=== PATIENT | female | born 1945 | race Asian ===

== ENCOUNTER 2017-01-25 00:34 | Emergency (ER) | payer BC, OTHER ==
--- NOTE | 2017-01-25 01:43 | PDOC ---
History of Present Illness - General History Source: Patient Exam Limitations: No Limitations - History of Present Illness Initial Comments: 01/25/17 02:01 The patient is a 71 year old female with a significant past medical history of gout, NIDDM, and hypertension, who presents to the ER with left shoulder pain. Patient states she was squeezing a bitter melon and suddenly developed sharp pain up the left shoulder. Patient reports she had a left rotator cuff surgery a few years ago. She says she has been taking ibuprofen and putting lidocaine patches and icy hot ointment without relief of symptoms. Patient says she is not able to sleep secondary to the left shoulder pain. Denies fever, chills, cough Denies nausea, vomiting, diarrhea Denies chest pain, heart palpitations, shortness of breath Denies diaphoresis <Felicita Pena - Last Filed: 01/25/17 02:01> <Amira Braxton - Last Filed: 01/26/17 21:59> - General Chief Complaint: Chronic pain Stated Complaint: PAIN Time Seen by Provider: 01/25/17 00:59 Past History <Felicita Pena - Last Filed: 01/25/17 02:01> - Past Medical History Asthma: Yes (mild) Cardiac Disorders: Yes (cardiac cath 1998) Diabetes: Yes HTN: Yes Hypercholesterolemia: Yes - Surgical History Cardiac Surgery: Yes Orthopedic Surgery: (left rotator cuff sx 2009) - Immunization History Immunization Up to Date: Yes - Psycho/Social/Smoking Cessation Hx Suicidal Ideation: No Smoking History: Never smoked Have you smoked in the past 12 months: No Information on smoking cessation initiated: No Hx Alcohol Use: No Drug/Substance Use Hx: No Substance Use Type: None <Amira Braxton - Last Filed: 01/26/17 21:59> - Past Medical History Allergies/Adverse Reactions: Allergies Allergy/AdvReac Type Severity Reaction Status Date / Time No Known Allergies Allergy Verified 01/25/17 01:30 Home Medications: Ambulatory Orders Atenolol [Tenormin -] 50 mg PO BID 06/17/16 Sitagliptin Phos/Metformin HCl [Janumet 50-500 mg Tablet] 1 each PO DAILY Valsartan 160 mg PO BID 06/17/16 Atorvastatin Ca [Lipitor] 40 mg PO HS #30 tablet 10/05/16 Hydrochlorothiazide [Hctz -] 25 mg PO DAILY #30 tablet 06/19/16 Indomethacin 100 mg PO BID 01/25/17 Methocarbamol [Robaxin -] 500 mg PO BID #60 tablet 01/25/17 Oxycodone HCl/Acetaminophen [Percocet 5-325 mg Tablet] 1 tab PO Q6H #20 tablet MDD 4 01/25/17 Prednisone [Deltasone -] 20 mg PO DAILY 01/25/17 Zolpidem Tartrate [Ambien] 5 mg PO HS 01/25/17 Review of Systems - Review of Systems Comments:: 01/25/17 02:02 CONSTITUTIONAL: Absent: fever, no chills, no fatigue EYES: Absent: visual changes ENT: Absent: ear pain, no sore throat CARDIOVASCULAR: Absent: chest pain, no palpitations RESPIRATORY: Absent: cough, no SOB GI: Absent: abdominal pain, no nausea, no vomiting, no constipation, no diarrhea GENITOURINARY: Absent: dysuria, no frequency, no hematuria MUSCULOSKELETAL: Present: Left shoulder pain Absent: back pain, no arthralgia, no myalgia SKIN: Absent: rash NEURO: Absent: headache <Uts,Felicita - Last Filed: 01/25/17 02:01> *Physical Exam - Vital Signs Last Vital Signs Temp Pulse Resp BP Pulse Ox 97.5 F L 78 20 197/126 98 01/25/17 01:13 01/25/17 01:13 01/25/17 01:13 01/25/17 01:13 01/25/17 01:13 - Physical Exam Comments: 01/25/17 02:02 GENERAL: Well-appearing, well-nourished. No apparent distress. HEENT: Normocephalic, atraumatic. PERRL, EOM intact. CARDIOVASCULAR: Normal S1, S2. Regular rate and rhythm. PULMONARY: Clear to auscultation bilaterally. ABDOMEN: Soft, non-distended, non-tender. EXTREMITIES: Tenderness to palpation on the lateral shoulder and superior aspect of trapezius. Normal ROM in all four extremities. No gross deformities. SKIN: Warm, dry. No rash NEUROLOGICAL: No focal neurological deficits. <Uts,Felicita - Last Filed: 01/25/17 02:01> - Vital Signs Last Vital Signs Temp Pulse Resp BP Pulse Ox 97.5 F L 78 20 197/126 98 01/25/17 01:13 01/25/17 01:13 01/25/17 01:13 01/25/17 01:13 01/25/17 01:13 <Amira Braxton - Last Filed: 01/26/17 21:59> Medical Decision Making - Medical Decision Making 01/26/17 21:58 Pt comes with chronic left shoulder and trapezius pain. Her BP is poorly controlled. Pt was treated for BP; she vomited in the ER. XR shoulder normal. She was teated with percocet and msucle relaxants. Home with the same. Follow with PMD. <Amira Braxton - Last Filed: 01/26/17 21:59> *DC/Admit/Observation/Transfer - Attestations Scribe Attestion: 01/25/17 02:03 Documentation prepared by Felicita Pena, acting as medical laboratory technical officer for Amira Bratxon MD. <Felicita Pena - Last Filed: 01/25/17 02:01> - Discharge Dispostion Admit: No <Amira Braxton - Last Filed: 01/26/17 21:59> Diagnosis at time of Disposition: Muscle spasm - Discharge Dispostion Disposition: HOME Condition at time of disposition: Stable - Prescriptions Prescriptions: Oxycodone HCl/Acetaminophen [Percocet 5-325 mg Tablet] 1 tab PO Q6H #20 tablet MDD 4 Methocarbamol [Robaxin -] 500 mg PO BID #60 tablet - Referrals Referrals: Dion Russell MD, MD [Primary Care Provider] - - Patient Instructions Printed Discharge Instructions: DI for Back Spasm
[2017-01-25] MEDS ORDERED: METHOCARBAMOL 500 MG TABLET PO ONE (01:47)
[2017-01-25] MEDS ORDERED: OXYCODONE/APAP 5/325MG COMBO TABLET PO ONE (01:47)
[2017-01-25] MEDS ORDERED: OXYCODONE/APAP 5/325MG COMBO TABLET ONE (01:53)
[2017-01-25] MEDS ORDERED: METHOCARBAMOL 500 MG TABLET ONE (01:54)
[2017-01-25 04:08] VITALS: BMI 26.2
[2017-01-25 06:55] VITALS: BP 160/80; PULSE 67; TEMP 97.4
--- NOTE | 2017-01-27 12:49 | EKG ---
Test Reason : Blood Pressure : / mmHG Vent. Rate : 061 BPM Atrial Rate : 061 BPM P-R Int : 152 ms QRS Dur : 078 ms QT Int : 440 ms P-R-T Axes : -11 -04 076 degrees QTc Int : 442 ms NORMAL SINUS RHYTHM RSR' OR QR PATTERN IN V1 SUGGESTS RIGHT VENTRICULAR CONDUCTION DELAY WHEN COMPARED WITH ECG OF 17-JUN-2016 00:42, NO SIGNIFICANT CHANGE WAS FOUND Confirmed by NATALIYA BARRIENTOS, ABDON ([id number]) on 01/27/2017 12:49:37 PM Referred By: Confirmed By:ABDON AN MD
== END 2017-01-25 06:56 | disposition home or self-care (01) ==
LOC: JER 00:34
DX: M62.838 Other muscle spasm (principal); I25.10 Atherosclerotic heart disease of native coronary artery without angina pectoris; Z98.61 Coronary angioplasty status; I10 Essential (primary) hypertension; E11.9 Type 2 diabetes mellitus without complications; Z79.84 Long term (current) use of oral hypoglycemic drugs; M10.9 Gout, unspecified; J45.909 Unspecified asthma, uncomplicated
CPT/HCPCS: 73030-TC-LT; 93005; 93010; 99282-25

== ENCOUNTER 2017-01-26 16:50 | Inpatient (IN) | payer BC, OTHER ==
[2017-01-26] MEDS ORDERED: morphine CARPU-JECT 4 MG/1 ML DISP.SYRIN IVPUSH ONE (17:41)
[2017-01-26] MEDS ORDERED: KETOROLAC TROMETHAMINE 30 MG/1 ML VIAL IVPUSH ONE (17:41)
[2017-01-26] MEDS ORDERED: KETOROLAC TROMETHAMINE 30 MG/1 ML VIAL ONE (17:54)
[2017-01-26] MEDS ORDERED: morphine CARPU-JECT 4 MG/1 ML DISP.SYRIN ONE (17:54)
[2017-01-26 17:56] LABS: BASOPHIL 0.3 % (0-2.0); EOSINOPHIL 0.9 % (0-4.5); MCH 30.5 pg (25.7-33.7); MCHC 34.1 g/dl (32.0-36.0); MEAN CELL VOLUME 89.6 fl (80-96); MEAN PLT VOLUME 8.5 fl (7.5-11.1); NEUTROPHILS 74.5 % (42.8-82.8); PLATELET COUNT 305 K/MM3 (134-434); RDW 12.5 % (11.6-15.6); WHITE BLOOD COUNT 13.1 K/mm3 (4.0-10.0)
--- NOTE | 2017-01-26 17:56 | PDOC ---
History of Present Illness - History of Present Illness Initial Comments: 01/26/17 18:02 The patient is a 71-year-old female with a significant past medical history of hypertension, diabetes, hyperlipidemia, gout, left shoulder arthroscopy (2010), who presents to the emergency department for revisit with persistent pain to her left upper extremity for 2 weeks s/p squeezing a lemon to make a salad. The patient states she was seen in the ED twice for the same symptoms in the past 2 weeks and had 2 xrays which were negative for any acute fractures or abnormalities. The patient reports her pain is constant and radiates from the back of her neck down her left shoulder, posteriorly. She denies numbness or tingling. She denies acute injury. She denies biceps tenderness. The Patient states she was here 2 days ago and was discharged with Riboxin and Percocet which minimally alleviated her pain. She also reports taking a 10 day course of 20 mg prednisone daily for the inflammation, but reports no alleviation of her symptoms. She states that the pain has been causing her blood pressure to raise despite taking her BP medications. She denies chest pain, shortness of breath, headache and dizziness. She denies fever, chills, nausea, vomit, diarrhea and constipation. She denies dysuria, frequency, urgency and hematuria. Allergies: NKDA Past surgical history: left shoulder distal clavicle resection (2010) PCP - Dr. Russell Orthopedist - Dr. Syed <Kimberly Vega - Last Filed: 01/26/17 18:15> - General History Source: Patient, Family Exam Limitations: No Limitations <Davide Sawant - Last Filed: 01/28/17 09:11> - General Chief Complaint: Blood Pressure Problem Stated Complaint: RE-VIST/MUSCLE SPASM Time Seen by Provider: 01/26/17 17:26 Past History <Kimberly Vega - Last Filed: 01/26/17 18:15> - Past Medical History Asthma: Yes (mild) Cardiac Disorders: Yes (cardiac cath 1998) Diabetes: Yes HTN: Yes Hypercholesterolemia: Yes - Surgical History Cardiac Surgery: Yes Orthopedic Surgery: (left rotator cuff sx 2009) - Immunization History Immunization Up to Date: Yes - Psycho/Social/Smoking Cessation Hx Suicidal Ideation: No Smoking History: Never smoked Have you smoked in the past 12 months: No Hx Alcohol Use: No Drug/Substance Use Hx: No Substance Use Type: None <Davide Sawant - Last Filed: 01/28/17 09:11> - Past Medical History Allergies/Adverse Reactions: Allergies Allergy/AdvReac Type Severity Reaction Status Date / Time No Known Allergies Allergy Verified 01/26/17 17:10 Home Medications: Ambulatory Orders Atenolol [Tenormin -] 50 mg PO BID 06/17/16 Sitagliptin Phos/Metformin HCl [Janumet 50-500 mg Tablet] 1 each PO DAILY Valsartan 160 mg PO BID 06/17/16 Atorvastatin Ca [Lipitor] 40 mg PO HS #30 tablet 06/19/16 Hydrochlorothiazide [Hctz -] 25 mg PO DAILY #30 tablet 06/19/16 Methocarbamol [Robaxin -] 500 mg PO BID #60 tablet 01/25/17 Oxycodone HCl/Acetaminophen [Percocet 5-325 mg Tablet] 1 tab PO Q6H #20 tablet MDD 4 01/25/17 Aspirin [ASA -] 81 mg PO DAILY 01/26/17 Review of Systems - Review of Systems Able to Perform ROS?: Yes Comments:: 01/26/17 18:07 GENERAL/CONSTITUTIONAL: No fever or chills. No weakness. HEAD, EYES, EARS, NOSE AND THROAT: No change in vision. No ear pain or discharge. No sore throat. CARDIOVASCULAR: No chest pain or shortness of breath. RESPIRATORY: No cough, wheezing, or hemoptysis. GASTROINTESTINAL: No nausea, vomiting, diarrhea or constipation. GENITOURINARY: No dysuria, frequency, or change in urination. MUSCULOSKELETAL: (+) left shoulder pain radiating from posterior neck. No muscle swelling or pain. No back pain. SKIN: No rash NEUROLOGIC: No headache, vertigo, loss of consciousness, or change in strength/ sensation. ENDOCRINE: No increased thirst. No abnormal weight change. HEMATOLOGIC/LYMPHATIC: No anemia, easy bleeding, or history of blood clots. ALLERGIC/IMMUNOLOGIC: No hives or skin allergy. <Kimberly Vega - Last Filed: 01/26/17 18:15> *Physical Exam - Vital Signs Last Vital Signs Temp Pulse Resp BP Pulse Ox 97.9 F 63 19 183/86 95 01/26/17 17:10 01/26/17 17:10 01/26/17 17:10 01/26/17 17:10 01/26/17 17:10 - Physical Exam Comments: 01/26/17 18:08 GENERAL: Awake, alert, and fully oriented, in no acute distress HEAD: No signs of trauma EYES: PERRLA, EOMI, sclera anicteric, conjunctiva clear ENT: Auricles normal inspection, hearing grossly normal, nares patent, oropharynx clear without exudates. Moist mucosa NECK: Normal ROM, supple, no lymphadenopathy, JVD, or masses LUNGS: Breath sounds equal, clear to auscultation bilaterally. No wheezes, and no crackles HEART: Regular rate and rhythm, normal S1 and S2, no murmurs, rubs or gallops ABDOMEN: Soft, nontender, normoactive bowel sounds. No guarding, no rebound. No masses EXTREMITIES: (+) LUE - Pain with ROM of the left shoulder joint. muscle spasm appreciated to left trapezius. Full flexion/extension at left elbow. non-tender biceps. DP 2+ and symmetric. No ecchymosis or edema. Sensation intact to light touch. [Remainder of extremities have normal range of motion, no edema. MS 5/5. No clubbing or cyanosis. No cords, erythema, or tenderness] NEUROLOGICAL: Cranial nerves II-XII intact. Normal speech, normal gait. Sensation intact in upper and lower extremities. 5/5 motor strength in upper and lower extremities. No pronator drift. Finger to nose intact. Rapid alternations intact. SKIN: Warm, Dry, normal turgor, no rashes or lesions noted. <Kimberly Vega - Last Filed: 01/26/17 18:15> - Vital Signs Last Vital Signs Temp Pulse Resp BP Pulse Ox 97.9 F 63 19 183/86 95 01/26/17 17:10 01/26/17 17:10 01/26/17 17:10 01/26/17 17:10 01/26/17 17:10 <Davide Sawant - Last Filed: 01/28/17 09:11> Heart Score/ECG Review - History History: Slightly suspicious - Electrocardiogram EKG: Normal - Age Age: >/= 65 - Risk Factors Based on the list above the patient has:: >/=3 risk factors or Hx atherosclerotic disease - Troponin Troponin: </= normal limit - Score Heart Score - Total: 4 #1 ECG reviewed & interpreted by me at: 17:30 01/26/17 18:00 NSR 63, no std/sony, normal axis, normal intervals, QTC 437 msec <Davide Sawant - Last Filed: 01/28/17 09:11> ED Treatment Course - LABORATORY CBC & Chemistry Diagram: 01/26/17 17:50 01/26/17 17:50 <Kimberly Vega - Last Filed: 01/26/17 18:15> - LABORATORY CBC & Chemistry Diagram: 01/28/17 05:15 01/28/17 05:15 - RADIOLOGY Radiology Studies Ordered: Category Date Time Status UPPER EXTREMITY CT W/O CONTR [CT] Stat CT Scan 01/26/17 17:41 Ordered <Davide Sawant - Last Filed: 01/28/17 09:11> Medical Decision Making - Medical Decision Making 01/26/17 17:44 A portion of this note was documented by scribe services under my direction. I have reviewed the details of the note, within reason, and agree with the documentation with the following case summary and management plan written by me. Patient treated in the ED. Nursing notes are reviewed and incorporated into the medical decision-making. Vital signs reviewed. Peripheral IV access obtained by the nurse, laboratory studies are drawn and sent, reviewed and interpreted by myself. Vital Signs Temp Pulse Resp BP Pulse Ox 97.9 F 63 19 183/86 95 01/26/17 17:10 01/26/17 17:10 01/26/17 17:10 01/26/17 17:10 01/26/17 17:10 71-year-old female with past medical history of hypertension, diabetes, hyperlipidemia, gout, left shoulder surgery many years ago presents with left shoulder spasm. Patient reports 2 weeks ago she attempted to squeeze a lemon when she felt sudden left shoulder pain. She reports that the pain is constant worsened with movements. She was seen in the ED and has had 2 x-rays within the last 2 weeks which demonstrated no acute finding. Patient was here 2 days ago and was discharged with Riboxin and Percocet which relieved it minimally. Patient also had taken a 10 day course of 20 mg prednisone daily for the inflammation but did not help. States that the pain has been causing her blood pressure to raise despite taking the medications. States that the pain is symptoms fighter felt nauseous. But denies midsternal chest pain or shortness of breath. The patient on physical exam appears to clearly have left shoulder muscle spasm. However, given 2 negative x-rays, we'll obtain left shoulder CT. We'll give pain medications. Unlikely to be acute coronary syndrome at this time. EKG is reassuring. Patient does have a history with Dr. Syed. Will consult Dr. Syed with the results. 01/26/17 19:35 CBC, BMP 01/26/17 17:50 CMP Sodium 118 mmol/L (136-145) L* D 01/26/17 17:50 Potassium 4.4 mmol/L (3.5-5.1) 01/26/17 17:50 Chloride 78 mmol/L (98-107) L D 01/26/17 17:50 Carbon Dioxide 27 mmol/L (21-32) 01/26/17 17:50 Anion Gap 13 (8-16) 01/26/17 17:50 BUN 14 mg/dL (7-18) 01/26/17 17:50 Creatinine 0.6 mg/dL (0.55-1.02) D 01/26/17 17:50 Creat Clearance w eGFR > 60 (>60) 01/26/17 17:50 Random Glucose 145 mg/dL (74-106) H 01/26/17 17:50 Calcium 8.6 mg/dL (8.5-10.1) 01/26/17 17:50 Total Bilirubin 1.0 mg/dL (0.2-1.0) D 01/26/17 17:50 AST 27 U/L (15-37) D 01/26/17 17:50 ALT 39 U/L (12-78) D 01/26/17 17:50 Alkaline Phosphatase 84 U/L (45-117) D 01/26/17 17:50 Creatine Kinase 101 IU/L (26-192) 01/26/17 17:50 Troponin I < 0.02 ng/ml (0.00-0.05) 01/26/17 17:50 Total Protein 7.0 g/dl (6.4-8.2) 01/26/17 17:50 Albumin 4.0 g/dl (3.4-5.0) 01/26/17 17:50 Interestingly, pt's NA is 118. Could this be causing the spasm? CT shoulder pending. Case discussed with DR. Simmons. She accepts the patient to med/surg admission. Case discussed in detail with admitting physician including history, physical exam and ancillary studies. Admitting physician has assumed care for the patient, will follow all pending diagnostics and will complete the evaluation and treatment. <Davide Sawant - Last Filed: 01/28/17 09:11> *DC/Admit/Observation/Transfer - Attestations Scribe Attestion: 01/26/17 18:14 Documentation prepared by Kimberly Vega, acting as medical assistant prn for Davide Sawant MD, <Kimberly Vega - Last Filed: 01/26/17 18:15> - Discharge Dispostion Admit: Yes <Davide Sawant - Last Filed: 01/28/17 09:11> Diagnosis at time of Disposition: Muscle spasm, Hyponatremia - Referrals
[2017-01-26 18:28] LABS: CALCIUM 8.6 mg/dL (8.5-10.1); CO2 27 mmol/L (21-32); COCKROFT - GAULT 77.605; CREATININE 0.6 mg/dL (0.55-1.02); GLUCOSE,RANDOM 145 mg/dL (74-106); SGPT/ALT 39 U/L (12-78)
[2017-01-26 18:31] LABS: ALK PHOS 84 U/L (45-117); TROPONIN I < 0.02 ng/ml (0.00-0.05)
[2017-01-26 18:42] LABS: SGOT/AST 27 U/L (15-37)
[2017-01-26 18:44] LABS: ANION GAP 13 (8-16)
--- NOTE | 2017-01-26 19:31 | PN ---
<Nohemi Simmons - Last Filed: 01/26/17 19:30> Teaching Attending Note Name of Resident: Desiree Coates ATTENDING PHYSICIAN STATEMENT I saw and evaluated the patient. I reviewed the resident's note and discussed the case with the resident. I agree with the resident's findings and plan as documented. SUBJECTIVE: OBJECTIVE: ASSESSMENT AND PLAN: <eDe Lincoln - Last Filed: 01/27/17 04:10> Teaching Attending Note ATTENDING PHYSICIAN STATEMENT I saw and evaluated the patient. I reviewed the resident's note and discussed the case with the resident. I agree with the resident's findings and plan as documented. SUBJECTIVE: 71 yo F with a PMHx of HTN, HLD, DM, gout, left shoulder arthroscopy (2010) presents with LUE pain which has been persistent for 2 weeks in duration. Patient denies injury, numbness or tingling. Patient states she has been on 20 mg of Prednisone daily for the inflammation. One episode of nonbilious nonbloody vomiting x1 immediately after eating. Stated she felt a little lightheaded before vomiting. OBJECTIVE: Last Vital Signs Temp Pulse Resp BP Pulse Ox 97.1 F L 63 20 154/76 97 01/26/17 22:56 01/26/17 22:56 01/26/17 22:56 01/26/17 22:56 01/26/17 23:05 GENERAL: Awake, alert, and fully oriented, in no acute distress HEENT: Atraumatic. PERRLA, EOMI. Moist mucosa. No JVD LUNGS: No distress, speaks full sentences, clear to auscultation bilaterally HEART: Regular rate and rhythm, normal S1 and S2, no murmurs, rubs or gallops, peripheral pulses normal and equal bilaterally. ABDOMEN: Soft, nontender, normoactive bowel sounds. No guarding, no rebound. No masses EXTREMITIES: L shoulder limited ROM past 45 degrees, no edema. No clubbing or Cyanosis. NEUROLOGICAL: Cranial nerves II through XII grossly intact. Normal speech, gait not assessed, no focal sensorimotor deficits SKIN: Warm, Dry, normal turgor, no rashes or lesions noted. CBCD WBC 13.1 K/mm3 (4.0-10.0) H D 01/26/17 17:50 RBC 4.68 M/mm3 (3.60-5.2) 01/26/17 17:50 Hgb 14.3 GM/dL (10.7-15.3) 01/26/17 17:50 Hct 41.9 % (32.4-45.2) 01/26/17 17:50 MCV 89.6 fl (80-96) 01/26/17 17:50 MCHC 34.1 g/dl (32.0-36.0) 01/26/17 17:50 RDW 12.5 % (11.6-15.6) 01/26/17 17:50 Plt Count 305 K/MM3 (134-434) 01/26/17 17:50 MPV 8.5 fl (7.5-11.1) 01/26/17 17:50 CMP Sodium 118 mmol/L (136-145) L* 01/26/17 18:30 Potassium 4.6 mmol/L (3.5-5.1) 01/26/17 18:30 Chloride 78 mmol/L (98-107) L 01/26/17 18:30 Carbon Dioxide 30 mmol/L (21-32) 01/26/17 18:30 Anion Gap 10 (8-16) 01/26/17 18:30 BUN 16 mg/dL (7-18) 01/26/17 18:30 Creatinine 0.6 mg/dL (0.55-1.02) 01/26/17 18:30 Creat Clearance w eGFR > 60 (>60) 01/26/17 17:50 Calcium 8.7 mg/dL (8.5-10.1) 01/26/17 18:30 Total Bilirubin 1.0 mg/dL (0.2-1.0) D 01/26/17 17:50 AST 27 U/L (15-37) D 01/26/17 17:50 ALT 39 U/L (12-78) D 01/26/17 17:50 Alkaline Phosphatase 84 U/L (45-117) D 01/26/17 17:50 Total Protein 7.0 g/dl (6.4-8.2) 01/26/17 17:50 Albumin 4.0 g/dl (3.4-5.0) 01/26/17 17:50 ECG: NSR @63 QTC 437 ASSESSMENT AND PLAN: 71 yo F with a PMHx of HTN, HLD, DM, gout, left shoulder arthroscopy (2010) who presents with shoulder pain found to be severely hyponatremic. 1.) Hyponatremia -STAT urine osmos, urine lytes -DDX thiazide diuretic induced/hyponatremia vs SIDH. Most likely due to thiazide diuretic. -Recheck na in 4 hours -do not increase sodium more than 6 milliequivalents in 24 hours -Hold hydrochlorothiazide -Check sodium Q 4 2.) Shoulder pain -avulsed fragment of unknown age, consider ortho consult in AM -Continue percocet for pain 3.) HTN -Hold hydrochlorothiazide -Continue ARB -Continue beta lona 4.) DM -Continue home meds -Sliding scale -Diabetic diet 5.) HLD -Continue statin DVT ppx -Heparin 5000 Q 8 Documentation is prepared by Dee Lincoln acting as medical communication specialist for Nohemi Simmons D.O.
[2017-01-26] MEDS ORDERED: SODIUM CHLORIDE 0.9% 500 ML INFUS.BAG IV ONE (19:57)
[2017-01-26] MEDS ORDERED: ACETAMINOPHEN 1000 MG/100 ML VIAL (NON FORMULARY) IVPB ONE (19:59)
[2017-01-26 20:01] LABS: CALCIUM 8.7 mg/dL (8.5-10.1); COCKROFT - GAULT 77.605; CREATININE 0.6 mg/dL (0.55-1.02)
[2017-01-26] MEDS ORDERED: ACETAMINOPHEN INJECTION 100 ML IVPB ONE (20:49)
[2017-01-26] MEDS ORDERED: ACETAMINOPHEN 325 MG TABLET (FP) PO PRN (21:35)
--- NOTE | 2017-01-26 22:02 | HP ---
CHIEF COMPLAINT: "my shoulder hurts" PCP: Dr Russell Ortho: Dr Syed HISTORY OF PRESENT ILLNESS: This is a 71 yo F with PMH of NIDDM, HTN, HLD, gout affecting L 1st toe, and L shoulder arthroscopy in 2010, who returns to ED after her prior visit 2 days ago due to persistent L shoulder pain. She has been in 2 Ed's over the past 2 weeks and had 2 normal x rays. Her shoulder pain started 2 w ago after cooking and mildly exerting her arms. It is constant and aggravated by any shoulder movement but alleviated by sling. She reports limited ROM in L shoulder. She recently completed a 10 d course of prednisone 20 which did not alleviate her pain. She was previously in mortrin, which provided little relief and caused epigastric pain that started 1 w ago and is alleviated by eating. In this ED 2 d ago she was prescribed Riboxin and Percocet, which provides mild relief of pain. She vomited once this morning NBNB, food contents after a dizzy spell caused by standing up quickly. She denies history of low Na and has been on HCTZ 25 d for the past 6 mo, normal Na recorded 12/07/16. She denies drinking excessive water, headaches, tremors, lethargy, myalgia, oliguria or polyuria, anxiety, weight change, hot/cold flashes. Her last a1c was 8. She denies sob, caught, chest pain, f/c, dysuria, diarrhea, constipation. ER course was notable for: (1)labs (2)ekg, L shoulder ct (3)morphine, NS IVF, Recent Travel: denies PAST MEDICAL HISTORY: as above PAST SURGICAL HISTORY: c section x 3, L shoulder arthroscopy in 2010, r eye surgery Social History: lives with Smoking: denies Alcohol:denies Drugs: denies Family History: Dm, HTN, no other endocrine disease, kidney disease, brain tumors. Allergies No Known Allergies Allergy (Verified 01/26/17 17:10) HOME MEDICATIONS: Home Medications Medication Instructions Recorded Atenolol [Tenormin -] 50 mg PO BID 06/17/16 Sitagliptin Phos/Metformin HCl 1 each PO DAILY 06/17/16 [Janumet 50-500 mg Tablet] Valsartan 160 mg PO BID 06/17/16 Atorvastatin Ca [Lipitor] 40 mg PO HS #30 tablet 06/19/16 Hydrochlorothiazide [Hctz -] 25 mg PO DAILY #30 tablet 06/19/16 Indomethacin 100 mg PO BID 01/25/17 Methocarbamol [Robaxin -] 500 mg PO BID #60 tablet 01/25/17 Oxycodone HCl/Acetaminophen 1 tab PO Q6H #20 tablet MDD 4 01/25/17 [Percocet 5-325 mg Tablet] Prednisone [Deltasone -] 20 mg PO DAILY 01/25/17 Zolpidem Tartrate [Ambien] 5 mg PO HS 01/25/17 REVIEW OF SYSTEMS CONSTITUTIONAL: Absent: fever, chills, generalized weakness, malaise, loss of appetite, weight change HEENT: Absent: rhinorrhea, nasal congestion, throat pain, visual changes CARDIOVASCULAR: Absent: chest pain, syncope, palpitations, irregular heart rate, peripheral edema RESPIRATORY: Absent: cough, shortness of breath GASTROINTESTINAL: Absent: abdominal pain, abdominal distension, diarrhea, constipation, melena, hematochezia GENITOURINARY: Absent: dysuria, hematuria, flank pain MUSCULOSKELETAL: Absent: myalgia SKIN: Absent: rash, itching, pallor HEMATOLOGIC/IMMUNOLOGIC: Absent: frequent infections ENDOCRINE: Absent: unexplained weight gain, unexplained weight loss, heat intolerance, cold intolerance NEUROLOGIC: Absent: headache, focal weakness or paresthesias, dizziness, unsteady gait, seizure, mental status changes PSYCHIATRIC: Absent: anxiety Laboratory Tests 01/26/17 01/26/17 17:50 17:50 WBC 13.1 H D Hgb 14.3 Hct 41.9 Plt Count 305 Sodium 118 L* D Potassium 4.4 Chloride 78 L D Carbon Dioxide 27 Anion Gap 13 BUN 14 Creatinine 0.6 D Creat Clearance w eGFR > 60 Random Glucose 145 H Calcium 8.6 Total Bilirubin 1.0 D AST 27 D ALT 39 D Alkaline Phosphatase 84 D Creatine Kinase 101 Troponin I < 0.02 Total Protein 7.0 Albumin 4.0 PHYSICAL EXAMINATION GENERAL: Awake, alert, and fully oriented, in no acute distress. HEAD: Normal with no signs of trauma. EYES: Pupils equal, round and reactive to light, extraocular movements intact, sclera anicteric, conjunctiva clear. No lid lag. EARS, NOSE, THROAT: oropharynx clear without exudates. Moist mucous membranes. NECK: supple without lymphadenopathy, JVD, or masses. LUNGS: mild bibasilar crackles HEART: Regular rate and rhythm, normal S1 and S2 without murmur ABDOMEN: Soft, mildly tender epigastric region, not distended, normoactive bowel sounds, no guarding, no rebound, no masses. No hepatomegaly or splenomegaly. MUSCULOSKELETAL: R shoulder full ROM, L shoulder moderately restricter passive and active ROM in all directins, No CVA tenderness. UPPER EXTREMITIES: 2+ pulses, warm, well-perfused. LOWER EXTREMITIES: 2+ pulses, warm, well-perfused. No calf tenderness. No peripheral edema. NEUROLOGICAL: Cranial nerves II-XII grossly intact. Normal speech. PSYCHIATRIC: Cooperative. Good eye contact. Appropriate mood and affect. SKIN: Warm, dry ASSESSMENT/PLAN: This is a 71 yo F with PMH of NIDDM, HTN, HLD, gout affecting L 1st toe, and L shoulder arthroscopy in 2010, who returns to ED after her prior visit 2 days ago due to persistent L shoulder pain. Asymptomatic hyponatremia -Na 118, recorded wnl in november -unidentified cause -Na deficit 640 meq, will tread with fluid restriction x 24 hr first -calculate urine osmolality; -f/u urine lytes, creat, Na, glucose, urea, protein -adh level, TSH, Ft4 -UA -renal consult -potential causes include (low ADH):HCTZ, nephrotic syndrome, primary polydypsia; (high ADH): SIADH, incresed cortisol due to pain, adrenal insufficiency (Increse in [facility]) L shoulder pain -diffusely limited ROM in setting of previous surgery 2010 -suspect calcific tendonitis -f/u CT -PT -f/u with Dr Syed outpatient, will need PT Epigastric pain -likely gastritis associated with NSAIDS and prednisone -avoid inciting mets -PPI 40 d NIDDM -hold janumet -BGM TIDAC -Novolog sliding scale HTN -continue home atenolol 50 bid, valsartan 160 bid -hold HCTZ 25 HLD -lipitor 40 HS FEN fluid restrict monitor NA, CL Diabetic diet TEDS, PPI Dispo: med ariel Problem List - Problem (1) Hyponatremia Code(s): E87.1 - HYPO-OSMOLALITY AND HYPONATREMIA (2) Muscle spasm Code(s): M62.838 - OTHER MUSCLE SPASM (3) Diabetes Code(s): E11.9 - TYPE 2 DIABETES MELLITUS WITHOUT COMPLICATIONS Qualifiers: Diabetes mellitus type: type 2 Diabetes mellitus complication status: without complication 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: without care home use Qualified Code(s): E11.9 - Type 2 diabetes mellitus without complications (4) HTN (hypertension) Code(s): I10 - ESSENTIAL (PRIMARY) HYPERTENSION Qualifiers: Hypertension type: essential hypertension Qualified Code(s): I10 - Essential (primary) hypertension (5) Hyperlipidemia Code(s): E78.5 - HYPERLIPIDEMIA, UNSPECIFIED Qualifiers: Hyperlipidemia type: pure hypercholesterolemia Visit type - Emergency Visit Emergency Visit: Yes ED Registration Date: 01/26/17 Care time: The patient presented to the Emergency Department on the above date and was hospitalized for further evaluation of their emergent condition. - New Patient This patient is new to me today: Yes Date on this admission: 01/26/17 - Critical Care Critical Care patient: No
[2017-01-26] MEDS ORDERED: OXYCODONE/APAP 5/325MG COMBO TABLET PO SCH (22:45)
[2017-01-26 23:01] VITALS: BMI 26.9
[2017-01-26 23:35] LABS: URINE APPEARANCE CLEAR; URINE BILIRUBIN NEGATIVE (NEGATIVE); URINE BLOOD NEGATIVE (NEGATIVE); URINE COLOR STRAW; URINE GLUCOSE (UA) 1+ (NEGATIVE); URINE KETONE TRACE (NEGATIVE); URINE LEUK ESTERASE 1+ (NEGATIVE); URINE NITRITE NEGATIVE (NEGATIVE); URINE PROTEIN 2+ (NEGATIVE); URINE UROBILINOGEN NEGATIVE E.U./dl (0.2-1.0)
[2017-01-26 23:40] LABS: URINE BACTERIA RARE /hpf (NONE SEEN); URINE RBC 4 /hpf (0-3); URINE WBC 6 /hpf (3-5)
[2017-01-26] MEDS ORDERED: ATORVASTATIN CA 40 MG TABLET (FP) PO SCH (23:45)
[2017-01-26] MEDS: ATENOLOL 50 MG TABLET (FP) PO SCH (23:46)
[2017-01-26] MEDS: VALSARTAN 160 MG TABLET (UD) PO SCH (23:46)
[2017-01-27] MEDS: METHOCARBAMOL 500 MG TABLET PO SCH ×3 (00:17→22:02)
[2017-01-27 02:53] LABS: OSMOLALITY,SERUM 256 mosm/kg (278-305)
[2017-01-27 04:02] LABS: COCKROFT - GAULT 80.8605; CREATININE 0.6 mg/dL (0.55-1.02)
[2017-01-27 04:30] LABS: FREE T4 1.45 ng/dl (0.76-1.46); THYROID STIMULATING HORMONE 0.79 uIU/ml (0.358-3.74)
[2017-01-27] MEDS: INSULIN SLIDING SCALE (NOVOLOG) 1 VIAL SQ SCH ×3 (06:32→16:37)
[2017-01-27] MEDS: ACETAMINOPHEN 325 MG TABLET (FP) PO PRN ×2 (08:36→15:41)
[2017-01-27] MEDS: oxyCODONE HCL 5 MG TABLET PO PRN ×2 (08:37→15:40)
[2017-01-27 08:48] LABS: CALCIUM 8.5 mg/dL (8.5-10.1); COCKROFT - GAULT 68.1955; CREATININE 0.7 mg/dL (0.55-1.02); MAGNESIUM 1.9 mg/dL (1.8-2.4); PHOSPHOROUS 2.9 mg/dL (2.5-4.9)
[2017-01-27] MEDS ORDERED: INSULIN (NOVOLOG) ASPART 100 UNITS/ML 10ML VIAL ONE (09:59)
[2017-01-27] MEDS ORDERED: PT OWN MED DRAWER 7, Y5N ONE (09:59)
[2017-01-27] MEDS ORDERED: ATENOLOL 50 MG TABLET (FP) PO SCH (10:00)
[2017-01-27] MEDS ORDERED: VALSARTAN 160 MG TABLET (UD) PO SCH (10:00)
[2017-01-27] MEDS ORDERED: VALSARTAN 160 MG PO SCH (10:00)
[2017-01-27] MEDS ORDERED: METHOCARBAMOL 500 MG TABLET PO SCH (10:00)
[2017-01-27] MEDS ORDERED: PANTOPRAZOLE 40 MG TABLET (FP) PO SCH (10:00)
[2017-01-27] MEDS: ATENOLOL 50 MG TABLET (FP) PO SCH ×2 (10:01→22:02)
[2017-01-27] MEDS: VALSARTAN 160 MG TABLET (UD) PO SCH ×2 (10:01→22:03)
--- NOTE | 2017-01-27 10:15 | PN ---
Physical Exam: SUBJECTIVE: Patient seen and examined at bed side this morning. No complaints. Denies chest pain, sob, cough, palpitation, abdominal pain, nausea or vomiting. Patient mentioned that she vomited yesterday, almost 1/2 a bucket, 1 episode, containing food particles. Since then she has a feeling something sticking in her throat. Patient reports she was unaware that she had hyponatremia when her blood was checked as outpatient. Infact, she was always told her sodium remains in the higher side and was on salt restricted diet. OBJECTIVE: Vital Signs Period Temp Pulse Resp BP Sys/Duvall Pulse Ox Last 24 Hr 97.1 F-98.0 F 60-64 16-20 142-166/71-77 97-100 GENERAL: Moderately built female, patient is awake, alert, and fully oriented, in no acute distress. HEAD: Normal with no signs of trauma. EYES: EOM intact, no pallor or icterus. ENT: Ears normal, moist mucous membranes. NECK: Trachea midline, full range of motion, supple. LUNGS: Breath sounds equal, clear to auscultation bilaterally, no wheezes, no crackles, no accessory muscle use. HEART: Regular rate and rhythm, S1, S2 without murmur. ABDOMEN: Soft, nontender, nondistended, normoactive bowel sounds, no guarding, no rebound, no hepatosplenomegaly, no masses. EXTREMITIES: 2+ pulses, warm, well-perfused, no edema. NEUROLOGICAL: Cranial nerves II through XII grossly intact. Normal speech, Normal gait. PSYCH: Normal mood, normal affect. SKIN: Warm, dry, normal turgor, no rashes or lesions noted Laboratory Results - last 24 hr 01/26/17 01/26/17 01/26/17 23:02 23:02 23:02 Sodium Potassium Chloride Carbon Dioxide Anion Gap BUN Creatinine POC Glucometer Random Glucose Serum Osmolality Calcium Phosphorus Magnesium TSH Free T4 Urine Color Urine Appearance Urine pH Ur Specific Eclectic Urine Protein Urine Glucose (UA) Urine Ketones Urine Blood Urine Nitrite Urine Bilirubin Urine Urobilinogen Ur Leukocyte Esterase Urine RBC Urine WBC Ur Epithelial Cells Urine Bacteria Urine Osmolality Ur Random Sodium 119 Ur Random Potassium 20.1 Ur Random Chloride 116 Ur Random Urea Nitrogn 373 Urine Creatinine 22.5 01/26/17 01/27/17 01/27/17 23:20 00:15 00:15 Sodium Potassium Chloride Carbon Dioxide Anion Gap BUN Creatinine POC Glucometer Random Glucose Serum Osmolality 256 L Calcium Phosphorus Magnesium TSH 0.79 D Free T4 1.45 Urine Color Straw Urine Appearance Clear Urine pH 7.0 D Ur Specific Eclectic 1.015 Urine Protein 2+ H Urine Glucose (UA) 1+ H Urine Ketones Trace H Urine Blood Negative Urine Nitrite Negative Urine Bilirubin Negative Urine Urobilinogen Negative Ur Leukocyte Esterase 1+ H Urine RBC 4 Urine WBC 6 Ur Epithelial Cells Few Urine Bacteria Rare Urine Osmolality 454 Ur Random Sodium Ur Random Potassium Ur Random Chloride Ur Random Urea Nitrogn Urine Creatinine 01/27/17 01/27/17 01/27/17 01:55 05:40 07:10 Sodium 120 L* 118 L* Potassium 4.1 4.1 Chloride 78 L 79 L Carbon Dioxide 28 30 Anion Gap 14 9 BUN 13 13 Creatinine 0.6 0.7 POC Glucometer 131 Random Glucose 176 H 134 H D Serum Osmolality Calcium 8.0 L 8.5 Phosphorus 2.9 D Magnesium 1.9 TSH Free T4 Urine Color Urine Appearance Urine pH Ur Specific Eclectic Urine Protein Urine Glucose (UA) Urine Ketones Urine Blood Urine Nitrite Urine Bilirubin Urine Urobilinogen Ur Leukocyte Esterase Urine RBC Urine WBC Ur Epithelial Cells Urine Bacteria Urine Osmolality Ur Random Sodium Ur Random Potassium Ur Random Chloride Ur Random Urea Nitrogn Urine Creatinine Active Medications Generic Name Dose Route Start Last Admin Trade Name Freq PRN Reason Stop Dose Admin Acetaminophen 325 mg 01/26/17 22:42 01/27/17 08:36 Tylenol - PO 325 mg Q6H PRN Administration PAIN Atenolol 50 mg 01/26/17 23:45 01/27/17 10:01 Tenormin - PO 50 mg BID TITI Administration Atorvastatin Calcium 40 mg 01/26/17 23:45 01/26/17 23:46 Lipitor - PO 40 mg HS TITI Administration Insulin Aspart 1 vial 01/27/17 07:00 01/27/17 10:13 Novolog Vial Sliding Scale - SQ 2 unit TIDAC TITI Administration Protocol Methocarbamol 500 mg 01/26/17 23:45 01/27/17 10:01 Robaxin - PO 500 mg BID TITI Administration Oxycodone HCl 5 mg 01/26/17 22:42 01/27/17 08:37 Roxicodone - PO 5 mg Q6H PRN Administration PAIN Pantoprazole Sodium 40 mg 01/27/17 10:00 01/27/17 10:01 Protonix - PO 40 mg DAILY TITI Administration Valsartan 160 mg 01/26/17 23:45 01/27/17 10:01 Diovan - PO 160 mg BID TITI Administration ASSESSMENT/PLAN: Patient is a 71 year of female with significant past medical history of NIDDM, HTN, HLD, gout affecting L 1st toe, and L shoulder arthroscopy in 2010, who returned to ED after her prior visit 2 days ago due to persistent L shoulder pain. # Asymptomatic likely due to hypoosmolar hyponatremia Incidental finding on admission: Na 118 which was normal in 12/07/2016 In the ED, 1L of IV fluid was given but the sodium level decreased hence was treated overnight with fluid restriction This morning, repeat Na was 118 meq/L Renal consult appreciated Most likely patient's hyponatremia is due to home medication (on diuretics). However, needs further evaluation. Patient did have one episode of vomiting yesterday but unsure if hyponatremia caused the vomiting or if vomiting caused hyponatremia. Urine electrolytes: Ur.Sodium:119; Potassium 20.1; random chloride 116; urea nitrogen 373, creatinine 22.5 Urine osmolality 454 ADH pending TSH: Normal. Now transferred to the ICU With low sodium, has possibility of seizures hence fall precautions IV NS @ 125mls/hr Sodium chloride tablets 1 tab TID CMP @ 16:00: Sodium 118, unchanged. Next BMP @ 10pm, if sodium level improves continue with IV fluids or else plan is to start with 3% hypertonic saline. Stop Indomethacin # Left shoulder pain likely musculoskeletal pain Had left shoulder surgery 7 years ago (By Dr. Syed's group. But recently pain started 2 w ago after cooking and mildly exerting her arms. Physical therapy requested Tylenol prn # Diabetes Mellitus HbA1c ordered for am Hold Janumet, continue Insulin sliding scale Finger stick glucose monitoring Watch for hypoglycemic symptoms. # Epigastric pain-resolving most likely due to gastritis associated with NSAIDS and prednisone PPI 40 daily Zofran PRN # Hypertension: unstable continue home atenolol 50 bid, valsartan 160 bid HCTZ 25mg on hold since it might be one of the causes of hyponatremia Sodium restricted diet # Hyperlipidemia Continue lipitor 40 HS # FEN IV NS @ 125 mls/hr Pending Eleectrolytes @ 16:00 and to repeat it tomorrow. Diabetic and sodium controlled diet # Prophylaxis For DVT: SCD's For GI: On Pantoprazole # Dispo: Was admitted in med surg but now transferred to the ICU. Duration of stay unknown. Illness, Investigation and Plan of care explained to the patient. She verbalized understanding. Case discussed with Dr. Narvaez and Dr. Richter. Visit type - Emergency Visit Emergency Visit: Yes ED Registration Date: 01/26/17 Care time: The patient presented to the Emergency Department on the above date and was hospitalized for further evaluation of their emergent condition. - New Patient This patient is new to me today: Yes Date on this admission: 01/27/17 - Critical Care Critical Care patient: No - Discharge Referral Referred to [facility] Med P.C.: No
--- NOTE | 2017-01-27 10:26 | PN ---
Teaching Attending Note Name of Resident: Genet Dwyer ATTENDING PHYSICIAN STATEMENT I saw and evaluated the patient. I reviewed the resident's note and discussed the case with the resident. I agree with the resident's findings and plan as documented. SUBJECTIVE: AAOx3 walking around without any difficulty OBJECTIVE: Vital Signs Temperature 97.6 F 01/27/17 06:00 Pulse Rate 64 01/27/17 06:00 Respiratory Rate 16 01/27/17 06:00 Blood Pressure 142/71 01/27/17 06:00 O2 Sat by Pulse Oximetry (%) 97 01/26/17 23:05 CBCD WBC 13.1 K/mm3 (4.0-10.0) H D 01/26/17 17:50 RBC 4.68 M/mm3 (3.60-5.2) 01/26/17 17:50 Hgb 14.3 GM/dL (10.7-15.3) 01/26/17 17:50 Hct 41.9 % (32.4-45.2) 01/26/17 17:50 MCV 89.6 fl (80-96) 01/26/17 17:50 MCHC 34.1 g/dl (32.0-36.0) 01/26/17 17:50 RDW 12.5 % (11.6-15.6) 01/26/17 17:50 Plt Count 305 K/MM3 (134-434) 01/26/17 17:50 MPV 8.5 fl (7.5-11.1) 01/26/17 17:50 CMP Sodium 118 mmol/L (136-145) L* 01/27/17 07:10 Potassium 4.1 mmol/L (3.5-5.1) 01/27/17 07:10 Chloride 79 mmol/L (98-107) L 01/27/17 07:10 Carbon Dioxide 30 mmol/L (21-32) 01/27/17 07:10 Anion Gap 9 (8-16) 01/27/17 07:10 BUN 13 mg/dL (7-18) 01/27/17 07:10 Creatinine 0.7 mg/dL (0.55-1.02) 01/27/17 07:10 Creat Clearance w eGFR > 60 (>60) 01/26/17 17:50 Random Glucose 134 mg/dL (74-106) H D 01/27/17 07:10 Calcium 8.5 mg/dL (8.5-10.1) 01/27/17 07:10 Total Bilirubin 1.0 mg/dL (0.2-1.0) D 01/26/17 17:50 AST 27 U/L (15-37) D 01/26/17 17:50 ALT 39 U/L (12-78) D 01/26/17 17:50 Alkaline Phosphatase 84 U/L (45-117) D 01/26/17 17:50 Total Protein 7.0 g/dl (6.4-8.2) 01/26/17 17:50 Albumin 4.0 g/dl (3.4-5.0) 01/26/17 17:50 CARDIAC ENZYMES Creatine Kinase 101 IU/L (26-192) 01/26/17 17:50 Troponin I < 0.02 ng/ml (0.00-0.05) 01/26/17 17:50 Current Medications Generic Name Dose Route Start Last Admin Trade Name Freq PRN Reason Stop Dose Admin Acetaminophen 325 mg 01/26/17 22:42 01/27/17 08:36 Tylenol - PO 325 mg Q6H PRN Administration PAIN Atenolol 50 mg 01/26/17 23:45 01/27/17 10:01 Tenormin - PO 50 mg BID TITI Administration Atorvastatin Calcium 40 mg 01/26/17 23:45 01/26/17 23:46 Lipitor - PO 40 mg HS TITI Administration Insulin Aspart 1 vial 01/27/17 07:00 01/27/17 10:13 Novolog Vial Sliding Scale - SQ 2 unit TIDAC TITI Administration Protocol Methocarbamol 500 mg 01/26/17 23:45 01/27/17 10:01 Robaxin - PO 500 mg BID TITI Administration Oxycodone HCl 5 mg 01/26/17 22:42 01/27/17 08:37 Roxicodone - PO 5 mg Q6H PRN Administration PAIN Pantoprazole Sodium 40 mg 01/27/17 10:00 01/27/17 10:01 Protonix - PO 40 mg DAILY TITI Administration Valsartan 160 mg 01/26/17 23:45 01/27/17 10:01 Diovan - PO 160 mg BID TITI Administration Home Medications Medication Instructions Recorded Atenolol [Tenormin -] 50 mg PO BID 06/17/16 Sitagliptin Phos/Metformin HCl 1 each PO DAILY 06/17/16 [Janumet 50-500 mg Tablet] Valsartan 160 mg PO BID 06/17/16 Atorvastatin Ca [Lipitor] 40 mg PO HS #30 tablet 06/19/16 Hydrochlorothiazide [Hctz -] 25 mg PO DAILY #30 tablet 06/19/16 Methocarbamol [Robaxin -] 500 mg PO BID #60 tablet 01/25/17 Oxycodone HCl/Acetaminophen 1 tab PO Q6H #20 tablet MDD 4 01/25/17 [Percocet 5-325 mg Tablet] Aspirin [ASA -] 81 mg PO DAILY 01/26/17 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 # Severe acute hyponatremia 118 , monitor for any seizure activity, Hypertonic soln 3% as per Nephro. repeat sodium level every hour, hold Hctz Discussed with Dr. Jovel accepting the patient. Discussed with will see the patient. DVT Px; SCD
--- NOTE | 2017-01-27 10:33 | EKG ---
Test Reason : Blood Pressure : / mmHG Vent. Rate : 063 BPM Atrial Rate : 063 BPM P-R Int : 156 ms QRS Dur : 072 ms QT Int : 428 ms P-R-T Axes : 000 -07 065 degrees QTc Int : 437 ms NORMAL SINUS RHYTHM NORMAL ECG WHEN COMPARED WITH ECG OF 25-JAN-2017 03:17, NO SIGNIFICANT CHANGE WAS FOUND Confirmed by ABDON AN MD ([id number]) on 01/27/2017 10:33:31 AM Referred By: Confirmed By:ABDON AN MD
[2017-01-27] MEDS ORDERED: SODIUM CHLORIDE 1,000 ML IV SCH (12:00)
--- NOTE | 2017-01-27 13:11 | CONSULT ---
Consultation: REQUESTING PROVIDER: Brice CONSULT REQUEST: We have been asked to medically evaluate this patient for hyponatremia. HISTORY OF PRESENT ILLNESS: Patient is a 71 year old female with significant PMH of HTN, HLD, DM, Gout, chronic left shoulder pain who presented to ED with left shoulder pain. She had visited our ED 2 days prior with same complaint & was sent home after normal imaging on Percocet & Robaxin. She also recently completed a 10 day course of prednisone and has also been taking NSAIDS to manage her pain. 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 She has also been nauseous last 2 days with repeated episodes of vomiting. Found to be hyponatremic on routine labs. Patient was sent to ICU for close monitoring of sodium level and neurological function. REVIEW OF SYSTEMS: CONSTITUTIONAL: Absent: fever, chills, diaphoresis, generalized weakness, malaise, loss of appetite, weight change HEENT: Absent: rhinorrhea, nasal congestion, throat pain, throat swelling, difficulty swallowing, mouth swelling, ear pain, eye pain, visual changes CARDIOVASCULAR: Absent: chest pain, syncope, palpitations, irregular heart rate, lightheadedness , peripheral edema RESPIRATORY: Absent: cough, shortness of breath, dyspnea with exertion, orthopnea, wheezing, stridor, hemoptysis GASTROINTESTINAL: (+)nausea, vomiting, Absent: abdominal pain, abdominal distension, diarrhea, constipation, melena, hematochezia GENITOURINARY: Absent: dysuria, frequency, urgency, hesitancy, hematuria, flank pain, genital pain MUSCULOSKELETAL: (+)neck pain Absent: myalgia, arthralgia, joint swelling, back pain SKIN: Absent: rash, itching, pallor HEMATOLOGIC/IMMUNOLOGIC: Absent: easy bleeding, easy bruising, lymphadenopathy, frequent infections ENDOCRINE: Absent: unexplained weight gain, unexplained weight loss, heat intolerance, cold intolerance NEUROLOGIC: Absent: headache, focal weakness or paresthesias, dizziness, unsteady gait, seizure, mental status changes, bladder or bowel incontinence PSYCHIATRIC: Absent: anxiety, depression, suicidal or homicidal ideation, hallucinations. PHYSICAL EXAMINATION Vital Signs - 24 hr 01/26/17 01/26/17 01/26/17 22:21 22:56 23:05 Temperature 98.0 F 97.1 F L Pulse Rate 63 Pulse Rate [ 60 Left Radial] Respiratory 18 20 Rate Blood Pressure 154/76 Blood Pressure 166/77 [Right Arm] O2 Sat by Pulse 100 97 Oximetry (%) 01/27/17 01/27/17 01/27/17 06:00 08:00 12:10 Temperature 97.6 F 98.0 F Pulse Rate 64 68 64 Pulse Rate [ Left Radial] Respiratory 16 20 18 Rate Blood Pressure 142/71 152/76 179/77 Blood Pressure [Right Arm] O2 Sat by Pulse 97 Oximetry (%) GENERAL: Awake, alert, and fully oriented, in no acute distress. HEENT; Atraumatic, EOMI, PERRLA, No lymphadenopathy noted, moist membranes LUNGS: Breath sounds equal, clear to auscultation bilaterally. No wheezes, and no crackles. No accessory muscle use. HEART: Regular rate and rhythm, normal S1 and S2 without murmur, rub or gallop. ABDOMEN: Soft, nontender, not distended, normoactive bowel sounds MUSCULOSKELETAL: Limited active & passive ROM in left shoulder in all directions due to pain. No joint pains elsewhere. UPPER EXTREMITIES: 2+ pulses, warm, well-perfused. No cyanosis. No clubbing. Cap refill <2 seconds. No peripheral edema. LOWER EXTREMITIES: 2+ pulses, warm, well-perfused. No calf tenderness. No peripheral edema. NEUROLOGICAL: Cranial nerves II-XII intact. Normal speech. Normal gait. PSYCHIATRIC: Cooperative. Good eye contact. Appropriate mood and affect. SKIN: Warm, dry, normal turgor, no rashes or lesions noted. Laboratory Results - last 24 hr 01/26/17 01/26/17 01/26/17 23:02 23:02 23:02 Sodium Potassium Chloride Carbon Dioxide Anion Gap BUN Creatinine POC Glucometer Random Glucose Serum Osmolality Calcium Phosphorus Magnesium TSH Free T4 Urine Color Urine Appearance Urine pH Ur Specific [place] Urine Protein Urine Glucose (UA) Urine Ketones Urine Blood Urine Nitrite Urine Bilirubin Urine Urobilinogen Ur Leukocyte Esterase Urine RBC Urine WBC Ur Epithelial Cells Urine Bacteria Urine Osmolality Ur Random Sodium 119 Ur Random Potassium 20.1 Ur Random Chloride 116 Ur Random Urea Nitrogn 373 Urine Creatinine 22.5 01/26/17 01/27/17 01/27/17 23:20 00:15 00:15 Sodium Potassium Chloride Carbon Dioxide Anion Gap BUN Creatinine POC Glucometer Random Glucose Serum Osmolality 256 L Calcium Phosphorus Magnesium TSH 0.79 D Free T4 1.45 Urine Color Straw Urine Appearance Clear Urine pH 7.0 D Ur Specific [place] 1.015 Urine Protein 2+ H Urine Glucose (UA) 1+ H Urine Ketones Trace H Urine Blood Negative Urine Nitrite Negative Urine Bilirubin Negative Urine Urobilinogen Negative Ur Leukocyte Esterase 1+ H Urine RBC 4 Urine WBC 6 Ur Epithelial Cells Few Urine Bacteria Rare Urine Osmolality 454 Ur Random Sodium Ur Random Potassium Ur Random Chloride Ur Random Urea Nitrogn Urine Creatinine 01/27/17 01/27/17 01/27/17 01:55 05:40 07:10 Sodium 120 L* 118 L* Potassium 4.1 4.1 Chloride 78 L 79 L Carbon Dioxide 28 30 Anion Gap 14 9 BUN 13 13 Creatinine 0.6 0.7 POC Glucometer 131 Random Glucose 176 H 134 H D Serum Osmolality Calcium 8.0 L 8.5 Phosphorus 2.9 D Magnesium 1.9 TSH Free T4 Urine Color Urine Appearance Urine pH Ur Specific [place] Urine Protein Urine Glucose (UA) Urine Ketones Urine Blood Urine Nitrite Urine Bilirubin Urine Urobilinogen Ur Leukocyte Esterase Urine RBC Urine WBC Ur Epithelial Cells Urine Bacteria Urine Osmolality Ur Random Sodium Ur Random Potassium Ur Random Chloride Ur Random Urea Nitrogn Urine Creatinine 01/27/17 10:09 Sodium Potassium Chloride Carbon Dioxide Anion Gap BUN Creatinine POC Glucometer 152 Random Glucose Serum Osmolality Calcium Phosphorus Magnesium TSH Free T4 Urine Color Urine Appearance Urine pH Ur Specific [place] Urine Protein Urine Glucose (UA) Urine Ketones Urine Blood Urine Nitrite Urine Bilirubin Urine Urobilinogen Ur Leukocyte Esterase Urine RBC Urine WBC Ur Epithelial Cells Urine Bacteria Urine Osmolality Ur Random Sodium Ur Random Potassium Ur Random Chloride Ur Random Urea Nitrogn Urine Creatinine Active Medications Generic Name Dose Route Start Last Admin Trade Name Stacy PRN Reason Stop Dose Admin Acetaminophen 325 mg 01/26/17 22:42 01/27/17 08:36 Tylenol - PO 325 mg Q6H PRN Administration PAIN Atenolol 50 mg 01/26/17 23:45 01/27/17 10:01 Tenormin - PO 50 mg BID TITI Administration Atorvastatin Calcium 40 mg 01/26/17 23:45 01/26/17 23:46 Lipitor - PO 40 mg HS TITI Administration Sodium Chloride 1,000 mls @ 125 mls/hr 01/27/17 12:00 01/27/17 12:38 Normal Saline - IV 125 mls/hr ASDIR TITI Administration Insulin Aspart 1 vial 01/27/17 07:00 01/27/17 10:13 Novolog Vial Sliding Scale - SQ 2 unit TIDAC TITI Administration Protocol Methocarbamol 500 mg 01/26/17 23:45 01/27/17 10:01 Robaxin - PO 500 mg BID TITI Administration Oxycodone HCl 5 mg 01/26/17 22:42 01/27/17 08:37 Roxicodone - PO 5 mg Q6H PRN Administration PAIN Pantoprazole Sodium 40 mg 01/27/17 10:00 01/27/17 10:01 Protonix - PO 40 mg DAILY TITI Administration Sodium Chloride 1 gm 01/27/17 14:00 Sodium Chloride Tablet - PO TID TITI Valsartan 160 mg 01/26/17 23:45 01/27/17 10:01 Diovan - PO 160 mg BID TITI Administration ASSESSMENT/PLAN: 71 year old female with significant PMH of HTN, HLD, DM, Gout, chronic left shoulder pain who presented to ED with left shoulder pain. Found to be hyponatremic on routine labs. #Hypo-osmolar Hyponatremia, asymptomatic -on IVF NS@125cc/hr -Started Sodium Chloride tablets TID -will recheck later this afternoon to assess trend -will start Hypertonic solution 3% later if no increase in Sodium level -nephrology consult appreciated -neuro checks -fall risk precautions #DM -Holding oral hypoglycemics: Janumet -on Insulin sliding scale -BGM #Chronic left shoulder pain -on Percocet & Robaxin with good control of pain thus far -needs further imaging, as outpatient -Ortho consult, as outpatient -physical therapy eval requested #Epigastric pain & Vomiting -liekly induced by excessive NSAID use over last 2 weeks -no signs of active bleeding, H/H stable -PPI started -Zofran PRN #HTN/HLD -continue home meds: Atenolol 50mg BID, Valsartan 160mg BID, Lipitor 40mg HS Prophylaxis -SCD's, fall precautions -PPI -IVF, as above -monitor electrolytes -diabetic diet with sodium use encouraged Dispo: We will continue to follow the patient. Thank you for this consultative opportunity. Visit type - Emergency Visit Emergency Visit: Yes ED Registration Date: 01/26/17 Care time: The patient presented to the Emergency Department on the above date and was hospitalized for further evaluation of their emergent condition. - New Patient This patient is new to me today: Yes Date on this admission: 01/27/17 - Critical Care Critical Care patient: Yes Total Critical Care Time (in minutes): 50 Critical Care Statement: The care of this patient involved high complexity decision making to prevent further life threatening deterioration of the patient 's condition and/or to evalute & treat vital organ system(s) failure or risk of failure.
--- NOTE | 2017-01-27 13:16 | CONSULT ---
Consult Consult Specialty:: Nephrology Reason for Consultation:: Hyponatremia - History of Present Illness Chief Complaint: left shoulder pain History of Present Illness: Pt is a 71 year old female who presents to the ER complaining of left shoulder pain. She has history of HTN, DM, gout, and hyperlipidemia. She was found to be hyponatremic on bloodwork yesterday. I was called today to evaluate her. Her serum sodium has been about 120. She denies history of hyponatremia. She denies dizziness or loss of balance. She did have an episode of vomiting yesterday. She is n 25 mg of HCTZ that she has been taking daily. She was also taking indomethacine. She take steroids as well. She is awake and alert. She says she feels well aside from the shoulder pain. She says she has not been eating much. 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 DANCER: Yes: Migraine Cardio/Vascular: Yes: HTN, Hyperlipdemia Rheumatology: Yes: Gout Endocrine: Yes: Diabetes Mellitus - Alcohol/Substance Use Hx Alcohol Use: No - Smoking History Smoking history: Never smoked Have you smoked in the past 12 months: No Home Medications - Allergies Allergies/Adverse Reactions: Allergies Allergy/AdvReac Type Severity Reaction Status Date / Time No Known Allergies Allergy Verified 01/26/17 17:10 - Home Medications Home Medications: Ambulatory Orders Atenolol [Tenormin -] 50 mg PO BID 06/17/16 Sitagliptin Phos/Metformin HCl [Janumet 50-500 mg Tablet] 1 each PO DAILY Valsartan 160 mg PO BID 06/17/16 Atorvastatin Ca [Lipitor] 40 mg PO HS #30 tablet 06/19/16 Hydrochlorothiazide [Hctz -] 25 mg PO DAILY #30 tablet 06/19/16 Methocarbamol [Robaxin -] 500 mg PO BID #60 tablet 01/25/17 Oxycodone HCl/Acetaminophen [Percocet 5-325 mg Tablet] 1 tab PO Q6H #20 tablet MDD 4 01/25/17 Aspirin [ASA -] 81 mg PO DAILY 01/26/17 Family Disease History - Family Disease History Family History: Denies Review of Systems - Review of Systems Constitutional: reports: Loss of Appetite Eyes: reports: No Symptoms HENT: reports: No Symptoms Neck: reports: No Symptoms Cardiovascular: reports: No Symptoms Respiratory: reports: No Symptoms Gastrointestinal: reports: Vomiting Genitourinary: reports: No Symptoms Musculoskeletal: reports: Joint Pain Integumentary: reports: No Symptoms Neurological: reports: No Symptoms Endocrine: reports: No Symptoms Hematology/Lymphatic: reports: No Symptoms Psychiatric: reports: No Symptoms Physical Exam Vital Signs: Vital Signs Temperature 98.0 F 01/27/17 08:00 Pulse Rate 64 01/27/17 12:10 Respiratory Rate 18 01/27/17 12:10 Blood Pressure 179/77 01/27/17 12:10 O2 Sat by Pulse Oximetry (%) 97 01/27/17 08:00 Constitutional: Yes: Calm Eyes: Yes: Conjunctiva Clear HENT: Yes: Atraumatic Neck: Yes: Supple Cardiovascular: Yes: S1, S2 Respiratory: Yes: CTA Bilaterally Gastrointestinal: Yes: Soft Renal/: Yes: WNL Musculoskeletal: Yes: WNL Edema: No Integumentary: Yes: Other (decerased skin turger) Neurological: Yes: Oriented Psychiatric: Yes: Oriented Labs: CBC, BMP 01/27/17 07:10 Laboratory Tests 06/17/15 04/20/16 06/17/16 08:23 09:05 00:15 WBC Hgb Plt Count Sodium 138 141 140 Potassium Chloride Carbon Dioxide Anion Gap BUN Creatinine POC Glucometer Random Glucose Serum Osmolality TSH Urine Osmolality Ur Random Sodium 06/17/16 06/18/16 06/29/16 07:10 05:35 08:30 WBC Hgb Plt Count Sodium 145 142 134 L Potassium Chloride Carbon Dioxide Anion Gap BUN Creatinine POC Glucometer Random Glucose Serum Osmolality TSH Urine Osmolality Ur Random Sodium 12/07/16 01/26/17 01/26/17 08:15 17:50 17:50 WBC 13.1 H D Hgb 14.3 Plt Count 305 Sodium 137 118 L* D Potassium Chloride Carbon Dioxide Anion Gap BUN Creatinine POC Glucometer Random Glucose Serum Osmolality TSH Urine Osmolality Ur Random Sodium 01/26/17 01/26/17 01/27/17 18:30 23:02 00:15 WBC Hgb Plt Count Sodium 118 L* Potassium Chloride Carbon Dioxide Anion Gap BUN Creatinine POC Glucometer Random Glucose Serum Osmolality 256 L TSH Urine Osmolality 454 Ur Random Sodium 119 01/27/17 01/27/17 01/27/17 00:15 01:55 07:10 WBC Hgb Plt Count Sodium 120 L* 118 L* Potassium 4.1 Chloride 79 L Carbon Dioxide 30 Anion Gap 9 BUN 13 Creatinine 0.7 POC Glucometer Random Glucose 134 H D Serum Osmolality TSH 0.79 D Urine Osmolality Ur Random Sodium 01/27/17 10:09 WBC Hgb Plt Count Sodium Potassium Chloride Carbon Dioxide Anion Gap BUN Creatinine POC Glucometer 152 Random Glucose Serum Osmolality TSH Urine Osmolality Ur Random Sodium Imaging - Results Cat Scan: Report Reviewed Problem List - Problems (1) Hyponatremia Code(s): E87.1 - HYPO-OSMOLALITY AND HYPONATREMIA (2) Diabetes Code(s): E11.9 - TYPE 2 DIABETES MELLITUS WITHOUT COMPLICATIONS Qualifiers: Diabetes mellitus type: type 2 Diabetes mellitus complication status: without complication Diabetes mellitus long term care administrator insulin use: without snf use Qualified Code(s): E11.9 - Type 2 diabetes mellitus without complications (3) HTN (hypertension) Code(s): I10 - ESSENTIAL (PRIMARY) HYPERTENSION Qualifiers: Hypertension type: essential hypertension Qualified Code(s): I10 - Essential (primary) hypertension (4) Hyperlipidemia Code(s): E78.5 - HYPERLIPIDEMIA, UNSPECIFIED Qualifiers: Hyperlipidemia type: pure hypercholesterolemia Assessment/Plan Current Medications Generic Name Dose Route Start Last Admin Trade Name Freq PRN Reason Stop Dose Admin Acetaminophen 325 mg 01/26/17 22:42 01/27/17 08:36 Tylenol - PO 325 mg Q6H PRN Administration PAIN Atenolol 50 mg 01/26/17 23:45 01/27/17 10:01 Tenormin - PO 50 mg BID TITI Administration Atorvastatin Calcium 40 mg 01/26/17 23:45 01/26/17 23:46 Lipitor - PO 40 mg HS TITI Administration Sodium Chloride 1,000 mls @ 125 mls/hr 01/27/17 12:00 01/27/17 12:38 Normal Saline - IV 125 mls/hr ASDIR TITI Administration Insulin Aspart 1 vial 01/27/17 07:00 01/27/17 10:13 Novolog Vial Sliding Scale - SQ 2 unit TIDAC TITI Administration Protocol Methocarbamol 500 mg 01/26/17 23:45 01/27/17 10:01 Robaxin - PO 500 mg BID TITI Administration Oxycodone HCl 5 mg 01/26/17 22:42 01/27/17 08:37 Roxicodone - PO 5 mg Q6H PRN Administration PAIN Pantoprazole Sodium 40 mg 01/27/17 10:00 01/27/17 10:01 Protonix - PO 40 mg DAILY TITI Administration Sodium Chloride 1 gm 01/27/17 14:00 Sodium Chloride Tablet - PO TID TITI Valsartan 160 mg 01/26/17 23:45 01/27/17 10:01 Diovan - PO 160 mg BID TITI Administration Impression 1. hyponatremia 2. HTN 3. DM 4. hyperlipidemia 5. shoulder pain 6. gout Plan - pt with hypo-osmolar hyponatremia. Her urine osm is greater than her plasma osm. - transfer pt to ICU for closer observation - will start saline and salt tabs, will need repeat sodium - restrict free water intake - stop HCTZ - avoid nsaids, stop indomethacin - will monitor her response to fluids, will give hyertonic if she does not respond - case discussed with medical team and rounds made at bedside with pt - pt is at risk to fall - will follow Dr Richter
[2017-01-27] MEDS: SODIUM CHLORIDE 1 GM TABLET PO SCH ×2 (13:42→22:02)
[2017-01-27] MEDS ORDERED: ONDANSETRON 4 MG/2 ML VIAL IVPUSH PRN (14:43)
[2017-01-27] MEDS ORDERED: oxyCODONE HCL 5 MG TABLET PO PRN (16:19)
[2017-01-27] MEDS ORDERED: ACETAMINOPHEN 325 MG TABLET (FP) PO PRN (16:19)
--- NOTE | 2017-01-27 16:21 | PN ---
Teaching Attending Note Name of Resident: Sergio Oh ATTENDING PHYSICIAN STATEMENT I saw and evaluated the patient. I reviewed the resident's note and discussed the case with the resident. I agree with the resident's findings and plan as documented. ASSESSMENT AND PLAN: Severe Hyponatremia HTN DM Hyperlipidemia - likely multifactorial due to thiazide/NSAID use, GI losses, increased water intake - IVF, salt tabs - monitor BMP closely - if no improvement, will consider hypertonic saline - renal input appreciated - antiemetics - DVT prophylaxis - continue ICU monitoring for now Thank you for this consult Edwin Jovel MD
[2017-01-27 16:52] LABS: COCKROFT - GAULT 79.56; CREATININE 0.6 mg/dL (0.55-1.02)
[2017-01-27] MEDS ORDERED: SODIUM CHLORIDE 3% 500 ML IV ONE ×2 (17:22→17:30)
--- NOTE | 2017-01-27 17:25 | PN ---
Progress Note (short form) - Note Progress Note: Laboratory Tests 01/27/17 15:40 Sodium 118 L* Potassium 4.2 Chloride 81 L Carbon Dioxide 27 Anion Gap 10 BUN 12 Creatinine 0.6 - Sodium remains low - Will start 3 percent saline at 20 cc per hour - check sodium every 2 hours - called and discussed with house staff - will follow Dr Richtre Problem List - Problems (1) Hyponatremia Code(s): E87.1 - HYPO-OSMOLALITY AND HYPONATREMIA (2) Diabetes Code(s): E11.9 - TYPE 2 DIABETES MELLITUS WITHOUT COMPLICATIONS Qualifiers: Diabetes mellitus type: type 2 Diabetes mellitus complication status: without complication Diabetes mellitus longterm insulin use: without local intermodal truck driver use Qualified Code(s): E11.9 - Type 2 diabetes mellitus without complications (3) HTN (hypertension) Code(s): I10 - ESSENTIAL (PRIMARY) HYPERTENSION Qualifiers: Hypertension type: essential hypertension Qualified Code(s): I10 - Essential (primary) hypertension (4) Hyperlipidemia Code(s): E78.5 - HYPERLIPIDEMIA, UNSPECIFIED Qualifiers: Hyperlipidemia type: pure hypercholesterolemia
[2017-01-27 21:19] LABS: CALCIUM 7.6 mg/dL (8.5-10.1); COCKROFT - GAULT 79.56; CREATININE 0.6 mg/dL (0.55-1.02)
[2017-01-27] MEDS ORDERED: ATORVASTATIN CA 40 MG TABLET (FP) PO SCH (22:00)
[2017-01-27] MEDS: ATORVASTATIN CA 40 MG TABLET (FP) PO SCH (22:01)
[2017-01-27] MEDS ORDERED: LIDOCAINE HCL/PF 2% SDV 5ML VIAL ONE (22:23)
[2017-01-27] MEDS ORDERED: CALCIUM CARBONATE 650 MG TABLET PO STA (23:30)
[2017-01-27 23:36] LABS: CALCIUM 7.7 mg/dL (8.5-10.1); COCKROFT - GAULT 79.56; CREATININE 0.6 mg/dL (0.55-1.02)
[2017-01-28 05:40] LABS: BASOPHIL 0.3 % (0-2.0); EOSINOPHIL 1.6 % (0-4.5); MCH 30.8 pg (25.7-33.7); MCHC 34.3 g/dl (32.0-36.0); MEAN CELL VOLUME 89.9 fl (80-96); MEAN PLT VOLUME 8.4 fl (7.5-11.1); NEUTROPHILS 66.6 % (42.8-82.8); PLATELET COUNT 262 K/MM3 (134-434); RDW 12.5 % (11.6-15.6); WHITE BLOOD COUNT 9.9 K/mm3 (4.0-10.0)
[2017-01-28] MEDS: INSULIN SLIDING SCALE (NOVOLOG) 1 VIAL SQ SCH ×3 (06:05→17:59)
[2017-01-28 06:06] LABS: ALK PHOS 70 U/L (45-117); ANION GAP 12 (8-16); BILIRUBIN,TOTAL 0.8 mg/dL (0.2-1.0); CALCIUM 7.8 mg/dL (8.5-10.1); CO2 26 mmol/L (21-32); COCKROFT - GAULT 68.1955; CREATININE 0.7 mg/dL (0.55-1.02); GLUCOSE,RANDOM 108 mg/dL (74-106); SGOT/AST 13 U/L (15-37); SGPT/ALT 26 U/L (12-78); TOT PROT 5.5 g/dl (6.4-8.2)
[2017-01-28] MEDS ORDERED: SODIUM CHLORIDE 1,000 ML IV SCH (06:15)
[2017-01-28] MEDS ORDERED: DEXTROSE 5%-WATER - 1,000 ML IV SCH (06:30)
--- NOTE | 2017-01-28 08:04 | PN ---
Physical Exam: SUBJECTIVE: Patient seen and examined at bedside this AM. AAO and in a pleasant mood. No issues overnight during hypertonic 3% solution administration. Still reports mdoerate left shoulder pain but is neurologically at baseline. Afebrile overnight without acute events. OBJECTIVE: Vital Signs Period Temp Pulse Resp BP Sys/Duvall Pulse Ox Last 24 Hr 97.6 F-97.8 F 58-72 18-18 118-179/48-104 98 GENERAL: Awake, alert, and fully oriented, in no acute distress. HEENT; Atraumatic, EOMI, PERRLA, No lymphadenopathy noted, moist membranes LUNGS: Breath sounds equal, clear to auscultation bilaterally. No wheezes, and no crackles. No accessory muscle use. HEART: Regular rate and rhythm, normal S1 and S2 without murmur, rub or gallop. ABDOMEN: Soft, nontender, not distended, normoactive bowel sounds MUSCULOSKELETAL: Limited active & passive ROM in left shoulder in all directions due to pain. No joint pains elsewhere. UPPER EXTREMITIES: 2+ pulses, warm, well-perfused. No cyanosis. No clubbing. Cap refill <2 seconds. No peripheral edema. LOWER EXTREMITIES: 2+ pulses, warm, well-perfused. No calf tenderness. No peripheral edema. NEUROLOGICAL: Cranial nerves II-XII intact. Normal speech. Normal gait. PSYCHIATRIC: Cooperative. Good eye contact. Appropriate mood and affect. SKIN: Warm, dry, normal turgor, no rashes or lesions noted. Laboratory Results - last 24 hr 01/26/17 01/27/17 01/27/17 23:20 07:10 10:09 WBC RBC Hgb Hct MCV MCHC RDW Plt Count MPV Neutrophils % Lymphocytes % Monocytes % Eosinophils % Basophils % Sodium 118 L* Potassium 4.1 Chloride 79 L Carbon Dioxide 30 Anion Gap 9 BUN 13 Creatinine 0.7 Creat Clearance w eGFR POC Glucometer 152 Random Glucose 134 H D Calcium 8.5 Phosphorus 2.9 D Magnesium 1.9 Total Bilirubin AST ALT Alkaline Phosphatase Total Protein Albumin Ur Specific [place] 1.015 01/27/17 01/27/17 01/27/17 15:40 16:34 18:50 WBC RBC Hgb Hct MCV MCHC RDW Plt Count MPV Neutrophils % Lymphocytes % Monocytes % Eosinophils % Basophils % Sodium 118 L* 120 L* Potassium 4.2 Chloride 81 L Carbon Dioxide 27 Anion Gap 10 BUN 12 Creatinine 0.6 Creat Clearance w eGFR POC Glucometer 139.84760 Random Glucose 135 H Calcium 8.0 L Phosphorus Magnesium Total Bilirubin AST ALT Alkaline Phosphatase Total Protein Albumin Ur Specific [place] 01/27/17 01/27/17 01/27/17 20:35 22:14 23:05 WBC RBC Hgb Hct MCV MCHC RDW Plt Count MPV Neutrophils % Lymphocytes % Monocytes % Eosinophils % Basophils % Sodium 119 L* 121 L* Potassium 3.7 3.6 Chloride 83 L 86 L Carbon Dioxide 26 26 Anion Gap 10 9 BUN 12 11 Creatinine 0.6 0.6 Creat Clearance w eGFR POC Glucometer [phone] Random Glucose 185 H D 175 H Calcium 7.6 L 7.7 L Phosphorus Magnesium Total Bilirubin AST ALT Alkaline Phosphatase Total Protein Albumin Ur Specific [place] 01/28/17 01/28/17 01/28/17 02:00 02:00 05:15 WBC 9.9 RBC 4.19 Hgb 12.9 Hct 37.6 MCV 89.9 MCHC 34.3 RDW 12.5 Plt Count 262 MPV 8.4 Neutrophils % 66.6 Lymphocytes % 25.1 D Monocytes % 6.4 Eosinophils % 1.6 Basophils % 0.3 Sodium 126 L Potassium Chloride Carbon Dioxide Anion Gap BUN Creatinine Creat Clearance w eGFR POC Glucometer Random Glucose 118 H D Calcium Phosphorus Magnesium Total Bilirubin AST ALT Alkaline Phosphatase Total Protein Albumin Ur Specific [place] 01/28/17 01/28/17 01/28/17 05:15 05:15 05:53 WBC RBC Hgb Hct MCV MCHC RDW Plt Count MPV Neutrophils % Lymphocytes % Monocytes % Eosinophils % Basophils % Sodium 129 L 129 L Potassium 4.0 Chloride 91 L Carbon Dioxide 26 Anion Gap 12 BUN 12 Creatinine 0.7 Creat Clearance w eGFR > 60 POC Glucometer 142.15154 Random Glucose 108 H Calcium 7.8 L Phosphorus Magnesium Total Bilirubin 0.8 AST 13 L D ALT 26 D Alkaline Phosphatase 70 Total Protein 5.5 L D Albumin 3.0 L D Ur Specific [place] Active Medications Generic Name Dose Route Start Last Admin Trade Name Freq PRN Reason Stop Dose Admin Acetaminophen 325 mg 01/27/17 16:19 01/28/17 00:26 Tylenol - PO 325 mg Q6H PRN Administration PAIN Atenolol 50 mg 01/27/17 22:00 01/27/17 22:02 Tenormin - PO 50 mg BID TITI Administration Atorvastatin Calcium 40 mg 01/27/17 22:00 01/27/17 22:01 Lipitor - PO 40 mg HS TITI Administration Dextrose 1,000 mls @ 100 mls/hr 01/28/17 06:30 01/28/17 06:42 D5w - IV 100 mls/hr ASDIR TITI Administration Insulin Aspart 1 vial 01/27/17 16:30 01/28/17 06:05 Novolog Vial Sliding Scale - SQ Not Given TIDAC [facility] Protocol Methocarbamol 500 mg 01/27/17 22:00 01/27/17 22:02 Robaxin - PO 500 mg BID [facility] Administration Ondansetron HCl 4 mg 01/27/17 14:43 Zofran Injection IVPUSH Q6H PRN NAUSEA AND/OR VOMITING Oxycodone HCl 5 mg 01/27/17 16:19 01/28/17 00:27 Roxicodone - PO 5 mg Q6H PRN Administration PAIN Pantoprazole Sodium 40 mg 01/28/17 10:00 Protonix - PO DAILY TITI Valsartan 160 mg 01/27/17 22:00 01/27/17 22:03 Diovan - PO 160 mg BID TITI Administration ASSESSMENT/PLAN: 71 year old female with significant PMH of HTN, HLD, DM, Gout, chronic left shoulder pain who presented to ED with left shoulder pain. Found to be hyponatremic on routine labs. #Hypo-osmolar Hyponatremia, asymptomatic -Sodium increased from 118 to 128 yesterday without issue -stopped 3% Hypertonic solution at 6am today -Sodium Chloride tablets TID -nephrology consult appreciated -neuro checks -fall risk precautions #DM -Holding oral hypoglycemics: Janumet -on Insulin sliding scale -BGM #Chronic left shoulder pain -on Percocet & Robaxin with good control of pain thus far -Ortho consult, as outpatient -physical therapy eval requested #Epigastric pain & Vomiting -likely induced by excessive NSAID use over last 2 weeks -no signs of active bleeding, H/H stable -PPI ongoing -Zofran PRN #HTN/HLD -continue home meds: Atenolol 50mg BID, Valsartan 160mg BID, Lipitor 40mg HS -holding HCTZ Prophylaxis -SCD's, fall precautions -PPI -IVF, as above -monitor electrolytes -diabetic diet with sodium use encouraged Visit type - Emergency Visit Emergency Visit: Yes ED Registration Date: 01/26/17 Care time: The patient presented to the Emergency Department on the above date and was hospitalized for further evaluation of their emergent condition. - New Patient This patient is new to me today: No - Critical Care Critical Care patient: Yes Total Critical Care Time (in minutes): 45 Critical Care Statement: The care of this patient involved high complexity decision making to prevent further life threatening deterioration of the patient 's condition and/or to evalute & treat vital organ system(s) failure or risk of failure.
[2017-01-28] MEDS: VALSARTAN 160 MG TABLET (UD) PO SCH ×2 (09:05→21:37)
[2017-01-28] MEDS: ATENOLOL 50 MG TABLET (FP) PO SCH ×2 (09:06→21:37)
[2017-01-28] MEDS ORDERED: PT OWN MED DRAWER 7, Y5N ONE ×2 (09:09→17:49)
[2017-01-28] MEDS: PANTOPRAZOLE 40 MG TABLET (FP) PO SCH (09:10)
[2017-01-28] MEDS: METHOCARBAMOL 500 MG TABLET PO SCH ×2 (09:59→21:37)
[2017-01-28] MEDS: ACETAMINOPHEN 325 MG TABLET (FP) PO PRN ×3 (11:57→21:39)
[2017-01-28] MEDS: oxyCODONE HCL 5 MG TABLET PO PRN ×3 (11:58→21:40)
--- NOTE | 2017-01-28 12:17 | PN ---
Teaching Attending Note Name of Resident: Genet Dwyer ATTENDING PHYSICIAN STATEMENT I saw and evaluated the patient. I reviewed the resident's note and discussed the case with the resident. I agree with the resident's findings and plan as documented. Patient is in ICU. SUBJECTIVE: Patient is feeling and doing better, with no acute distress. OBJECTIVE: Vital Signs Temperature 97.6 F 01/28/17 06:00 Pulse Rate 66 01/28/17 08:00 Respiratory Rate 14 01/28/17 10:41 Blood Pressure 160/83 01/28/17 10:41 O2 Sat by Pulse Oximetry (%) 98 01/28/17 09:00 CBCD WBC 9.9 K/mm3 (4.0-10.0) 01/28/17 05:15 RBC 4.19 M/mm3 (3.60-5.2) 01/28/17 05:15 Hgb 12.9 GM/dL (10.7-15.3) 01/28/17 05:15 Hct 37.6 % (32.4-45.2) 01/28/17 05:15 MCV 89.9 fl (80-96) 01/28/17 05:15 MCHC 34.3 g/dl (32.0-36.0) 01/28/17 05:15 RDW 12.5 % (11.6-15.6) 01/28/17 05:15 Plt Count 262 K/MM3 (134-434) 01/28/17 05:15 MPV 8.4 fl (7.5-11.1) 01/28/17 05:15 CMP Sodium 128 mmol/L (136-145) L 01/28/17 08:25 Potassium 4.0 mmol/L (3.5-5.1) 01/28/17 05:15 Chloride 91 mmol/L (98-107) L 01/28/17 05:15 Carbon Dioxide 26 mmol/L (21-32) 01/28/17 05:15 Anion Gap 12 (8-16) 01/28/17 05:15 BUN 12 mg/dL (7-18) 01/28/17 05:15 Creatinine 0.7 mg/dL (0.55-1.02) 01/28/17 05:15 Creat Clearance w eGFR > 60 (>60) 05/16/17 05:15 Random Glucose 108 mg/dL (74-106) H 01/28/17 05:15 Calcium 7.8 mg/dL (8.5-10.1) L 01/28/17 05:15 Total Bilirubin 0.8 mg/dL (0.2-1.0) 01/28/17 05:15 AST 13 U/L (15-37) L D 01/28/17 05:15 ALT 26 U/L (12-78) D 01/28/17 05:15 Alkaline Phosphatase 70 U/L (45-117) 01/28/17 05:15 Total Protein 5.5 g/dl (6.4-8.2) L D 01/28/17 05:15 Albumin 3.0 g/dl (3.4-5.0) L D 01/28/17 05:15 CARDIAC ENZYMES Creatine Kinase 101 IU/L (26-192) 01/26/17 17:50 Troponin I < 0.02 ng/ml (0.00-0.05) 01/26/17 17:50 Current Medications Generic Name Dose Route Start Last Admin Trade Name Freq PRN Reason Stop Dose Admin Acetaminophen 325 mg 01/28/17 11:17 01/28/17 11:57 Tylenol - PO 325 mg Q4H PRN Administration PAIN Atenolol 50 mg 01/27/17 22:00 01/28/17 09:06 Tenormin - PO 50 mg BID TITI Administration Atorvastatin Calcium 40 mg 01/27/17 22:00 01/27/17 22:01 Lipitor - PO 40 mg HS TITI Administration Insulin Aspart 1 vial 01/27/17 16:30 01/28/17 12:02 Novolog Vial Sliding Scale - SQ 2 units TIDAC [facility] Administration Protocol Methocarbamol 500 mg 01/27/17 22:00 01/28/17 09:59 Robaxin - PO 500 mg BID [facility] Administration Ondansetron HCl 4 mg 01/27/17 14:43 Zofran Injection IVPUSH Q6H PRN NAUSEA AND/OR VOMITING Oxycodone HCl 5 mg 01/28/17 11:17 01/28/17 11:58 Roxicodone - PO 5 mg Q4H PRN Administration PAIN Pantoprazole Sodium 40 mg 01/28/17 10:00 01/28/17 09:10 Protonix - PO 40 mg DAILY [facility]ITI Administration Valsartan 160 mg 01/27/17 22:00 01/28/17 09:05 Diovan - PO 160 mg BID TITI Administration Home Medications Medication Instructions Recorded Atenolol [Tenormin -] 50 mg PO BID 06/17/16 Sitagliptin Phos/Metformin HCl 1 each PO DAILY 06/17/16 [Janumet 50-500 mg Tablet] Valsartan 160 mg PO BID 06/17/16 Atorvastatin Ca [Lipitor] 40 mg PO HS #30 tablet 06/19/16 Hydrochlorothiazide [Hctz -] 25 mg PO DAILY #30 tablet 06/19/16 Methocarbamol [Robaxin -] 500 mg PO BID #60 tablet 01/25/17 Oxycodone HCl/Acetaminophen 1 tab PO Q6H #20 tablet MDD 4 01/25/17 [Percocet 5-325 mg Tablet] Aspirin [ASA -] 81 mg PO DAILY 01/26/17 PE: per resident's note CT scan: shows an avulsion fracture of the glenoid ASSESSMENT AND PLAN: Patient is a 71 year of female with significant past medical history of NIDDM, HTN, HLD, gout affecting L 1st toe, and L shoulder arthroscopy in 2010, who returned to ED after her prior visit 2 days ago due to persistent L shoulder pain. # s/p Severe acute hyponatremia 118-->128 improved post 3% Hypertonic solution which stopped at 6am today;as per nephro.continue to hold Hctz. no overnight events noted . S/p isotonic solution without any improvement of Sodium level as a result patient received 3% solution as per nephro. and was transferred to ICU for close monitoring since sodium level was below 120 ; acute complications of Sodium below 120 seizure , fall, brain swelling, coma and . #DM on Insulin sliding scale ; continue to Hold oral hypoglycemics: Janumet; BGM continue #Acute left shoulder pain due to Left glenoid fracture ortho on the case appreciated ; on Oxycodone and Robaxin for pain -physical therapy eval requested; ROM exercises. Further recommendations as per ortho. #HTN/HLD continue home meds: Atenolol 50mg BID, Valsartan 160mg BID, Lipitor 40mg HS ; continue to hold HCTZ Prophylaxis: SCD's, fall precautions GI Px: PPI
--- NOTE | 2017-01-28 12:34 | PN ---
Teaching Attending Note Name of Resident: Sergio Oh ATTENDING PHYSICIAN STATEMENT I saw and evaluated the patient. I reviewed the resident's note and discussed the case with the resident. I agree with the resident's findings and plan as documented. SUBJECTIVE: Pt seen and examined in the ICU. Received hypertonic saline overnight with improvement in sodium levels. c/o left shoulder pain. Nausea has resolved. OBJECTIVE: Last Vital Signs Temp Pulse Resp BP Pulse Ox 97.6 F 66 14 160/83 98 01/28/17 06:00 01/28/17 08:00 01/28/17 10:41 01/28/17 10:41 01/28/17 09:00 Intake & Output 01/25/17 01/26/17 01/27/17 01/28/17 23:59 23:59 23:59 23:59 Intake Total 820 620 Output Total 2150 500 Balance -1330 120 Weight 133 lb 4 oz 131 lb 1.6 oz 134 lb 14.766 oz Gen: NAD in chair Heart: RRR Lung: decreased breath sounds at the bases Abd: soft, nontender Ext: no edema CBC, BMP 01/28/17 05:15 01/28/17 08:25 Active Medications Acetaminophen (Tylenol -) 325 mg PO Q4H PRN PRN Reason: PAIN Last Admin: 01/28/17 11:57 Dose: 325 mg Atenolol (Tenormin -) 50 mg PO BID [facility] Last Admin: 01/28/17 09:06 Dose: 50 mg Atorvastatin Calcium (Lipitor -) 40 mg PO HS [facility] Last Admin: 01/27/17 22:01 Dose: 40 mg Insulin Aspart (Novolog Vial Sliding Scale -) 1 vial SQ TIDAC [facility] PRN Reason: Protocol Last Admin: 01/28/17 12:02 Dose: 2 units Methocarbamol (Robaxin -) 500 mg PO BID [facility] Last Admin: 01/28/17 09:59 Dose: 500 mg Ondansetron HCl (Zofran Injection) 4 mg IVPUSH Q6H PRN PRN Reason: NAUSEA AND/OR VOMITING Oxycodone HCl (Roxicodone -) 5 mg PO Q4H PRN PRN Reason: PAIN Last Admin: 01/28/17 11:58 Dose: 5 mg Pantoprazole Sodium (Protonix -) 40 mg PO DAILY [facility] Last Admin: 01/28/17 09:10 Dose: 40 mg Valsartan (Diovan -) 160 mg PO BID [facility] Last Admin: 01/28/17 09:05 Dose: 160 mg ASSESSMENT AND PLAN: Severe Hyponatremia improving HTN DM Hyperlipidemia - monitor BMP - renal f/u - pain control - antiemetics as needed - DVT prophylaxis - can monitor on floor
--- NOTE | 2017-01-28 12:41 | MSN ---
Progress Note (SOAP) - Subjective Chief Complaint: Left shoulder pain History of Present Illness: Fidelia is a 71 y/o f with PMHx of HTN, DM, HLD who is admitted for asymptomatic hyponatremia. Pt was sitting upright in bed, alert and oriented. Pt has no complaints other than her persistant L shoulder pain. Oxycodone and Robaxin provide moderate relief. Last bowel movement was two days ago. Pt denies n/v/cerda/f/c/abd pain/weakness/hematuria/dysuria. - Current Medications Current Medications: Active Medications Acetaminophen (Tylenol -) 325 mg PO Q4H PRN PRN Reason: PAIN Last Admin: 01/28/17 11:57 Dose: 325 mg Atenolol (Tenormin -) 50 mg PO BID [facility] Last Admin: 01/28/17 09:06 Dose: 50 mg Atorvastatin Calcium (Lipitor -) 40 mg PO HS [facility] Last Admin: 01/27/17 22:01 Dose: 40 mg Insulin Aspart (Novolog Vial Sliding Scale -) 1 vial SQ TIDAC [facility] PRN Reason: Protocol Last Admin: 01/28/17 12:02 Dose: 2 units Methocarbamol (Robaxin -) 500 mg PO BID [facility] Last Admin: 01/28/17 09:59 Dose: 500 mg Ondansetron HCl (Zofran Injection) 4 mg IVPUSH Q6H PRN PRN Reason: NAUSEA AND/OR VOMITING Oxycodone HCl (Roxicodone -) 5 mg PO Q4H PRN PRN Reason: PAIN Last Admin: 01/28/17 11:58 Dose: 5 mg Pantoprazole Sodium (Protonix -) 40 mg PO DAILY [facility] Last Admin: 01/28/17 09:10 Dose: 40 mg Valsartan (Diovan -) 160 mg PO BID [facility] Last Admin: 01/28/17 09:05 Dose: 160 mg - Objective Vital Signs: Vital Signs Temperature 97.6 F 01/28/17 06:00 Pulse Rate 66 01/28/17 08:00 Respiratory Rate 14 01/28/17 10:41 Blood Pressure 160/83 01/28/17 10:41 O2 Sat by Pulse Oximetry (%) 98 01/28/17 09:00 Constitutional: Yes: No Distress, Calm Eyes: Yes: Conjunctiva Clear, EOM Intact HENT: Yes: Atraumatic, Normocephalic Neck: Yes: Supple, Trachea Midline Cardiovascular: Yes: Regular Rate and Rhythm Respiratory: Yes: CTA Bilaterally Gastrointestinal: Yes: Normal Bowel Sounds, Soft. No: Tenderness Musculoskeletal: Yes: Muscle Pain (Tenderness of left shoulder complex), Other ( Limited ROM of Left shoulder) Peripheral Pulses WNL: Yes Peripheral Pulses: Left Radial: 2+, Right Radial: 2+, Left Doralis Pedis: 2+, Right Dorsalis Pedis: 2+ Edema: No Neurological: Yes: Alert, Oriented, Cran Nerves II-XII Intact. No: Confusion, Facial Droop Labs Lab Results: CBCD WBC 9.9 K/mm3 (4.0-10.0) 01/28/17 05:15 RBC 4.19 M/mm3 (3.60-5.2) 01/28/17 05:15 Hgb 12.9 GM/dL (10.7-15.3) 01/28/17 05:15 Hct 37.6 % (32.4-45.2) 01/28/17 05:15 MCV 89.9 fl (80-96) 01/28/17 05:15 MCHC 34.3 g/dl (32.0-36.0) 01/28/17 05:15 RDW 12.5 % (11.6-15.6) 01/28/17 05:15 Plt Count 262 K/MM3 (134-434) 01/28/17 05:15 MPV 8.4 fl (7.5-11.1) 01/28/17 05:15 CMP Sodium 128 mmol/L (136-145) L 01/28/17 08:25 Potassium 4.0 mmol/L (3.5-5.1) 01/28/17 05:15 Chloride 91 mmol/L (98-107) L 01/28/17 05:15 Carbon Dioxide 26 mmol/L (21-32) 01/28/17 05:15 Anion Gap 12 (8-16) 01/28/17 05:15 BUN 12 mg/dL (7-18) 01/28/17 05:15 Creatinine 0.7 mg/dL (0.55-1.02) 01/28/17 05:15 Creat Clearance w eGFR > 60 (>60) 01/28/17 05:15 Calcium 7.8 mg/dL (8.5-10.1) L 01/28/17 05:15 Total Bilirubin 0.8 mg/dL (0.2-1.0) 01/28/17 05:15 AST 13 U/L (15-37) L D 01/28/17 05:15 ALT 26 U/L (12-78) D 01/28/17 05:15 Alkaline Phosphatase 70 U/L (45-117) 01/28/17 05:15 Total Protein 5.5 g/dl (6.4-8.2) L D 01/28/17 05:15 Albumin 3.0 g/dl (3.4-5.0) L D 01/28/17 05:15 Assessment/Plan Fidelia is a 71 year old female with PMHx of HTN, HLD, DM, and left shoulder arthroscopy (2010)who presented to ED with left shoulder pain and subsequently admitted for hyponatremia found on labs. 1. Asymptomatic Hyposmolar Hyponatremia; improving pt transferred out of ICU -Sodium 129 (118) -3% Hypertonic Saline at 20cc/hr discontinued at 6am (11 hour run time); D5W stopped -neuro checks -fall risk precautions -Nephrology consult appreciated -Repeat BMP 2. Chronic left shoulder pain; no improvement -CT: avulsion fragment noted in the posterior superior aspect of the left glenoid -Oxycodone & Robaxin providing moderate relief; add ice pack prn -physical therapy eval: Pt full weight bearing, did not tolerate sling for left shoulder due to pressure and pain on neck. Recommended outpt PT -Dr. Syed consulted 4. Nausea and Vomiting; epigastric pain-- improving, no complaints of n/v -likely NSAID induced (indomethacin) -Zofran PRN -Continue Pantoprazole 3. DM -Janumet held -Novolog SSI -DM diet 4. HTN -Atenolol 50mg BID -Valsartan 160mg BID -HCTZ held 5. HLD -Lipitor 40mg qHS 6. DVT Prophylaxis -SCD's -fall precautions
--- NOTE | 2017-01-28 14:09 | PN ---
Progress Note, Physician History of Present Illness: Pt seen and examined at bedside. She is awake and alert. She says she feels well. She denies headache or change in vision. - Current Medication List Current Medications: Active Medications Acetaminophen (Tylenol -) 325 mg PO Q4H PRN PRN Reason: PAIN Last Admin: 01/28/17 11:57 Dose: 325 mg Atenolol (Tenormin -) 50 mg PO BID [facility] Last Admin: 01/28/17 09:06 Dose: 50 mg Atorvastatin Calcium (Lipitor -) 40 mg PO HS [facility] Last Admin: 01/27/17 22:01 Dose: 40 mg Insulin Aspart (Novolog Vial Sliding Scale -) 1 vial SQ TIDAC [facility] PRN Reason: Protocol Last Admin: 01/28/17 12:02 Dose: 2 units Methocarbamol (Robaxin -) 500 mg PO BID [facility] Last Admin: 01/28/17 09:59 Dose: 500 mg Ondansetron HCl (Zofran Injection) 4 mg IVPUSH Q6H PRN PRN Reason: NAUSEA AND/OR VOMITING Oxycodone HCl (Roxicodone -) 5 mg PO Q4H PRN PRN Reason: PAIN Last Admin: 01/28/17 11:58 Dose: 5 mg Pantoprazole Sodium (Protonix -) 40 mg PO DAILY [facility] Last Admin: 01/28/17 09:10 Dose: 40 mg Valsartan (Diovan -) 160 mg PO BID [facility] Last Admin: 01/28/17 09:05 Dose: 160 mg - Objective Vital Signs: Vital Signs Temperature 97.6 F 01/28/17 06:00 Pulse Rate 64 01/28/17 12:00 Respiratory Rate 15 01/28/17 12:00 Blood Pressure 154/71 01/28/17 12:00 O2 Sat by Pulse Oximetry (%) 98 01/28/17 09:00 Constitutional: Yes: Calm Eyes: Yes: Conjunctiva Clear HENT: Yes: Atraumatic Neck: Yes: Supple Cardiovascular: Yes: S1, S2 Respiratory: Yes: CTA Bilaterally Gastrointestinal: Yes: Soft Genitourinary: Yes: WNL Musculoskeletal: Yes: Other (shoulder pain) Edema: No Neurological: Yes: Oriented Psychiatric: Yes: Oriented Labs: CBC, BMP 01/28/17 05:15 01/28/17 08:25 Problem List - Problems (1) Hyponatremia Code(s): E87.1 - HYPO-OSMOLALITY AND HYPONATREMIA (2) Diabetes Code(s): E11.9 - TYPE 2 DIABETES MELLITUS WITHOUT COMPLICATIONS Qualifiers: Diabetes mellitus type: type 2 Diabetes mellitus complication status: without complication Diabetes mellitus intermediate teacher insulin use: without intermediate teacher use Qualified Code(s): E11.9 - Type 2 diabetes mellitus without complications (3) HTN (hypertension) Code(s): I10 - ESSENTIAL (PRIMARY) HYPERTENSION Qualifiers: Hypertension type: essential hypertension Qualified Code(s): I10 - Essential (primary) hypertension (4) Hyperlipidemia Code(s): E78.5 - HYPERLIPIDEMIA, UNSPECIFIED Qualifiers: Hyperlipidemia type: pure hypercholesterolemia Assessment/Plan Current Medications Generic Name Dose Route Start Last Admin Trade Name Freq PRN Reason Stop Dose Admin Acetaminophen 325 mg 01/28/17 11:17 01/28/17 11:57 Tylenol - PO 325 mg Q4H PRN Administration PAIN Atenolol 50 mg 01/27/17 22:00 01/28/17 09:06 Tenormin - PO 50 mg BID [facility] Administration Atorvastatin Calcium 40 mg 01/27/17 22:00 01/27/17 22:01 Lipitor - PO 40 mg HS [facility] Administration Insulin Aspart 1 vial 01/27/17 16:30 01/28/17 12:02 Novolog Vial Sliding Scale - SQ 2 units TIDAC [facility] Administration Protocol Methocarbamol 500 mg 01/27/17 22:00 01/28/17 09:59 Robaxin - PO 500 mg BID [facility] Administration Ondansetron HCl 4 mg 01/27/17 14:43 Zofran Injection IVPUSH Q6H PRN NAUSEA AND/OR VOMITING Oxycodone HCl 5 mg 01/28/17 11:17 01/28/17 11:58 Roxicodone - PO 5 mg Q4H PRN Administration PAIN Pantoprazole Sodium 40 mg 01/28/17 10:00 01/28/17 09:10 Protonix - PO 40 mg DAILY [facility] Administration Valsartan 160 mg 01/27/17 22:00 01/28/17 09:05 Diovan - PO 160 mg BID [facility] Administration Impression 1. hyponatremia 2. HTN 3. DM 4. hyperlipidemia 5. shoulder pain 6. gout Plan - sodium is stabilizing - pt now off of 3 percent saline - repeat bmp stat - restrict free water intake - stop HCTZ - avoid nsaids, stop indomethacin - pt is at risk to fall - will follow Dr Richter
[2017-01-28 16:53] LABS: CALCIUM 8.3 mg/dL (8.5-10.1); COCKROFT - GAULT 69.7; CREATININE 0.7 mg/dL (0.55-1.02)
--- NOTE | 2017-01-28 17:14 | PN ---
Progress Note (short form) - Note Progress Note: Pt is a 71 year old Female 6 years s/p left shoulder RTC repair surgery. She denies any recent trauma. C/o severe pain left shoulder x a few weeks. PE Good ROM LUE NVI Decent strength, limited bc of pain. No signs of acute trauma CT scan Shows an avulsion fracture of the glenoid Imp Left glenoid fracture Rec Does not need surgery ROM exercises. Activities as tolerated f/u as an out pt
[2017-01-28] MEDS: SODIUM CHLORIDE 1 GM TABLET PO SCH ×2 (17:55→22:00)
--- NOTE | 2017-01-28 18:31 | PN ---
Physical Exam: SUBJECTIVE: Patient seen and examined at bed side this morning. No complaints. Denies chest pain, sob, cough, palpitation, abdominal pain, nausea or vomiting. Has increased in appetite. Feels good. No acute overnight events. OBJECTIVE: Vital Signs Period Temp Pulse Resp BP Sys/Duvall Pulse Ox Last 24 Hr 97.2 F-97.8 F 58-70 14-21 118-172/48-104 98-98 GENERAL: Moderately built female, patient is sitting comfortably in a chair, awake, alert, and fully oriented, in no acute distress. HEAD: Normal with no signs of trauma. EYES: EOM intact, no pallor or icterus. ENT: Ears normal, moist mucous membranes. NECK: Trachea midline, full range of motion, supple. LUNGS: Breath sounds equal, clear to auscultation bilaterally, no wheezes, no crackles, no accessory muscle use. HEART: Regular rate and rhythm, S1, S2 without murmur. ABDOMEN: Soft, nontender, nondistended, normoactive bowel sounds, no guarding, no rebound, no hepatosplenomegaly, no masses. EXTREMITIES: 2+ pulses, warm, well-perfused, no edema. NEUROLOGICAL: Cranial nerves II through XII grossly intact. Normal speech, Normal gait. PSYCH: Normal mood, normal affect. SKIN: Warm, dry, normal turgor, no rashes or lesions noted Laboratory Results - last 24 hr 01/27/17 01/27/17 01/27/17 18:50 20:35 22:14 WBC RBC Hgb Hct MCV MCHC RDW Plt Count MPV Neutrophils % Lymphocytes % Monocytes % Eosinophils % Basophils % Sodium 120 L* 119 L* Potassium 3.7 Chloride 83 L Carbon Dioxide 26 Anion Gap 10 BUN 12 Creatinine 0.6 Creat Clearance w eGFR POC Glucometer 164.67331 Random Glucose 185 H D Hemoglobin A1c % Calcium 7.6 L Total Bilirubin AST ALT Alkaline Phosphatase Total Protein Albumin 01/27/17 01/28/17 01/28/17 23:05 02:00 02:00 WBC RBC Hgb Hct MCV MCHC RDW Plt Count MPV Neutrophils % Lymphocytes % Monocytes % Eosinophils % Basophils % Sodium 121 L* 126 L Potassium 3.6 Chloride 86 L Carbon Dioxide 26 Anion Gap 9 BUN 11 Creatinine 0.6 Creat Clearance w eGFR POC Glucometer Random Glucose 175 H 118 H D Hemoglobin A1c % Calcium 7.7 L Total Bilirubin AST ALT Alkaline Phosphatase Total Protein Albumin 01/28/17 01/28/17 01/28/17 05:15 05:15 05:15 WBC 9.9 RBC 4.19 Hgb 12.9 Hct 37.6 MCV 89.9 MCHC 34.3 RDW 12.5 Plt Count 262 MPV 8.4 Neutrophils % 66.6 Lymphocytes % 25.1 D Monocytes % 6.4 Eosinophils % 1.6 Basophils % 0.3 Sodium 129 L Potassium 4.0 Chloride 91 L Carbon Dioxide 26 Anion Gap 12 BUN 12 Creatinine 0.7 Creat Clearance w eGFR > 60 POC Glucometer Random Glucose 108 H Hemoglobin A1c % 6.8 H D Calcium 7.8 L Total Bilirubin 0.8 AST 13 L D ALT 26 D Alkaline Phosphatase 70 Total Protein 5.5 L D Albumin 3.0 L D 01/28/17 01/28/17 01/28/17 05:15 05:53 08:25 WBC RBC Hgb Hct MCV MCHC RDW Plt Count MPV Neutrophils % Lymphocytes % Monocytes % Eosinophils % Basophils % Sodium 129 L 128 L Potassium Chloride Carbon Dioxide Anion Gap BUN Creatinine Creat Clearance w eGFR POC Glucometer 142.50893 Random Glucose Hemoglobin A1c % Calcium Total Bilirubin AST ALT Alkaline Phosphatase Total Protein Albumin 01/28/17 01/28/17 01/28/17 12:01 15:15 17:44 WBC RBC Hgb Hct MCV MCHC RDW Plt Count MPV Neutrophils % Lymphocytes % Monocytes % Eosinophils % Basophils % Sodium 128 L Potassium 4.3 Chloride 91 L Carbon Dioxide 25 Anion Gap 12 BUN 15 D Creatinine 0.7 Creat Clearance w eGFR POC Glucometer 195.07583 165.09701 Random Glucose 164 H D Hemoglobin A1c % Calcium 8.3 L Total Bilirubin AST ALT Alkaline Phosphatase Total Protein Albumin Active Medications Generic Name Dose Route Start Last Admin Trade Name Freq PRN Reason Stop Dose Admin Acetaminophen 325 mg 01/28/17 11:17 01/28/17 17:09 Tylenol - PO 325 mg Q4H PRN Administration PAIN Atenolol 50 mg 01/27/17 22:00 01/28/17 09:06 Tenormin - PO 50 mg BID TITI Administration Atorvastatin Calcium 40 mg 01/27/17 22:00 01/27/17 22:01 Lipitor - PO 40 mg HS TITI Administration Insulin Aspart 1 vial 01/27/17 16:30 01/28/17 17:59 Novolog Vial Sliding Scale - SQ 2 units TIDAC TITI Administration Protocol Methocarbamol 500 mg 01/27/17 22:00 01/28/17 09:59 Robaxin - PO 500 mg BID TITI Administration Ondansetron HCl 4 mg 01/27/17 14:43 Zofran Injection IVPUSH Q6H PRN NAUSEA AND/OR VOMITING Oxycodone HCl 5 mg 01/28/17 11:17 01/28/17 17:09 Roxicodone - PO 5 mg Q4H PRN Administration PAIN Pantoprazole Sodium 40 mg 01/28/17 10:00 01/28/17 09:10 Protonix - PO 40 mg DAILY TITI Administration Sodium Chloride 1 gm 01/28/17 17:30 01/28/17 17:55 Sodium Chloride Tablet - PO 1 gm BID TITI Administration Valsartan 160 mg 01/27/17 22:00 01/28/17 09:05 Diovan - PO 160 mg BID TITI Administration ASSESSMENT/PLAN: ASSESSMENT/PLAN: Patient is a 71 year of female with significant past medical history of NIDDM, HTN, HLD, gout affecting L 1st toe, and L shoulder arthroscopy in 2010, who returned to ED after her prior visit 2 days ago due to persistent L shoulder pain. # Asymptomatic likely due to hypoosmolar hyponatremia Incidental finding on admission: Na 118 which was normal in 12/07/2016 Since patient's repeat Na was 118 on 01/27/17, she was transferred to the ICU for precautions. Initially patient was treated with IV NS and salt tablets 1gm TID. 01/27/2017:Yesterday, after receiving 2gm of salt tablets and IV NS, repeat Na was still 118. so, 3 % hypertonic solution was started @ 20cc/hr, sodium was checked every hour and the sodium corrected to 129mEq/L, hence it was stopped and D5W was started and salt tablets 1 gm BID to be continued. Renal consult appreciated Most likely patient's hyponatremia is due to home medication (on diuretics). However, needs further evaluation. Patient did have one episode of vomiting the day of admission but unsure if hyponatremia caused the vomiting or if vomiting caused hyponatremia. Urine electrolytes: Ur.Sodium:119; Potassium 20.1; random chloride 116; urea nitrogen 373, creatinine 22.5; Urine osmolality 454 ADH pending; TSH: Normal. Now transferred to [facility] Fall precautions. Stop Indomethacin # Left shoulder pain due to Left glenoid fracture Had left shoulder surgery 7 years ago (By Dr. Syed's group). But recently pain started 2 w ago after cooking and mildly exerting her arms. Didn't see any physician. Doesn't need surgical intervention at this time as per Dr. Chinchilla. Physical therapy on board ROM exercise Tylenol prn Appreciate orthopedics consult. F/up as outpatient. # Diabetes Mellitus HbA1c 6.8 01/28/2017 Hold Janumet, continue Insulin sliding scale Finger stick glucose monitoring Watch for hypoglycemic symptoms. # Epigastric pain-resolving most likely due to gastritis associated with NSAIDS and prednisone PPI 40 daily Zofran PRN # Hypertension: unstable continue home atenolol 50 bid, valsartan 160 bid HCTZ 25mg on hold since it might be one of the causes of hyponatremia Sodium restricted diet # Hyperlipidemia Continue lipitor 40 HS # FEN IV fluids stopped, encourage PO. Electrolytes to be repeated tomorrow. Diabetic and sodium controlled diet # Prophylaxis For DVT: SCD's For GI: On Pantoprazole # Dispo: Was admitted in the ICU for 24 hours and now transferred to [facility]. Duration of stay unknown. Illness, Investigation and Plan of care explained to the patient. She verbalized understanding. Case discussed with Dr. Narvaez and Dr. Richter. Visit type - Emergency Visit Emergency Visit: Yes ED Registration Date: 01/26/17 Care time: The patient presented to the Emergency Department on the above date and was hospitalized for further evaluation of their emergent condition. - New Patient This patient is new to me today: No - Critical Care Critical Care patient: No
[2017-01-28] MEDS: ATORVASTATIN CA 40 MG TABLET (FP) PO SCH (21:37)
[2017-01-29] MEDS: ACETAMINOPHEN 325 MG TABLET (FP) PO PRN ×3 (01:02→17:49)
[2017-01-29] MEDS: oxyCODONE HCL 5 MG TABLET PO PRN ×3 (01:03→17:49)
[2017-01-29 06:21] LABS: MCH 30.5 pg (25.7-33.7); MCHC 33.3 g/dl (32.0-36.0); MEAN CELL VOLUME 91.7 fl (80-96); PLATELET COUNT 280 K/MM3 (134-434); RDW 12.7 % (11.6-15.6); WHITE BLOOD COUNT 11.4 K/mm3 (4.0-10.0)
[2017-01-29] MEDS: INSULIN SLIDING SCALE (NOVOLOG) 1 VIAL SQ SCH ×3 (06:47→17:50)
[2017-01-29 06:51] LABS: CALCIUM 7.6 mg/dL (8.5-10.1); COCKROFT - GAULT 81.6; CREATININE 0.6 mg/dL (0.55-1.02)
--- NOTE | 2017-01-29 08:24 | PN ---
Addendum entered and electronically signed by Sergio Oh RES 01/29/17 14:09: BRE Duplex US shows: Deep venous thromboses involving the entire right brachial vein. Complex collection/hematoma in the upper/medial right arm measuring 7.3 x 2.2 cm Vascular surgery [place] consulted. Will not start anticoagulation yet given hematoma. Original Note: Physical Exam: SUBJECTIVE: Patient seen and examined at bedside in ICU this AM. AAO and in a pleasant mood. States her left shoudler still hurts her, unchanged from baseline pain levels last 2 weeks. Also reports swelling & tenderness on right medial bicep since last night s/p midline catheter removal. US showed likely underlying hematoma, duplex US ordered to r/o DVT. OBJECTIVE: Vital Signs Period Temp Pulse Resp BP Sys/Duvall Pulse Ox Last 24 Hr 97.2 F-97.8 F 58-70 14-21 117-171/56-100 98-100 GENERAL: Awake, alert, and fully oriented, in no acute distress. HEENT; Atraumatic, EOMI, PERRLA, No lymphadenopathy noted, moist membranes LUNGS: Breath sounds equal, clear to auscultation bilaterally. No wheezes, and no crackles. No accessory muscle use. HEART: Regular rate and rhythm, normal S1 and S2 without murmur, rub or gallop. ABDOMEN: Soft, nontender, not distended, normoactive bowel sounds MUSCULOSKELETAL: Limited active & passive ROM in left shoulder in all directions due to pain. No joint pains elsewhere. UPPER EXTREMITIES: 2+ pulses, warm, well-perfused. No cyanosis. No clubbing. Cap refill <2 seconds. Swelling & tenderness noted on medial right bicep without erythema or induration. Improved pain & amount of swelling compared to last night. LOWER EXTREMITIES: 2+ pulses, warm, well-perfused. No calf tenderness. No peripheral edema. NEUROLOGICAL: Cranial nerves II-XII intact. Normal speech. Normal gait. PSYCHIATRIC: Cooperative. Good eye contact. Appropriate mood and affect. SKIN: Warm, dry, normal turgor, no rashes or lesions noted. Laboratory Results - last 24 hr 01/28/17 01/28/17 01/28/17 05:15 08:25 12:01 WBC RBC Hgb Hct MCV MCHC RDW Plt Count MPV Sodium 128 L Potassium Chloride Carbon Dioxide Anion Gap BUN Creatinine POC Glucometer [phone] Random Glucose Hemoglobin A1c % 6.8 H D Calcium 01/28/17 01/28/17 01/29/17 15:15 17:44 05:15 WBC RBC Hgb Hct MCV MCHC RDW Plt Count MPV Sodium 128 L 132 L Potassium 4.3 4.2 Chloride 91 L 96 L Carbon Dioxide 25 24 Anion Gap 12 12 BUN 15 D 15 Creatinine 0.7 0.6 POC Glucometer [phone] Random Glucose 164 H D 123 H D Hemoglobin A1c % Calcium 8.3 L 7.6 L 01/29/17 01/29/17 05:15 06:45 WBC 11.4 H RBC 3.51 L Hgb 10.7 D Hct 32.2 L MCV 91.7 MCHC 33.3 RDW 12.7 Plt Count 280 MPV 9.0 Sodium Potassium Chloride Carbon Dioxide Anion Gap BUN Creatinine POC Glucometer [phone] Random Glucose Hemoglobin A1c % Calcium Active Medications Generic Name Dose Route Start Last Admin Trade Name Freq PRN Reason Stop Dose Admin Acetaminophen 325 mg 01/28/17 11:17 01/29/17 01:02 Tylenol - PO 325 mg Q4H PRN Administration PAIN Atenolol 50 mg 01/27/17 22:00 01/28/17 21:37 Tenormin - PO 50 mg BID TITI Administration Atorvastatin Calcium 40 mg 01/27/17 22:00 01/28/17 21:37 Lipitor - PO 40 mg HS TITI Administration Insulin Aspart 1 vial 01/27/17 16:30 01/29/17 06:47 Novolog Vial Sliding Scale - SQ Not Given TIDAC [facility] Protocol Methocarbamol 500 mg 01/27/17 22:00 01/28/17 21:37 Robaxin - PO 500 mg BID TITI Administration Ondansetron HCl 4 mg 01/27/17 14:43 Zofran Injection IVPUSH Q6H PRN NAUSEA AND/OR VOMITING Oxycodone HCl 5 mg 01/28/17 11:17 01/29/17 01:03 Roxicodone - PO 5 mg Q4H PRN Administration PAIN Pantoprazole Sodium 40 mg 01/28/17 10:00 01/28/17 09:10 Protonix - PO 40 mg DAILY TITI Administration Sodium Chloride 1 gm 01/28/17 17:30 01/28/17 22:00 Sodium Chloride Tablet - PO 1 gm BID TITI Administration Valsartan 160 mg 01/27/17 22:00 01/28/17 21:37 Diovan - PO 160 mg BID TITI Administration ASSESSMENT/PLAN: 71 year old female with significant PMH of HTN, HLD, DM, Gout, chronic left shoulder pain who presented to ED with left shoulder pain. Found to be hyponatremic on routine labs. #Hypo-osmolar Hyponatremia, asymptomatic -Sodium currently 132 (improved from 118 on Friday) -Sodium Chloride tablets TID -nephrology consult appreciated -neuro checks -fall risk precautions #Right shoulder Hematoma -RUE US: 8.7 x 3.5 cm large, complex mass most likely representing a hematoma -ordered Duplex US to r/o DVT -decreased in size overnight, will continue to monitor for now #DM -Holding oral hypoglycemics: Janumet -on Insulin sliding scale -BGM #Chronic left shoulder pain -on Percocet & Robaxin with good control of pain thus far -Ortho consulted, will follow up as outpatient (does not need surgery) -physical therapy #Epigastric pain & Vomiting -likely induced by excessive NSAID use over last 2 weeks -no signs of active bleeding, H/H stable -PPI daily, Zofran PRN #HTN/HLD -continue home meds: Atenolol 50mg BID, Valsartan 160mg BID, Lipitor 40mg HS -holding HCTZ Prophylaxis -SCD's, fall precautions -PPI -no IVF needed -monitor electrolytes -diabetic diet Visit type - Emergency Visit Emergency Visit: Yes ED Registration Date: 01/26/17 Care time: The patient presented to the Emergency Department on the above date and was hospitalized for further evaluation of their emergent condition. - New Patient This patient is new to me today: No - Critical Care Critical Care patient: Yes Total Critical Care Time (in minutes): 38 Critical Care Statement: The care of this patient involved high complexity decision making to prevent further life threatening deterioration of the patient 's condition and/or to evalute & treat vital organ system(s) failure or risk of failure.
[2017-01-29] MEDS ORDERED: PT OWN MED DRAWER 7, Y5N ONE ×2 (09:00→22:07)
[2017-01-29] MEDS: ATENOLOL 50 MG TABLET (FP) PO SCH ×2 (09:03→22:42)
[2017-01-29] MEDS: VALSARTAN 160 MG TABLET (UD) PO SCH ×2 (09:03→22:42)
[2017-01-29] MEDS: PANTOPRAZOLE 40 MG TABLET (FP) PO SCH (09:03)
--- NOTE | 2017-01-29 11:46 | PN ---
Progress Note, Physician History of Present Illness: Pt seen and examined at bedside. She is awake and alert. She denies shortness of breath. She denies headache or loss of balance. - Current Medication List Current Medications: Active Medications Acetaminophen (Tylenol -) 325 mg PO Q4H PRN PRN Reason: PAIN Last Admin: 01/29/17 09:02 Dose: 325 mg Atenolol (Tenormin -) 50 mg PO BID [facility] Last Admin: 01/29/17 09:03 Dose: 50 mg Atorvastatin Calcium (Lipitor -) 40 mg PO HS [facility] Last Admin: 01/28/17 21:37 Dose: 40 mg Insulin Aspart (Novolog Vial Sliding Scale -) 1 vial SQ TIDAC [facility] PRN Reason: Protocol Last Admin: 01/29/17 06:47 Dose: Not Given Methocarbamol (Robaxin -) 500 mg PO BID [facility] Last Admin: 01/28/17 21:37 Dose: 500 mg Ondansetron HCl (Zofran Injection) 4 mg IVPUSH Q6H PRN PRN Reason: NAUSEA AND/OR VOMITING Oxycodone HCl (Roxicodone -) 5 mg PO Q4H PRN PRN Reason: PAIN Last Admin: 01/29/17 09:04 Dose: 5 mg Pantoprazole Sodium (Protonix -) 40 mg PO DAILY [facility] Last Admin: 01/29/17 09:03 Dose: 40 mg Sodium Chloride (Sodium Chloride Tablet -) 1 gm PO BID [facility] Last Admin: 01/28/17 22:00 Dose: 1 gm Valsartan (Diovan -) 160 mg PO BID [facility] Last Admin: 01/29/17 09:03 Dose: 160 mg - Objective Vital Signs: Vital Signs Temperature 97.5 F L 01/29/17 10:00 Pulse Rate 62 01/29/17 10:00 Respiratory Rate 18 01/29/17 10:00 Blood Pressure 145/54 01/29/17 10:00 O2 Sat by Pulse Oximetry (%) 99 01/29/17 07:53 Constitutional: Yes: Calm Eyes: Yes: Conjunctiva Clear HENT: Yes: Atraumatic Neck: Yes: Supple Cardiovascular: Yes: S1, S2 Respiratory: Yes: CTA Bilaterally Gastrointestinal: Yes: Soft Genitourinary: Yes: WNL Musculoskeletal: Yes: Other (shoulder pain) Edema: No Neurological: Yes: Oriented Psychiatric: Yes: Oriented Labs: CBC, BMP 01/29/17 05:15 01/29/17 05:15 Problem List - Problems (1) Hyponatremia Code(s): E87.1 - HYPO-OSMOLALITY AND HYPONATREMIA (2) Diabetes Code(s): E11.9 - TYPE 2 DIABETES MELLITUS WITHOUT COMPLICATIONS Qualifiers: Diabetes mellitus type: type 2 Diabetes mellitus complication status: without complication Diabetes mellitus detention insulin use: without detention use Qualified Code(s): E11.9 - Type 2 diabetes mellitus without complications (3) HTN (hypertension) Code(s): I10 - ESSENTIAL (PRIMARY) HYPERTENSION Qualifiers: Hypertension type: essential hypertension Qualified Code(s): I10 - Essential (primary) hypertension (4) Hyperlipidemia Code(s): E78.5 - HYPERLIPIDEMIA, UNSPECIFIED Qualifiers: Hyperlipidemia type: pure hypercholesterolemia Assessment/Plan Current Medications Generic Name Dose Route Start Last Admin Trade Name Freq PRN Reason Stop Dose Admin Acetaminophen 325 mg 01/28/17 11:17 01/29/17 09:02 Tylenol - PO 325 mg Q4H PRN Administration PAIN Atenolol 50 mg 01/27/17 22:00 01/29/17 09:03 Tenormin - PO 50 mg BID TITI Administration Atorvastatin Calcium 40 mg 01/27/17 22:00 01/28/17 21:37 Lipitor - PO 40 mg HS TITI Administration Insulin Aspart 1 vial 01/27/17 16:30 01/29/17 06:47 Novolog Vial Sliding Scale - SQ Not Given TIDAC TITI Protocol Methocarbamol 500 mg 01/27/17 22:00 01/28/17 21:37 Robaxin - PO 500 mg BID TITI Administration Ondansetron HCl 4 mg 01/27/17 14:43 Zofran Injection IVPUSH Q6H PRN NAUSEA AND/OR VOMITING Oxycodone HCl 5 mg 01/28/17 11:17 01/29/17 09:04 Roxicodone - PO 5 mg Q4H PRN Administration PAIN Pantoprazole Sodium 40 mg 01/28/17 10:00 01/29/17 09:03 Protonix - PO 40 mg DAILY TITI Administration Sodium Chloride 1 gm 01/28/17 17:30 01/28/17 22:00 Sodium Chloride Tablet - PO 1 gm BID TITI Administration Valsartan 160 mg 01/27/17 22:00 05/17/17 09:03 Diovan - PO 160 mg BID TITI Administration Impression 1. hyponatremia 2. HTN 3. DM 4. hyperlipidemia 5. shoulder pain 6. gout Plan - sodium is improving - would not restart thiazide - cont with fluid restriction and salt tabs - pt says she tries not to eat salt at all - avoid nsaids for pain - restrict free water intake - will follow Dr Richter
[2017-01-29] MEDS: SODIUM CHLORIDE 1 GM TABLET PO SCH ×2 (12:30→23:28)
[2017-01-29] MEDS: METHOCARBAMOL 500 MG TABLET PO SCH ×2 (12:30→23:29)
--- NOTE | 2017-01-29 12:31 | PN ---
Progress Note (short form) - Note Progress Note: Ortho Pt seen and examined dec pain, incr rom nvi a/p ROM exercises Nothing further to do will follow d/w Dr. Chinchilla
--- NOTE | 2017-01-29 12:50 | PN ---
Teaching Attending Note Name of Resident: Sergio Oh ATTENDING PHYSICIAN STATEMENT I saw and evaluated the patient. I reviewed the resident's note and discussed the case with the resident. I agree with the resident's findings and plan as documented. SUBJECTIVE: Pt seen and examined in the ICU. Events overnight noted, pt with RUE hematoma. No nausea. OBJECTIVE: Last Vital Signs Temp Pulse Resp BP Pulse Ox 97.5 F L 62 18 98/58 99 01/29/17 10:00 01/29/17 12:00 01/29/17 12:00 01/29/17 12:00 01/29/17 07:53 Intake & Output 01/26/17 01/27/17 01/28/17 01/29/17 23:59 23:59 23:59 23:59 Intake Total 820 2570 Output Total 2150 900 400 Balance -1330 1670 -400 Weight 133 lb 4 oz 131 lb 1.6 oz 134 lb 14.766 oz 135 lb 5.821 oz Gen: NAD at rest Heart: RRR Lung: decreased breath sounds at the bases Abd: soft, nontender Ext: RUE edema CBC, BMP 01/29/17 05:15 01/29/17 05:15 Active Medications Acetaminophen (Tylenol -) 325 mg PO Q4H PRN PRN Reason: PAIN Last Admin: 01/29/17 09:02 Dose: 325 mg Atenolol (Tenormin -) 50 mg PO BID [facility] Last Admin: 01/29/17 09:03 Dose: 50 mg Atorvastatin Calcium (Lipitor -) 40 mg PO HS [facility] Last Admin: 01/28/17 21:37 Dose: 40 mg Insulin Aspart (Novolog Vial Sliding Scale -) 1 vial SQ TIDAC [facility] PRN Reason: Protocol Last Admin: 01/29/17 06:47 Dose: Not Given Methocarbamol (Robaxin -) 500 mg PO BID [facility] Last Admin: 01/28/17 21:37 Dose: 500 mg Ondansetron HCl (Zofran Injection) 4 mg IVPUSH Q6H PRN PRN Reason: NAUSEA AND/OR VOMITING Oxycodone HCl (Roxicodone -) 5 mg PO Q4H PRN PRN Reason: PAIN Last Admin: 01/29/17 09:04 Dose: 5 mg Pantoprazole Sodium (Protonix -) 40 mg PO DAILY [facility] Last Admin: 01/29/17 09:03 Dose: 40 mg Sodium Chloride (Sodium Chloride Tablet -) 1 gm PO BID [facility] Last Admin: 01/28/17 22:00 Dose: 1 gm Valsartan (Diovan -) 160 mg PO BID [facility] Last Admin: 01/29/17 09:03 Dose: 160 mg ASSESSMENT AND PLAN: Hyponatremia improving HTN DM Hyperlipidemia - monitor BMP - salt tabs per renal - pain control - antiemetics as needed - DVT prophylaxis - can monitor on floor
--- NOTE | 2017-01-29 14:39 | PN ---
Physical Exam: SUBJECTIVE: Patient seen and examined at bed side this morning. She was crying of pain over the right upper extremity. Line was removed from the right upper arm yesterday. Denies chest pain, sob, cough, palpitation, abdominal pain, nausea or vomiting. OBJECTIVE: Vital Signs Period Temp Pulse Resp BP Sys/Duvall Pulse Ox Last 24 Hr 97.2 F-97.8 F 58-69 18-21 98-171/54-100 99-100 GENERAL: Moderately built female, patient is sitting comfortably in a chair, awake, alert, and fully oriented, in no acute distress. HEAD: Normal with no signs of trauma. EYES: EOM intact, no pallor or icterus. ENT: Ears normal, moist mucous membranes. NECK: Trachea midline, full range of motion, supple. LUNGS: Breath sounds equal, clear to auscultation bilaterally, no wheezes, no crackles, no accessory muscle use. HEART: Regular rate and rhythm, S1, S2 without murmur. ABDOMEN: Soft, nontender, nondistended, normoactive bowel sounds, no guarding, no rebound, no hepatosplenomegaly, no masses. LOWER EXTREMITIES: 2+ pulses, warm, well-perfused, no edema. RIGHT UPPER EXTREMITY: Swollen than the left; tenderness on palpation from the elbow up, bruise measuring 3 x 3.5 cm in the right medial aspect of the arm, ROM limited. LEFT UPPER EXTREMITY: No erythema or tenderness, ROM limited. NEUROLOGICAL: Cranial nerves II through XII grossly intact. Normal speech, Normal gait. PSYCH: Normal mood, normal affect. SKIN: Warm, dry, normal turgor, no rashes or lesions noted Laboratory Results - last 24 hr 01/28/17 01/28/17 01/28/17 12:01 15:15 17:44 WBC RBC Hgb Hct MCV MCHC RDW Plt Count MPV Sodium 128 L Potassium 4.3 Chloride 91 L Carbon Dioxide 25 Anion Gap 12 BUN 15 D Creatinine 0.7 POC Glucometer 195.77459 165.05878 Random Glucose 164 H D Calcium 8.3 L 01/29/17 01/29/17 01/29/17 05:15 05:15 06:45 WBC 11.4 H RBC 3.51 L Hgb 10.7 D Hct 32.2 L MCV 91.7 MCHC 33.3 RDW 12.7 Plt Count 280 MPV 9.0 Sodium 132 L Potassium 4.2 Chloride 96 L Carbon Dioxide 24 Anion Gap 12 BUN 15 Creatinine 0.6 POC Glucometer 122.51364 Random Glucose 123 H D Calcium 7.6 L 01/29/17 11:35 WBC RBC Hgb Hct MCV MCHC RDW Plt Count MPV Sodium Potassium Chloride Carbon Dioxide Anion Gap BUN Creatinine POC Glucometer 241.09072 Random Glucose Calcium Active Medications Generic Name Dose Route Start Last Admin Trade Name Freq PRN Reason Stop Dose Admin Acetaminophen 325 mg 01/28/17 11:17 01/29/17 09:02 Tylenol - PO 325 mg Q4H PRN Administration PAIN Atenolol 50 mg 01/27/17 22:00 01/29/17 09:03 Tenormin - PO 50 mg BID TITI Administration Atorvastatin Calcium 40 mg 01/27/17 22:00 01/28/17 21:37 Lipitor - PO 40 mg HS TITI Administration Insulin Aspart 1 vial 01/27/17 16:30 01/29/17 12:15 Novolog Vial Sliding Scale - SQ 4 units TIDAC TITI Administration Protocol Methocarbamol 500 mg 01/27/17 22:00 01/29/17 12:30 Robaxin - PO 500 mg BID TITI Administration Ondansetron HCl 4 mg 01/27/17 14:43 Zofran Injection IVPUSH Q6H PRN NAUSEA AND/OR VOMITING Oxycodone HCl 5 mg 01/28/17 11:17 01/29/17 09:04 Roxicodone - PO 5 mg Q4H PRN Administration PAIN Pantoprazole Sodium 40 mg 01/28/17 10:00 01/29/17 09:03 Protonix - PO 40 mg DAILY TITI Administration Sodium Chloride 1 gm 01/28/17 17:30 01/29/17 12:30 Sodium Chloride Tablet - PO 1 gm BID TITI Administration Valsartan 160 mg 01/27/17 22:00 01/29/17 09:03 Diovan - PO 160 mg BID TITI Administration 01/29/17: Duplex of right upper arm. Schultz scale, pulse Doppler and color Doppler images of the right upper extremity venous system including the internal jugular and subclavian vein were obtained. The right internal jugular, subclavian vein and axillary vein demonstrates normal phasic waveform, adequate compressibility and adequate response to augmentation. There is thrombosis of the right brachial vein. Normal flow in the right radial and ulnar vein. There is also normal flow in the cephalic and basilic vein. There is a hypoechoic complex oval-shaped masslike density in the upper/medial arm measuring 7.3 x 2.2 cm that may represent a hematoma/complex collection. ASSESSMENT/PLAN: Patient is a 71 year of female with significant past medical history of NIDDM, HTN, HLD, gout affecting L 1st toe, and L shoulder arthroscopy in 2010, who returned to ED after her prior visit 2 days ago due to persistent L shoulder pain. # Right brachial vein DVT Line was removed out yesterday 01/28/17, since then she was complaining of pain. Then developed erythema, tenderness and swelling on the right upper ext. USG showed subacute hematoma 8.[address] Ellsworth was consulted, as per his suggestion, warm compression and DVT prophylaxis x 6 months Will start ppx from tomorrow after repeat CBC # Anemia: could be due to hematoma Hb dropped from 14.3 ---->10.7 in 2 days, unlikely due to dilutional. Hence prophylaxis on hold until tomorrow. # Asymptomatic likely due to hypoosmolar hyponatremia- Resolved. Na today is 129. Renal consult appreciated Most likely patient had hyponatremia due to home medication (on diuretics). However, needs further evaluation. Patient did have one episode of vomiting the day of admission but unsure if hyponatremia caused the vomiting or if vomiting caused hyponatremia. Urine electrolytes: Ur.Sodium:119; Potassium 20.1; random chloride 116; urea nitrogen 373, creatinine 22.5; Urine osmolality 454 ADH pending; TSH: Normal. Now transferred to Med-surg Fall precautions. Stop Indomethacin # Left shoulder pain due to Left glenoid fracture Had left shoulder surgery 7 years ago (By Dr. Syed's group). But recently pain started 2 w ago after cooking and mildly exerting her arms. Didn't see any physician. Doesn't need surgical intervention at this time as per Dr. Chinchilla. Physical therapy on board ROM exercise Tylenol prn Appreciate orthopedics consult. F/up as outpatient. # Diabetes Mellitus HbA1c 6.8 01/28/2017 Hold Janumet, continue Insulin sliding scale Finger stick glucose monitoring Watch for hypoglycemic symptoms. # Epigastric pain-resolving most likely due to gastritis associated with NSAIDS and prednisone PPI 40 daily Zofran PRN # Hypertension: unstable continue home atenolol 50 bid, valsartan 160 bid HCTZ 25mg on hold since it might be one of the causes of hyponatremia Sodium restricted diet # Hyperlipidemia Continue lipitor 40 HS # FEN IV fluids stopped, encourage PO. Electrolytes to be repeated tomorrow. Diabetic and sodium controlled diet # Prophylaxis For DVT: SCD's For GI: On Pantoprazole # Dispo: Transferred to Med-Surg from ICU today. Duration of stay unknown. Illness, Investigation and Plan of care explained to the patient. She verbalized understanding. Case discussed with Dr. Devi. Visit type - Emergency Visit Emergency Visit: Yes ED Registration Date: 01/26/17 Care time: The patient presented to the Emergency Department on the above date and was hospitalized for further evaluation of their emergent condition. - New Patient This patient is new to me today: No - Critical Care Critical Care patient: No - Discharge Referral Referred to [facility] Med P.C.: No
--- NOTE | 2017-01-29 14:45 | MSN ---
Progress Note (SOAP) - Subjective Chief Complaint: L shoulder pain History of Present Illness: Ascencion is a 71 y/o female w/ PMHx of DM, HTN, HLD, and rotator cuff repair (2010) who presented to the ED for left shoulder pain and subsequently admitted for severe asymptomatic hyponatremia. Pt reports of new onset of right arm pain in the proximal medial aspect of humerus. Pain occurred overnight after her RUE venous catheter was removed. Pain meds provide adequate control of persistent L shoulder pain. Denies f/c/abd pain/hematuria/hematochezia/cerda/lightheadedness. - Current Medications Current Medications: Active Medications Acetaminophen (Tylenol -) 325 mg PO Q4H PRN PRN Reason: PAIN Last Admin: 01/29/17 09:02 Dose: 325 mg Atenolol (Tenormin -) 50 mg PO BID [facility] Last Admin: 01/29/17 09:03 Dose: 50 mg Atorvastatin Calcium (Lipitor -) 40 mg PO HS [facility] Last Admin: 01/28/17 21:37 Dose: 40 mg Insulin Aspart (Novolog Vial Sliding Scale -) 1 vial SQ TIDAC [facility] PRN Reason: Protocol Last Admin: 01/29/17 12:15 Dose: 4 units Methocarbamol (Robaxin -) 500 mg PO BID [facility] Last Admin: 01/29/17 12:30 Dose: 500 mg Ondansetron HCl (Zofran Injection) 4 mg IVPUSH Q6H PRN PRN Reason: NAUSEA AND/OR VOMITING Oxycodone HCl (Roxicodone -) 5 mg PO Q4H PRN PRN Reason: PAIN Last Admin: 01/29/17 09:04 Dose: 5 mg Pantoprazole Sodium (Protonix -) 40 mg PO DAILY [facility] Last Admin: 01/29/17 09:03 Dose: 40 mg Sodium Chloride (Sodium Chloride Tablet -) 1 gm PO BID [facility] Last Admin: 01/29/17 12:30 Dose: 1 gm Valsartan (Diovan -) 160 mg PO BID [facility] Last Admin: 01/29/17 09:03 Dose: 160 mg - Objective Vital Signs: Vital Signs Temperature 97.5 F L 01/29/17 10:00 Pulse Rate 62 01/29/17 12:00 Respiratory Rate 18 01/29/17 12:00 Blood Pressure 98/58 01/29/17 12:00 O2 Sat by Pulse Oximetry (%) 99 01/29/17 07:53 Constitutional: Yes: No Distress, Anxious Eyes: Yes: Conjunctiva Clear, EOM Intact HENT: Yes: Atraumatic, Normocephalic Neck: Yes: Supple, Trachea Midline Cardiovascular: Yes: Regular Rate and Rhythm. No: Murmur Respiratory: Yes: Regular, CTA Bilaterally. No: Accessory Muscle Use Gastrointestinal: Yes: Normal Bowel Sounds, Soft. No: Tenderness, Rebound Extremities: Yes: Other (RUE: Ecchymosis near the proximal medial aspect of humerus, significantly more swollen than Left LUE: tenderness to palpation over shoulder complex) Peripheral Pulses WNL: Yes Peripheral Pulses: Left Radial: 2+, Right Radial: 2+, Left Doralis Pedis: 2+, Right Dorsalis Pedis: 2+ Edema: No Neurological: Yes: Alert, Oriented ...Motor Strength: Yes: LUE (Limited ROM 2/2 pain; 5/5 credit or loans officer strength), RUE ( Limited ROM 2/2 pain; 5/5 credit or loans officer strength) Labs Lab Results: CBC,CMP WBC 11.4 K/mm3 (4.0-10.0) H 01/29/17 05:15 RBC 3.51 M/mm3 (3.60-5.2) L 01/29/17 05:15 Hgb 10.7 GM/dL (10.7-15.3) D 01/29/17 05:15 Hct 32.2 % (32.4-45.2) L 01/29/17 05:15 MCV 91.7 fl (80-96) 01/29/17 05:15 MCHC 33.3 g/dl (32.0-36.0) 01/29/17 05:15 RDW 12.7 % (11.6-15.6) 01/29/17 05:15 Plt Count 280 K/MM3 (134-434) 01/29/17 05:15 MPV 9.0 fl (7.5-11.1) 01/29/17 05:15 Neutrophils % 66.6 % (42.8-82.8) 01/28/17 05:15 Lymphocytes % 25.1 % (8-40) D 01/28/17 05:15 Monocytes % 6.4 % (3.8-10.2) 01/28/17 05:15 Eosinophils % 1.6 % (0-4.5) 01/28/17 05:15 Basophils % 0.3 % (0-2.0) 01/28/17 05:15 Sodium 132 mmol/L (136-145) L 01/29/17 05:15 Potassium 4.2 mmol/L (3.5-5.1) 01/29/17 05:15 Chloride 96 mmol/L (98-107) L 01/29/17 05:15 Carbon Dioxide 24 mmol/L (21-32) 01/29/17 05:15 Anion Gap 12 (8-16) 01/29/17 05:15 BUN 15 mg/dL (7-18) 01/29/17 05:15 Creatinine 0.6 mg/dL (0.55-1.02) 01/29/17 05:15 Creat Clearance w eGFR > 60 (>60) 01/28/17 05:15 POC Glucometer [phone] UNITS (()) 01/29/17 11:35 Random Glucose 123 mg/dL (74-106) H D 01/29/17 05:15 Hemoglobin A1c % 6.8 % (4.8-6.0) H D 01/28/17 05:15 Serum Osmolality 256 mosm/kg (278-305) L 01/27/17 00:15 Calcium 7.6 mg/dL (8.5-10.1) L 01/29/17 05:15 Phosphorus 2.9 mg/dL (2.5-4.9) D 01/27/17 07:10 Magnesium 1.9 mg/dL (1.8-2.4) 01/27/17 07:10 Total Bilirubin 0.8 mg/dL (0.2-1.0) 01/28/17 05:15 AST 13 U/L (15-37) L D 01/28/17 05:15 ALT 26 U/L (12-78) D 01/28/17 05:15 Alkaline Phosphatase 70 U/L (45-117) 01/28/17 05:15 Creatine Kinase 101 IU/L (26-192) 01/26/17 17:50 Troponin I < 0.02 ng/ml (0.00-0.05) 01/26/17 17:50 Total Protein 5.5 g/dl (6.4-8.2) L D 01/28/17 05:15 Albumin 3.0 g/dl (3.4-5.0) L D 01/28/17 05:15 TSH 0.79 uIU/ml (0.358-3.74) D 01/27/17 00:15 Free T4 1.45 ng/dl (0.76-1.46) 01/27/17 00:15 Imaging - Results Ultrasound: Report Reviewed (RUE Ultrasound: 8.5 x 3.7 subcutaneous hematoma RUE ) Assessment/Plan Fidelia is a 71 year old female with PMHx of HTN, HLD, DM, and left shoulder arthroscopy (2010)who presented to ED with left shoulder pain and subsequently admitted for hyponatremia found on labs. 1. Asymptomatic Hypotonic Hyponatremia; improving, pt can be transferred to floor -Sodium 132 (129) -3% Hypertonic Saline at 20cc/hr discontinued; D5W stopped -Continue free fluid restriction and sodium tablets 1g BID -Nephrology consult appreciated -Repeat BMP 2. Right arm hematoma & Right brachial vein DVT; likely 2/2 peripheral CVAC, sensation/motor/pulses intact in RUE -Duplex: DVT involving the entire right brachial vein -RUE US: 8.7 x 3.5 hematoma -Anticoagulation held due to hematoma and acute drop in H/H -Vascular surgery, Dr. Ellsworth consulted 3. Acute decline in Hb; likely 2/2 hematoma, pt asymptomatic -Hb 10.7 (12.9) -FOBT to r/o GI involvement -trend H/H -repeat CBC this afternoon 4. Chronic left shoulder pain; no improvement -CT: avulsion fragment noted in the posterior superior aspect of the left glenoid -Oxycodone & Robaxin providing moderate relief; ice pack prn -Dr. Chinchilla: Pt does not need surgery, follow up as outpt. Encouraged ROM exercises as tolerated 5. Nausea and Vomiting; epigastric pain-- improving -likely NSAID induced (indomethacin) -Zofran PRN -Continue Pantoprazole 6. DM, well controlled -HbA1C 6.8% -Janumet held -Novolog SSI -DM diet 7. HTN -Atenolol 50mg BID -Valsartan 160mg BID -HCTZ held 8. HLD -Lipitor 40mg qHS 9. DVT Prophylaxis -SCD's -fall precautions
[2017-01-29 15:21] LABS: MCH 30.9 pg (25.7-33.7); MCHC 33.5 g/dl (32.0-36.0); MEAN CELL VOLUME 92.2 fl (80-96); MEAN PLT VOLUME 8.7 fl (7.5-11.1); PLATELET COUNT 250 K/MM3 (134-434); RDW 12.7 % (11.6-15.6); WHITE BLOOD COUNT 11.5 K/mm3 (4.0-10.0)
--- NOTE | 2017-01-29 15:47 | PN ---
Teaching Attending Note Name of Resident: Genet Dwyer ATTENDING PHYSICIAN STATEMENT I saw and evaluated the patient. I reviewed the resident's note and discussed the case with the resident. I agree with the resident's findings and plan as documented. SUBJECTIVE: crying because now she has problems with both arms. has pain . has no SOB or CP . has constipation OBJECTIVE: mild distress , crying MMM, no facial droop. Lungs : decreased breath sounds at bases otherwise clear. Ext : no edema on LE . R upper arm with small bruise,medially with erythema and edema . LUE , with a sling . RP 2+ b/l . nl sensation in hands adn nl range of motion of fingers Abd : soft, NT, ND , NL BS ASSESSMENT AND PLAN: 71 y/o lady with h/o HTN, NIDDM , HL, and L shoulder arthroplasty 2010, who presented with L shoulder pain, and was found to have an avulsion Fx and hyponatremia . hospital course was complicated with RUE hematoma and DVT 1- L shoulder avulsion Fx: stable - cont sling - appreciate Ortho help 2- R upper arm hematoma , and evidence of DVT in brachial vein . - will hold off anticoagulation given the hematoma and the drop in Hb . - will consult Dr. Parmar for opinion . - UE DVT is associated with risk for DVt ( much less than LE DVT). 3- Hyponatremia: likely hypotonic , hypovolemic hyponatreamia in the setting of HCTZ use , and vomiting . in addition decreased salt intake at home responded to hypertinic saline and salt tablets - cont po salt - cont fluid restriction - looks euvolemic now 4-Acute drop in Hb, 14--->10. likely due to RUE hematoma , component of dilution as well 5- HTN: cont diovan 6- DM : Ssi , hold orals Tx out of ICU. SCDs for now
--- NOTE | 2017-01-29 16:25 | CONSULT ---
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 HANDLER: Yes: Migraine Cardio/Vascular: Yes: HTN, Hyperlipdemia Rheumatology: Yes: Gout Endocrine: Yes: Diabetes Mellitus - Alcohol/Substance Use Hx Alcohol Use: No - Smoking History Smoking history: Never smoked Have you smoked in the past 12 months: No Home Medications - Allergies Allergies/Adverse Reactions: Allergies Allergy/AdvReac Type Severity Reaction Status Date / Time No Known Allergies Allergy Verified 01/26/17 17:10 - Home Medications Home Medications: Ambulatory Orders Atenolol [Tenormin -] 50 mg PO BID 06/17/16 Sitagliptin Phos/Metformin HCl [Janumet 50-500 mg Tablet] 1 each PO DAILY Valsartan 160 mg PO BID 06/17/16 Atorvastatin Ca [Lipitor] 40 mg PO HS #30 tablet 06/19/16 Hydrochlorothiazide [Hctz -] 25 mg PO DAILY #30 tablet 06/19/16 Methocarbamol [Robaxin -] 500 mg PO BID #60 tablet 01/25/17 Oxycodone HCl/Acetaminophen [Percocet 5-325 mg Tablet] 1 tab PO Q6H #20 tablet MDD 4 01/25/17 Aspirin [ASA -] 81 mg PO DAILY 01/26/17 Physical Exam Vital Signs: Vital Signs Temperature 98.3 F 01/29/17 10:00 Pulse Rate 62 01/29/17 12:00 Respiratory Rate 18 01/29/17 12:00 Blood Pressure 98/58 01/29/17 12:00 O2 Sat by Pulse Oximetry (%) 99 01/29/17 07:53 Labs: CBC, BMP 01/29/17 14:00 01/29/17 05:15 Assessment/Plan Vascular Surgery 71 y/o lady with h/o HTN, NIDDM , HL, and L shoulder arthroplasty 2010, who presented with L shoulder pain, and was found to have an avulsion Fx and hyponatremia . hospital course was complicated with RUE hematoma and DVT PE Head - NC/AT Lung - CTA Heart - RRR abd - soft,nt,nd Ext - Right upper ext swelling, some tenderness. A/P RUE DVT with hematoma Midline cath removed yesterday. Could have been in brachial vein causing a iotrogenic DVT. Once cath was removed, pt probably developed hematoma. Would anticoagulate for 6 months once H/H stable. Warm compresses to hematoma. Bro Ellsworth DO
[2017-01-29] MEDS: ATORVASTATIN CA 40 MG TABLET (FP) PO SCH (22:41)
[2017-01-30] MEDS: oxyCODONE HCL 5 MG TABLET PO PRN ×2 (02:15→21:24)
[2017-01-30] MEDS: ACETAMINOPHEN 325 MG TABLET (FP) PO PRN ×2 (02:16→21:25)
[2017-01-30] MEDS: INSULIN SLIDING SCALE (NOVOLOG) 1 VIAL SQ SCH ×3 (06:23→16:30)
[2017-01-30 08:03] LABS: ALBUMIN 3.1 g/dl (3.4-5.0); ANION GAP 7 (8-16); CALCIUM 8.2 mg/dL (8.5-10.1); CO2 28 mmol/L (21-32); GLUCOSE,RANDOM 164 mg/dL (74-106)
[2017-01-30 08:08] LABS: ALK PHOS 74 U/L (45-117); BILIRUBIN,TOTAL 0.5 mg/dL (0.2-1.0); COCKROFT - GAULT 68.3485; CREATININE 0.7 mg/dL (0.55-1.02); SGOT/AST 19 U/L (15-37); SGPT/ALT 30 U/L (12-78); TOT PROT 5.6 g/dl (6.4-8.2)
--- NOTE | 2017-01-30 08:38 | PN ---
Physical Exam: SUBJECTIVE: Patient seen and examined OBJECTIVE: Vital Signs Period Temp Pulse Resp BP Sys/Duvall Pulse Ox Last 24 Hr 97.8 F-98.5 F 60-75 15-20 95-147/50-73 99 GENERAL: The patient is awake, alert, and fully oriented, in no acute distress. HEAD: Normal with no signs of trauma. EYES: PERRL, extraocular movements intact, sclera anicteric, conjunctiva clear. No ptosis. ENT: Ears normal, nares patent, oropharynx clear without exudates, moist mucous membranes. NECK: Trachea midline, full range of motion, supple. LUNGS: Breath sounds equal, clear to auscultation bilaterally, no wheezes, no crackles, no accessory muscle use. HEART: Regular rate and rhythm, S1, S2 without murmur, rub or gallop. ABDOMEN: Soft, nontender, nondistended, normoactive bowel sounds, no guarding, no rebound, no hepatosplenomegaly, no masses. EXTREMITIES: 2+ pulses, warm, well-perfused, no edema. NEUROLOGICAL: Cranial nerves II through XII grossly intact. Normal speech, gait not observed. PSYCH: Normal mood, normal affect. SKIN: Warm, dry, normal turgor, no rashes or lesions noted Laboratory Results - last 24 hr 01/29/17 01/29/17 01/29/17 11:35 14:00 17:41 WBC 11.5 H RBC 3.65 Hgb 11.3 Hct 33.7 MCV 92.2 MCHC 33.5 RDW 12.7 Plt Count 250 MPV 8.7 Sodium Potassium Chloride Carbon Dioxide Anion Gap BUN Creatinine Creat Clearance w eGFR POC Glucometer 241.98277 132 Random Glucose Calcium Total Bilirubin AST ALT Alkaline Phosphatase Total Protein Albumin 01/30/17 01/30/17 06:00 06:23 WBC RBC Hgb Hct MCV MCHC RDW Plt Count MPV Sodium 134 L Potassium 4.1 Chloride 99 Carbon Dioxide 28 Anion Gap 7 L BUN 14 Creatinine 0.7 Creat Clearance w eGFR > 60 POC Glucometer 144 Random Glucose 164 H D Calcium 8.2 L Total Bilirubin 0.5 D AST 19 D ALT 30 Alkaline Phosphatase 74 Total Protein 5.6 L Albumin 3.1 L Active Medications Generic Name Dose Route Start Last Admin Trade Name Freq PRN Reason Stop Dose Admin Acetaminophen 325 mg 01/28/17 11:17 01/30/17 02:16 Tylenol - PO 325 mg Q4H PRN Administration PAIN Atenolol 50 mg 01/27/17 22:00 01/29/17 22:42 Tenormin - PO 50 mg BID TITI Administration Atorvastatin Calcium 40 mg 01/27/17 22:00 01/29/17 22:41 Lipitor - PO 40 mg HS TITI Administration Insulin Aspart 1 vial 01/27/17 16:30 01/30/17 06:23 Novolog Vial Sliding Scale - SQ Not Given TIDAC [facility] Protocol Methocarbamol 500 mg 01/27/17 22:00 01/29/17 23:29 Robaxin - PO 500 mg BID TITI Administration Ondansetron HCl 4 mg 01/27/17 14:43 Zofran Injection IVPUSH Q6H PRN NAUSEA AND/OR VOMITING Oxycodone HCl 5 mg 01/28/17 11:17 01/30/17 02:15 Roxicodone - PO 5 mg Q4H PRN Administration PAIN Pantoprazole Sodium 40 mg 01/28/17 10:00 01/29/17 09:03 Protonix - PO 40 mg DAILY TITI Administration Sodium Chloride 1 gm 01/28/17 17:30 01/29/17 23:28 Sodium Chloride Tablet - PO 1 gm BID TITI Administration Valsartan 160 mg 01/27/17 22:00 01/29/17 22:42 Diovan - PO 160 mg BID TITI Administration ASSESSMENT/PLAN:
--- NOTE | 2017-01-30 10:27 | PN ---
Progress Note (short form) - Note Progress Note: Pt with B/L shoulder pain, nor R as much as L. Both are mod, not severe. ROM of both shoulders are good below 90 degrees, beyond that is possible in all planes but painful. Imp Left shoulder bursitis and glenoid fracture. Right shoulder bursitis. Rec Will treat as an out pt. F/U as an out pt 1 week after DC from hospital
[2017-01-30] MEDS: SODIUM CHLORIDE 1 GM TABLET PO SCH (11:00)
[2017-01-30] MEDS: VALSARTAN 160 MG TABLET (UD) PO SCH ×2 (11:00→21:22)
[2017-01-30] MEDS: METHOCARBAMOL 500 MG TABLET PO SCH ×2 (11:00→21:26)
[2017-01-30] MEDS: PANTOPRAZOLE 40 MG TABLET (FP) PO SCH (11:00)
[2017-01-30] MEDS: ATENOLOL 50 MG TABLET (FP) PO SCH ×2 (11:00→21:26)
[2017-01-30 11:37] LABS: MCHC 33.4 g/dl (32.0-36.0); MEAN CELL VOLUME 92.9 fl (80-96); MEAN PLT VOLUME 8.7 fl (7.5-11.1); PLATELET COUNT 239 K/MM3 (134-434); WHITE BLOOD COUNT 9.6 K/mm3 (4.0-10.0)
--- NOTE | 2017-01-30 13:11 | MSN ---
Progress Note (SOAP) - Subjective Chief Complaint: L shoulder pain History of Present Illness: Ascencion is a 71 y/o f with PMHx of HTN, HLD, DM, L RTC repair 2010 who is admitted for severe hyponatremia and L glenoid avulsion fracture. Patient's hospital stay was complicated by R brachial vein DVT and hematoma 2/2 peripheral CVAC. Pt was walking to her bed from the bathroom this morning. Pain in both arms still present today, no change in intensity. She felt a brief episode of lightheadedness this morning while brushing her teeth, but is asymptomatic now. Still no bowel movement since admission. Denies f/c/abd pain/ hematuria/hematochezia/n/v. - Current Medications Current Medications: Active Medications Acetaminophen (Tylenol -) 325 mg PO Q4H PRN PRN Reason: PAIN Last Admin: 01/30/17 02:16 Dose: 325 mg Apixaban (Eliquis -) 10 mg PO BID [facility] Stop: 02/06/17 11:59 Atenolol (Tenormin -) 50 mg PO BID [facility] Last Admin: 01/30/17 11:00 Dose: 50 mg Atorvastatin Calcium (Lipitor -) 40 mg PO HS [facility] Last Admin: 01/29/17 22:41 Dose: 40 mg Docusate Sodium (Colace -) 100 mg PO DAILY [facility] Insulin Aspart (Novolog Vial Sliding Scale -) 1 vial SQ TIDAC [facility] PRN Reason: Protocol Last Admin: 01/30/17 11:34 Dose: 2 units Methocarbamol (Robaxin -) 500 mg PO BID [facility] Last Admin: 01/30/17 11:00 Dose: 500 mg Ondansetron HCl (Zofran Injection) 4 mg IVPUSH Q6H PRN PRN Reason: NAUSEA AND/OR VOMITING Oxycodone HCl (Roxicodone -) 5 mg PO Q4H PRN PRN Reason: PAIN Last Admin: 01/30/17 02:15 Dose: 5 mg Pantoprazole Sodium (Protonix -) 40 mg PO DAILY [facility] Last Admin: 01/30/17 11:00 Dose: 40 mg Polyethylene Glycol (Miralax (For Daily Use) -) 17 gm PO DAILY [facility] Senna (Senna -) 2 tab PO HS [facility] Sodium Chloride (Sodium Chloride Tablet -) 1 gm PO BID [facility] Last Admin: 01/30/17 11:00 Dose: 1 gm Valsartan (Diovan -) 160 mg PO BID [facility] Last Admin: 01/30/17 11:00 Dose: 160 mg - Objective Vital Signs: Vital Signs Temperature 98.2 F 01/30/17 09:00 Pulse Rate 66 01/30/17 09:00 Respiratory Rate 18 01/30/17 09:00 Blood Pressure 143/91 01/30/17 09:00 O2 Sat by Pulse Oximetry (%) 99 01/29/17 18:00 Constitutional: Yes: No Distress, Calm Eyes: Yes: EOM Intact HENT: Yes: Atraumatic, Normocephalic Neck: Yes: Supple, Trachea Midline Cardiovascular: Yes: Regular Rate and Rhythm. No: Murmur Respiratory: Yes: Regular, CTA Bilaterally. No: Tachypnea Gastrointestinal: Yes: Normal Bowel Sounds, Soft. No: Tenderness, Rebound Musculoskeletal: Yes: Other (Ecchymosis around the right medial humerus. Hematoma present) Peripheral Pulses WNL: Yes Peripheral Pulses: Left Radial: 2+, Right Radial: 2+, Left Doralis Pedis: 2+, Right Dorsalis Pedis: 2+ ...Motor Strength: Yes: LUE (5/5 strenght in geomagnetician/elbow flexion & extension), RUE (5/5 strength in geomagnetician/elbow flexion and extension) Labs Lab Results: CBC,CMP WBC 9.6 K/mm3 (4.0-10.0) 01/30/17 06:00 RBC 3.36 M/mm3 (3.60-5.2) L 01/30/17 06:00 Hgb 10.4 GM/dL (10.7-15.3) L 01/30/17 06:00 Hct 31.2 % (32.4-45.2) L 01/30/17 06:00 MCV 92.9 fl (80-96) 01/30/17 06:00 MCHC 33.4 g/dl (32.0-36.0) 01/30/17 06:00 RDW 13.0 % (11.6-15.6) 01/30/17 06:00 Plt Count 239 K/MM3 (134-434) 01/30/17 06:00 MPV 8.7 fl (7.5-11.1) 01/30/17 06:00 Neutrophils % 66.6 % (42.8-82.8) 01/28/17 05:15 Lymphocytes % 25.1 % (8-40) D 01/28/17 05:15 Monocytes % 6.4 % (3.8-10.2) 01/28/17 05:15 Eosinophils % 1.6 % (0-4.5) 01/28/17 05:15 Basophils % 0.3 % (0-2.0) 01/28/17 05:15 Sodium 134 mmol/L (136-145) L 01/30/17 06:00 Potassium 4.1 mmol/L (3.5-5.1) 01/30/17 06:00 Chloride 99 mmol/L (98-107) 01/30/17 06:00 Carbon Dioxide 28 mmol/L (21-32) 01/30/17 06:00 Anion Gap 7 (8-16) L 01/30/17 06:00 BUN 14 mg/dL (7-18) 01/30/17 06:00 Creatinine 0.7 mg/dL (0.55-1.02) 01/30/17 06:00 Creat Clearance w eGFR > 60 (>60) 01/30/17 06:00 POC Glucometer 153 UNITS (()) 01/30/17 11:33 Random Glucose 164 mg/dL (74-106) H D 01/30/17 06:00 Hemoglobin A1c % 6.8 % (4.8-6.0) H D 01/28/17 05:15 Serum Osmolality 256 mosm/kg (278-305) L 01/27/17 00:15 Calcium 8.2 mg/dL (8.5-10.1) L 01/30/17 06:00 Phosphorus 2.9 mg/dL (2.5-4.9) D 01/27/17 07:10 Magnesium 1.9 mg/dL (1.8-2.4) 01/27/17 07:10 Total Bilirubin 0.5 mg/dL (0.2-1.0) D 01/30/17 06:00 AST 19 U/L (15-37) D 01/30/17 06:00 ALT 30 U/L (12-78) 01/30/17 06:00 Alkaline Phosphatase 74 U/L (45-117) 01/30/17 06:00 Creatine Kinase 101 IU/L (26-192) 01/26/17 17:50 Troponin I < 0.02 ng/ml (0.00-0.05) 01/26/17 17:50 Total Protein 5.6 g/dl (6.4-8.2) L 01/30/17 06:00 Albumin 3.1 g/dl (3.4-5.0) L 01/30/17 06:00 TSH 0.79 uIU/ml (0.358-3.74) D 01/27/17 00:15 Free T4 1.45 ng/dl (0.76-1.46) 01/27/17 00:15 Assessment/Plan Fidelia is a 71 year old female with PMHx of HTN, HLD, DM, and left shoulder arthroscopy (2010)who presented to ED with left shoulder pain and subsequently admitted for hyponatremia found on labs. Hospital stay is complicated by right brachial vein DVT and hematoma 2/2 peripheral CVAC. 1. Asymptomatic Hypotonic Hyponatremia; improving, likely multifactorial in etiology (emesis, HCTZ, NSAIDs) -Sodium 134 (132) -Continue free fluid restriction -Consider discontinuing sodium tablets 1g BID -Nephrology consult appreciated -Repeat BMP -PT to evaluate and assess if pt can be safely discharged home or needs short term rehab 2. Right arm hematoma & Right brachial vein DVT; stable, sensation/motor/pulses intact in RUE -Dr. Ellsworth: DVT/hematoma 2/2 peripheral CVAC, start anticoagulation -warm compresses -Start Eliquis 10mg BID -Monitor pt overnight, if Hb remains stable and hematoma does not increase in size pt can be discharged home tmrw. 3. Acute decline in Hb; improving, likely 2/2 hematoma, pt asymptomatic -Hb 10.4 (11.3) -trend H/H -repeat CBC tmrw am 4. Chronic left shoulder pain; no improvement -CT: avulsion fragment noted in the posterior superior aspect of the left glenoid -Oxycodone & Robaxin providing moderate relief; ice pack prn -Dr. Chinchilla: Pt does not need surgery, follow up as outpt. Encouraged ROM exercises as tolerated 5. Constipation; no bowel movement past 4 days, likely 2/2 pain meds and dec po intake -Senna, miralax, colace 6. DM, well controlled -HbA1C 6.8% -Janumet held -Novolog SSI -DM diet 7. HTN -Atenolol 50mg BID -Valsartan 160mg BID -HCTZ discontinued 8. HLD -Lipitor 40mg qHS 9. DVT Prophylaxis -SCD's -fall precautions
[2017-01-30] MEDS: DOCUSATE SODIUM 100 MG CAPSULE (FP) PO SCH (13:20)
[2017-01-30] MEDS: POLYETHYLENE GLYCOL 3350 119 GM BTL PO SCH (13:20)
--- NOTE | 2017-01-30 13:22 | PN ---
Physical Exam: SUBJECTIVE: Patient seen and examined at bed side this morning. Still complaining of pain on both the upper limbs. She reported it is difficult to move her upper extremities due to pain. Patient mentions pain is relieved with meds. Hasn't moved bowel since few days. Denies chest pain, sob, cough, palpitation, abdominal pain, nausea or vomiting. Bladder habit normal. OBJECTIVE: Vital Signs Period Temp Pulse Resp BP Sys/Duvall Pulse Ox Last 24 Hr 97.8 F-98.5 F 60-75 15-20 95-147/50-91 99 GENERAL: Moderately built female, patient is lying comfortably in bed, awake, alert, and fully oriented, in no acute distress. HEAD: Normal with no signs of trauma. EYES: EOM intact, no pallor or icterus. ENT: Ears normal, moist mucous membranes. NECK: Trachea midline, full range of motion, supple. LUNGS: Breath sounds equal, clear to auscultation bilaterally, no wheezes, no crackles, no accessory muscle use. HEART: Regular rate and rhythm, S1, S2 without murmur. ABDOMEN: Soft, nontender, nondistended, normoactive bowel sounds, no guarding, no rebound, no hepatosplenomegaly, no masses. LOWER EXTREMITIES: 2+ pulses, warm, well-perfused, no edema. RIGHT UPPER EXTREMITY: Swollen than the left; tenderness on palpation from the elbow up, irregular ecchymosis measuring in the right medial aspect of the arm , ROM limited. LEFT UPPER EXTREMITY: No erythema or tenderness, ROM limited. NEUROLOGICAL: Cranial nerves II through XII grossly intact. Normal speech, Normal gait. PSYCH: Normal mood, normal affect. SKIN: Warm, dry, normal turgor, no rashes or lesions noted Laboratory Results - last 24 hr 01/29/17 01/29/17 01/30/17 14:00 17:41 06:00 WBC 11.5 H RBC 3.65 Hgb 11.3 Hct 33.7 MCV 92.2 MCHC 33.5 RDW 12.7 Plt Count 250 MPV 8.7 Sodium 134 L Potassium 4.1 Chloride 99 Carbon Dioxide 28 Anion Gap 7 L BUN 14 Creatinine 0.7 Creat Clearance w eGFR > 60 POC Glucometer 132 Random Glucose 164 H D Calcium 8.2 L Total Bilirubin 0.5 D AST 19 D ALT 30 Alkaline Phosphatase 74 Total Protein 5.6 L Albumin 3.1 L 01/30/17 01/30/17 01/30/17 06:00 06:23 11:33 WBC 9.6 RBC 3.36 L Hgb 10.4 L Hct 31.2 L MCV 92.9 MCHC 33.4 RDW 13.0 Plt Count 239 MPV 8.7 Sodium Potassium Chloride Carbon Dioxide Anion Gap BUN Creatinine Creat Clearance w eGFR POC Glucometer 144 153 Random Glucose Calcium Total Bilirubin AST ALT Alkaline Phosphatase Total Protein Albumin Active Medications Generic Name Dose Route Start Last Admin Trade Name Freq PRN Reason Stop Dose Admin Acetaminophen 325 mg 01/28/17 11:17 01/30/17 02:16 Tylenol - PO 325 mg Q4H PRN Administration PAIN Apixaban 10 mg 01/30/17 12:00 Eliquis - PO 02/06/17 11:59 BID TITI Atenolol 50 mg 01/27/17 22:00 01/30/17 11:00 Tenormin - PO 50 mg BID [facility] Administration Atorvastatin Calcium 40 mg 01/27/17 22:00 01/29/17 22:41 Lipitor - PO 40 mg HS [facility] Administration Docusate Sodium 100 mg 01/30/17 12:15 01/30/17 13:20 Colace - PO 100 mg DAILY [facility] Administration Insulin Aspart 1 vial 01/27/17 16:30 01/30/17 11:34 Novolog Vial Sliding Scale - SQ 2 units TIDAC [facility] Administration Protocol Methocarbamol 500 mg 01/27/17 22:00 01/30/17 11:00 Robaxin - PO 500 mg BID [facility] Administration Ondansetron HCl 4 mg 01/27/17 14:43 Zofran Injection IVPUSH Q6H PRN NAUSEA AND/OR VOMITING Oxycodone HCl 5 mg 01/28/17 11:17 01/30/17 02:15 Roxicodone - PO 5 mg Q4H PRN Administration PAIN Pantoprazole Sodium 40 mg 01/28/17 10:00 01/30/17 11:00 Protonix - PO 40 mg DAILY [facility] Administration Polyethylene Glycol 17 gm 01/30/17 12:15 01/30/17 13:20 Miralax (For Daily Use) - PO 17 gm DAILY [facility] Administration Senna 2 tab 01/30/17 22:00 Senna - PO HS [facility] Sodium Chloride 1 gm 01/28/17 17:30 01/30/17 11:00 Sodium Chloride Tablet - PO 1 gm BID [facility] Administration Valsartan 160 mg 01/27/17 22:00 01/30/17 11:00 Diovan - PO 160 mg BID [facility] Administration 01/29/17: Duplex of right upper arm. Schultz scale, pulse Doppler and color Doppler images of the right upper extremity venous system including the internal jugular and subclavian vein were obtained. The right internal jugular, subclavian vein and axillary vein demonstrates normal phasic waveform, adequate compressibility and adequate response to augmentation. There is thrombosis of the right brachial vein. Normal flow in the right radial and ulnar vein. There is also normal flow in the cephalic and basilic vein. There is a hypoechoic complex oval-shaped masslike density in the upper/medial arm measuring 7.3 x 2.2 cm that may represent a hematoma/complex collection. ASSESSMENT/PLAN: Patient is a 71 year of female with significant past medical history of NIDDM, HTN, HLD, gout affecting L 1st toe, and L shoulder arthroscopy in 2010, who returned to ED after her prior visit 2 days ago due to persistent L shoulder pain. # Right brachial vein DVT with a hematoma on the right upper arm. Line was removed out on 01/28/17, since then she was complaining of pain. Then developed erythema, tenderness and swelling on the right upper ext. USG showed subacute hematoma 8.7 x 3.5 cm. Duplex of the right upper arm showed Thromobosis of the right brachial vein Dr. Ellsworth was consulted, as per his suggestion, warm compression and DVT prophylaxis x 6 months Started on Elliquis 10mg BID x 7days (Day 1) then 5mg BID. Patient has been explained about the risks including spontaneous bleed and the benefits of anticoagulation. She verbalized understanding. Physical therapy request # Anemia: could be due to hematoma Hb dropped from 14.3 ---->10.7 in 2 days, unlikely due to dilutional. Repeat Hb has been stable, hence started on anticoagulation today. # Asymptomatic likely due to hypoosmolar hyponatremia- Resolved. Na today is 134. Still on Salt tablets, will consult with Dr. Richter if we can stop salt tablets Renal consult appreciated Most likely patient had hyponatremia due to home medication (on diuretics). However, needs further evaluation. Patient did have one episode of vomiting the day of admission but unsure if hyponatremia caused the vomiting or if vomiting caused hyponatremia. Urine electrolytes: Ur.Sodium:119; Potassium 20.1; random chloride 116; urea nitrogen 373, creatinine 22.5; Urine osmolality 454 ADH pending; TSH: Normal. Now transferred to Med-surg Fall precautions. Stop Indomethacin # Left shoulder pain due to Left glenoid fracture Had left shoulder surgery 7 years ago (By Dr. Syed's group). But recently pain started 2 w ago after cooking and mildly exerting her arms. Didn't see any physician. Doesn't need surgical intervention at this time as per Dr. Chinchilla. Physical therapy on board ROM exercise Tylenol prn Appreciate orthopedics consult. F/up as outpatient. # Diabetes Mellitus HbA1c 6.8 01/28/2017 Hold Janumet, continue Insulin sliding scale Finger stick glucose monitoring Watch for hypoglycemic symptoms. # Epigastric pain-resolving most likely due to gastritis associated with NSAIDS and prednisone PPI 40 daily Zofran PRN # Hypertension: unstable continue home atenolol 50 bid, valsartan 160 bid HCTZ 25mg on hold since it might be one of the causes of hyponatremia Sodium restricted diet # Hyperlipidemia Continue lipitor 40 HS # FEN IV fluids stopped, encourage PO. Electrolytes to be repeated tomorrow. Diabetic and sodium controlled diet # Prophylaxis For DVT: SCD's For GI: On Pantoprazole # Dispo: Admitted in Med-Surg. Possible discharge tomorrow. Spoke with the social media senior associate about placing her on short term rehabilitation as patient needs assistance to do her daily activities. Illness, Investigation and Plan of care explained to the patient. She verbalized understanding. Case discussed with Dr. Devi. Visit type - Emergency Visit Emergency Visit: Yes ED Registration Date: 01/26/17 Care time: The patient presented to the Emergency Department on the above date and was hospitalized for further evaluation of their emergent condition. - New Patient This patient is new to me today: No - Critical Care Critical Care patient: No - Discharge Referral Referred to [facility] Med P.C.: No
[2017-01-30] MEDS: APIXABAN 5 MG TABLET PO SCH ×2 (13:26→21:19)
--- NOTE | 2017-01-30 16:02 | PN ---
Teaching Attending Note Name of Resident: Genet Dwyer ATTENDING PHYSICIAN STATEMENT I saw and evaluated the patient. I reviewed the resident's note and discussed the case with the resident. I agree with the resident's findings and plan as documented. SUBJECTIVE: pain in L shoulder and R upper arm is better OBJECTIVE: NAD MMM, no facial droop. Lungs : CTAB Ext : no edema on LE . R upper arm with bruising extending to upper forearm, imporved edema and erythema . RP 2+ b/l . nl sensation in hands and nl range of motion of fingers ASSESSMENT AND PLAN: 71 y/o lady with h/o HTN, NIDDM , HL, and L shoulder arthroplasty 2010, who presented with L shoulder pain, and was found to have an avulsion Fx and hyponatremia . hospital course was complicated with RUE hematoma and DVT 1- L glenoid avulsion Fx: stable - cont sling - appreciate Ortho help 2- R upper arm hematoma , and evidence of DVT in brachial vein . - Hb is stable , bruising extended with gravity. - start eliquis 10 mg BID x 7 days then 5 bID . pharmacy called, eliquis is covered by her insurance 3- Hyponatremia: likely hypotonic , hypovolemic hyponatreamia in the setting of HCTZ use , and vomiting . euvolemic now - will d/w renal holding salt tablets - cont fluid restriction 4-Acute drop in Hb, likely due to RUE hematoma , component of dilution as well stable 5- HTN: cont diovan 6- DM : Ssi , hold orals dispo : monitor on blood thinners over night, if no further drop in hB or change in PE , will dc tomorrow . ? rehab. will d/w CM.
--- NOTE | 2017-01-30 17:33 | PN ---
Progress Note, Physician History of Present Illness: Pt seen and examined at bedside. She is awake and alert. She is now in the medical hooper. - Current Medication List Current Medications: Active Medications Acetaminophen (Tylenol -) 325 mg PO Q4H PRN PRN Reason: PAIN Last Admin: 01/30/17 02:16 Dose: 325 mg Apixaban (Eliquis -) 10 mg PO BID [facility] Stop: 02/06/17 11:59 Last Admin: 01/30/17 13:26 Dose: 10 mg Atenolol (Tenormin -) 50 mg PO BID [facility] Last Admin: 01/30/17 11:00 Dose: 50 mg Atorvastatin Calcium (Lipitor -) 40 mg PO HS [facility] Last Admin: 01/29/17 22:41 Dose: 40 mg Docusate Sodium (Colace -) 100 mg PO DAILY [facility] Last Admin: 01/30/17 13:20 Dose: 100 mg Insulin Aspart (Novolog Vial Sliding Scale -) 1 vial SQ TIDAC [facility] PRN Reason: Protocol Last Admin: 01/30/17 16:30 Dose: Not Given Methocarbamol (Robaxin -) 500 mg PO BID [facility] Last Admin: 01/30/17 11:00 Dose: 500 mg Ondansetron HCl (Zofran Injection) 4 mg IVPUSH Q6H PRN PRN Reason: NAUSEA AND/OR VOMITING Oxycodone HCl (Roxicodone -) 5 mg PO Q4H PRN PRN Reason: PAIN Last Admin: 01/30/17 02:15 Dose: 5 mg Pantoprazole Sodium (Protonix -) 40 mg PO DAILY [facility] Last Admin: 01/30/17 11:00 Dose: 40 mg Polyethylene Glycol (Miralax (For Daily Use) -) 17 gm PO DAILY [facility] Last Admin: 01/30/17 13:20 Dose: 17 gm Senna (Senna -) 2 tab PO [facility] Sodium Chloride (Sodium Chloride Tablet -) 1 gm PO BID [facility] Last Admin: 01/30/17 11:00 Dose: 1 gm Valsartan (Diovan -) 160 mg PO BID [facility] Last Admin: 01/30/17 11:00 Dose: 160 mg - Objective Vital Signs: Vital Signs Temperature 97.7 F 01/30/17 14:38 Pulse Rate 68 01/30/17 14:38 Respiratory Rate 18 01/30/17 14:38 Blood Pressure 137/49 01/30/17 14:38 O2 Sat by Pulse Oximetry (%) 99 01/29/17 18:00 Constitutional: Yes: Calm Eyes: Yes: Conjunctiva Clear HENT: Yes: Atraumatic Neck: Yes: Supple Cardiovascular: Yes: S1, S2 Respiratory: Yes: CTA Bilaterally Gastrointestinal: Yes: Soft Genitourinary: Yes: WNL Musculoskeletal: Yes: Other (shoulder pain) Edema: No Neurological: Yes: Oriented Psychiatric: Yes: Oriented Labs: CBC, BMP 01/30/17 06:00 01/30/17 06:00 Problem List - Problems (1) Hyponatremia Code(s): E87.1 - HYPO-OSMOLALITY AND HYPONATREMIA (2) Diabetes Code(s): E11.9 - TYPE 2 DIABETES MELLITUS WITHOUT COMPLICATIONS Qualifiers: Diabetes mellitus type: type 2 Diabetes mellitus complication status: without complication Diabetes mellitus ferry terminal supervisor insulin use: without ferry terminal supervisor use Qualified Code(s): E11.9 - Type 2 diabetes mellitus without complications (3) HTN (hypertension) Code(s): I10 - ESSENTIAL (PRIMARY) HYPERTENSION Qualifiers: Hypertension type: essential hypertension Qualified Code(s): I10 - Essential (primary) hypertension (4) Hyperlipidemia Code(s): E78.5 - HYPERLIPIDEMIA, UNSPECIFIED Qualifiers: Hyperlipidemia type: pure hypercholesterolemia Assessment/Plan Current Medications Generic Name Dose Route Start Last Admin Trade Name Freq PRN Reason Stop Dose Admin Acetaminophen 325 mg 01/28/17 11:17 01/30/17 02:16 Tylenol - PO 325 mg Q4H PRN Administration PAIN Apixaban 10 mg 01/30/17 12:00 01/30/17 13:26 Eliquis - PO 02/06/17 11:59 10 mg BID TITI Administration Atenolol 50 mg 01/27/17 22:00 01/30/17 11:00 Tenormin - PO 50 mg BID [facility] Administration Atorvastatin Calcium 40 mg 01/27/17 22:00 01/29/17 22:41 Lipitor - PO 40 mg HS [facility]I Administration Docusate Sodium 100 mg 01/30/17 12:15 01/30/17 13:20 Colace - PO 100 mg DAILY [facility] Administration Insulin Aspart 1 vial 01/27/17 16:30 01/30/17 16:30 Novolog Vial Sliding Scale - SQ Not Given TIDAC [facility] Protocol Methocarbamol 500 mg 01/27/17 22:00 01/30/17 11:00 Robaxin - PO 500 mg BID [facility] Administration Ondansetron HCl 4 mg 01/27/17 14:43 Zofran Injection IVPUSH Q6H PRN NAUSEA AND/OR VOMITING Oxycodone HCl 5 mg 01/28/17 11:17 01/30/17 02:15 Roxicodone - PO 5 mg Q4H PRN Administration PAIN Pantoprazole Sodium 40 mg 01/28/17 10:00 01/30/17 11:00 Protonix - PO 40 mg DAILY [facility] Administration Polyethylene Glycol 17 gm 01/30/17 12:15 01/30/17 13:20 Miralax (For Daily Use) - PO 17 gm DAILY [facility] Administration Senna 2 tab 01/30/17 22:00 Senna - PO HS [facility] Sodium Chloride 1 gm 01/28/17 17:30 01/30/17 11:00 Sodium Chloride Tablet - PO 1 gm BID [facility] Administration Valsartan 160 mg 01/27/17 22:00 01/30/17 11:00 Diovan - PO 160 mg BID TITI Administration Impression 1. hyponatremia 2. HTN 3. DM 4. hyperlipidemia 5. shoulder pain 6. gout Plan - sodium is stable - pt is not adhering to free water restriction - restrict to one liter for now - will decrease dose of sodium chloride to 1 tab per day - repeat labs in am - if pt has persistent hyponatremia despite stopping the thiazide then she will need further workup and testing - avoid nsaids for pain - will follow Dr Richter
[2017-01-30] MEDS ORDERED: PT OWN MED DRAWER 7, Y5N ONE (21:11)
[2017-01-30] MEDS: ATORVASTATIN CA 40 MG TABLET (FP) PO SCH (21:23)
[2017-01-30] MEDS: SENNOSIDES 8.6MG TABLET (FP) PO SCH (21:24)
[2017-01-31] MEDS: INSULIN SLIDING SCALE (NOVOLOG) 1 VIAL SQ SCH ×3 (06:08→17:56)
[2017-01-31 07:42] LABS: MCH 31.5 pg (25.7-33.7); MEAN CELL VOLUME 92.7 fl (80-96); MEAN PLT VOLUME 8.5 fl (7.5-11.1); PLATELET COUNT 243 K/MM3 (134-434); WHITE BLOOD COUNT 7.6 K/mm3 (4.0-10.0)
[2017-01-31 08:22] LABS: ALBUMIN 3.1 g/dl (3.4-5.0); ALK PHOS 85 U/L (45-117); ANION GAP 5 (8-16); BILIRUBIN,TOTAL 0.6 mg/dL (0.2-1.0); CALCIUM 8.5 mg/dL (8.5-10.1); CO2 31 mmol/L (21-32); CREATININE 0.7 mg/dL (0.55-1.02); GLUCOSE,RANDOM 135 mg/dL (74-106); SGOT/AST 19 U/L (15-37); SGPT/ALT 31 U/L (12-78); TOT PROT 5.6 g/dl (6.4-8.2)
[2017-01-31] MEDS: SODIUM CHLORIDE 1 GM TABLET PO SCH (09:59)
[2017-01-31] MEDS ORDERED: SODIUM CHLORIDE 1 GM TABLET PO SCH (10:00)
[2017-01-31] MEDS ORDERED: PT OWN MED DRAWER 7, Y5N ONE (10:22)
[2017-01-31] MEDS: VALSARTAN 160 MG TABLET (UD) PO SCH ×2 (10:25→22:22)
[2017-01-31] MEDS: PANTOPRAZOLE 40 MG TABLET (FP) PO SCH (10:25)
[2017-01-31] MEDS: ATENOLOL 50 MG TABLET (FP) PO SCH ×2 (10:25→22:22)
[2017-01-31] MEDS: METHOCARBAMOL 500 MG TABLET PO SCH ×2 (10:26→22:22)
[2017-01-31] MEDS: APIXABAN 5 MG TABLET PO SCH ×2 (10:26→22:24)
[2017-01-31] MEDS: POLYETHYLENE GLYCOL 3350 119 GM BTL PO SCH (10:34)
[2017-01-31] MEDS: DOCUSATE SODIUM 100 MG CAPSULE (FP) PO SCH (10:34)
--- NOTE | 2017-01-31 13:58 | PN ---
Progress Note, Physician History of Present Illness: Pt seen and examined at bedside. She is awake and alert. She denies headache. She complains of shoulder pain. - Current Medication List Current Medications: Active Medications Acetaminophen (Tylenol -) 325 mg PO Q4H PRN PRN Reason: PAIN Last Admin: 01/30/17 21:25 Dose: 325 mg Apixaban (Eliquis -) 10 mg PO BID [facility] Stop: 02/06/17 11:59 Last Admin: 01/31/17 10:26 Dose: 10 mg Atenolol (Tenormin -) 50 mg PO BID [facility] Last Admin: 01/31/17 10:25 Dose: 50 mg Atorvastatin Calcium (Lipitor -) 40 mg PO HS [facility] Last Admin: 01/30/17 21:23 Dose: 40 mg Docusate Sodium (Colace -) 100 mg PO DAILY [facility] Last Admin: 01/31/17 10:34 Dose: Not Given Insulin Aspart (Novolog Vial Sliding Scale -) 1 vial SQ TIDAC [facility] PRN Reason: Protocol Last Admin: 01/31/17 13:00 Dose: 2 units Methocarbamol (Robaxin -) 500 mg PO BID [facility] Last Admin: 01/31/17 10:26 Dose: 500 mg Ondansetron HCl (Zofran Injection) 4 mg IVPUSH Q6H PRN PRN Reason: NAUSEA AND/OR VOMITING Oxycodone HCl (Roxicodone -) 5 mg PO Q4H PRN PRN Reason: PAIN Last Admin: 01/30/17 21:24 Dose: 5 mg Pantoprazole Sodium (Protonix -) 40 mg PO DAILY [facility] Last Admin: 01/31/17 10:25 Dose: 40 mg Polyethylene Glycol (Miralax (For Daily Use) -) 17 gm PO DAILY [facility] Last Admin: 01/31/17 10:34 Dose: Not Given Senna (Senna -) 2 tab PO HS [facility] Last Admin: 01/30/17 21:24 Dose: 2 tab Valsartan (Diovan -) 160 mg PO BID [facility] Last Admin: 01/31/17 10:25 Dose: 160 mg - Objective Vital Signs: Vital Signs Temperature 97.8 F 01/31/17 10:00 Pulse Rate 68 01/31/17 10:00 Respiratory Rate 20 01/31/17 10:00 Blood Pressure 126/62 01/31/17 10:00 O2 Sat by Pulse Oximetry (%) 99 01/31/17 09:00 Constitutional: Yes: Calm Eyes: Yes: Conjunctiva Clear HENT: Yes: Atraumatic Neck: Yes: Supple Cardiovascular: Yes: S1, S2 Respiratory: Yes: CTA Bilaterally Gastrointestinal: Yes: Soft Genitourinary: Yes: WNL Musculoskeletal: Yes: Other (shoulder pain) Edema: No Neurological: Yes: Oriented Psychiatric: Yes: Oriented Labs: CBC, BMP 01/31/17 06:20 01/31/17 06:20 Problem List - Problems (1) Hyponatremia Code(s): E87.1 - HYPO-OSMOLALITY AND HYPONATREMIA (2) Diabetes Code(s): E11.9 - TYPE 2 DIABETES MELLITUS WITHOUT COMPLICATIONS Qualifiers: Diabetes mellitus type: type 2 Diabetes mellitus complication status: without complication 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 Qualified Code(s): E11.9 - Type 2 diabetes mellitus without complications (3) HTN (hypertension) Code(s): I10 - ESSENTIAL (PRIMARY) HYPERTENSION Qualifiers: Hypertension type: essential hypertension Qualified Code(s): I10 - Essential (primary) hypertension (4) Hyperlipidemia Code(s): E78.5 - HYPERLIPIDEMIA, UNSPECIFIED Qualifiers: Hyperlipidemia type: pure hypercholesterolemia Assessment/Plan Current Medications Generic Name Dose Route Start Last Admin Trade Name Freq PRN Reason Stop Dose Admin Acetaminophen 325 mg 01/28/17 11:17 01/30/17 21:25 Tylenol - PO 325 mg Q4H PRN Administration PAIN Apixaban 10 mg 01/30/17 12:00 01/31/17 10:26 Eliquis - PO 02/06/17 11:59 10 mg BID [facility] Administration Atenolol 50 mg 01/27/17 22:00 01/31/17 10:25 Tenormin - PO 50 mg BID [facility] Administration Atorvastatin Calcium 40 mg 01/27/17 22:00 01/30/17 21:23 Lipitor - PO 40 mg HS [facility] Administration Docusate Sodium 100 mg 01/30/17 12:15 01/31/17 10:34 Colace - PO Not Given DAILY [facility] Insulin Aspart 1 vial 01/27/17 16:30 01/31/17 13:00 Novolog Vial Sliding Scale - SQ 2 units TIDAC [facility] Administration Protocol Methocarbamol 500 mg 01/27/17 22:00 01/31/17 10:26 Robaxin - PO 500 mg BID [facility] Administration Ondansetron HCl 4 mg 01/27/17 14:43 Zofran Injection IVPUSH Q6H PRN NAUSEA AND/OR VOMITING Oxycodone HCl 5 mg 01/28/17 11:17 01/30/17 21:24 Roxicodone - PO 5 mg Q4H PRN Administration PAIN Pantoprazole Sodium 40 mg 01/28/17 10:00 01/31/17 10:25 Protonix - PO 40 mg DAILY [facility] Administration Polyethylene Glycol 17 gm 01/30/17 12:15 01/31/17 10:34 Miralax (For Daily Use) - PO Not Given DAILY [facility] Senna 2 tab 01/30/17 22:00 01/30/17 21:24 Senna - PO 2 tab HS [facility] Administration Valsartan 160 mg 01/27/17 22:00 01/31/17 10:25 Diovan - PO 160 mg BID [facility] Administration Impression 1. hyponatremia 2. HTN 3. DM 4. hyperlipidemia 5. shoulder pain 6. gout Plan - sodium has normalized - monitor sodium off of salt tabs and with free water restriction - will follow PRN - can see in office - would not restart thiazide at this point - avoid nsaids for pain Dr Richter
[2017-01-31 14:17] LABS: ANTIDIURETIC HORMONE 23.5 pg/mL (0.0-4.7)
[2017-01-31] MEDS: oxyCODONE HCL 5 MG TABLET PO PRN (15:05)
[2017-01-31] MEDS: ACETAMINOPHEN 325 MG TABLET (FP) PO PRN (15:07)
--- NOTE | 2017-01-31 16:15 | PN ---
Physical Exam: SUBJECTIVE: Patient seen and examined at bed side this morning. Still complaining of bilateral upper extremity pain but has improved than yesterday Right > Left. Had two bowel movements today. No blood in stool. Denies chest pain, sob, cough, palpitation, abdominal pain, nausea or vomiting, hematuria, bleeding from any sites. Bladder habit normal. Patient's is at bed side. He is very concerned about the development of DVT in the right upper extremity. Head of patient's relation will be talking to them in this matter. OBJECTIVE: Vital Signs Period Temp Pulse Resp BP Sys/Duvall Pulse Ox Last 24 Hr 97.4 F-98.3 F 61-70 18-20 126-151/59-66 99-99 GENERAL: Moderately built female, patient is lying comfortably in bed, awake, alert, and fully oriented, in no acute distress. HEAD: Normal with no signs of trauma. EYES: EOM intact, no pallor or icterus. ENT: Ears normal, moist mucous membranes. NECK: Trachea midline, full range of motion, supple. LUNGS: Breath sounds equal, clear to auscultation bilaterally, no wheezes, no crackles, no accessory muscle use. HEART: Regular rate and rhythm, S1, S2 without murmur. ABDOMEN: Soft, nontender, nondistended, normoactive bowel sounds, no guarding, no rebound, no hepatosplenomegaly, no masses. LOWER EXTREMITIES: 2+ pulses, warm, well-perfused, no edema. RIGHT UPPER EXTREMITY: Swollen than the left; tenderness on palpation from the elbow up, irregular ecchymosis in the right medial aspect of the arm which has extended towards the wrist and upper axilla (more than yesterday), ROM limited but better than yesterday. LEFT UPPER EXTREMITY: No erythema or tenderness, ROM limited. NEUROLOGICAL: Cranial nerves II through XII grossly intact. Normal speech, Normal gait. PSYCH: Normal mood, normal affect. SKIN: Warm, dry, normal turgor, no rashes or lesions noted Laboratory Results - last 24 hr 01/27/17 01/30/17 01/31/17 00:15 16:29 06:06 WBC RBC Hgb Hct MCV MCHC RDW Plt Count MPV Sodium Potassium Chloride Carbon Dioxide Anion Gap BUN Creatinine Creat Clearance w eGFR POC Glucometer 108 123 Random Glucose Calcium Total Bilirubin AST ALT Alkaline Phosphatase Total Protein Albumin Anti-Diuretic Hormone 23.5 H Stool Occult Blood 01/31/17 01/31/17 01/31/17 06:20 06:20 08:30 WBC 7.6 RBC 3.28 L Hgb 10.3 L Hct 30.4 L MCV 92.7 MCHC 34.0 RDW 13.0 Plt Count 243 MPV 8.5 Sodium 137 Potassium 4.8 Chloride 101 Carbon Dioxide 31 Anion Gap 5 L BUN 11 D Creatinine 0.7 Creat Clearance w eGFR > 60 POC Glucometer Random Glucose 135 H Calcium 8.5 Total Bilirubin 0.6 AST 19 ALT 31 Alkaline Phosphatase 85 Total Protein 5.6 L Albumin 3.1 L Anti-Diuretic Hormone Stool Occult Blood Positive 01/31/17 12:06 WBC RBC Hgb Hct MCV MCHC RDW Plt Count MPV Sodium Potassium Chloride Carbon Dioxide Anion Gap BUN Creatinine Creat Clearance w eGFR POC Glucometer 151 Random Glucose Calcium Total Bilirubin AST ALT Alkaline Phosphatase Total Protein Albumin Anti-Diuretic Hormone Stool Occult Blood Active Medications Generic Name Dose Route Start Last Admin Trade Name Freq PRN Reason Stop Dose Admin Acetaminophen 325 mg 01/28/17 11:17 01/31/17 15:07 Tylenol - PO 325 mg Q4H PRN Administration PAIN Apixaban 10 mg 01/30/17 12:00 01/31/17 10:26 Eliquis - PO 02/06/17 11:59 10 mg BID [facility] Administration Atenolol 50 mg 01/27/17 22:00 01/31/17 10:25 Tenormin - PO 50 mg BID [facility] Administration Atorvastatin Calcium 40 mg 01/27/17 22:00 01/30/17 21:23 Lipitor - PO 40 mg HS [facility] Administration Docusate Sodium 100 mg 01/30/17 12:15 01/31/17 10:34 Colace - PO Not Given DAILY [facility] Insulin Aspart 1 vial 01/27/17 16:30 01/31/17 13:00 Novolog Vial Sliding Scale - SQ 2 units TIDAC [facility] Administration Protocol Methocarbamol 500 mg 01/27/17 22:00 01/31/17 10:26 Robaxin - PO 500 mg BID [facility] Administration Ondansetron HCl 4 mg 01/27/17 14:43 Zofran Injection IVPUSH Q6H PRN NAUSEA AND/OR VOMITING Oxycodone HCl 5 mg 01/28/17 11:17 01/31/17 15:05 Roxicodone - PO 5 mg Q4H PRN Administration PAIN Pantoprazole Sodium 40 mg 01/28/17 10:00 01/31/17 10:25 Protonix - PO 40 mg DAILY [facility] Administration Polyethylene Glycol 17 gm 01/30/17 12:15 01/31/17 10:34 Miralax (For Daily Use) - PO Not Given DAILY [facility] Senna 2 tab 01/30/17 22:00 01/30/17 21:24 Senna - PO 2 tab HS [facility] Administration Valsartan 160 mg 01/27/17 22:00 01/31/17 10:25 Diovan - PO 160 mg BID [facility] Administration 01/29/17: Duplex of right upper arm. Schultz scale, pulse Doppler and color Doppler images of the right upper extremity venous system including the internal jugular and subclavian vein were obtained. The right internal jugular, subclavian vein and axillary vein demonstrates normal phasic waveform, adequate compressibility and adequate response to augmentation. There is thrombosis of the right brachial vein. Normal flow in the right radial and ulnar vein. There is also normal flow in the cephalic and basilic vein. There is a hypoechoic complex oval-shaped masslike density in the upper/medial arm measuring 7.3 x 2.2 cm that may represent a hematoma/complex collection. ASSESSMENT/PLAN: Patient is a 71 year of female with significant past medical history of NIDDM, HTN, HLD, gout affecting L 1st toe, and L shoulder arthroscopy in 2010, who returned to ED after her prior visit 2 days ago due to persistent L shoulder pain. # Right brachial vein DVT with a hematoma on the right upper arm " Day 2 on elliquis". Mid line catheter was removed out on 01/28/17, since then she was complaining of pain. Then developed erythema, tenderness and swelling on the right upper ext. Symptomatically she has been improving and ROM still limited but improved. USG showed subacute hematoma 8.7 x 3.5 cm. Duplex of the right upper arm showed Thromobosis of the right brachial vein Dr. Ellsworth was consulted, as per his suggestion, warm compression and DVT prophylaxis x 6 months Started on Elliquis 10mg BID x 7days (Day 2) then 5mg BID for three months. Patient has been explained about the risks including spontaneous bleed and the benefits of anticoagulation. She verbalized understanding. Physical therapy request # Anemia: could be due to hematoma Hb dropped from 14.3 ---->10.7 in 2 days, unlikely due to dilutional. Now, the H/H is stable as compared to yesterday. Repeat Hb has been stable, hence started on anticoagulation today. # Asymptomatic likely due to hypoosmolar hyponatremia- Resolved. Na today is 137. Salt tablets stopped today. Renal consult appreciated Most likely patient had hyponatremia due to home medication (on diuretics). Urine electrolytes: Ur.Sodium:119; Potassium 20.1; random chloride 116; urea nitrogen 373, creatinine 22.5; Urine osmolality 454 TSH: Normal. Admitted in the ICU for 48 hours and Now transferred to Med-surg Fall precautions. Stop Indomethacin and discontinue HCTZ upon discharge from home medication list. # Left shoulder pain due to Left glenoid fracture Pain still persists and ROM is limited. Had left shoulder surgery 7 years ago (By Dr. Syed's group). But recently pain started 2 w ago after cooking and mildly exerting her arms. Didn't see any physician. Doesn't need surgical intervention at this time as per Dr. Chinchilla. Physical therapy on board ROM exercise Tylenol prn Appreciate orthopedics consult. F/up as outpatient. # Diabetes Mellitus HbA1c 6.8 01/28/2017 Hold Janumet, continue Insulin sliding scale Finger stick glucose monitoring Watch for hypoglycemic symptoms. # Epigastric pain-resolving most likely due to gastritis associated with NSAIDS and prednisone PPI 40 daily Zofran PRN # Hypertension: unstable continue home atenolol 50 bid, valsartan 160 bid HCTZ 25mg to be stopped upon discharge as it might be the cause of hyponatremia. Sodium restricted diet # Hyperlipidemia Continue lipitor 40 HS # FEN IV fluids stopped, encourage PO. Electrolytes to be repeated tomorrow. Diabetic and sodium controlled diet # Prophylaxis For DVT: SCD's For GI: On Pantoprazole # Dispo: Admitted in Med-Surg. Possible discharge tomorrow. 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 Illness, Investigation and Plan of care explained to the patient. She verbalized understanding. Case seen and discussed with Dr. Devi. Visit type - Emergency Visit Emergency Visit: Yes ED Registration Date: 01/26/17 Care time: The patient presented to the Emergency Department on the above date and was hospitalized for further evaluation of their emergent condition. - New Patient This patient is new to me today: No - Critical Care Critical Care patient: No - Discharge Referral Referred to [facility] No
--- NOTE | 2017-01-31 19:09 | PN ---
Teaching Attending Note Name of Resident: Genet Dwyer ATTENDING PHYSICIAN STATEMENT I saw and evaluated the patient. I reviewed the resident's note and discussed the case with the resident. I agree with the resident's findings and plan as documented. SUBJECTIVE: no fever or chills . feels better OBJECTIVE: NAD MMM, no facial droop. Lungs : CTAB Ext : no edema on LE . R upper arm with bruising extending to upper forearm, improved edema and erythema . RP 2+ b/l . nl sensation in hands and nl range of motion of fingers ASSESSMENT AND PLAN: 71 y/o lady with h/o HTN, NIDDM , HL, and L shoulder arthroplasty 2010, who presented with L shoulder pain, and was found to have an avulsion Fx and hyponatremia . hospital course was complicated with RUE hematoma and DVT 1- L glenoid avulsion Fx: stable - cont sling - appreciate Ortho help 2- R upper arm hematoma , and evidence of DVT in brachial vein . - Hb is stable - start eliquis 10 mg BID x 7 days ( day 2 now ) then 5 bID 3- Hyponatremia: likely hypotonic , hypovolemic hyponatreamia in the setting of HCTZ use , and vomiting . euvolemic now - stop salt tablets - cont fluid restriction 4-Acute drop in Hb, likely due to RUE hematoma , component of dilution as well stable 5- HTN: cont diovan 6- DM : Ssi , hold orals dispo : pending rehab bed for a safe dc
[2017-01-31] MEDS: SENNOSIDES 8.6MG TABLET (FP) PO SCH ×2 (22:22→22:32)
[2017-01-31] MEDS: ATORVASTATIN CA 40 MG TABLET (FP) PO SCH (22:22)
[2017-02-01] MEDS: oxyCODONE HCL 5 MG TABLET PO PRN ×3 (02:05→22:03)
[2017-02-01] MEDS: ACETAMINOPHEN 325 MG TABLET (FP) PO PRN ×3 (02:07→22:04)
[2017-02-01] MEDS: INSULIN SLIDING SCALE (NOVOLOG) 1 VIAL SQ SCH ×3 (05:59→17:50)
[2017-02-01 07:46] LABS: MCH 31.9 pg (25.7-33.7); MCHC 34.3 g/dl (32.0-36.0); MEAN CELL VOLUME 92.8 fl (80-96); MEAN PLT VOLUME 8.4 fl (7.5-11.1); PLATELET COUNT 278 K/MM3 (134-434); RDW 13.1 % (11.6-15.6); WHITE BLOOD COUNT 7.9 K/mm3 (4.0-10.0)
[2017-02-01 07:58] LABS: ALBUMIN 3.3 g/dl (3.4-5.0); ANION GAP 8 (8-16); CALCIUM 8.3 mg/dL (8.5-10.1); CO2 32 mmol/L (21-32); CREATININE 0.8 mg/dL (0.55-1.02); GLUCOSE,RANDOM 131 mg/dL (74-106); SGOT/AST 21 U/L (15-37); SGPT/ALT 34 U/L (12-78)
[2017-02-01 08:00] LABS: ALK PHOS 97 U/L (45-117); BILIRUBIN,TOTAL 0.8 mg/dL (0.2-1.0)
[2017-02-01] MEDS: DOCUSATE SODIUM 100 MG CAPSULE (FP) PO SCH (08:59)
[2017-02-01] MEDS: VALSARTAN 160 MG TABLET (UD) PO SCH ×2 (08:59→22:03)
[2017-02-01] MEDS: PANTOPRAZOLE 40 MG TABLET (FP) PO SCH (08:59)
[2017-02-01] MEDS: ATENOLOL 50 MG TABLET (FP) PO SCH ×2 (09:00→22:03)
[2017-02-01] MEDS: APIXABAN 5 MG TABLET PO SCH ×3 (09:02→22:01)
[2017-02-01] MEDS: POLYETHYLENE GLYCOL 3350 119 GM BTL PO SCH (09:02)
[2017-02-01] MEDS: METHOCARBAMOL 500 MG TABLET PO SCH ×2 (09:08→22:03)
--- NOTE | 2017-02-01 10:19 | PN ---
Teaching Attending Note Name of Resident: Genet Dwyer ATTENDING PHYSICIAN STATEMENT I saw and evaluated the patient. I reviewed the resident's note and discussed the case with the resident. I agree with the resident's findings and plan as documented. SUBJECTIVE: no fever or chills, has pain in L shoulder. and heaviness i n R upper arm. OBJECTIVE: NAD MMM, no facial droop. Lungs : CTAB Ext : no edema on LE . R upper arm with bruising extending to lower forearm, improved edema and erythema . RP 2+ b/l . nl sensation in hands and nl range of motion of fingers . no edema or erythema over L shoulder ASSESSMENT AND PLAN: 71 y/o lady with h/o HTN, NIDDM , HL, and L shoulder arthroplasty 2010, who presented with L shoulder pain, and was found to have an avulsion Fx and hyponatremia . hospital course was complicated with RUE hematoma and DVT 1- L glenoid avulsion Fx: stable - pt is not wearing sling as it hurts her neck - f/u with ortho as outpt 2- R upper arm hematoma , and evidence of DVT in brachial vein . - Hb is stable - eliquis 10 mg BID x 7 days ( day 3 now ) then 5 BID 3- Hyponatremia: hypotonic , hypovolemic hyponatreamia in the setting of HCTZ use , and vomiting . euvolemic now - NA improved off salt tablets - cont fluid restriction 4-Acute drop in Hb, likely due to RUE hematoma , component of dilution as well Hb is stable despite positive OB in stool. - continue anticoagulation - GI , since she will be on eliquis now - cont protonix. 5- HTN: cont diovan 6- DM : SSI , hold orals dispo : pending rehab bed for a safe dc
[2017-02-01] MEDS ORDERED: INSULIN (NOVOLOG) ASPART 100 UNITS/ML 10ML VIAL ONE (11:03)
[2017-02-01] MEDS ORDERED: HYDROCORTISONE 0.5% TOPICAL CREAM 30 GM TUBE TP PRN (11:12)
--- NOTE | 2017-02-01 11:13 | PN ---
Physical Exam: SUBJECTIVE: Patient seen and examined at bed side. Complaints of pain over the left shoulder more than the right. Woke up with mild headache this morning. Had 2 bowel movements yesterday, none until now. Denies dizziness, loc, headache, fever, chills, rigors, sweating, palpitation. Patient mentioned she noticed a rash on the back of the left side of the neck, itching since last night and would like to get a cream. OBJECTIVE: Vital Signs Period Temp Pulse Resp BP Sys/Duvall Pulse Ox Last 24 Hr 96.6 F-98.7 F 65-75 16-16 137-185/59-89 99 GENERAL: Moderately built female, patient is lying comfortably in bed, awake, alert, and fully oriented, in no acute distress. HEAD: Normal with no signs of trauma. EYES: EOM intact, no pallor or icterus. ENT: Ears normal, moist mucous membranes. NECK: Trachea midline, full range of motion, supple. LUNGS: Breath sounds equal, clear to auscultation bilaterally, no wheezes, no crackles, no accessory muscle use. HEART: Regular rate and rhythm, S1, S2 without murmur. ABDOMEN: Soft, nontender, nondistended, normoactive bowel sounds, no guarding, no rebound, no hepatosplenomegaly, no masses. LOWER EXTREMITIES: 2+ pulses, warm, well-perfused, no edema. RIGHT UPPER EXTREMITY: Swollen than the left; tenderness on palpation from the elbow up, irregular ecchymosis in the right medial aspect of the arm which has extended towards the wrist and upper axilla (more than yesterday), ROM limited but better than yesterday. LEFT UPPER EXTREMITY: No erythema or tenderness, ROM limited. NEUROLOGICAL: Cranial nerves II through XII grossly intact. Normal speech, Normal gait. PSYCH: Normal mood, normal affect. SKIN: Warm, dry, normal turgor, small area of erythema on the back of the left side of the neck. Laboratory Results - last 24 hr 01/27/17 01/31/17 01/31/17 00:15 12:06 17:14 WBC RBC Hgb Hct MCV MCHC RDW Plt Count MPV Sodium Potassium Chloride Carbon Dioxide Anion Gap BUN Creatinine Creat Clearance w eGFR POC Glucometer 151 118 Random Glucose Calcium Total Bilirubin AST ALT Alkaline Phosphatase Total Protein Albumin Anti-Diuretic Hormone 23.5 H 02/01/17 02/01/17 02/01/17 05:58 06:00 06:00 WBC 7.9 RBC 3.36 L Hgb 10.7 Hct 31.2 L MCV 92.8 MCHC 34.3 RDW 13.1 Plt Count 278 MPV 8.4 Sodium 138 Potassium 4.6 Chloride 98 Carbon Dioxide 32 Anion Gap 8 BUN 13 Creatinine 0.8 Creat Clearance w eGFR > 60 POC Glucometer 147 Random Glucose 131 H Calcium 8.3 L Total Bilirubin 0.8 D AST 21 ALT 34 Alkaline Phosphatase 97 Total Protein 6.0 L Albumin 3.3 L Anti-Diuretic Hormone Active Medications Generic Name Dose Route Start Last Admin Trade Name Freq PRN Reason Stop Dose Admin Acetaminophen 325 mg 01/28/17 11:17 02/01/17 08:58 Tylenol - PO 325 mg Q4H PRN Administration PAIN Apixaban 10 mg 01/30/17 12:00 02/01/17 09:02 Eliquis - PO 02/06/17 11:59 10 mg BID TITI Administration Atenolol 50 mg 01/27/17 22:00 02/01/17 09:00 Tenormin - PO 50 mg BID TITI Administration Atorvastatin Calcium 40 mg 01/27/17 22:00 01/31/17 22:22 Lipitor - PO 40 mg HS TITI Administration Docusate Sodium 100 mg 01/30/17 12:15 02/01/17 08:59 Colace - PO 100 mg DAILY TITI Administration Hydrocortisone 1 applic 02/01/17 11:12 Hytone 0.5% Cream - TP DAILY PRN WOUND CARE Insulin Aspart 1 vial 01/27/17 16:30 02/01/17 05:59 Novolog Vial Sliding Scale - SQ Not Given TIDAC [facility] Protocol Methocarbamol 500 mg 01/27/17 22:00 02/01/17 09:08 Robaxin - PO 500 mg BID TITI Administration Ondansetron HCl 4 mg 01/27/17 14:43 Zofran Injection IVPUSH Q6H PRN NAUSEA AND/OR VOMITING Oxycodone HCl 5 mg 01/28/17 11:17 02/01/17 08:59 Roxicodone - PO 5 mg Q4H PRN Administration PAIN Pantoprazole Sodium 40 mg 01/28/17 10:00 05/20/17 08:59 Protonix - PO 40 mg DAILY TITI Administration Polyethylene Glycol 17 gm 01/30/17 12:15 02/01/17 09:02 Miralax (For Daily Use) - PO 17 gm DAILY TITI Administration Senna 2 tab 01/30/17 22:00 01/31/17 22:32 Senna - PO Not Given HS TITI Valsartan 160 mg 01/27/17 22:00 02/01/17 08:59 Diovan - PO 160 mg BID TITI Administration 01/29/17: Duplex of right upper arm. Schultz scale, pulse Doppler and color Doppler images of the right upper extremity venous system including the internal jugular and subclavian vein were obtained. The right internal jugular, subclavian vein and axillary vein demonstrates normal phasic waveform, adequate compressibility and adequate response to augmentation. There is thrombosis of the right brachial vein. Normal flow in the right radial and ulnar vein. There is also normal flow in the cephalic and basilic vein. There is a hypoechoic complex oval-shaped masslike density in the upper/medial arm measuring 7.3 x 2.2 cm that may represent a hematoma/complex collection. USG showed subacute hematoma 8.7 x 3.5 cm. ASSESSMENT/PLAN: Patient is a 71 year of female with significant past medical history of NIDDM, HTN, HLD, gout affecting L 1st toe, and L shoulder arthroscopy in 2010, who returned to ED after her prior visit 2 days ago due to persistent L shoulder pain. # Right brachial vein DVT with a hematoma on the right upper arm " Day 3 on elliquis". Duplex of the right upper arm showed Thromobosis of the right brachial vein Dr. Ellsworth was consulted, as per his suggestion, warm compression and DVT prophylaxis x 6 months Started on Elliquis 10mg BID x 7days (Day 3) then 5mg BID for three months. Patient has been explained about the risks including spontaneous bleed and the benefits of anticoagulation. She verbalized understanding. Physical therapy request # Stool occult blood positive. Most likely hemorrhoidal bleed Patient refused to a per rectal examination. She mentioned that last colonoscopy was three years ago and was found to have internal hemorrhoids and polyps in the colon. Sees Dr. Anthony (GI as outpatient) who recommended to perform routine colonoscopy every five years. Will resume Elliquis and watch for any massive bleeds. # Anemia: could be due to hematoma Hb dropped from 14.3 ---->10.7 in 2 days, unlikely due to dilutional. Now, the H/H is stable as compared to yesterday. Repeat Hb has been stable, hence started on anticoagulation. Stool occult positive but H/H stable hence continue Elliquis. # Asymptomatic likely due to hypoosmolar hyponatremia- Resolved. Na today is 138. Salt tablets stopped yesterday. Renal consult appreciated Most likely patient had hyponatremia due to home medication (on HCTZ). Urine electrolytes: Ur.Sodium:119; Potassium 20.1; random chloride 116; urea nitrogen 373, creatinine 22.5; Urine osmolality 454 TSH: Normal. Admitted in the ICU for 48 hours and Now transferred to Med-surg Fall precautions. Stop Indomethacin and discontinue HCTZ upon discharge from home medication list. # Left shoulder pain due to Left glenoid fracture Pain still persists and ROM is limited. Had left shoulder surgery 7 years ago (By Dr. Syed's group). But recently pain started 2 w ago after cooking and mildly exerting her arms. Didn't see any physician. Doesn't need surgical intervention at this time as per Dr. Chinchilla. Physical therapy on board ROM exercise Tylenol prn Appreciate orthopedics consult. F/up as outpatient. # Diabetes Mellitus HbA1c 6.8 01/28/2017 Hold Janrenet, continue Insulin sliding scale Finger stick glucose monitoring Watch for hypoglycemic symptoms. # Epigastric pain-resolved most likely due to gastritis associated with NSAIDS and prednisone PPI 40 daily Zofran PRN # Hypertension: unstable continue home atenolol 50 bid, valsartan 160 bid HCTZ 25mg to be stopped upon discharge as it might be the cause of hyponatremia. Sodium restricted diet Monitor BP # Hyperlipidemia Continue lipitor 40 HS # Eczema (Back of the neck) Hydrocortisone cream to be applied. # FEN IV fluids stopped, encourage PO. Electrolytes to be repeated tomorrow. Diabetic and sodium controlled diet # Prophylaxis For DVT: SCD's For GI: On Pantoprazole # Dispo: Admitted in Med-Surg. Spoke with the perinatal social worker about placing her on short term rehabilitation as patient needs assistance to do her daily activities. If the insurance gets accepted can be discharged. Illness, Investigation and Plan of care explained to the patient and her . They verbalized understanding. Case seen and discussed with Dr. Devi. Visit type - Emergency Visit Emergency Visit: Yes ED Registration Date: 01/26/17 Care time: The patient presented to the Emergency Department on the above date and was hospitalized for further evaluation of their emergent condition. - New Patient This patient is new to me today: No - Critical Care Critical Care patient: No
--- NOTE | 2017-02-01 16:58 | PN ---
Progress Note, Physician History of Present Illness: Pt seen and examined at bedside. She complains of shoulder pain. - Current Medication List Current Medications: Active Medications Acetaminophen (Tylenol -) 325 mg PO Q4H PRN PRN Reason: PAIN Last Admin: 02/01/17 08:58 Dose: 325 mg Apixaban (Eliquis -) 10 mg PO BID [facility] Stop: 02/06/17 11:59 Last Admin: 02/01/17 11:00 Dose: 10 mg Atenolol (Tenormin -) 50 mg PO BID [facility] Last Admin: 02/01/17 09:00 Dose: 50 mg Atorvastatin Calcium (Lipitor -) 40 mg PO HS [facility] Last Admin: 01/31/17 22:22 Dose: 40 mg Docusate Sodium (Colace -) 100 mg PO DAILY [facility] Last Admin: 02/01/17 08:59 Dose: 100 mg Hydrocortisone (Hytone 0.5% Cream -) 1 applic TP DAILY PRN PRN Reason: WOUND CARE Insulin Aspart (Novolog Vial Sliding Scale -) 1 vial SQ TIDAC [facility] PRN Reason: Protocol Last Admin: 02/01/17 11:56 Dose: Not Given Methocarbamol (Robaxin -) 500 mg PO BID [facility] Last Admin: 02/01/17 09:08 Dose: 500 mg Ondansetron HCl (Zofran Injection) 4 mg IVPUSH Q6H PRN PRN Reason: NAUSEA AND/OR VOMITING Pantoprazole Sodium (Protonix -) 40 mg PO DAILY [facility] Last Admin: 02/01/17 08:59 Dose: 40 mg Polyethylene Glycol (Miralax (For Daily Use) -) 17 gm PO DAILY [facility] Last Admin: 02/01/17 09:02 Dose: 17 gm Senna (Senna -) 2 tab PO [facility] Last Admin: 01/31/17 22:32 Dose: Not Given Valsartan (Diovan -) 160 mg PO BID [facility] Last Admin: 02/01/17 08:59 Dose: 160 mg - Objective Vital Signs: Vital Signs Temperature 98 F 02/01/17 13:42 Pulse Rate 64 02/01/17 13:42 Respiratory Rate 20 02/01/17 13:42 Blood Pressure 179/73 02/01/17 13:42 O2 Sat by Pulse Oximetry (%) 97 02/01/17 09:00 Constitutional: Yes: Calm Eyes: Yes: Conjunctiva Clear HENT: Yes: Atraumatic Cardiovascular: Yes: S1, S2 Genitourinary: Yes: WNL Extremities: Yes: Other (right arm heamtoma) Neurological: Yes: Oriented Psychiatric: Yes: Oriented Labs: CBC, BMP 02/01/17 06:00 02/01/17 06:00 Problem List - Problems (1) Hyponatremia Code(s): E87.1 - HYPO-OSMOLALITY AND HYPONATREMIA (2) Diabetes Code(s): E11.9 - TYPE 2 DIABETES MELLITUS WITHOUT COMPLICATIONS Qualifiers: Diabetes mellitus type: type 2 Diabetes mellitus complication status: without complication Diabetes mellitus craft artist insulin use: without craft artist use Qualified Code(s): E11.9 - Type 2 diabetes mellitus without complications (3) HTN (hypertension) Code(s): I10 - ESSENTIAL (PRIMARY) HYPERTENSION Qualifiers: Hypertension type: essential hypertension Qualified Code(s): I10 - Essential (primary) hypertension (4) Hyperlipidemia Code(s): E78.5 - HYPERLIPIDEMIA, UNSPECIFIED Qualifiers: Hyperlipidemia type: pure hypercholesterolemia Assessment/Plan Current Medications Generic Name Dose Route Start Last Admin Trade Name Freq PRN Reason Stop Dose Admin Acetaminophen 325 mg 01/28/17 11:17 02/01/17 08:58 Tylenol - PO 325 mg Q4H PRN Administration PAIN Apixaban 10 mg 01/30/17 12:00 02/01/17 11:00 Eliquis - PO 02/06/17 11:59 10 mg BID TITI Administration Atenolol 50 mg 01/27/17 22:00 02/01/17 09:00 Tenormin - PO 50 mg BID TITI Administration Atorvastatin Calcium 40 mg 01/27/17 22:00 01/31/17 22:22 Lipitor - PO 40 mg HS TITI Administration Docusate Sodium 100 mg 01/30/17 12:15 02/01/17 08:59 Colace - PO 100 mg DAILY TITI Administration Hydrocortisone 1 applic 02/01/17 11:12 Hytone 0.5% Cream - TP DAILY PRN WOUND CARE Insulin Aspart 1 vial 01/27/17 16:30 02/01/17 11:56 Novolog Vial Sliding Scale - SQ Not Given TIDAC [facility] Protocol Methocarbamol 500 mg 01/27/17 22:00 02/01/17 09:08 Robaxin - PO 500 mg BID TITI Administration Ondansetron HCl 4 mg 01/27/17 14:43 Zofran Injection IVPUSH Q6H PRN NAUSEA AND/OR VOMITING Pantoprazole Sodium 40 mg 01/28/17 10:00 02/01/17 08:59 Protonix - PO 40 mg DAILY TITI Administration Polyethylene Glycol 17 gm 01/30/17 12:15 02/01/17 09:02 Miralax (For Daily Use) - PO 17 gm DAILY TITI Administration Senna 2 tab 01/30/17 22:00 01/31/17 22:32 Senna - PO Not Given HS TITI Valsartan 160 mg 01/27/17 22:00 02/01/17 08:59 Diovan - PO 160 mg BID TITI Administration Impression 1. hyponatremia 2. HTN 3. DM 4. hyperlipidemia 5. shoulder pain 6. gout 7. DVT Plan - sodium stable off of salt tabs - avoid thiazides - sodium has normalized - will follow PRN - avoid nsaids for pain Dr Richter
[2017-02-01] MEDS: ATORVASTATIN CA 40 MG TABLET (FP) PO SCH (22:03)
[2017-02-01] MEDS: SENNOSIDES 8.6MG TABLET (FP) PO SCH (22:04)
[2017-02-02] MEDS: INSULIN SLIDING SCALE (NOVOLOG) 1 VIAL SQ SCH ×3 (06:10→17:32)
[2017-02-02 08:02] LABS: MCH 32.4 pg (25.7-33.7); MCHC 34.5 g/dl (32.0-36.0); MEAN CELL VOLUME 93.8 fl (80-96); PLATELET COUNT 299 K/MM3 (134-434); RDW 13.5 % (11.6-15.6)
[2017-02-02] MEDS: DOCUSATE SODIUM 100 MG CAPSULE (FP) PO SCH (09:07)
[2017-02-02] MEDS: ATENOLOL 50 MG TABLET (FP) PO SCH ×2 (09:07→22:56)
[2017-02-02] MEDS: VALSARTAN 160 MG TABLET (UD) PO SCH ×2 (09:07→22:57)
[2017-02-02] MEDS: PANTOPRAZOLE 40 MG TABLET (FP) PO SCH (09:08)
[2017-02-02] MEDS: METHOCARBAMOL 500 MG TABLET PO SCH ×2 (09:17→22:56)
[2017-02-02] MEDS: APIXABAN 5 MG TABLET PO SCH (09:17)
[2017-02-02] MEDS: POLYETHYLENE GLYCOL 3350 119 GM BTL PO SCH (09:17)
--- NOTE | 2017-02-02 13:20 | PN ---
Progress Note (short form) - Note Progress Note: Subjective: no fever or chills, has more pain in RUE today. cont to have pain in L shoulder Objective: Vital Signs: Last Vital Signs Temp Pulse Resp BP Pulse Ox 98.1 F 61 18 181/62 97 02/02/17 06:00 02/02/17 06:00 02/02/17 06:00 02/02/17 06:00 02/01/17 21:00 Laboratory Results - last 24 hr 02/01/17 02/01/17 02/02/17 11:54 17:21 06:00 WBC 9.0 RBC 3.57 L Hgb 11.6 Hct 33.5 MCV 93.8 MCHC 34.5 RDW 13.5 Plt Count 299 MPV 8.0 Sodium POC Glucometer 133 117 02/02/17 02/02/17 02/02/17 06:00 06:05 11:55 WBC RBC Hgb Hct MCV MCHC RDW Plt Count MPV Sodium 137 POC Glucometer 123 143 Physical Exam: NAD MMM, no facial droop. Lungs : CTAB Ext : no edema on LE . R upper arm with bruising extending to lower forearm, slightly worsened edema. RP 2+ b/l . nl sensation in hands and nl range of motion of fingers. no edema or erythema over L shoulder ASSESSMENT AND PLAN: 71 y/o lady with h/o HTN, NIDDM , HL, and L shoulder arthroplasty 2010, who presented with L shoulder pain, and was found to have an avulsion Fx and hyponatremia . hospital course was complicated with RUE hematoma and DVT 1- L glenoid avulsion Fx: stable - f/u with ortho as outpt 2- R upper arm hematoma, and of DVT in brachial vein . - Hb is stable - eliquis 10 mg BID x 7 days ( day 4 now ) then 5 BID - will check US of LUE , due to worsening pain and edema today 3- Hyponatremia: hypotonic , hypovolemic hyponatreamia in the setting of HCTZ use , and vomiting . euvolemic now - NA stable - cont fluid restriction 4-Positive OB in stool. Pt declined rectal exam yesterday. stated she had hemorrhoids . GI follow up . Hb is stable 5- HTN: cont diovan 6- DM : SSI , hold orals dispo : pending rehab bed for a safe dc Visit type - Emergency Visit Emergency Visit: Yes ED Registration Date: 01/26/17 Care time: The patient presented to the Emergency Department on the above date and was hospitalized for further evaluation of their emergent condition. - New Patient This patient is new to me today: No - Critical Care Critical Care patient: No
[2017-02-02] MEDS: oxyCODONE HCL 5 MG TABLET PO PRN (14:30)
[2017-02-02] MEDS ORDERED: morphine CARPU-JECT 2 MG/1 ML DISP.SYRIN IVPUSH ONE (15:37)
--- NOTE | 2017-02-02 16:05 | HOSP ---
Subjective - Review of Symptoms Events since last encounter: called by Radiologist, Dr. Garcia. the US shows , worsening in hematoma , and extension of the clot to subcalvian and axillary veins. Saw the patient again , has increased pain in RUE, has numbness in R hand,. on exam : pt in mild distress. R upper arm with increased edema and circumference compared to the exam earlier today. RP 2+ b/l. pt can move her fingers on R side , . has decreased sensation to light touch on hand. - concern for compartment syndrome with increased size of hematoma , and numbness of hand. - will stop AC - called Dr. Ellsworth, who suggested ortho consult to evaluate for compartment syndrome and decompress if needed - Spoke to Dr. Syed , declined and referred to vascular. - I will call general surgery. - stat CBC . Physical Examination Vital Signs: Vital Signs Temperature 97.9 F 02/02/17 13:39 Pulse Rate 70 02/02/17 13:39 Respiratory Rate 20 02/02/17 13:39 Blood Pressure 146/66 02/02/17 13:39 O2 Sat by Pulse Oximetry (%) 97 02/01/17 21:00 Labs: CBC, BMP 02/02/17 06:00 02/02/17 06:00
[2017-02-02 16:43] LABS: MCH 30.9 pg (25.7-33.7); MCHC 33.2 g/dl (32.0-36.0); MEAN CELL VOLUME 92.9 fl (80-96); MEAN PLT VOLUME 8.1 fl (7.5-11.1); PLATELET COUNT 333 K/MM3 (134-434); WHITE BLOOD COUNT 11.3 K/mm3 (4.0-10.0)
[2017-02-02] MEDS ORDERED: HYDROmorphone HCL CARPU-JECT 1 MG/1 ML DISP.SYRIN IVPB ONE (16:58)
[2017-02-02] MEDS ORDERED: HYDROmorphone HCL CARPU-JECT 1 MG/1 ML DISP.SYRIN ONE (17:07)
--- NOTE | 2017-02-02 18:21 | PN ---
Progress Note (short form) - Note Progress Note: Vascular Surgery Pt seen and examined. S/P medline cath, then DVT. Pt developed hematoma in upper arm as well. Now new ultrasound shows subclavian dvt. PE Right arm Palpable radial pulse. forearm is soft. Upper arm hematoma. Motor is intact. Sensory is intact. Right upper ext DVT 1. For svc filter in am. 2. HOld ac 3. Warm compresses to right arm 4x a hour. Spoke to family at bedside. This will take a month to resolve. Will order PT for pt Bro Ellsworth DO
[2017-02-02] MEDS ORDERED: HYDROmorphone HCL CARPU-JECT 2 MG/1 ML DISP.SYRIN IVPUSH PRN (18:28)
[2017-02-02 19:48] LABS: MCH 30.7 pg (25.7-33.7); MCHC 33.2 g/dl (32.0-36.0); MEAN CELL VOLUME 92.7 fl (80-96); MEAN PLT VOLUME 8.2 fl (7.5-11.1); PLATELET COUNT 323 K/MM3 (134-434); WHITE BLOOD COUNT 16.6 K/mm3 (4.0-10.0)
[2017-02-02] MEDS: HYDROmorphone HCL CARPU-JECT 2 MG/1 ML DISP.SYRIN IVPB PRN (19:57)
[2017-02-02] MEDS ORDERED: PT OWN MED DRAWER 7, Y5N ONE (21:09)
[2017-02-02] MEDS: SENNOSIDES 8.6MG TABLET (FP) PO SCH (22:56)
[2017-02-02] MEDS: ATORVASTATIN CA 40 MG TABLET (FP) PO SCH (22:57)
[2017-02-03] MEDS: HYDROmorphone HCL CARPU-JECT 2 MG/1 ML DISP.SYRIN IVPB PRN ×2 (01:01→07:48)
[2017-02-03] MEDS: INSULIN SLIDING SCALE (NOVOLOG) 1 VIAL SQ SCH ×3 (06:37→18:11)
--- NOTE | 2017-02-03 07:48 | PN ---
Teaching Attending Note Name of Resident: Genet Dwyer ATTENDING PHYSICIAN STATEMENT I saw and evaluated the patient. I reviewed the resident's note and discussed the case with the resident. I agree with the resident's findings and plan as documented. SUBJECTIVE: no fever or chills, has pain in RUE , but she could sleep. pain was controlled with dialuaudid . still able to move her fingers OBJECTIVE: NAD MMM, no facial droop. Lungs : limited exam due to limited mobility , but L lung is clear , unable to ascultate the R lung Ext : no edema on LE . R upper arm with bruising and echymosis extending to lower forearm, circumference of the upper arm is slightly more today, but upper arm and fore arm are still soft . RP 2+ on both sides, . decreased sensatio to light touch on R upper arm, R forearm and hand compared to L side. . bruising extends to R axilla . no edema over Lower extremities. Abd : soft, NT, ND , NL BS ASSESSMENT AND PLAN: 71 y/o lady with h/o HTN, NIDDM , HL, and L shoulder arthroplasty 2010, who presented with L shoulder pain, and was found to have an avulsion Fx and hyponatremia . hospital course was complicated with RUE hematoma and DVT 1- RUE brachial vein DVT with extension proximally to axillary and subclavian veins, along with worsening hematoma of the R upper arm. still has 2+ radial pulse. decreased sensation is suspected to be due to compression of axillary nerve by hematoma. per vascular, compartment sx is unlikely . - AC was stopped. - monitor H&H now , and in afternoon . labs pending - for SVC filter this am , as we can no longer anticoagulate. - monitor neuro vascular exam of arm . - per vascular , no need for thrombectomy 2- L glenoid Fx . conservative mgt 3- Hyponatremia : due to HCTZ, resolved . reepat labs pending 4- POsitive OB in stool, likely due to hemorrhoids. refused rectal exam previously. f/u with GI as out pt 5- HTN: cont diovan 6- DM : SSI , hold orals dispo : HLOC Incentive spirometer
[2017-02-03 08:11] LABS: MCH 31.5 pg (25.7-33.7); MCHC 33.6 g/dl (32.0-36.0); MEAN CELL VOLUME 93.7 fl (80-96); MEAN PLT VOLUME 8.3 fl (7.5-11.1); PLATELET COUNT 299 K/MM3 (134-434); WHITE BLOOD COUNT 14.3 K/mm3 (4.0-10.0)
[2017-02-03] MEDS: ATENOLOL 50 MG TABLET (FP) PO SCH ×2 (10:25→21:09)
[2017-02-03] MEDS: VALSARTAN 160 MG TABLET (UD) PO SCH ×2 (10:26→21:07)
[2017-02-03] MEDS ORDERED: PROPOFOL 20 ML ONE ×2 (10:35)
[2017-02-03] MEDS ORDERED: MIDAZOLAM HCL 2 MG/2 ML SINGLE DOSE VIAL ONE (10:35)
[2017-02-03] MEDS ORDERED: HEPARIN NA (PORCINE) 5,000 UNITS/ML 1ML VIAL ONE (10:41)
[2017-02-03] MEDS: PANTOPRAZOLE 40 MG TABLET (FP) PO SCH (11:42)
[2017-02-03] MEDS: POLYETHYLENE GLYCOL 3350 119 GM BTL PO SCH (11:42)
[2017-02-03] MEDS: DOCUSATE SODIUM 100 MG CAPSULE (FP) PO SCH (11:42)
[2017-02-03] MEDS: METHOCARBAMOL 500 MG TABLET PO SCH ×2 (11:42→21:08)
[2017-02-03] MEDS ORDERED: ceFAZolin SODIUM 1 GM VIAL IVPB ONE (11:45)
[2017-02-03] MEDS ORDERED: LIDOCAINE HCL 1%, 10 MG/ML (20ML VIAL) IJ ONE (11:48)
--- NOTE | 2017-02-03 12:14 | OP ---
Operative Note - Note: Operative Date: 02/03/17 Pre-Operative Diagnosis: DVT in right arm. propagation on anticoagulation Findings: right axillary vein, subclavian dvt Post-Operative Diagnosis: Same as Pre-op Surgeon: Bro Ellsworth Anesthesia: Fractional Operative Report Dictated: Yes
[2017-02-03] MEDS ORDERED: HYDROCORTISONE 0.5% TOPICAL CREAM 30 GM TUBE TP PRN (12:50)
[2017-02-03] MEDS ORDERED: ONDANSETRON 4 MG/2 ML VIAL IVPUSH PRN (12:50)
[2017-02-03] MEDS ORDERED: HYDROmorphone HCL CARPU-JECT 2 MG/1 ML DISP.SYRIN IVPB PRN (12:50)
--- NOTE | 2017-02-03 15:45 | PN ---
Physical Exam: SUBJECTIVE: Patient seen and examined at bed side this morning. Complained of severe pain on the right upper arm than the left. Didn't want to be touch or moved. Denies chest pain, sob, cough, palpitation, abdominal pain, nausea or vomiting. Bowel/Bladder habit normal. Pain controlled with IV Dilaudid. RN notified no acute overnight events except for patient complaining of pain. OBJECTIVE: Vital Signs Period Temp Pulse Resp BP Sys/Duvall Pulse Ox Last 24 Hr 97.8 F-98.7 F 62-94 10-22 120-194/57-93 100-100 GENERAL: Moderately built female, patient is lying comfortably in bed, awake, alert, and fully oriented, in no acute distress. HEAD: Normal with no signs of trauma. EYES: EOM intact, no pallor or icterus. ENT: Ears normal, moist mucous membranes. NECK: Trachea midline, full range of motion, supple. LUNGS: Breath sounds equal, clear to auscultation bilaterally, no wheezes, no crackles, no accessory muscle use. HEART: Regular rate and rhythm, S1, S2 without murmur. ABDOMEN: Soft, nontender, nondistended, normoactive bowel sounds, no guarding, no rebound, no hepatosplenomegaly, no masses. LOWER EXTREMITIES: 2+ pulses, warm, well-perfused, no edema. RIGHT UPPER EXTREMITY: Swollen than the left and swelling worse than previous day; tenderness on palpation from the elbow up, irregular ecchymosis in the right medial aspect of the arm which has extended towards the wrist and upper axilla (more than yesterday), ROM limited in both extremities R>L. LEFT UPPER EXTREMITY: No erythema or tenderness, ROM limited. NEUROLOGICAL: Cranial nerves II through XII grossly intact. Normal speech, Gait not observed. PSYCH: Normal mood, normal affect. SKIN: Warm, dry, normal turgor, small area of erythema on the back of the left side of the neck. Laboratory Results - last 24 hr 02/02/17 02/02/17 02/02/17 16:30 16:35 19:40 WBC 11.3 H 16.6 H D RBC 3.38 L 3.32 L Hgb 10.4 L D 10.2 L Hct 31.4 L 30.8 L MCV 92.9 92.7 MCHC 33.2 33.2 RDW 13.0 13.0 Plt Count 333 323 MPV 8.1 8.2 Sodium POC Glucometer 155 02/03/17 02/03/17 02/03/17 05:49 07:00 07:00 WBC 14.3 H RBC 3.05 L Hgb 9.6 L Hct 28.6 L MCV 93.7 MCHC 33.6 RDW 13.0 Plt Count 299 MPV 8.3 Sodium 136 POC Glucometer 139 Active Medications Generic Name Dose Route Start Last Admin Trade Name Freq PRN Reason Stop Dose Admin Acetaminophen 325 mg 02/03/17 12:50 Tylenol - PO Q6H PRN PAIN Atenolol 50 mg 02/03/17 22:00 Tenormin - PO BID [facility] Atorvastatin Calcium 40 mg 02/03/17 22:00 Lipitor - PO HS [facility] Docusate Sodium 100 mg 02/04/17 10:00 Colace - PO DAILY [facility] Fentanyl 25 mcg 02/03/17 12:50 Sublimaze Injection - IVPUSH 02/06/17 10:54 [id number] PRN PAIN Hydrocortisone 1 applic 02/03/17 12:50 Hytone 0.5% Cream - TP DAILY [facility] Hydromorphone HCl 2 mg 02/03/17 12:50 02/03/17 13:56 Dilaudid Injection - IVPB 02/04/17 06:29 2 mg Q4H PRN Administration PAIN LEVEL 6-10 Insulin Aspart 1 vial 02/03/17 16:30 Novolog Vial Sliding Scale - SQ TIDAC [facility] Protocol Methocarbamol 500 mg 02/03/17 22:00 Robaxin - PO BID [facility] Ondansetron HCl 4 mg 02/03/17 12:50 Zofran Injection IVPUSH Q6H PRN NAUSEA AND/OR VOMITING Oxycodone HCl 5 mg 02/03/17 12:50 Roxicodone - PO Q4H PRN PAIN Pantoprazole Sodium 40 mg 02/04/17 10:00 Protonix - PO DAILY [facility] Polyethylene Glycol 17 gm 02/04/17 10:00 Miralax (For Daily Use) - PO DAILY [facility] Senna 2 tab 02/03/17 22:00 Senna - PO HS [facility] Valsartan 160 mg 02/03/17 22:00 Diovan - PO BID [facility] ASSESSMENT/PLAN: 01/29/17: Duplex of right upper arm. Schultz scale, pulse Doppler and color Doppler images of the right upper extremity venous system including the internal jugular and subclavian vein were obtained. The right internal jugular, subclavian vein and axillary vein demonstrates normal phasic waveform, adequate compressibility and adequate response to augmentation. There is thrombosis of the right brachial vein. Normal flow in the right radial and ulnar vein. There is also normal flow in the cephalic and basilic vein. There is a hypoechoic complex oval-shaped masslike density in the upper/medial arm measuring 7.3 x 2.2 cm that may represent a hematoma/complex collection. USG showed subacute hematoma 8.7 x 3.5 cm. ASSESSMENT/PLAN: Patient is a 71 year of female with significant past medical history of NIDDM, HTN, HLD, gout affecting L 1st toe, and L shoulder arthroscopy in 2010, who returned to ED after her prior visit 2 days ago due to persistent L shoulder pain. # Thrombus in the right axillary and subclavian vein with a hematoma on the right upper arm s/p SVC filter placement 02/03/2017 "POD 0" Patient developed Thromobosis of the right brachial vein seen in Duplex of the right upper arm on 01/29/17. Patient was anticoagulated with elliquis. Since patient complained of severe right upper arm pain and swelling increased yesterday, duplex was repeated on 02/02/2017 which showed right axillary and subclavian vein. USG showed increment of hematoma. Dr. Ellsworth was consulted, patient was taken to the OR and SVC filter was placed successfully. CBC repeated stat Physical therapy request # Anemia: could be due to hematoma Repeat Hb has been stable, doesn't require transfusion at this time. #Stool occult positive but H/H stable Most likely hemorrhoidal bleed Patient refused to a per rectal examination. She mentioned that last colonoscopy was three years ago and was found to have internal hemorrhoids and polyps in the colon. Sees Dr. Anthony (GI as outpatient) who recommended to perform routine colonoscopy every five years. # Asymptomatic likely due to hypoosmolar hyponatremia- Resolved. Renal consult appreciated Most likely patient had hyponatremia due to home medication (on HCTZ). Urine electrolytes: Ur.Sodium:119; Potassium 20.1; random chloride 116; urea nitrogen 373, creatinine 22.5; Urine osmolality 454 TSH: Normal. Admitted in the ICU for 48 hours and Now transferred to [facility]-surg Fall precautions. Stop Indomethacin and discontinue HCTZ upon discharge from home medication list. # Left shoulder pain due to Left glenoid fracture Pain still persists and ROM is limited. Had left shoulder surgery 7 years ago (By Dr. Syed's group). But recently pain started 2 w ago after cooking and mildly exerting her arms. Didn't see any physician. Doesn't need surgical intervention at this time as per Dr. Chinchilla. Physical therapy on board ROM exercise Tylenol prn Appreciate orthopedics consult. F/up as outpatient. # Diabetes Mellitus HbA1c 6.8 01/28/2017 Hold Janumet, continue Insulin sliding scale Finger stick glucose monitoring Watch for hypoglycemic symptoms. # Hypertension: unstable continue home atenolol 50 bid, valsartan 160 bid HCTZ 25mg to be stopped upon discharge as it might be the cause of hyponatremia. Sodium restricted diet Monitor BP # Hyperlipidemia Continue lipitor 40 HS # Eczema (Back of the neck) Hydrocortisone cream to be applied. # FEN IV fluids stopped, encourage PO. Electrolytes to be repeated tomorrow. Diabetic and sodium controlled diet # Prophylaxis For DVT: SCD's For GI: On Pantoprazole # Dispo: Admitted in Med-Surg. Spoke with the social science analyst about placing her on short term rehabilitation as patient needs assistance to do her daily activities. If the insurance gets accepted can be discharged. Illness, Investigation and Plan of care explained to the patient and her . They verbalized understanding. Case seen and discussed with Dr. Devi. Visit type - Emergency Visit Emergency Visit: Yes ED Registration Date: 01/26/17 Care time: The patient presented to the Emergency Department on the above date and was hospitalized for further evaluation of their emergent condition. - New Patient This patient is new to me today: No - Critical Care Critical Care patient: No - Discharge Referral Referred to [facility] Med P.C.: No
[2017-02-03] MEDS ORDERED: HYDROmorphone HCL CARPU-JECT 1 MG/1 ML DISP.SYRIN IVPB PRN (17:00)
[2017-02-03 19:58] LABS: MCH 31.3 pg (25.7-33.7); MCHC 33.1 g/dl (32.0-36.0); MEAN CELL VOLUME 94.4 fl (80-96); MEAN PLT VOLUME 8.3 fl (7.5-11.1); PLATELET COUNT 301 K/MM3 (134-434); RDW 13.4 % (11.6-15.6); WHITE BLOOD COUNT 12.6 K/mm3 (4.0-10.0)
[2017-02-03] MEDS: SENNOSIDES 8.6MG TABLET (FP) PO SCH (21:08)
[2017-02-03] MEDS: ATORVASTATIN CA 40 MG TABLET (FP) PO SCH (21:08)
[2017-02-03 22:31] LABS: MCH 30.6 pg (25.7-33.7); MCHC 32.5 g/dl (32.0-36.0); MEAN CELL VOLUME 94.1 fl (80-96); MEAN PLT VOLUME 7.8 fl (7.5-11.1); PLATELET COUNT 293 K/MM3 (134-434); RDW 13.5 % (11.6-15.6); WHITE BLOOD COUNT 12.4 K/mm3 (4.0-10.0)
--- NOTE | 2017-02-04 02:09 | HOSP ---
Subjective - Review of Symptoms Events since last encounter: routine exam of R arm Subjective: patient reports no change in symptoms. R arm still painful, edematous, with echymosis, difficulty moving hand, hand warm, sensation intact, radial pulse 2+ Musculoskeletal: Yes: Extremity Pain (r arm), Muscle Weakness (r hand) Neurological: No: Numbness Physical Examination Vital Signs: Vital Signs Temperature 98.2 F 02/03/17 20:30 Pulse Rate 87 02/03/17 20:30 Respiratory Rate 20 02/03/17 20:31 Blood Pressure 108/56 02/03/17 20:30 O2 Sat by Pulse Oximetry (%) 96 02/03/17 20:31 Musculoskeletal: Yes: Muscle Weakness (r hand) Extremities: Yes: Other (r arm edematous, echymoses, sensastion slightly decreased, radial pulse 2+, painful, difficult moving fingers) Labs: CBC, BMP 02/03/17 22:10 02/03/17 07:00 Hospitalist Encounter Assessment: RUE brachial vein DVT -2+ radial pulse -slightly decreased sensation, probably due to axillary nerve compression, no change from earlier today. -no change in management -vascular on case, no thrombectomy Visit type - Emergency Visit Emergency Visit: Yes ED Registration Date: 01/26/17 Care time: The patient presented to the Emergency Department on the above date and was hospitalized for further evaluation of their emergent condition. - New Patient This patient is new to me today: Yes Date on this admission: 02/04/17 - Critical Care Critical Care patient: No
[2017-02-04] MEDS: INSULIN SLIDING SCALE (NOVOLOG) 1 VIAL SQ SCH ×3 (06:06→18:39)
[2017-02-04 07:40] LABS: MCH 31.8 pg (25.7-33.7); MCHC 33.8 g/dl (32.0-36.0); MEAN CELL VOLUME 94.2 fl (80-96); MEAN PLT VOLUME 7.9 fl (7.5-11.1); PLATELET COUNT 272 K/MM3 (134-434); RDW 13.1 % (11.6-15.6); WHITE BLOOD COUNT 10.9 K/mm3 (4.0-10.0)
--- NOTE | 2017-02-04 07:55 | PN ---
Physical Exam: SUBJECTIVE: Patient seen and examined at bed side this morning. Patient says she feels better than yesterday. Pain still persists in the right upper arm > than the left. Last night, she had severe pain controlled with pain medication. Denies chest pain, sob, cough, palpitation, abdominal pain, nausea or vomiting. Hasn't had bowel movements since 2 days.Bladder habit normal. Sleep/Appetite better than yesterday. OBJECTIVE: Vital Signs Period Temp Pulse Resp BP Sys/Duvall Pulse Ox Last 24 Hr 97.8 F-98.4 F 71-87 10- 104-153/45-93 95-100 GENERAL: Moderately built female, patient is lying comfortably in bed, awake, alert, and fully oriented, in no acute distress. HEAD: Normal with no signs of trauma. EYES: EOM intact, no pallor or icterus. ENT: Ears normal, moist mucous membranes. NECK: Trachea midline, full range of motion, supple. LUNGS: Breath sounds equal, clear to auscultation bilaterally, no wheezes, no crackles, no accessory muscle use. HEART: Regular rate and rhythm, S1, S2 without murmur. ABDOMEN: Soft, nontender, nondistended, normoactive bowel sounds, no guarding, no rebound, no hepatosplenomegaly, no masses. LOWER EXTREMITIES: 2+ pulses, warm, well-perfused, no edema. RIGHT UPPER EXTREMITY: Swollen than the left and swelling worse than previous day; tenderness on palpation from the elbow up, irregular ecchymosis in the right medial aspect of the arm which has extended towards the wrist and upper axilla (more than yesterday), ROM limited in both extremities R>L. LEFT UPPER EXTREMITY: No erythema or tenderness, ROM limited. NEUROLOGICAL: Cranial nerves II through XII grossly intact. Normal speech, Gait not observed. PSYCH: Normal mood, normal affect. SKIN: Warm, dry, normal turgor, small area of erythema on the back of the left side of the neck. Laboratory Results - last 24 hr 02/03/17 02/03/17 02/03/17 07:00 07:00 16:11 WBC 14.3 H RBC 3.05 L Hgb 9.6 L Hct 28.6 L MCV 93.7 MCHC 33.6 RDW 13.0 Plt Count 299 MPV 8.3 Sodium 136 POC Glucometer 143 02/03/17 02/03/17 02/04/17 19:15 22:10 05:41 WBC 12.6 H 12.4 H RBC 2.79 L 2.69 L Hgb 8.7 L 8.2 L Hct 26.3 L 25.3 L MCV 94.4 94.1 MCHC 33.1 32.5 RDW 13.4 13.5 Plt Count 301 293 MPV 8.3 7.8 Sodium POC Glucometer 120 Active Medications Generic Name Dose Route Start Last Admin Trade Name Freq PRN Reason Stop Dose Admin Acetaminophen 325 mg 02/03/17 12:50 Tylenol - PO Q6H PRN PAIN Atenolol 50 mg 02/03/17 22:00 02/03/17 21:09 Tenormin - PO Not Given BID [facility] Atorvastatin Calcium 40 mg 02/03/17 22:00 02/03/17 21:08 Lipitor - PO 40 mg HS [facility] Administration Docusate Sodium 100 mg 02/04/17 10:00 Colace - PO DAILY [facility] Fentanyl 25 mcg 02/03/17 12:50 Sublimaze Injection - IVPUSH 02/06/17 10:54 [id number] PRN PAIN Hydrocortisone 1 applic 02/03/17 12:50 Hytone 0.5% Cream - TP DAILY [facility] Insulin Aspart 1 vial 02/03/17 16:30 02/04/17 06:06 Novolog Vial Sliding Scale - SQ Not Given TIDAC [facility] Protocol Methocarbamol 500 mg 02/03/17 22:00 02/03/17 21:08 Robaxin - PO 500 mg BID [facility] Administration Ondansetron HCl 4 mg 02/03/17 12:50 Zofran Injection IVPUSH Q6H PRN NAUSEA AND/OR VOMITING Oxycodone HCl 5 mg 02/03/17 12:50 Roxicodone - PO Q4H PRN PAIN Pantoprazole Sodium 40 mg 02/04/17 10:00 Protonix - PO DAILY [facility] Polyethylene Glycol 17 gm 02/04/17 10:00 Miralax (For Daily Use) - PO DAILY [facility] Senna 2 tab 02/03/17 22:00 02/03/17 21:08 Senna - PO 2 tab HS [facility] Administration Valsartan 160 mg 02/03/17 22:00 02/03/17 21:07 Diovan - PO Not Given BID [facility] ASSESSMENT/PLAN: 01/29/17: Duplex of right upper arm. Schultz scale, pulse Doppler and color Doppler images of the right upper extremity venous system including the internal jugular and subclavian vein were obtained. The right internal jugular, subclavian vein and axillary vein demonstrates normal phasic waveform, adequate compressibility and adequate response to augmentation. There is thrombosis of the right brachial vein. Normal flow in the right radial and ulnar vein. There is also normal flow in the cephalic and basilic vein. There is a hypoechoic complex oval-shaped masslike density in the upper/medial arm measuring 7.3 x 2.2 cm that may represent a hematoma/complex collection. USG showed subacute hematoma 8.7 x 3.5 cm. ASSESSMENT/PLAN: Patient is a 71 year of female with significant past medical history of NIDDM, HTN, HLD, gout affecting L 1st toe, and L shoulder arthroscopy in 2010, who returned to ED after her prior visit 2 days ago due to persistent L shoulder pain. # Thrombus in the right axillary and subclavian vein with a hematoma on the right upper arm s/p SVC filter placement 02/03/2017 "POD 1" Patient developed Thromobosis of the right brachial vein seen in Duplex of the right upper arm on 01/29/17. Patient was anticoagulated with elliquis. Since patient complained of severe right upper arm pain and swelling increased yesterday, duplex was repeated on 02/02/2017 which showed right axillary and subclavian vein. USG showed increment of hematoma. Dr. Ellsworth was consulted, patient was taken to the OR and SVC filter was placed successfully. CBC repeated yesterday: two readings, H/H was stable. Physical therapy request # Hyperkalemia : 5.2 Could be pseudohyperkalemia. Repeat K @ 3pm: 4.8. # Anemia: could be due to hematoma Repeat Hb has been stable, doesn't require transfusion at this time. #Stool occult positive but H/H stable Most likely hemorrhoidal bleed Patient refused to a per rectal examination. She mentioned that last colonoscopy was three years ago and was found to have internal hemorrhoids and polyps in the colon. Sees Dr. Anthony (GI as outpatient) who recommended to perform routine colonoscopy every five years. # Asymptomatic likely due to hypoosmolar hyponatremia- Resolved. Renal consult appreciated Most likely patient had hyponatremia due to home medication (on HCTZ). Urine electrolytes: Ur.Sodium:119; Potassium 20.1; random chloride 116; urea nitrogen 373, creatinine 22.5; Urine osmolality 454 TSH: Normal. Admitted in the ICU for 48 hours and Now transferred to [facility]-surg Fall precautions. Stop Indomethacin and discontinue HCTZ upon discharge from home medication list. # Left shoulder pain due to Left glenoid fracture Pain still persists and ROM is limited. Had left shoulder surgery 7 years ago (By Dr. Syed's group). But recently pain started 2 w ago after cooking and mildly exerting her arms. Didn't see any physician. Doesn't need surgical intervention at this time as per Dr. Chinchilla. Physical therapy on board ROM exercise Tylenol prn Appreciate orthopedics consult. F/up as outpatient. # Diabetes Mellitus HbA1c 6.8 01/28/2017 Hold Janumet, continue Insulin sliding scale Finger stick glucose monitoring Watch for hypoglycemic symptoms. # Hypertension: unstable continue home atenolol 50 bid, valsartan 160 bid HCTZ 25mg to be stopped upon discharge as it might be the cause of hyponatremia. Sodium restricted diet Monitor BP # Hyperlipidemia Continue lipitor 40 HS # Eczema (Back of the neck) Hydrocortisone cream to be applied. # FEN IV fluids stopped, encourage PO. Electrolytes to be repeated tomorrow. Diabetic and sodium controlled diet # Prophylaxis For DVT: SCD's For GI: On Pantoprazole # Dispo: Admitted in Med-Surg. Duration of stay unknown. Illness, Investigation and Plan of care explained to the patient and her . They verbalized understanding. Case seen and discussed with Dr. Devi. Visit type - Emergency Visit Emergency Visit: Yes ED Registration Date: 01/26/17 Care time: The patient presented to the Emergency Department on the above date and was hospitalized for further evaluation of their emergent condition. - New Patient This patient is new to me today: No - Critical Care Critical Care patient: No - Discharge Referral Referred to [facility] Med P.C.: No
[2017-02-04 08:09] LABS: CALCIUM 8.6 mg/dL (8.5-10.1); COCKROFT - GAULT 51.5015; CREATININE 0.9 mg/dL (0.55-1.02)
[2017-02-04] MEDS: ACETAMINOPHEN 325 MG TABLET (FP) PO PRN (09:54)
[2017-02-04] MEDS: ATENOLOL 50 MG TABLET (FP) PO SCH ×2 (09:54→21:17)
[2017-02-04] MEDS: DOCUSATE SODIUM 100 MG CAPSULE (FP) PO SCH (09:54)
[2017-02-04] MEDS: PANTOPRAZOLE 40 MG TABLET (FP) PO SCH (09:55)
[2017-02-04] MEDS: VALSARTAN 160 MG TABLET (UD) PO SCH ×2 (09:55→21:17)
--- NOTE | 2017-02-04 13:32 | PN ---
Progress Note (short form) - Note Progress Note: Anesthesia postop note 71 y/o F s/p mac anesthesia for svc filter placement POD#1, vss, aaox3, some discomfort, right upper extremity ecchymotic and edematous. No anesthesia complications.
[2017-02-04] MEDS: oxyCODONE HCL 5 MG TABLET PO PRN (13:33)
[2017-02-04] MEDS: HYDROmorphone HCL CARPU-JECT 1 MG/1 ML DISP.SYRIN IVPB PRN ×2 (14:35→21:22)
[2017-02-04 16:18] LABS: CALCIUM 8.3 mg/dL (8.5-10.1); COCKROFT - GAULT 57.936; CREATININE 0.8 mg/dL (0.55-1.02)
--- NOTE | 2017-02-04 16:42 | PN ---
Teaching Attending Note Name of Resident: Genet Dwyer ATTENDING PHYSICIAN STATEMENT I saw and evaluated the patient. I reviewed the resident's note and discussed the case with the resident. I agree with the resident's findings and plan as documented. SUBJECTIVE: no fever or chills, cont to have pain in RUE . refused PT due to pain OBJECTIVE: NAD MMM, no facial droop. Lungs : minimal bibasilar fine crackles Ext : no edema on LE . R upper arm with bruising and echymosis extending to lower forearm, increase circumference but stable since yesterday , but upper arm and forearm are still soft . RP 2+ on both sides, . decreased sensation to light touch on R upper arm, R forearm and hand compared to L side. . bruising extends to R axilla . no edema over Lower extremities. Abd : soft, NT, ND , NL BS ASSESSMENT AND PLAN: 71 y/o lady with h/o HTN, NIDDM , HL, and L shoulder arthroplasty 2010, who presented with L shoulder pain, and was found to have an avulsion Fx and hyponatremia . hospital course was complicated with RUE hematoma and DVT 1- RUE brachial vein DVT with extension proximally to axillary and subclavian veins, along with worsening hematoma of the R upper arm. still with R hand numbness, 2+ RP. and able to move her fingers - AC was stopped. s/p SVC filter 02/03 - monitor H&H - monitor neuro vascular exam of arm . - will need to follow with Dr. evans as outpt to evaluate for SVC filter removal when appropriate 2- L glenoid Fx . conservative mgt 3- Hyponatremia : due to HCTZ, resolved 4- POsitive OB in stool, likely due to hemorrhoids. refused rectal exam previously. f/u with GI as out pt 5- HTN: cont diovan 6- DM : SSI , hold orals will resume rehab bed search .
[2017-02-04] MEDS: POLYETHYLENE GLYCOL 3350 119 GM BTL PO SCH (18:38)
[2017-02-04] MEDS: METHOCARBAMOL 500 MG TABLET PO SCH ×2 (18:38→21:16)
[2017-02-04] MEDS: ATORVASTATIN CA 40 MG TABLET (FP) PO SCH (21:17)
[2017-02-04] MEDS: SENNOSIDES 8.6MG TABLET (FP) PO SCH ×2 (21:17→21:28)
[2017-02-05] MEDS ORDERED: PT OWN MED DRAWER 7, Y5N ONE ×2 (06:02→10:59)
[2017-02-05] MEDS: INSULIN SLIDING SCALE (NOVOLOG) 1 VIAL SQ SCH ×3 (06:13→17:02)
[2017-02-05 07:44] LABS: MCH 32.2 pg (25.7-33.7); MCHC 33.8 g/dl (32.0-36.0); MEAN CELL VOLUME 95.2 fl (80-96); MEAN PLT VOLUME 8.1 fl (7.5-11.1); PLATELET COUNT 242 K/MM3 (134-434); RDW 13.3 % (11.6-15.6); WHITE BLOOD COUNT 9.9 K/mm3 (4.0-10.0)
[2017-02-05] MEDS: PANTOPRAZOLE 40 MG TABLET (FP) PO SCH (11:19)
[2017-02-05] MEDS: ATENOLOL 50 MG TABLET (FP) PO SCH ×3 (11:19→22:23)
[2017-02-05] MEDS: VALSARTAN 160 MG TABLET (UD) PO SCH ×2 (11:19→22:19)
[2017-02-05] MEDS: DOCUSATE SODIUM 100 MG CAPSULE (FP) PO SCH (11:19)
[2017-02-05] MEDS: METHOCARBAMOL 500 MG TABLET PO SCH ×2 (11:19→22:20)
[2017-02-05] MEDS: HYDROmorphone HCL CARPU-JECT 1 MG/1 ML DISP.SYRIN IVPB PRN (11:20)
[2017-02-05] MEDS: POLYETHYLENE GLYCOL 3350 119 GM BTL PO SCH (11:20)
--- NOTE | 2017-02-05 13:31 | PN ---
Physical Exam: SUBJECTIVE: Patient seen and examined at bed side this morning. Complaining of both upper extremity pain and discomfort right > left. Patient and her ( present at bed side) were very upset due to her medical condition. Two episodes of bowel movements yesterday, didn't notice blood. Bladder habit normal. Appetite normal. Sleep normal. OBJECTIVE: Vital Signs Period Temp Pulse Resp BP Sys/Duvall Pulse Ox Last 24 Hr 97.6 F-98.6 F 68-78 18-20 91-129/47-60 100-100 GENERAL: Moderately built female, patient is lying comfortably in bed, awake, alert, and fully oriented, in no acute distress. HEAD: Normal with no signs of trauma. EYES: EOM intact, no pallor or icterus. ENT: Ears normal, moist mucous membranes. NECK: Trachea midline, full range of motion, supple. LUNGS: Breath sounds equal, clear to auscultation bilaterally, no wheezes, no crackles, no accessory muscle use. HEART: Regular rate and rhythm, S1, S2 without murmur. ABDOMEN: Soft, nontender, nondistended, normoactive bowel sounds, no guarding, no rebound, no hepatosplenomegaly, no masses. LOWER EXTREMITIES: 2+ pulses, warm, well-perfused, no edema. RIGHT UPPER EXTREMITY: Swollen than the left and swelling slightly improved than yesterday, tenderness on palpation from the elbow up, irregular ecchymosis in the right medial aspect of the arm which has extended towards the mid forearm (resolving) and upper axilla (more than yesterday), ROM limited in both extremities R>L, sensation intact, radial pulses 2+ LEFT UPPER EXTREMITY: No erythema or tenderness, ROM limited. NEUROLOGICAL: Cranial nerves II through XII grossly intact. Normal speech, Gait not observed. PSYCH: Normal mood, normal affect. SKIN: Warm, dry, normal turgor, small area of erythema on the back of the left side of the neck. Laboratory Results - last 24 hr 02/04/17 02/04/17 02/04/17 12:26 15:49 16:51 WBC RBC Hgb Hct MCV MCHC RDW Plt Count MPV Sodium 136 Potassium 4.8 Chloride 97 L Carbon Dioxide 30 Anion Gap 9 BUN 28 H Creatinine 0.8 POC Glucometer 138 114 Random Glucose 124 H Calcium 8.3 L 02/05/17 02/05/17 02/05/17 06:07 06:10 12:03 WBC 9.9 RBC 2.49 L Hgb 8.0 L Hct 23.7 L MCV 95.2 MCHC 33.8 RDW 13.3 Plt Count 242 MPV 8.1 Sodium Potassium Chloride Carbon Dioxide Anion Gap BUN Creatinine POC Glucometer 130 161 Random Glucose Calcium Active Medications Generic Name Dose Route Start Last Admin Trade Name Freq PRN Reason Stop Dose Admin Acetaminophen 325 mg 02/03/17 12:50 02/04/17 09:54 Tylenol - PO 325 mg Q6H PRN Administration PAIN Atenolol 50 mg 02/03/17 22:00 02/05/17 11:19 Tenormin - PO 50 mg BID TITI Administration Atorvastatin Calcium 40 mg 02/03/17 22:00 02/04/17 21:17 Lipitor - PO 40 mg HS TITI Administration Docusate Sodium 100 mg 02/04/17 10:00 02/05/17 11:19 Colace - PO 100 mg DAILY TITI Administration Fentanyl 25 mcg 02/03/17 12:50 Sublimaze Injection - IVPUSH 02/06/17 10:54 [id number] PRN PAIN Hydrocortisone 1 applic 02/03/17 12:50 Hytone 0.5% Cream - TP DAILY PRN WOUND CARE Hydromorphone HCl 1 mg 02/04/17 14:28 02/05/17 11:20 Dilaudid Injection - IVPB 1 mg Q4H PRN Administration PAIN Insulin Aspart 1 vial 02/03/17 16:30 02/05/17 12:10 Novolog Vial Sliding Scale - SQ 2 unit TIDAC TITI Administration Protocol Methocarbamol 500 mg 02/03/17 22:00 02/05/17 11:19 Robaxin - PO 500 mg BID TITI Administration Ondansetron HCl 4 mg 02/03/17 12:50 Zofran Injection IVPUSH Q6H PRN NAUSEA AND/OR VOMITING Oxycodone HCl 5 mg 02/03/17 12:50 02/04/17 13:33 Roxicodone - PO 5 mg Q4H PRN Administration PAIN Pantoprazole Sodium 40 mg 02/04/17 10:00 02/05/17 11:19 Protonix - PO 40 mg DAILY TITI Administration Polyethylene Glycol 17 gm 02/04/17 10:00 02/05/17 11:20 Miralax (For Daily Use) - PO Not Given DAILY TITI Senna 2 tab 02/03/17 22:00 02/04/17 21:28 Senna - PO Not Given HS TITI Valsartan 160 mg 02/03/17 22:00 02/05/17 11:19 Diovan - PO 160 mg BID TITI Administration ASSESSMENT/PLAN: 01/29/17: Duplex of right upper arm. Schultz scale, pulse Doppler and color Doppler images of the right upper extremity venous system including the internal jugular and subclavian vein were obtained. The right internal jugular, subclavian vein and axillary vein demonstrates normal phasic waveform, adequate compressibility and adequate response to augmentation. There is thrombosis of the right brachial vein. Normal flow in the right radial and ulnar vein. There is also normal flow in the cephalic and basilic vein. There is a hypoechoic complex oval-shaped masslike density in the upper/medial arm measuring 7.3 x 2.2 cm that may represent a hematoma/complex collection. USG showed subacute hematoma 8.7 x 3.5 cm. ASSESSMENT/PLAN: Patient is a 71 year of female with significant past medical history of NIDDM, HTN, HLD, gout affecting L 1st toe, and L shoulder arthroscopy in 2010, who returned to ED after her prior visit 2 days ago due to persistent L shoulder pain. # Thrombus in the right axillary and subclavian vein with a hematoma on the right upper arm s/p SVC filter placement 02/03/2017 "POD 2" Patient developed Thromobosis of the right brachial vein seen in Duplex of the right upper arm on 01/29/17. Patient was anticoagulated with elliquis. Since patient complained of severe right upper arm pain and swelling increased than day prior, duplex was repeated on 02/02/2017 which showed right axillary and subclavian vein. USG showed increment of hematoma. Dr. Ellsworth was consulted, patient was taken to the OR and SVC filter was placed successfully. Patient is doing well after the procedure. Physical therapy request- patient refused to do the therapy due to pain and swelling. # Hyperkalemia : 5.2- resolved. Could be pseudohyperkalemia. Repeat K yesterday was 4.8. # Anemia: could be due to hematoma Repeat Hb has been stable, doesn't require transfusion at this time. Todays H/H 8.6/25.3--->8/23.7 #Stool occult positive 01/31/17 Most likely hemorrhoidal bleed Patient refused to a per rectal examination. She mentioned that last colonoscopy was three years ago and was found to have internal hemorrhoids and polyps in the colon. Sees Dr. Anthony (GI as outpatient) who recommended to perform routine colonoscopy every five years. # Asymptomatic likely due to hypoosmolar hyponatremia- Resolved. Renal consult appreciated Most likely patient had hyponatremia due to home medication (on HCTZ). Hence HCTZ not to be continued even after discharge. Urine electrolytes: Ur.Sodium:119; Potassium 20.1; random chloride 116; urea nitrogen 373, creatinine 22.5; Urine osmolality 454 TSH: Normal. Was admitted in the ICU for 48 hours and Now transferred to Med-surg Fall precautions. Stop Indomethacin and discontinue HCTZ upon discharge from home medication list. # Left shoulder pain due to Left glenoid fracture Pain still persists and ROM is limited. Had left shoulder surgery 7 years ago (By Dr. Syed's group). But recently pain started 2 wks ago after cooking and mildly exerting her arms. Didn't see any physician. Doesn't need surgical intervention at this time as per Dr. Chinchilla. Physical therapy on board-patient has refused the treatment. ROM exercise Tylenol prn Appreciate orthopedics consult. F/up as outpatient. # Diabetes Mellitus HbA1c 6.8 01/28/2017 Hold Janumet, continue Insulin sliding scale Finger stick glucose monitoring Watch for hypoglycemic symptoms. # Hypertension: unstable continue home atenolol 50 bid, valsartan 160 bid HCTZ 25mg to be stopped upon discharge as it might be the cause of hyponatremia. Sodium restricted diet Monitor BP # Hyperlipidemia Continue lipitor 40 HS # Eczema (Back of the neck) Hydrocortisone cream to be applied. # FEN No IV fluids. Electrolytes to be repeated tomorrow. Diabetic and sodium controlled diet # Prophylaxis For DVT: SCD's For GI: On Pantoprazole # Dispo: Admitted in Med-Surg. Duration of stay unknown. Illness, Investigation and Plan of care explained to the patient and her . They verbalized understanding. Case seen and discussed with Dr. Narvaez. Visit type - Emergency Visit Emergency Visit: Yes ED Registration Date: 01/26/17 Care time: The patient presented to the Emergency Department on the above date and was hospitalized for further evaluation of their emergent condition. - New Patient This patient is new to me today: No - Critical Care Critical Care patient: No - Discharge Referral Referred to [facility] No
[2017-02-05] MEDS ORDERED: HYDROmorphone HCL CARPU-JECT 1 MG/1 ML DISP.SYRIN IVPB PRN (13:46)
--- NOTE | 2017-02-05 15:44 | PN ---
Teaching Attending Note Name of Resident: Genet Dwyer ATTENDING PHYSICIAN STATEMENT I saw and evaluated the patient. I reviewed the resident's note and discussed the case with the resident. I agree with the resident's findings and plan as documented. SUBJECTIVE: Events are noted. Patient denies having any fever or chills, c/o having RUE pain with swelling , refusing PT due to pain. Patient is refusing any physical therapy, refusing to walk and even to sit on the chair. Explained the complications of developing pneumonia and explained developing of clots and PE, and that she bambi't be anticoagulated. OBJECTIVE: Vital Signs Temperature 97.6 F 02/05/17 13:18 Pulse Rate 74 02/05/17 13:18 Respiratory Rate 20 02/05/17 13:18 Blood Pressure 109/47 02/05/17 13:18 O2 Sat by Pulse Oximetry (%) 100 02/05/17 09:00 Generally : lying in bed with NAD except of having RUE pain HEENT: No exudate or erythema ,MMM, no facial droop. Lungs : CTA BL Abd : soft, NT, ND , NL BS Ext : no edema on LE . R upper arm with bruising and ecchymosis extending to lower forearm, increased circumference/soze of right arm but stable , as per resident no further increase in size since yesterday , but upper arm and forearm are tender to touch . pulses are positive on both sides ,bruising extends to R axilla . Able to open & close the hand. but fingers are swollen as well . no edema of Lower extremities. CBCD WBC 9.9 K/mm3 (4.0-10.0) 02/05/17 06:10 RBC 2.49 M/mm3 (3.60-5.2) L 02/05/17 06:10 Hgb 8.0 GM/dL (10.7-15.3) L 02/05/17 06:10 Hct 23.7 % (32.4-45.2) L 02/05/17 06:10 MCV 95.2 fl (80-96) 02/05/17 06:10 MCHC 33.8 g/dl (32.0-36.0) 02/05/17 06:10 RDW 13.3 % (11.6-15.6) 02/05/17 06:10 Plt Count 242 K/MM3 (134-434) 02/05/17 06:10 MPV 8.1 fl (7.5-11.1) 02/05/17 06:10 CMP Sodium 136 mmol/L (136-145) 02/04/17 15:49 Potassium 4.8 mmol/L (3.5-5.1) 02/04/17 15:49 Chloride 97 mmol/L (98-107) L 02/04/17 15:49 Carbon Dioxide 30 mmol/L (21-32) 02/04/17 15:49 Anion Gap 9 (8-16) 02/04/17 15:49 BUN 28 mg/dL (7-18) H 02/04/17 15:49 Creatinine 0.8 mg/dL (0.55-1.02) 02/04/17 15:49 Creat Clearance w eGFR > 60 (>60) 02/01/17 06:00 Random Glucose 124 mg/dL (74-106) H 02/04/17 15:49 Calcium 8.3 mg/dL (8.5-10.1) L 02/04/17 15:49 Total Bilirubin 0.8 mg/dL (0.2-1.0) D 02/01/17 06:00 AST 21 U/L (15-37) 02/01/17 06:00 ALT 34 U/L (12-78) 02/01/17 06:00 Alkaline Phosphatase 97 U/L (45-117) 02/01/17 06:00 Total Protein 6.0 g/dl (6.4-8.2) L 02/01/17 06:00 Albumin 3.3 g/dl (3.4-5.0) L 02/01/17 06:00 CARDIAC ENZYMES Creatine Kinase 101 IU/L (26-192) 01/26/17 17:50 Troponin I < 0.02 ng/ml (0.00-0.05) 01/26/17 17:50 Current Medications Generic Name Dose Route Start Last Admin Trade Name Freq PRN Reason Stop Dose Admin Acetaminophen 325 mg 02/03/17 12:50 02/04/17 09:54 Tylenol - PO 325 mg Q6H PRN Administration PAIN Atenolol 50 mg 02/03/17 22:00 02/05/17 11:19 Tenormin - PO 50 mg BID TITI Administration Atorvastatin Calcium 40 mg 02/03/17 22:00 02/04/17 21:17 Lipitor - PO 40 mg HS TITI Administration Docusate Sodium 100 mg 02/04/17 10:00 02/05/17 11:19 Colace - PO 100 mg DAILY TITI Administration Fentanyl 25 mcg 02/03/17 12:50 Sublimaze Injection - IVPUSH 02/06/17 10:54 [id number] PRN PAIN Hydrocortisone 1 applic 02/03/17 12:50 Hytone 0.5% Cream - TP DAILY PRN WOUND CARE Hydromorphone HCl 1 mg 02/05/17 13:46 Dilaudid Injection - IVPB Q6H PRN PAIN Insulin Aspart 1 vial 02/03/17 16:30 02/05/17 12:10 Novolog Vial Sliding Scale - SQ 2 unit TIDAC TITI Administration Protocol Methocarbamol 500 mg 02/03/17 22:00 02/05/17 11:19 Robaxin - PO 500 mg BID TITI Administration Ondansetron HCl 4 mg 02/03/17 12:50 Zofran Injection IVPUSH Q6H PRN NAUSEA AND/OR VOMITING Oxycodone HCl 5 mg 02/03/17 12:50 02/04/17 13:33 Roxicodone - PO 5 mg Q4H PRN Administration PAIN Pantoprazole Sodium 40 mg 02/04/17 10:00 02/05/17 11:19 Protonix - PO 40 mg DAILY TITI Administration Polyethylene Glycol 17 gm 02/04/17 10:00 02/05/17 11:20 Miralax (For Daily Use) - PO Not Given DAILY TITI Senna 2 tab 02/03/17 22:00 02/04/17 21:28 Senna - PO Not Given HS TITI Valsartan 160 mg 02/03/17 22:00 02/05/17 11:19 Diovan - PO 160 mg BID TITI Administration Home Medications Medication Instructions Recorded Atenolol [Tenormin -] 50 mg PO BID 06/17/16 Sitagliptin Phos/Metformin HCl 1 each PO DAILY 06/17/16 [Janumet 50-500 mg Tablet] Valsartan 160 mg PO BID 06/17/16 Atorvastatin Ca [Lipitor] 40 mg PO HS #30 tablet 10/05/16 Hydrochlorothiazide [Hctz -] 25 mg PO DAILY #30 tablet 06/19/16 Methocarbamol [Robaxin -] 500 mg PO BID #60 tablet 01/25/17 Oxycodone HCl/Acetaminophen 1 tab PO Q6H #20 tablet MDD 4 01/25/17 [Percocet 5-325 mg Tablet] Aspirin [ASA -] 81 mg PO DAILY 01/26/17 ASSESSMENT AND PLAN: 71 y/o lady with h/o HTN, NIDDM , HL, and L shoulder arthroplasty 2010, who presented with L shoulder pain, and was found to have an avulsion Fx and hyponatremia . hospital course was complicated with RUE hematoma and DVT # Acute RUE brachial vein DVT with extension proximally to axillary and subclavian veins with worsening hematoma of the R upper arm. s/p SVC filter , will continue to monitor H&H , elevate the arm. patient will need to follow with Dr. evans as outpt to evaluate for SVC filter removal when appropriate # Left Glenoid Fx ;patient presented with ; as per conservative mgt #s/p acute severe Hyponatremia : due to HCTZ, resolved, s/p hypertonic solution # HTN: cont diovan # DM : SSI , hold orals , sliding scale with coverage DVT px: Teds stocking, cannot anticoagulate due to hematoma
[2017-02-05] MEDS: SENNOSIDES 8.6MG TABLET (FP) PO SCH (22:20)
[2017-02-05] MEDS: ATORVASTATIN CA 40 MG TABLET (FP) PO SCH (22:20)
[2017-02-06] MEDS: ACETAMINOPHEN 325 MG TABLET (FP) PO PRN (01:30)
[2017-02-06] MEDS: oxyCODONE HCL 5 MG TABLET PO PRN ×4 (01:31→21:52)
[2017-02-06] MEDS: INSULIN SLIDING SCALE (NOVOLOG) 1 VIAL SQ SCH ×3 (06:29→17:25)
[2017-02-06 08:16] LABS: ALBUMIN 2.7 g/dl (3.4-5.0); ALK PHOS 78 U/L (45-117); ANION GAP 3 (8-16); BILIRUBIN,TOTAL 1.4 mg/dL (0.2-1.0); CALCIUM 8.1 mg/dL (8.5-10.1); CO2 33 mmol/L (21-32); CREATININE 0.6 mg/dL (0.55-1.02); GLUCOSE,RANDOM 126 mg/dL (74-106); SGOT/AST 19 U/L (15-37); SGPT/ALT 21 U/L (12-78)
[2017-02-06 08:55] LABS: INR 1.04 (0.82-1.09); PROTHROMBIN TIME (PATIENT) 11.4 SEC (9.98-11.88)
[2017-02-06] MEDS ORDERED: HYDROmorphone HCL CARPU-JECT 1 MG/1 ML DISP.SYRIN IVPB PRN (09:23)
[2017-02-06] MEDS ORDERED: PT OWN MED DRAWER 7, Y5N ONE ×2 (09:23→21:27)
[2017-02-06] MEDS: METHOCARBAMOL 500 MG TABLET PO SCH ×2 (09:25→21:57)
[2017-02-06] MEDS: DOCUSATE SODIUM 100 MG CAPSULE (FP) PO SCH (09:25)
[2017-02-06] MEDS: VALSARTAN 160 MG TABLET (UD) PO SCH (09:26)
[2017-02-06] MEDS: ATENOLOL 50 MG TABLET (FP) PO SCH ×2 (09:26→21:52)
[2017-02-06] MEDS: PANTOPRAZOLE 40 MG TABLET (FP) PO SCH (09:26)
--- NOTE | 2017-02-06 09:34 | PN ---
Teaching Attending Note Name of Resident: Genet Dwyer ATTENDING PHYSICIAN STATEMENT I saw and evaluated the patient. I reviewed the resident's note and discussed the case with the resident. I agree with the resident's findings and plan as documented. SUBJECTIVE: Patient is feeling better, able to move her fingers better than yesterday but unable to move the whole arm due to swelling and pain. OBJECTIVE: Vital Signs Temperature 97 F L 02/06/17 06:00 Pulse Rate 68 02/06/17 06:00 Respiratory Rate 20 02/06/17 06:00 Blood Pressure 122/50 02/06/17 06:00 O2 Sat by Pulse Oximetry (%) 100 02/05/17 21:00 CBCD WBC 9.9 K/mm3 (4.0-10.0) 02/05/17 06:10 RBC 2.49 M/mm3 (3.60-5.2) L 02/05/17 06:10 Hgb 8.0 GM/dL (10.7-15.3) L 02/05/17 06:10 Hct 23.7 % (32.4-45.2) L 02/05/17 06:10 MCV 95.2 fl (80-96) 02/05/17 06:10 MCHC 33.8 g/dl (32.0-36.0) 02/05/17 06:10 RDW 13.3 % (11.6-15.6) 02/05/17 06:10 Plt Count 242 K/MM3 (134-434) 02/05/17 06:10 MPV 8.1 fl (7.5-11.1) 02/05/17 06:10 CMP Sodium 136 mmol/L (136-145) 02/06/17 06:00 Potassium 5.4 mmol/L (3.5-5.1) H 02/06/17 06:00 Chloride 100 mmol/L (98-107) 02/06/17 06:00 Carbon Dioxide 33 mmol/L (21-32) H 02/06/17 06:00 Anion Gap 3 (8-16) L 02/06/17 06:00 BUN 18 mg/dL (7-18) D 02/06/17 06:00 Creatinine 0.6 mg/dL (0.55-1.02) D 02/06/17 06:00 Creat Clearance w eGFR > 60 (>60) 02/06/17 06:00 Random Glucose 126 mg/dL (74-106) H 02/06/17 06:00 Calcium 8.1 mg/dL (8.5-10.1) L 02/06/17 06:00 Total Bilirubin 1.4 mg/dL (0.2-1.0) H D 02/06/17 06:00 AST 19 U/L (15-37) 02/06/17 06:00 ALT 21 U/L (12-78) D 02/06/17 06:00 Alkaline Phosphatase 78 U/L (45-117) 02/06/17 06:00 Total Protein 5.0 g/dl (6.4-8.2) L 02/06/17 06:00 Albumin 2.7 g/dl (3.4-5.0) L 02/06/17 06:00 CARDIAC ENZYMES Creatine Kinase 101 IU/L (26-192) 01/26/17 17:50 Troponin I < 0.02 ng/ml (0.00-0.05) 01/26/17 17:50 Home Medications Medication Instructions Recorded Atenolol [Tenormin -] 50 mg PO BID 06/17/16 Sitagliptin Phos/Metformin HCl 1 each PO DAILY 06/17/16 [Janumet 50-500 mg Tablet] Valsartan 160 mg PO BID 06/17/16 Atorvastatin Ca [Lipitor] 40 mg PO HS #30 tablet 06/19/16 Hydrochlorothiazide [Hctz -] 25 mg PO DAILY #30 tablet 06/19/16 Methocarbamol [Robaxin -] 500 mg PO BID #60 tablet 01/25/17 Oxycodone HCl/Acetaminophen 1 tab PO Q6H #20 tablet MDD 4 01/25/17 [Percocet 5-325 mg Tablet] Aspirin [ASA -] 81 mg PO DAILY 01/26/17 ASSESSMENT AND PLAN: 71 y/o lady with h/o HTN, NIDDM , HL, and L shoulder arthroplasty 2010, who presented with L shoulder pain, and was found to have an avulsion Fx and hyponatremia . hospital course was complicated with RUE hematoma and DVT # Acute RUE brachial vein DVT with extension proximally to axillary and subclavian veins with hematoma of the R upper arm which is improving s/p SVC filter 02/03, will repeat H&H in am , elevate the arm to help reduce swelling. patient will need to follow with Dr. evans as an outpt to evaluate for SVC filter removal when appropriate. # Physical therapy: patient must comply with physical therapy , out of bed to the chair, to prevent Pneumonia and LLE clots, SCDs while in bed, Teds stockings. Incentive spirometer on the hourly basis; explained to the patient in detail. # Left Glenoid Fx ;patient presented with ; as per conservative mgt #s/p acute severe Hyponatremia : due to HCTZ, resolved, s/p hypertonic solution # Acute hyperkalemia; will hold Diovan for now, will give 1x dose of Kayexalate , uziel repeat the level in am # HTN: continue Tenormin # DM : SSI , hold orals , sliding scale with coverage DVT px: Teds stocking, cannot anticoagulate due to hematoma.
[2017-02-06] MEDS ORDERED: SODIUM POLYSTYRENE SULFONATE 15 GM/60 ML BOTTLE PO ONE (09:45)
[2017-02-06] MEDS: POLYETHYLENE GLYCOL 3350 119 GM BTL PO SCH (09:46)
--- NOTE | 2017-02-06 09:51 | PN ---
Progress Note (short form) - Note Progress Note: Pt seen and examined, with B/L shoulder pain, doing fine Less pain in both shoulders. Better ROM No orthopedic treatment necessary at this time Will follow
[2017-02-06] MEDS ORDERED: INSULIN (NOVOLOG) ASPART 100 UNITS/ML 10ML VIAL ONE (11:51)
--- NOTE | 2017-02-06 13:41 | PN ---
Physical Exam: SUBJECTIVE: Patient seen and examined at bed side this morning. Patient says the swelling over the right hand has decreased, range of motion has improved. Yesterday evening, after the long discussion about the importance of physical therapy, patient said she sat at the edge of the bed for 15 minutes without any problem. She said she will try to walk around today. Denies chest pain, sob, cough, palpitation, abdominal pain, nausea or vomiting. Patients daughter and at bed side. Discussed about patient's medical condition. They verbalized understanding. OBJECTIVE: Vital Signs Period Temp Pulse Resp BP Sys/Duvall Pulse Ox Last 24 Hr 97 F-98.2 F 68-78 20-20 94-122/44-52 100 GENERAL: Moderately built female, patient is lying comfortably in bed, awake, alert, and fully oriented, in no acute distress. HEAD: Normal with no signs of trauma. EYES: EOM intact, no pallor or icterus. ENT: Ears normal, moist mucous membranes. NECK: Trachea midline, full range of motion, supple. LUNGS: Breath sounds equal, clear to auscultation bilaterally, no wheezes, no crackles, no accessory muscle use. HEART: Regular rate and rhythm, S1, S2 without murmur. ABDOMEN: Soft, nontender, nondistended, normoactive bowel sounds, no guarding, no rebound, no hepatosplenomegaly, no masses. LOWER EXTREMITIES: 2+ pulses, warm, well-perfused, no edema. RIGHT UPPER EXTREMITY: Swollen than the left and swelling slightly improved , tenderness on palpation from the elbow up, irregular ecchymosis in the right medial aspect of the arm which has extended towards the mid forearm (resolving) and upper axilla (more than yesterday), ROM limited but improved in both extremities R>L, sensation intact, radial pulses 2+ LEFT UPPER EXTREMITY: No erythema or tenderness, ROM limited. NEUROLOGICAL: Cranial nerves II through XII grossly intact. Normal speech, Gait not observed. PSYCH: Normal mood, normal affect. SKIN: Warm, dry, normal turgor, small area of erythema on the back of the left side of the neck. Laboratory Results - last 24 hr 02/05/17 02/06/17 02/06/17 16:59 06:00 06:00 INR 1.04 Sodium 136 Potassium 5.4 H Chloride 100 Carbon Dioxide 33 H Anion Gap 3 L BUN 18 D Creatinine 0.6 D Creat Clearance w eGFR > 60 POC Glucometer 153 Random Glucose 126 H Calcium 8.1 L Total Bilirubin 1.4 H D AST 19 ALT 21 D Alkaline Phosphatase 78 Total Protein 5.0 L Albumin 2.7 L 02/06/17 02/06/17 06:28 11:49 INR Sodium Potassium Chloride Carbon Dioxide Anion Gap BUN Creatinine Creat Clearance w eGFR POC Glucometer 124 154 Random Glucose Calcium Total Bilirubin AST ALT Alkaline Phosphatase Total Protein Albumin Active Medications Generic Name Dose Route Start Last Admin Trade Name Freq PRN Reason Stop Dose Admin Atenolol 50 mg 02/03/17 22:00 02/06/17 09:26 Tenormin - PO 50 mg BID TITI Administration Atorvastatin Calcium 40 mg 02/03/17 22:00 02/05/17 22:20 Lipitor - PO 40 mg HS TITI Administration Docusate Sodium 100 mg 02/04/17 10:00 02/06/17 09:25 Colace - PO 100 mg DAILY TITI Administration Hydrocortisone 1 applic 02/03/17 12:50 Hytone 0.5% Cream - TP DAILY PRN WOUND CARE Hydromorphone HCl 0.5 mg 02/06/17 09:23 Dilaudid Injection - IVPB Q6H PRN PAIN Insulin Aspart 1 vial 02/03/17 16:30 02/06/17 12:00 Novolog Vial Sliding Scale - SQ 2 unit TIDAC TITI Administration Protocol Methocarbamol 500 mg 02/03/17 22:00 02/06/17 09:25 Robaxin - PO 500 mg BID TITI Administration Ondansetron HCl 4 mg 02/03/17 12:50 Zofran Injection IVPUSH Q6H PRN NAUSEA AND/OR VOMITING Oxycodone HCl 5 mg 02/03/17 12:50 02/06/17 09:26 Roxicodone - PO 5 mg Q4H PRN Administration PAIN Pantoprazole Sodium 40 mg 02/04/17 10:00 02/06/17 09:26 Protonix - PO 40 mg DAILY TITI Administration Polyethylene Glycol 17 gm 02/04/17 10:00 02/06/17 09:46 Miralax (For Daily Use) - PO Not Given DAILY TITI Senna 2 tab 02/03/17 22:00 02/05/17 22:20 Senna - PO Not Given HS TITI 01/29/17: Duplex of right upper arm. Schultz scale, pulse Doppler and color Doppler images of the right upper extremity venous system including the internal jugular and subclavian vein were obtained. The right internal jugular, subclavian vein and axillary vein demonstrates normal phasic waveform, adequate compressibility and adequate response to augmentation. There is thrombosis of the right brachial vein. Normal flow in the right radial and ulnar vein. There is also normal flow in the cephalic and basilic vein. There is a hypoechoic complex oval-shaped masslike density in the upper/medial arm measuring 7.3 x 2.2 cm that may represent a hematoma/complex collection. USG showed subacute hematoma 8.7 x 3.5 cm. ASSESSMENT/PLAN: Patient is a 71 year of female with significant past medical history of NIDDM, HTN, HLD, gout affecting L 1st toe, and L shoulder arthroscopy in 2010, who returned to ED after her prior visit 2 days ago due to persistent L shoulder pain. # Thrombus in the right axillary and subclavian vein with a hematoma on the right upper arm s/p SVC filter placement 02/03/2017 "POD 3" Physical therapy request- patient refused to do the therapy due to pain and swelling. Discussed in depth about the importance of physical therapy. Patient said she will try to get up and walk today. Incentive spirometry. For pain management, patient was receiving IV Hydromorphone. Stopped it today because patient was sleepy most of the time yesterday. She is complaining of less pain and she is on Oxycodone 5mg PO Q4H PRN. Patient developed Thromobosis of the right brachial vein seen in Duplex of the right upper arm on 01/29/17. Patient was anticoagulated with elliquis. Since patient complained of severe right upper arm pain and swelling increased than day prior, duplex was repeated on 02/02/2017 which showed right axillary and subclavian vein. USG showed increment of hematoma. Dr. Ellsworth was consulted, patient was taken to the OR and SVC filter was placed successfully. Patient is doing well after the procedure. # Hyperkalemia : 5.4- Could be pseudohyperkalemia vs due to diovan Diovan on hold # Anemia: could be due to hematoma Repeat Hb has been stable, doesn't require transfusion at this time. #Stool occult positive 01/31/17 Most likely hemorrhoidal bleed Patient refused to a per rectal examination. She mentioned that last colonoscopy was three years ago and was found to have internal hemorrhoids and polyps in the colon. Sees Dr. Anthony (GI as outpatient) who recommended to perform routine colonoscopy every five years. # Asymptomatic likely due to hypoosmolar hyponatremia- Resolved. Renal consult appreciated Most likely patient had hyponatremia due to home medication (on HCTZ). Hence HCTZ not to be continued even after discharge. Urine electrolytes: Ur.Sodium:119; Potassium 20.1; random chloride 116; urea nitrogen 373, creatinine 22.5; Urine osmolality 454 TSH: Normal. Was admitted in the ICU for 48 hours and Now transferred to Med-surg Fall precautions. Stop Indomethacin and discontinue HCTZ upon discharge from home medication list. # Left shoulder pain due to Left glenoid fracture Pain still persists and ROM is limited. Had left shoulder surgery 7 years ago (By Dr. Syed's group). But recently pain started 2 wks ago after cooking and mildly exerting her arms. Didn't see any physician. Doesn't need surgical intervention at this time as per Dr. Chinchilla. Physical therapy on board-patient has refused the treatment. ROM exercise Tylenol prn Appreciate orthopedics consult. F/up as outpatient. # Diabetes Mellitus HbA1c 6.8 01/28/2017 Hold Janumet, continue Insulin sliding scale Finger stick glucose monitoring Watch for hypoglycemic symptoms. # Hypertension: unstable continue home atenolol 50 bid, valsartan 160 bid-Stopped due to hyperkalemia HCTZ 25mg to be stopped upon discharge as it might be the cause of hyponatremia. Sodium restricted diet Monitor BP # Hyperlipidemia Continue lipitor 40 HS # Eczema (Back of the neck) Hydrocortisone cream to be applied. # FEN No IV fluids. Electrolytes to be repeated tomorrow. Diabetic and sodium controlled diet # Prophylaxis For DVT: SCD's-patient refuses to use it despite explaining to the patient the importance of SCDs as it may prevent DVT. For GI: On Pantoprazole # Dispo: Admitted in Med-Surg. Duration of stay unknown. Illness, Investigation and Plan of care explained to the patient and her . They verbalized understanding. Case seen and discussed with Dr. Narvaez. Visit type - Emergency Visit Emergency Visit: Yes ED Registration Date: 01/26/17 Care time: The patient presented to the Emergency Department on the above date and was hospitalized for further evaluation of their emergent condition. - New Patient This patient is new to me today: No - Critical Care Critical Care patient: No - Discharge Referral Referred to [facility] No
[2017-02-06] MEDS: SENNOSIDES 8.6MG TABLET (FP) PO SCH (21:51)
[2017-02-06] MEDS: ATORVASTATIN CA 40 MG TABLET (FP) PO SCH (21:52)
[2017-02-07] MEDS: oxyCODONE HCL 5 MG TABLET PO PRN ×3 (05:20→21:12)
[2017-02-07] MEDS: INSULIN SLIDING SCALE (NOVOLOG) 1 VIAL SQ SCH ×3 (06:08→18:35)
[2017-02-07 08:20] LABS: MCH 31.9 pg (25.7-33.7); MCHC 33.3 g/dl (32.0-36.0); MEAN CELL VOLUME 95.8 fl (80-96); MEAN PLT VOLUME 7.9 fl (7.5-11.1); PLATELET COUNT 280 K/MM3 (134-434); RDW 13.8 % (11.6-15.6)
[2017-02-07] MEDS ORDERED: PT OWN MED DRAWER 7, Y5N ONE (09:12)
[2017-02-07] MEDS: PANTOPRAZOLE 40 MG TABLET (FP) PO SCH (09:14)
[2017-02-07] MEDS: METHOCARBAMOL 500 MG TABLET PO SCH ×2 (09:14→21:15)
[2017-02-07] MEDS: DOCUSATE SODIUM 100 MG CAPSULE (FP) PO SCH (09:14)
[2017-02-07] MEDS: POLYETHYLENE GLYCOL 3350 119 GM BTL PO SCH (09:14)
[2017-02-07] MEDS: ATENOLOL 50 MG TABLET (FP) PO SCH ×2 (09:14→21:12)
[2017-02-07 09:23] LABS: CALCIUM 8.3 mg/dL (8.5-10.1); COCKROFT - GAULT 82.229; CREATININE 0.6 mg/dL (0.55-1.02); MAGNESIUM 2.3 mg/dL (1.8-2.4); PHOSPHOROUS 2.8 mg/dL (2.5-4.9)
--- NOTE | 2017-02-07 12:50 | PN ---
Physical Exam: SUBJECTIVE: Patient seen and examined at bed side this morning. She was sitting on a chair. Pain on both the arms have gotten better as per the patient. Denies chest pain, sob, cough, palpitation, abdominal pain, nausea or vomiting. Yesterday, she was able to walk few steps. Patient said she will try physical therapy today. OBJECTIVE: Vital Signs Period Temp Pulse Resp BP Sys/Duvall Pulse Ox Last 24 Hr 97.8 F-98.2 F 73-85 18-20 100-116/52-67 96 GENERAL: Moderately built female, patient is sitting on a chair comfortably, awake, alert, and fully oriented, in no acute distress. HEAD: Normal with no signs of trauma. EYES: EOM intact, no pallor or icterus. ENT: Ears normal, moist mucous membranes. NECK: Trachea midline, full range of motion, supple. LUNGS: Breath sounds equal, clear to auscultation bilaterally, no wheezes, no crackles, no accessory muscle use. HEART: Regular rate and rhythm, S1, S2 without murmur. ABDOMEN: Soft, nontender, nondistended, normoactive bowel sounds, no guarding, no rebound, no hepatosplenomegaly, no masses. LOWER EXTREMITIES: 2+ pulses, warm, well-perfused, no edema. RIGHT UPPER EXTREMITY: Swollen than the left and swelling slightly improved , tenderness on palpation from the elbow up, irregular ecchymosis in the right medial aspect of the arm which has extended towards the mid forearm (resolving) and upper axilla (more than yesterday), ROM limited but improved in both extremities R>L, sensation intact, radial pulses 2+ LEFT UPPER EXTREMITY: No erythema or tenderness, ROM limited. NEUROLOGICAL: Cranial nerves II through XII grossly intact. Normal speech, Gait not observed. PSYCH: Normal mood, normal affect. SKIN: Warm, dry, normal turgor, small area of erythema on the back of the left side of the neck. Laboratory Results - last 24 hr 02/06/17 02/07/17 02/07/17 17:22 06:07 07:35 WBC 7.0 RBC 2.67 L Hgb 8.5 L Hct 25.6 L MCV 95.8 MCHC 33.3 RDW 13.8 Plt Count 280 MPV 7.9 Sodium Potassium Chloride Carbon Dioxide Anion Gap BUN Creatinine POC Glucometer 166 160 Random Glucose Calcium Phosphorus Magnesium 02/07/17 02/07/17 07:35 12:08 WBC RBC Hgb Hct MCV MCHC RDW Plt Count MPV Sodium 139 Potassium 4.4 Chloride 99 Carbon Dioxide 31 Anion Gap 9 BUN 14 D Creatinine 0.6 POC Glucometer 145 Random Glucose 125 H Calcium 8.3 L Phosphorus 2.8 Magnesium 2.3 D Active Medications Generic Name Dose Route Start Last Admin Trade Name Freq PRN Reason Stop Dose Admin Atenolol 50 mg 02/03/17 22:00 02/07/17 09:14 Tenormin - PO 50 mg BID TITI Administration Atorvastatin Calcium 40 mg 02/03/17 22:00 02/06/17 21:52 Lipitor - PO 40 mg HS TITI Administration Docusate Sodium 100 mg 02/04/17 10:00 02/07/17 09:14 Colace - PO 100 mg DAILY TITI Administration Hydrocortisone 1 applic 02/03/17 12:50 Hytone 0.5% Cream - TP DAILY PRN WOUND CARE Insulin Aspart 1 vial 02/03/17 16:30 02/07/17 12:10 Novolog Vial Sliding Scale - SQ Not Given TIDAC [facility] Protocol Methocarbamol 500 mg 02/03/17 22:00 02/07/17 09:14 Robaxin - PO 500 mg BID TITI Administration Ondansetron HCl 4 mg 02/03/17 12:50 Zofran Injection IVPUSH Q6H PRN NAUSEA AND/OR VOMITING Oxycodone HCl 5 mg 02/03/17 12:50 02/07/17 09:13 Roxicodone - PO 5 mg Q4H PRN Administration PAIN Pantoprazole Sodium 40 mg 02/04/17 10:00 02/07/17 09:14 Protonix - PO 40 mg DAILY TITI Administration Polyethylene Glycol 17 gm 02/04/17 10:00 02/07/17 09:14 Miralax (For Daily Use) - PO 17 grams DAILY TITI Administration Senna 2 tab 02/03/17 22:00 02/06/17 21:51 Senna - PO 2 tab HS TITI Administration 01/29/17: Duplex of right upper arm. Schultz scale, pulse Doppler and color Doppler images of the right upper extremity venous system including the internal jugular and subclavian vein were obtained. The right internal jugular, subclavian vein and axillary vein demonstrates normal phasic waveform, adequate compressibility and adequate response to augmentation. There is thrombosis of the right brachial vein. Normal flow in the right radial and ulnar vein. There is also normal flow in the cephalic and basilic vein. There is a hypoechoic complex oval-shaped masslike density in the upper/medial arm measuring 7.3 x 2.2 cm that may represent a hematoma/complex collection. USG showed subacute hematoma 8.7 x 3.5 cm. ASSESSMENT/PLAN: Patient is a 71 year of female with significant past medical history of NIDDM, HTN, HLD, gout affecting L 1st toe, and L shoulder arthroscopy in 2010, who returned to ED after her prior visit 2 days ago due to persistent L shoulder pain. # Thrombus in the right axillary and subclavian vein with a hematoma on the right upper arm s/p SVC filter placement 02/03/2017 "POD 4" Patients swelling over the right upper arm has decreased, range of motion has improved. She is able to sit up on the chair. Today, patient said she will not refuse physical therapy like she did yesterday. Plan is to encourage her to move around with the physical therapist. Incentive spirometry Q1H. Oxycodone 5mg PO Q4H PRN # Hyperkalemia : Resolved It could have been due to pseudohyperkalemia vs due to diovan Diovan on hold # Anemia: could be due to hematoma Repeat Hb has been stable, doesn't require transfusion at this time. #Stool occult positive 01/31/17 Most likely hemorrhoidal bleed Patient refused to a per rectal examination. She mentioned that last colonoscopy was three years ago and was found to have internal hemorrhoids and polyps in the colon. Sees Dr. Anthony (GI as outpatient) who recommended to perform routine colonoscopy every five years. # Asymptomatic likely due to hypoosmolar hyponatremia- Resolved. Renal consult appreciated Most likely patient had hyponatremia due to home medication (on HCTZ). Hence HCTZ not to be continued even after discharge. Urine electrolytes: Ur.Sodium:119; Potassium 20.1; random chloride 116; urea nitrogen 373, creatinine 22.5; Urine osmolality 454 TSH: Normal. Was admitted in the ICU for 48 hours and Now transferred to [facility] Fall precautions. Stop Indomethacin and discontinue HCTZ upon discharge from home medication list. # Left shoulder pain due to Left glenoid fracture Pain still persists and ROM is limited. Had left shoulder surgery 7 years ago (By Dr. Syed's group). But recently pain started 2 wks ago after cooking and mildly exerting her arms. Didn't see any physician. Doesn't need surgical intervention at this time as per Dr. Chinchilla. Physical therapy on board-patient has refused the treatment. ROM exercise Tylenol prn Appreciate orthopedics consult. F/up as outpatient. # Diabetes Mellitus HbA1c 6.8 01/28/2017 Hold Janumet, continue Insulin sliding scale Finger stick glucose monitoring Watch for hypoglycemic symptoms. # Hypertension: unstable continue home atenolol 50 bid, valsartan 160 bid-Stopped due to hyperkalemia HCTZ 25mg to be stopped upon discharge as it might be the cause of hyponatremia. Sodium restricted diet Monitor BP # Hyperlipidemia Continue lipitor 40 HS # Eczema (Back of the neck) Hydrocortisone cream to be applied. # FEN No IV fluids. Electrolytes to be repeated tomorrow. Diabetic and sodium controlled diet # Prophylaxis For DVT: SCD's-patient refuses to use it despite explaining to the patient the importance of SCDs as it may prevent DVT. For GI: On Pantoprazole # Dispo: Admitted in Med-Surg. Duration of stay unknown. Illness, Investigation and Plan of care explained to the patient and her . They verbalized understanding. Case seen and discussed with Dr. Narvaez. Visit type - Emergency Visit Emergency Visit: Yes ED Registration Date: 01/26/17 Care time: The patient presented to the Emergency Department on the above date and was hospitalized for further evaluation of their emergent condition. - New Patient This patient is new to me today: No - Critical Care Critical Care patient: No
--- NOTE | 2017-02-07 16:50 | PN ---
Teaching Attending Note Name of Resident: Genet Dwyer ATTENDING PHYSICIAN STATEMENT I saw and evaluated the patient. I reviewed the resident's note and discussed the case with the resident. I agree with the resident's findings and plan as documented. SUBJECTIVE: Patient is better today sitting on the chair moving the right arm slightly better than yesterday. Still swollen and ecchymotic but less. OBJECTIVE: Vital Signs Temperature 98.1 F 02/07/17 14:11 Pulse Rate 76 02/07/17 14:11 Respiratory Rate 20 02/07/17 14:11 Blood Pressure 96/40 02/07/17 14:11 O2 Sat by Pulse Oximetry (%) 96 02/07/17 09:00 CBCD WBC 7.0 K/mm3 (4.0-10.0) 02/07/17 07:35 RBC 2.67 M/mm3 (3.60-5.2) L 02/07/17 07:35 Hgb 8.5 GM/dL (10.7-15.3) L 02/07/17 07:35 Hct 25.6 % (32.4-45.2) L 02/07/17 07:35 MCV 95.8 fl (80-96) 02/07/17 07:35 MCHC 33.3 g/dl (32.0-36.0) 02/07/17 07:35 RDW 13.8 % (11.6-15.6) 02/07/17 07:35 Plt Count 280 K/MM3 (134-434) 02/07/17 07:35 MPV 7.9 fl (7.5-11.1) 02/07/17 07:35 CMP Sodium 139 mmol/L (136-145) 02/07/17 07:35 Potassium 4.4 mmol/L (3.5-5.1) 02/07/17 07:35 Chloride 99 mmol/L (98-107) 02/07/17 07:35 Carbon Dioxide 31 mmol/L (21-32) 02/07/17 07:35 Anion Gap 9 (8-16) 02/07/17 07:35 BUN 14 mg/dL (7-18) D 02/07/17 07:35 Creatinine 0.6 mg/dL (0.55-1.02) 02/07/17 07:35 Creat Clearance w eGFR > 60 (>60) 02/06/17 06:00 Random Glucose 125 mg/dL (74-106) H 02/07/17 07:35 Calcium 8.3 mg/dL (8.5-10.1) L 02/07/17 07:35 Total Bilirubin 1.4 mg/dL (0.2-1.0) H D 02/06/17 06:00 AST 19 U/L (15-37) 02/06/17 06:00 ALT 21 U/L (12-78) D 02/06/17 06:00 Alkaline Phosphatase 78 U/L (45-117) 02/06/17 06:00 Total Protein 5.0 g/dl (6.4-8.2) L 02/06/17 06:00 Albumin 2.7 g/dl (3.4-5.0) L 02/06/17 06:00 CARDIAC ENZYMES Creatine Kinase 101 IU/L (26-192) 01/26/17 17:50 Troponin I < 0.02 ng/ml (0.00-0.05) 01/26/17 17:50 Current Medications Generic Name Dose Route Start Last Admin Trade Name Freq PRN Reason Stop Dose Admin Atenolol 50 mg 02/03/17 22:00 02/07/17 09:14 Tenormin - PO 50 mg BID TITI Administration Atorvastatin Calcium 40 mg 02/03/17 22:00 02/06/17 21:52 Lipitor - PO 40 mg HS TITI Administration Docusate Sodium 100 mg 02/04/17 10:00 02/07/17 09:14 Colace - PO 100 mg DAILY TITI Administration Hydrocortisone 1 applic 02/03/17 12:50 Hytone 0.5% Cream - TP DAILY PRN WOUND CARE Insulin Aspart 1 vial 02/03/17 16:30 02/07/17 12:10 Novolog Vial Sliding Scale - SQ Not Given TIDAC [facility] Protocol Methocarbamol 500 mg 02/03/17 22:00 02/07/17 09:14 Robaxin - PO 500 mg BID TITI Administration Ondansetron HCl 4 mg 02/03/17 12:50 Zofran Injection IVPUSH Q6H PRN NAUSEA AND/OR VOMITING Oxycodone HCl 5 mg 02/03/17 12:50 02/07/17 09:13 Roxicodone - PO 5 mg Q4H PRN Administration PAIN Pantoprazole Sodium 40 mg 02/04/17 10:00 02/07/17 09:14 Protonix - PO 40 mg DAILY TITI Administration Polyethylene Glycol 17 gm 02/04/17 10:00 02/07/17 09:14 Miralax (For Daily Use) - PO 17 grams DAILY TITI Administration Senna 2 tab 02/03/17 22:00 02/06/17 21:51 Senna - PO 2 tab HS TITI Administration Home Medications Medication Instructions Recorded Atenolol [Tenormin -] 50 mg PO BID 06/17/16 Sitagliptin Phos/Metformin HCl 1 each PO DAILY 06/17/16 [Janumet 50-500 mg Tablet] Valsartan 160 mg PO BID 06/17/16 Atorvastatin Ca [Lipitor] 40 mg PO HS #30 tablet 06/19/16 Hydrochlorothiazide [Hctz -] 25 mg PO DAILY #30 tablet 06/19/16 Methocarbamol [Robaxin -] 500 mg PO BID #60 tablet 01/25/17 Oxycodone HCl/Acetaminophen 1 tab PO Q6H #20 tablet MDD 4 01/25/17 [Percocet 5-325 mg Tablet] Aspirin [ASA -] 81 mg PO DAILY 01/26/17 ASSESSMENT AND PLAN: 71 y/o lady with h/o HTN, NIDDM , HL, and L shoulder arthroplasty 2010, who presented with L shoulder pain, and was found to have an avulsion Fx and hyponatremia . hospital course was complicated with RUE hematoma and DVT # Acute RUE brachial vein DVT with extension proximally to axillary and subclavian veins with hematoma of the R upper arm which is improving s/p SVC filter 02/03, H&H is stable will continue to follow the patient , elevate the arm to help reduce swelling. Upon discharge, patient will need to follow with Dr. evans as an outpt.to evaluate for SVC filter removal when appropriate. US of upper extremity will need to be repeated prior to removal of SVC filter. # Physical therapy: patient must comply with physical therapy , out of bed to the chair, to prevent Pneumonia and LLE clots, SCDs while in bed, Teds stockings. Incentive spirometer on the hourly basis; explained to the patient in detail. # Acute Left Glenoid Fx that patient presented with; as per Dr.Lente conservative mgt #s/p acute severe Hyponatremia : due to HCTZ resolved, s/p hypertonic solution. # Acute hyperkalemia; will hold Diovan for now, will give 1x dose of Kayexalate , will repeat the level in am # HTN: continue Tenormin # DM : SSI , hold orals , sliding scale with coverage DVT px: Teds stocking, cannot anticoagulate due to hematoma. Discussed with the patient and the family in details. Discussed with in details #
[2017-02-07] MEDS: SENNOSIDES 8.6MG TABLET (FP) PO SCH (21:11)
[2017-02-07] MEDS: ATORVASTATIN CA 40 MG TABLET (FP) PO SCH (21:12)
[2017-02-08] MEDS: oxyCODONE HCL 5 MG TABLET PO PRN ×2 (00:44→18:10)
[2017-02-08] MEDS: POLYETHYLENE GLYCOL 3350 119 GM BTL PO SCH (06:00)
[2017-02-08] MEDS: INSULIN SLIDING SCALE (NOVOLOG) 1 VIAL SQ SCH ×3 (06:21→19:10)
[2017-02-08] MEDS ORDERED: PT OWN MED DRAWER 7, Y5N ONE ×2 (06:51→09:23)
[2017-02-08 07:43] LABS: MCH 32.3 pg (25.7-33.7); MCHC 33.8 g/dl (32.0-36.0); MEAN CELL VOLUME 95.6 fl (80-96); MEAN PLT VOLUME 7.8 fl (7.5-11.1); PLATELET COUNT 320 K/MM3 (134-434); RDW 14.5 % (11.6-15.6); WHITE BLOOD COUNT 6.3 K/mm3 (4.0-10.0)
[2017-02-08 08:12] LABS: CALCIUM 8.7 mg/dL (8.5-10.1); COCKROFT - GAULT 66.895; CREATININE 0.7 mg/dL (0.55-1.02)
[2017-02-08] MEDS: PANTOPRAZOLE 40 MG TABLET (FP) PO SCH (09:24)
[2017-02-08] MEDS: DOCUSATE SODIUM 100 MG CAPSULE (FP) PO SCH (09:24)
[2017-02-08] MEDS: ATENOLOL 50 MG TABLET (FP) PO SCH ×2 (09:25→22:21)
[2017-02-08] MEDS: METHOCARBAMOL 500 MG TABLET PO SCH ×2 (09:25→22:21)
--- NOTE | 2017-02-08 12:03 | OP ---
DATE OF OPERATION: 02/02/2017 PREOPERATIVE DIAGNOSIS: Deep vein thrombosis. POSTOPERATIVE DIAGNOSIS: Deep vein thrombosis. PROCEDURE: Insertion of superior vena cava filter with venogram. SURGEON: Bro Marcus DO ANESTHESIA: Fractional. BLOOD LOSS: 5 mL. The patient is a 71-year-old female that has right upper extremity swelling with DVT extending into the subclavian vein. She had a Medline catheter placed there a couple days ago by the medical team and was then pulled out from the brachial vein and subsequently she developed a hematoma on anticoagulation. At the same time, she developed a DVT in that right upper extremity and now cannot be anticoagulated and thus needs an SVC filter. Patient was consented for the procedure, understanding all risks, benefits, alternatives, and taken to the operating room. Once in the operating room, laid on the operating table in a supine manner and the area of the right groin was prepped and draped in a sterile surgical manner. We then went ahead and injected 10 mL of 1% lidocaine over the right common femoral vein. We then went ahead and used a micropuncture needle and punctured the right common femoral vein. A micropuncture wire was inserted and micropuncture sheath was inserted. We then placed 5-[place] sheath. We then placed a 0.035 floppy guidewire under fluoroscopy all the way up into the SVC. We then followed that with a [place]ar catheter. We then shot a superior vena cava venogram by hand injection showing where the bifurcation of the innominate veins is. That was marked on our screen. We then went ahead and placed our jugular IVC filter up into the SVC under fluoroscopy. We then went ahead and got to the junction of the innominate veins and we then deployed the SVC filter there. SVC filter was in place. Completion vena cavogram showed that the SVC filter was in place. There was no migration of the filter. There was no extravasation of contrast either. At this point, we removed our sheath. Pressure was held on the right groin for 5 minutes. After that, there was no bleeding. It was wet and dried and Dermabond was placed. Patient tolerated the procedure with no complication. Patient transferred to PACU in stable condition. BRO MARCUS DO [employer]/[id number]
[2017-02-08] MEDS ORDERED: INSULIN (NOVOLOG) ASPART 100 UNITS/ML 10ML VIAL ONE (12:51)
--- NOTE | 2017-02-08 17:23 | OP ---
ADDENDUM (SVC Filter and Venogram: 02/02/2017) FINDINGS: The midline catheter was actually placed by the critical care team. (On the , report, I had dictated that the midline catheter was placed by the medical team.) MIKE MARCUS DO NP/[id number]
--- NOTE | 2017-02-08 20:51 | PN ---
Physical Exam: SUBJECTIVE: Patient seen and examined Patient's right Upper extremity is better, able to move her left arm better than yesterday, positive for swelling and ecchymossis improving. OBJECTIVE: Vital Signs Temperature 98.9 F 02/08/17 18:00 Pulse Rate 67 02/08/17 18:00 Respiratory Rate 18 02/08/17 18:00 Blood Pressure 154/67 02/08/17 18:00 O2 Sat by Pulse Oximetry (%) 96 02/08/17 09:00 GENERAL: The patient is awake, alert, and fully oriented, in no acute distress. HEAD: Normal with no signs of trauma. EYES: PERRL, extraocular movements intact, sclera anicteric, conjunctiva clear. ENT: Ears normal, oropharynx clear without exudates, moist mucous membranes. NECK: Trachea midline, full range of motion, supple. LUNGS: Breath sounds equal, clear to auscultation bilaterally, no wheezes, no crackles, no accessory muscle use. HEART: Regular rate and rhythm, S1, S2 positive. no rub or gallop. ABDOMEN: Soft, nontender, nondistended, normoactive bowel sounds, no guarding, no rebound, no hepatosplenomegaly, no masses appreciated. EXTREMITIES: 2+ pulses, warm, well-perfused, Right Upper extremity positive for swelling and ecchymosis improving , better ROM today able to lift the arm NEUROLOGICAL: Cranial nerves II through XII grossly intact. Normal speech, gait not observed. PSYCH: Normal mood, normal affect. SKIN: Warm, dry, normal turgor, no rashes or lesions noted CBCD WBC 6.3 K/mm3 (4.0-10.0) 02/08/17 06:00 RBC 2.76 M/mm3 (3.60-5.2) L 02/08/17 06:00 Hgb 8.9 GM/dL (10.7-15.3) L 02/08/17 06:00 Hct 26.4 % (32.4-45.2) L 02/08/17 06:00 MCV 95.6 fl (80-96) 02/08/17 06:00 MCHC 33.8 g/dl (32.0-36.0) 02/08/17 06:00 RDW 14.5 % (11.6-15.6) 02/08/17 06:00 Plt Count 320 K/MM3 (134-434) 02/08/17 06:00 MPV 7.8 fl (7.5-11.1) 02/08/17 06:00 CMP Sodium 138 mmol/L (136-145) 02/08/17 06:00 Potassium 4.9 mmol/L (3.5-5.1) 02/08/17 06:00 Chloride 99 mmol/L (98-107) 02/08/17 06:00 Carbon Dioxide 30 mmol/L (21-32) 02/08/17 06:00 Anion Gap 9 (8-16) 02/08/17 06:00 BUN 14 mg/dL (7-18) 02/08/17 06:00 Creatinine 0.7 mg/dL (0.55-1.02) 02/08/17 06:00 Creat Clearance w eGFR > 60 (>60) 02/06/17 06:00 Random Glucose 144 mg/dL (74-106) H 02/08/17 06:00 Calcium 8.7 mg/dL (8.5-10.1) 02/08/17 06:00 Total Bilirubin 1.4 mg/dL (0.2-1.0) H D 02/06/17 06:00 AST 19 U/L (15-37) 02/06/17 06:00 ALT 21 U/L (12-78) D 02/06/17 06:00 Alkaline Phosphatase 78 U/L (45-117) 02/06/17 06:00 Total Protein 5.0 g/dl (6.4-8.2) L 02/06/17 06:00 Albumin 2.7 g/dl (3.4-5.0) L 02/06/17 06:00 CARDIAC ENZYMES Creatine Kinase 101 IU/L (26-192) 01/26/17 17:50 Troponin I < 0.02 ng/ml (0.00-0.05) 01/26/17 17:50 Active Medications Generic Name Dose Route Start Last Admin Trade Name Freq PRN Reason Stop Dose Admin Atenolol 50 mg 02/03/17 22:00 02/08/17 09:25 Tenormin - PO 50 mg BID TITI Administration Atorvastatin Calcium 40 mg 02/03/17 22:00 02/07/17 21:12 Lipitor - PO 40 mg HS TITI Administration Docusate Sodium 100 mg 02/04/17 10:00 02/08/17 09:24 Colace - PO 100 mg DAILY TITI Administration Hydrocortisone 1 applic 02/03/17 12:50 Hytone 0.5% Cream - TP DAILY PRN WOUND CARE Insulin Aspart 1 vial 02/03/17 16:30 02/08/17 19:10 Novolog Vial Sliding Scale - SQ Not Given TIDAC TITI Protocol Methocarbamol 500 mg 02/03/17 22:00 02/08/17 09:25 Robaxin - PO 500 mg BID TITI Administration Ondansetron HCl 4 mg 02/03/17 12:50 Zofran Injection IVPUSH Q6H PRN NAUSEA AND/OR VOMITING Oxycodone HCl 5 mg 02/03/17 12:50 02/08/17 18:10 Roxicodone - PO 5 mg Q4H PRN Administration PAIN Pantoprazole Sodium 40 mg 02/04/17 10:00 02/08/17 09:24 Protonix - PO 40 mg DAILY TITI Administration Polyethylene Glycol 17 gm 02/04/17 10:00 02/08/17 06:00 Miralax (For Daily Use) - PO Not Given DAILY TITI Senna 2 tab 02/03/17 22:00 02/07/17 21:11 Senna - PO 2 tab HS TITI Administration Home Medications Medication Instructions Recorded RX: Atenolol [Tenormin -] 50 mg PO BID 06/17/16 RX: Sitagliptin Phos/Metformin HCl 1 each PO DAILY 06/17/16 [Janumet 50-500 mg Tablet] RX: Valsartan 160 mg PO BID 06/17/16 Atorvastatin Ca [Lipitor] 40 mg PO HS #30 tablet 06/19/16 RX: Hydrochlorothiazide [Hctz -] 25 mg PO DAILY #30 tablet 06/19/16 Methocarbamol [Robaxin -] 500 mg PO BID #60 tablet 01/25/17 Oxycodone HCl/Acetaminophen 1 tab PO Q6H #20 tablet MDD 4 01/25/17 [Percocet 5-325 mg Tablet] Aspirin [ASA -] 81 mg PO DAILY 01/26/17 ASSESSMENT/PLAN: 71 y/o lady with h/o HTN, NIDDM , HL, and L shoulder arthroplasty 2010, who presented with L shoulder pain, and was found to have an avulsion Fx and hyponatremia . hospital course was complicated with RUE hematoma and DVT # Acute RUE brachial vein DVT with extension proximally to axillary and subclavian veins with hematoma of the R upper arm which is improving s/p SVC filter 02/03, H&H is stable will continue to follow the patient , elevate the arm to help reduce swelling. Upon discharge, patient will need to follow with Dr. evans as an outpt.to evaluate for SVC filter removal when appropriate. US of upper extremity will need to be repeated prior to removal of SVC filter. # Physical therapy: patient must comply with physical therapy , out of bed to the chair, to prevent Pneumonia and LLE clots, SCDs while in bed, Teds stockings. Incentive spirometer on the hourly basis; explained to the patient in detail. # Acute Left Glenoid Fx that patient presented with; as per conservative mgt #s/p acute severe Hyponatremia : due to HCTZ resolved, s/p hypertonic solution. # Acute hyperkalemia; will hold Diovan for now, will give 1x dose of Kayexalate , will repeat the level in am # HTN: continue Tenormin # DM : SSI , hold orals , sliding scale with coverage DVT px: Teds stocking, cannot anticoagulate due to hematoma. Discussed with the patient and the family in details. Discussed with in details # Multiple questions were asked regarding SVC filter and removal. and was explained to the family that US will be repeated prior to removal of SVC filter. Visit type - Emergency Visit Emergency Visit: Yes ED Registration Date: 01/26/17 Care time: The patient presented to the Emergency Department on the above date and was hospitalized for further evaluation of their emergent condition. - New Patient This patient is new to me today: No - Critical Care Critical Care patient: No
[2017-02-08] MEDS: SENNOSIDES 8.6MG TABLET (FP) PO SCH (22:21)
[2017-02-08] MEDS: ATORVASTATIN CA 40 MG TABLET (FP) PO SCH (22:21)
[2017-02-09] MEDS: INSULIN SLIDING SCALE (NOVOLOG) 1 VIAL SQ SCH ×3 (06:00→16:28)
--- NOTE | 2017-02-09 08:03 | PN ---
Addendum entered and electronically signed by Genet Dwyer, HIREN 02/09/17 13 :54: Encourage PO intake. Glucerna ordered 2 times a day. Original Note: <Genet Dwyer - Last Filed: 02/09/17 13:44> Physical Exam: SUBJECTIVE: Patient seen and examined at bed side this morning. Complaining of tingling and numbness of the right arms radiating towards the right ears since several days. She said she feels better than yesterday, is able to move around better, swelling of the right upper arm is decreasing. Denies chest pain, sob, cough, palpitation, abdominal pain nausea or vomiting. Moving her bowels daily. No urinary symptoms. Sleep/Appetite normal. OBJECTIVE: Vital Signs Period Temp Pulse Resp BP Sys/Duvall Pulse Ox Last 24 Hr 98.1 F-98.9 F 67-97 18-20 108-154/53-106 96 GENERAL: Moderately built female, patient is lying in bed, lying in bed comfortably, awake, alert, and fully oriented, in no acute distress. HEAD: Normal with no signs of trauma. EYES: EOM intact, no pallor or icterus. ENT: Ears normal, moist mucous membranes. NECK: Trachea midline, full range of motion, supple. LUNGS: Breath sounds equal, clear to auscultation bilaterally, no wheezes, no crackles, no accessory muscle use. HEART: Regular rate and rhythm, S1, S2 without murmur. ABDOMEN: Soft, nontender, nondistended, normoactive bowel sounds, no guarding, no rebound, no hepatosplenomegaly, no masses. LOWER EXTREMITIES: 2+ pulses, warm, well-perfused, no edema. RIGHT UPPER EXTREMITY: Swollen than the left and swelling slightly improved , tenderness on palpation from the elbow up, irregular ecchymosis in the right medial aspect of the arm which has extended towards the mid forearm (resolving) and upper axilla (more than yesterday), ROM limited but improved in both extremities R>L, sensation intact, radial pulses 2+ LEFT UPPER EXTREMITY: No erythema or tenderness, ROM limited. NEUROLOGICAL: Cranial nerves II through XII grossly intact. Normal speech, Gait not observed. PSYCH: Normal mood, normal affect. SKIN: Warm, dry, normal turgor, small area of erythema on the back of the left side of the neck. Laboratory Results - last 24 hr 02/08/17 02/08/17 02/08/17 06:00 11:26 17:23 Sodium 138 Potassium 4.9 Chloride 99 Carbon Dioxide 30 Anion Gap 9 BUN 14 Creatinine 0.7 POC Glucometer 205 81 Random Glucose 144 H Calcium 8.7 02/09/17 05:56 Sodium Potassium Chloride Carbon Dioxide Anion Gap BUN Creatinine POC Glucometer 123 Random Glucose Calcium Active Medications Generic Name Dose Route Start Last Admin Trade Name Freherrera PRN Reason Stop Dose Admin Atenolol 50 mg 02/03/17 22:00 02/08/17 22:21 Tenormin - PO 50 mg BID TITI Administration Atorvastatin Calcium 40 mg 02/03/17 22:00 02/08/17 22:21 Lipitor - PO 40 mg HS TITI Administration Docusate Sodium 100 mg 02/04/17 10:00 02/08/17 09:24 Colace - PO 100 mg DAILY TITI Administration Hydrocortisone 1 applic 02/03/17 12:50 Hytone 0.5% Cream - TP DAILY PRN WOUND CARE Insulin Aspart 1 vial 02/03/17 16:30 02/09/17 06:00 Novolog Vial Sliding Scale - SQ Not Given TIDAC [facility] Protocol Methocarbamol 500 mg 02/03/17 22:00 02/08/17 22:21 Robaxin - PO 500 mg BID TITI Administration Ondansetron HCl 4 mg 02/03/17 12:50 Zofran Injection IVPUSH Q6H PRN NAUSEA AND/OR VOMITING Oxycodone HCl 5 mg 02/03/17 12:50 02/08/17 18:10 Roxicodone - PO 5 mg Q4H PRN Administration PAIN Pantoprazole Sodium 40 mg 02/04/17 10:00 02/08/17 09:24 Protonix - PO 40 mg DAILY TITI Administration Polyethylene Glycol 17 gm 02/04/17 10:00 02/08/17 06:00 Miralax (For Daily Use) - PO Not Given DAILY TITI Senna 2 tab 02/03/17 22:00 02/08/17 22:21 Senna - PO 2 tab HS TITI Administration 01/29/17: Duplex of right upper arm. Schultz scale, pulse Doppler and color Doppler images of the right upper extremity venous system including the internal jugular and subclavian vein were obtained. The right internal jugular, subclavian vein and axillary vein demonstrates normal phasic waveform, adequate compressibility and adequate response to augmentation. There is thrombosis of the right brachial vein. Normal flow in the right radial and ulnar vein. There is also normal flow in the cephalic and basilic vein. There is a hypoechoic complex oval-shaped masslike density in the upper/medial arm measuring 7.3 x 2.2 cm that may represent a hematoma/complex collection. USG showed subacute hematoma 8.7 x 3.5 cm. ASSESSMENT/PLAN: Patient is a 71 year of female with significant past medical history of NIDDM, HTN, HLD, gout affecting L 1st toe, and L shoulder arthroscopy in 2010, who returned to ED after her prior visit 2 days ago due to persistent L shoulder pain. # Thrombus in the right axillary and subclavian vein with a hematoma on the right upper arm s/p SVC filter placement 02/03/2017 "POD 6" Patient is doing much better. The swelling of the right upper arm has decreased, she is able to move it better. Does have tingling sensation over the right upper arm, on/off, traveling towards the right ear. Discussing with the patient and family about placing her in rehab or sending her home once she feels better. Incentive spirometry Q1H. Oxycodone 5mg PO Q4H PRN # Hyperkalemia : Resolved It could have been due to pseudohyperkalemia vs due to diovan Diovan on hold # Anemia: could be due to hematoma Repeat Hb has been stable, doesn't require transfusion at this time. #Stool occult positive 01/31/17 Most likely hemorrhoidal bleed Patient refused to a per rectal examination. She mentioned that last colonoscopy was three years ago and was found to have internal hemorrhoids and polyps in the colon. Sees Dr. Anthony (GI as outpatient) who recommended to perform routine colonoscopy every five years. # Asymptomatic likely due to hypoosmolar hyponatremia- Resolved. Renal consult appreciated Most likely patient had hyponatremia due to home medication (on HCTZ). Hence HCTZ not to be continued even after discharge. Stop Indomethacin and discontinue HCTZ upon discharge from home medication list. # Left shoulder pain due to Left glenoid fracture Pain has been resolving, ROM improved on the left shoulder Doesn't need surgical intervention at this time as per Dr. Chinchilla. As per Ortho physician, patient needs a follow up as outpatient, possible Cortisone injection and is stable to be discharged. Physical therapy to be continued. # Diabetes Mellitus HbA1c 6.8 01/28/2017 Hold Janumet, continue Insulin sliding scale Finger stick glucose monitoring Watch for hypoglycemic symptoms. # Hypertension: unstable continue home atenolol 50 bid; valsartan 160 bid-Stopped due to hyperkalemia HCTZ 25mg to be stopped upon discharge as it might be the cause of hyponatremia. Sodium restricted diet Monitor BP # Hyperlipidemia Continue lipitor 40 HS # Eczema (Back of the neck) Hydrocortisone cream to be applied. # FEN No IV fluids. Electrolytes to be repeated tomorrow. Diabetic and sodium controlled diet # Prophylaxis For DVT: SCD's-patient refuses to use it despite explaining to the patient the importance of SCDs as it may prevent DVT. For GI: On Pantoprazole 40mg Daily. # Dispo: Admitted in Med-Surg. Duration of stay unknown. Illness, Investigation and Plan of care explained to the patient and her . They verbalized understanding. Case seen and discussed with Dr. Narvaez. Visit type - Emergency Visit Emergency Visit: Yes ED Registration Date: 01/26/17 Care time: The patient presented to the Emergency Department on the above date and was hospitalized for further evaluation of their emergent condition. - New Patient This patient is new to me today: No - Critical Care Critical Care patient: No - Discharge Referral Referred to [facility] Med P.C[facility] No <Doug Narvaez - Last Filed: 02/09/17 18:41> Physical Exam: SUBJECTIVE: Patient seen and examined OBJECTIVE: Vital Signs Period Temp Pulse Resp BP Sys/Duvall Pulse Ox Last 24 Hr 97.8 F-98.5 F 70-97 16-20 108-147/56-106 97 GENERAL: The patient is awake, alert, and fully oriented, in no acute distress. HEAD: Normal with no signs of trauma. EYES: PERRL, extraocular movements intact, sclera anicteric, conjunctiva clear. No ptosis. ENT: Ears normal, nares patent, oropharynx clear without exudates, moist mucous membranes. NECK: Trachea midline, full range of motion, supple. LUNGS: Breath sounds equal, clear to auscultation bilaterally, no wheezes, no crackles, no accessory muscle use. HEART: Regular rate and rhythm, S1, S2 without murmur, rub or gallop. ABDOMEN: Soft, nontender, nondistended, normoactive bowel sounds, no guarding, no rebound, no hepatosplenomegaly, no masses. EXTREMITIES: 2+ pulses, warm, well-perfused, no edema. NEUROLOGICAL: Cranial nerves II through XII grossly intact. Normal speech, gait not observed. PSYCH: Normal mood, normal affect. SKIN: Warm, dry, normal turgor, no rashes or lesions noted Laboratory Results - last 24 hr 02/09/17 02/09/17 02/09/17 05:56 11:41 15:58 POC Glucometer 123 124 127 Active Medications Generic Name Dose Route Start Last Admin Trade Name Freq PRN Reason Stop Dose Admin Atenolol 50 mg 02/03/17 22:00 02/09/17 09:33 Tenormin - PO 50 mg BID TITI Administration Atorvastatin Calcium 40 mg 02/03/17 22:00 02/08/17 22:21 Lipitor - PO 40 mg HS TITI Administration Docusate Sodium 100 mg 02/04/17 10:00 02/09/17 09:33 Colace - PO 100 mg DAILY TITI Administration Hydrocortisone 1 applic 02/03/17 12:50 Hytone 0.5% Cream - TP DAILY PRN WOUND CARE Insulin Aspart 1 vial 02/03/17 16:30 02/09/17 16:28 Novolog Vial Sliding Scale - SQ Not Given [facility]AC [facility] Protocol Methocarbamol 500 mg 02/03/17 22:00 02/09/17 14:14 Robaxin - PO 500 mg BID TITI Administration Ondansetron HCl 4 mg 02/03/17 12:50 Zofran Injection IVPUSH Q6H PRN NAUSEA AND/OR VOMITING Oxycodone HCl 5 mg 02/03/17 12:50 02/09/17 08:36 Roxicodone - PO 5 mg Q4H PRN Administration PAIN Pantoprazole Sodium 40 mg 02/04/17 10:00 02/09/17 09:33 Protonix - PO 40 mg DAILY TITI Administration Polyethylene Glycol 17 gm 02/04/17 10:00 02/09/17 16:26 Miralax (For Daily Use) - PO Not Given DAILY [facility] Senna 2 tab 02/03/17 22:00 02/08/17 22:21 Senna - PO 2 tab HS [facility] Administration ASSESSMENT/PLAN: incentive spirometer qid , 10x each time
[2017-02-09] MEDS ORDERED: PT OWN MED DRAWER 7, Y5N ONE ×3 (08:15→21:11)
[2017-02-09] MEDS: oxyCODONE HCL 5 MG TABLET PO PRN ×2 (08:36→21:49)
[2017-02-09] MEDS: PANTOPRAZOLE 40 MG TABLET (FP) PO SCH (09:33)
[2017-02-09] MEDS: ATENOLOL 50 MG TABLET (FP) PO SCH ×2 (09:33→21:49)
[2017-02-09] MEDS: DOCUSATE SODIUM 100 MG CAPSULE (FP) PO SCH (09:33)
--- NOTE | 2017-02-09 12:46 | PN ---
Progress Note (short form) - Note Progress Note: Pt seen and examined. Both shoulders are improving. Less pain, better ROM. Rec F/U as an out pt Possible P.T., possible cortisone injections Stable to DC from an ortho pov
[2017-02-09] MEDS: METHOCARBAMOL 500 MG TABLET PO SCH ×2 (14:14→21:49)
[2017-02-09] MEDS: POLYETHYLENE GLYCOL 3350 119 GM BTL PO SCH (16:26)
--- NOTE | 2017-02-09 18:29 | PN ---
Teaching Attending Note Name of Resident: Genet Dwyer ATTENDING PHYSICIAN STATEMENT I saw and evaluated the patient. I reviewed the resident's note and discussed the case with the resident. I agree with the resident's findings and plan as documented. SUBJECTIVE: Patient is much improved today. , daughter at bedside. OBJECTIVE: Vital Signs Temperature 98.5 F 02/09/17 14:58 Pulse Rate 78 02/09/17 14:58 Respiratory Rate 20 02/09/17 14:58 Blood Pressure 132/56 02/09/17 14:58 O2 Sat by Pulse Oximetry (%) 97 02/09/17 09:00 CBCD WBC 6.3 K/mm3 (4.0-10.0) 02/08/17 06:00 RBC 2.76 M/mm3 (3.60-5.2) L 02/08/17 06:00 Hgb 8.9 GM/dL (10.7-15.3) L 02/08/17 06:00 Hct 26.4 % (32.4-45.2) L 02/08/17 06:00 MCV 95.6 fl (80-96) 02/08/17 06:00 MCHC 33.8 g/dl (32.0-36.0) 02/08/17 06:00 RDW 14.5 % (11.6-15.6) 02/08/17 06:00 Plt Count 320 K/MM3 (134-434) 02/08/17 06:00 MPV 7.8 fl (7.5-11.1) 02/08/17 06:00 CMP Sodium 138 mmol/L (136-145) 02/08/17 06:00 Potassium 4.9 mmol/L (3.5-5.1) 02/08/17 06:00 Chloride 99 mmol/L (98-107) 02/08/17 06:00 Carbon Dioxide 30 mmol/L (21-32) 02/08/17 06:00 Anion Gap 9 (8-16) 02/08/17 06:00 BUN 14 mg/dL (7-18) 02/08/17 06:00 Creatinine 0.7 mg/dL (0.55-1.02) 02/08/17 06:00 Creat Clearance w eGFR > 60 (>60) 02/06/17 06:00 Random Glucose 144 mg/dL (74-106) H 02/08/17 06:00 Calcium 8.7 mg/dL (8.5-10.1) 02/08/17 06:00 Total Bilirubin 1.4 mg/dL (0.2-1.0) H D 02/06/17 06:00 AST 19 U/L (15-37) 02/06/17 06:00 ALT 21 U/L (12-78) D 02/06/17 06:00 Alkaline Phosphatase 78 U/L (45-117) 02/06/17 06:00 Total Protein 5.0 g/dl (6.4-8.2) L 02/06/17 06:00 Albumin 2.7 g/dl (3.4-5.0) L 02/06/17 06:00 CARDIAC ENZYMES Creatine Kinase 101 IU/L (26-192) 01/26/17 17:50 Troponin I < 0.02 ng/ml (0.00-0.05) 01/26/17 17:50 Current Medications Generic Name Dose Route Start Last Admin Trade Name Freq PRN Reason Stop Dose Admin Atenolol 50 mg 02/03/17 22:00 02/09/17 09:33 Tenormin - PO 50 mg BID TITI Administration Atorvastatin Calcium 40 mg 02/03/17 22:00 02/08/17 22:21 Lipitor - PO 40 mg HS TITI Administration Docusate Sodium 100 mg 02/04/17 10:00 02/09/17 09:33 Colace - PO 100 mg DAILY TITI Administration Hydrocortisone 1 applic 02/03/17 12:50 Hytone 0.5% Cream - TP DAILY PRN WOUND CARE Insulin Aspart 1 vial 02/03/17 16:30 02/09/17 16:28 Novolog Vial Sliding Scale - SQ Not Given TIDAC COUNT INCLUDES THE [facility] Protocol Methocarbamol 500 mg 02/03/17 22:00 02/09/17 14:14 Robaxin - PO 500 mg BID TITI Administration Ondansetron HCl 4 mg 02/03/17 12:50 Zofran Injection IVPUSH Q6H PRN NAUSEA AND/OR VOMITING Oxycodone HCl 5 mg 02/03/17 12:50 02/09/17 08:36 Roxicodone - PO 5 mg Q4H PRN Administration PAIN Pantoprazole Sodium 40 mg 02/04/17 10:00 02/09/17 09:33 Protonix - PO 40 mg DAILY TITI Administration Polyethylene Glycol 17 gm 02/04/17 10:00 02/09/17 16:26 Miralax (For Daily Use) - PO Not Given DAILY TITI Senna 2 tab 02/03/17 22:00 02/08/17 22:21 Senna - PO 2 tab HS TITI Administration Home Medications Medication Instructions Recorded Atenolol [Tenormin -] 50 mg PO BID 06/17/16 Sitagliptin Phos/Metformin HCl 1 each PO DAILY 06/17/16 [Janumet 50-500 mg Tablet] Valsartan 160 mg PO BID 06/17/16 Atorvastatin Ca [Lipitor] 40 mg PO HS #30 tablet 06/19/16 Hydrochlorothiazide [Hctz -] 25 mg PO DAILY #30 tablet 06/19/16 Methocarbamol [Robaxin -] 500 mg PO BID #60 tablet 01/25/17 Oxycodone HCl/Acetaminophen 1 tab PO Q6H #20 tablet MDD 4 01/25/17 [Percocet 5-325 mg Tablet] Aspirin [ASA -] 81 mg PO DAILY 01/26/17 ASSESSMENT AND PLAN: 71 y/o lady with h/o HTN, NIDDM , HL, and L shoulder arthroplasty 2010, who presented with L shoulder pain, and was found to have an avulsion Fx and hyponatremia . hospital course was complicated with RUE hematoma and DVT Patient has better ROM of RUE today , swelling is improving slowly. decreased swelling of the fingers. # Acute RUE brachial vein DVT with extension proximally to axillary and subclavian veins with hematoma of the R upper arm which is improving s/p SVC filter 02/03, H&H is stable will continue to follow the patient , elevate the arm to help reduce swelling. Upon discharge, patient will need to follow with Dr. evans as an outpt.to evaluate for SVC filter removal when appropriate. US of upper extremity will need to be repeated prior to removal of SVC filter. # Physical therapy: patient must comply with physical therapy , out of bed to the chair, to prevent Pneumonia and LLE clots, SCDs while in bed, Teds stockings. Incentive spirometer on the hourly basis; explained to the patient in detail. # Acute Left Glenoid Fx that patient presented with; as per Dr.Lente conservative mgt #s/p acute severe Hyponatremia : due to HCTZ resolved, s/p hypertonic solution. Sodium 138 today. # Acute hyperkalemia; will hold Diovan for now. Potassium is 4.9 # HTN: continue Tenormin # DM : SSI , hold orals , sliding scale with coverage DVT px: Teds stocking, cannot anticoagulate due to hematoma. Discussed with the patient and the family in details. Discussed with in details # Multiple questions were asked regarding SVC filter and removal. and was explained to the family that US will be repeated prior to removal of SVC filter.
[2017-02-09] MEDS: ATORVASTATIN CA 40 MG TABLET (FP) PO SCH (21:49)
[2017-02-09] MEDS: SENNOSIDES 8.6MG TABLET (FP) PO SCH (21:49)
[2017-02-10] MEDS: INSULIN SLIDING SCALE (NOVOLOG) 1 VIAL SQ SCH ×2 (06:10→12:53)
[2017-02-10 07:42] LABS: MCH 32.8 pg (25.7-33.7); MCHC 33.7 g/dl (32.0-36.0); MEAN CELL VOLUME 97.3 fl (80-96); MEAN PLT VOLUME 8.1 fl (7.5-11.1); PLATELET COUNT 352 K/MM3 (134-434); RDW 15.6 % (11.6-15.6); WHITE BLOOD COUNT 6.1 K/mm3 (4.0-10.0)
[2017-02-10 08:09] LABS: CALCIUM 8.8 mg/dL (8.5-10.1); COCKROFT - GAULT 65.875; CREATININE 0.7 mg/dL (0.55-1.02)
--- NOTE | 2017-02-10 10:38 | PN ---
Progress Note (short form) - Note Progress Note: Patient is better , her right arm swelling is better, and able to move her arm better than before. Temperature 97.5 F L 02/10/17 06:00 Pulse Rate 68 02/10/17 06:00 Respiratory Rate 20 02/10/17 06:00 Blood Pressure 140/69 02/10/17 06:00 O2 Sat by Pulse Oximetry (%) 97 02/09/17 09:00 GENERAL: The patient is awake, alert, and fully oriented, in no acute distress. HEAD: Normal with no signs of trauma. EYES: PERRL, extraocular movements intact, sclera anicteric, conjunctiva clear. ENT: Ears normal, oropharynx clear without exudates, moist mucous membranes. NECK: Trachea midline, full range of motion, supple. LUNGS: Breath sounds equal, clear to auscultation bilaterally, no wheezes, no crackles, no accessory muscle use. HEART: Regular rate and rhythm, S1, S2 positive. no rub or gallop. ABDOMEN: Soft, nontender, nondistended, normoactive bowel sounds, no guarding, no rebound, no hepatosplenomegaly, no masses appreciated. EXTREMITIES: 2+ pulses, warm, well-perfused, Right Upper extremity positive for swelling and ecchymosis improving , better ROM today able to lift the arm NEUROLOGICAL: Cranial nerves II through XII grossly intact. Normal speech, gait not observed. PSYCH: Normal mood, normal affect. SKIN: Warm, dry, normal turgor, no rashes or lesions noted CBCD WBC 6.1 K/mm3 (4.0-10.0) 02/10/17 06:00 RBC 2.83 M/mm3 (3.60-5.2) L 02/10/17 06:00 Hgb 9.3 GM/dL (10.7-15.3) L 02/10/17 06:00 Hct 27.6 % (32.4-45.2) L 02/10/17 06:00 MCV 97.3 fl (80-96) H 02/10/17 06:00 MCHC 33.7 g/dl (32.0-36.0) 02/10/17 06:00 RDW 15.6 % (11.6-15.6) 02/10/17 06:00 Plt Count 352 K/MM3 (134-434) 02/10/17 06:00 MPV 8.1 fl (7.5-11.1) 02/10/17 06:00 CMP Sodium 139 mmol/L (136-145) 02/10/17 06:00 Potassium 4.5 mmol/L (3.5-5.1) 02/10/17 06:00 Chloride 101 mmol/L (98-107) 02/10/17 06:00 Carbon Dioxide 29 mmol/L (21-32) 02/10/17 06:00 Anion Gap 9 (8-16) 02/10/17 06:00 BUN 10 mg/dL (7-18) D 02/10/17 06:00 Creatinine 0.7 mg/dL (0.55-1.02) 02/10/17 06:00 Creat Clearance w eGFR > 60 (>60) 02/06/17 06:00 Random Glucose 118 mg/dL (74-106) H 02/10/17 06:00 Calcium 8.8 mg/dL (8.5-10.1) 02/10/17 06:00 Total Bilirubin 1.4 mg/dL (0.2-1.0) H D 02/06/17 06:00 AST 19 U/L (15-37) 02/06/17 06:00 ALT 21 U/L (12-78) D 02/06/17 06:00 Alkaline Phosphatase 78 U/L (45-117) 02/06/17 06:00 Total Protein 5.0 g/dl (6.4-8.2) L 02/06/17 06:00 Albumin 2.7 g/dl (3.4-5.0) L 02/06/17 06:00 CARDIAC ENZYMES Creatine Kinase 101 IU/L (26-192) 01/26/17 17:50 Troponin I < 0.02 ng/ml (0.00-0.05) 01/26/17 17:50 Current Medications Generic Name Dose Route Start Last Admin Trade Name Freq PRN Reason Stop Dose Admin Atenolol 50 mg 02/03/17 22:00 02/09/17 21:49 Tenormin - PO 50 mg BID TITI Administration Atorvastatin Calcium 40 mg 02/03/17 22:00 02/09/17 21:49 Lipitor - PO 40 mg HS TITI Administration Docusate Sodium 100 mg 02/04/17 10:00 02/09/17 09:33 Colace - PO 100 mg DAILY TITI Administration Hydrocortisone 1 applic 02/03/17 12:50 Hytone 0.5% Cream - TP DAILY PRN WOUND CARE Insulin Aspart 1 vial 02/03/17 16:30 02/10/17 06:10 Novolog Vial Sliding Scale - SQ Not Given TIDAC TITI Protocol Methocarbamol 500 mg 02/03/17 22:00 02/09/17 21:49 Robaxin - PO 500 mg BID TITI Administration Ondansetron HCl 4 mg 02/03/17 12:50 Zofran Injection IVPUSH Q6H PRN NAUSEA AND/OR VOMITING Oxycodone HCl 5 mg 02/03/17 12:50 02/09/17 21:49 Roxicodone - PO 5 mg Q4H PRN Administration PAIN Pantoprazole Sodium 40 mg 02/04/17 10:00 02/09/17 09:33 Protonix - PO 40 mg DAILY TITI Administration Polyethylene Glycol 17 gm 02/04/17 10:00 02/09/17 16:26 Miralax (For Daily Use) - PO Not Given DAILY TITI Senna 2 tab 02/03/17 22:00 02/09/17 21:49 Senna - PO 2 tab HS TITI Administration Home Medications Medication Instructions Recorded Atenolol [Tenormin -] 50 mg PO BID 06/17/16 Sitagliptin Phos/Metformin HCl 1 each PO DAILY 06/17/16 [Janumet 50-500 mg Tablet] Valsartan 160 mg PO BID 06/17/16 Atorvastatin Ca [Lipitor] 40 mg PO HS #30 tablet 06/19/16 Hydrochlorothiazide [Hctz -] 25 mg PO DAILY #30 tablet 06/19/16 Methocarbamol [Robaxin -] 500 mg PO BID #60 tablet 01/25/17 Oxycodone HCl/Acetaminophen 1 tab PO Q6H #20 tablet MDD 4 01/25/17 [Percocet 5-325 mg Tablet] Aspirin [ASA -] 81 mg PO DAILY 01/26/17 ASSESSMENT AND PLAN: 71 y/o lady with h/o HTN, NIDDM , HL, and L shoulder arthroplasty 2010, who presented with L shoulder pain, and was found to have an avulsion Fx and hyponatremia . hospital course was complicated with RUE hematoma and DVT Patient has better ROM of RUE today , swelling is improving slowly. decreased swelling of the fingers. # Acute RUE brachial vein DVT with extension proximally to axillary and subclavian veins with hematoma of the R upper arm which is improving s/p SVC filter 02/03, H&H is stable will continue to follow the patient , elevate the arm to help reduce swelling. Upon discharge, patient will need to follow with Dr. evans as an outpt.to evaluate for SVC filter . repeat Duplex of upper extremity within 3 months period. # Physical therapy: patient must comply with physical therapy , out of bed to the chair, to prevent Pneumonia and LLE clots, SCDs while in bed, Teds stockings. Incentive spirometer on the hourly basis; explained to the patient in detail. # Acute Left Glenoid Fx that patient presented with; as per conservative mgt #s/p acute severe Hyponatremia : due to HCTZ resolved, s/p hypertonic solution. Sodium 139 today. # Acute hyperkalemia; will hold Diovan for now. Potassium is 4.5 today # HTN: continue Tenormin # DM : SSI , hold orals , sliding scale with coverage DVT px: Teds stocking, cannot anticoagulate due to hematoma. Discussed with the patient and the family in details. Discussed with in details # Visit type - Emergency Visit Emergency Visit: Yes ED Registration Date: 01/26/17 Care time: The patient presented to the Emergency Department on the above date and was hospitalized for further evaluation of their emergent condition. - New Patient This patient is new to me today: No - Critical Care Critical Care patient: No
[2017-02-10] MEDS: PANTOPRAZOLE 40 MG TABLET (FP) PO SCH (10:42)
[2017-02-10] MEDS: oxyCODONE HCL 5 MG TABLET PO PRN ×2 (10:43→21:56)
[2017-02-10] MEDS: ATENOLOL 50 MG TABLET (FP) PO SCH ×2 (10:43→21:58)
[2017-02-10] MEDS: POLYETHYLENE GLYCOL 3350 119 GM BTL PO SCH (10:44)
[2017-02-10] MEDS: DOCUSATE SODIUM 100 MG CAPSULE (FP) PO SCH (10:44)
[2017-02-10] MEDS: METHOCARBAMOL 500 MG TABLET PO SCH ×2 (10:44→22:00)
[2017-02-10] MEDS ORDERED: PT OWN MED DRAWER 7, Y5N ONE (21:05)
[2017-02-10] MEDS: SENNOSIDES 8.6MG TABLET (FP) PO SCH (21:57)
[2017-02-10] MEDS: ATORVASTATIN CA 40 MG TABLET (FP) PO SCH (21:58)
[2017-02-11] MEDS: INSULIN SLIDING SCALE (NOVOLOG) 1 VIAL SQ SCH ×2 (06:25→18:20)
[2017-02-11] MEDS: PANTOPRAZOLE 40 MG TABLET (FP) PO SCH (10:44)
[2017-02-11] MEDS: oxyCODONE HCL 5 MG TABLET PO PRN ×2 (10:45→21:22)
[2017-02-11] MEDS: POLYETHYLENE GLYCOL 3350 119 GM BTL PO SCH (10:45)
[2017-02-11] MEDS: DOCUSATE SODIUM 100 MG CAPSULE (FP) PO SCH (10:45)
[2017-02-11] MEDS: METHOCARBAMOL 500 MG TABLET PO SCH ×2 (10:46→21:24)
[2017-02-11] MEDS: ATENOLOL 50 MG TABLET (FP) PO SCH ×2 (10:47→21:22)
--- NOTE | 2017-02-11 11:30 | PN ---
Physical Exam: SUBJECTIVE: Patient seen and examined at bed side this morning. Today, complaints of pain on the left upper arm than the right arm. Patient reports, she is able to move her arms better than before. Denies chest pain, sob, cough, palpitation, abdominal pain, nausea or vomiting. Bowel/Bladder habit normal. Appetite normal. Sleep disturbed last night. No acute events noted overnight. OBJECTIVE: Vital Signs Period Temp Pulse Resp BP Sys/Duvall Pulse Ox Last 24 Hr 98.0 F-98.8 F 69-81 16-18 127-146/55-79 96 GENERAL: Moderately built female, patient is lying in bed, lying in bed comfortably, awake, alert, and fully oriented, in no acute distress. HEAD: Normal with no signs of trauma. EYES: EOM intact, no pallor or icterus. ENT: Ears normal, moist mucous membranes. NECK: Trachea midline, full range of motion, supple. LUNGS: Breath sounds equal, clear to auscultation bilaterally, no wheezes, no crackles, no accessory muscle use. HEART: Regular rate and rhythm, S1, S2 without murmur. ABDOMEN: Soft, nontender, nondistended, normoactive bowel sounds, no guarding, no rebound, no hepatosplenomegaly, no masses. LOWER EXTREMITIES: 2+ pulses, warm, well-perfused, no edema. RIGHT UPPER EXTREMITY: Swelling in the right upper arm has decreased, irregular ecchymosis in the right mid axiallary area and the right upper extremity- resolving, ROM limited but improved in both extremities R>L, sensation intact, radial pulses 2+ LEFT UPPER EXTREMITY: No erythema or tenderness, ROM limited. NEUROLOGICAL: Cranial nerves II through XII grossly intact. Normal speech, Gait not observed. PSYCH: Normal mood, normal affect. SKIN: Warm, dry, normal turgor, small area of erythema on the back of the left side of the neck. Laboratory Results - last 24 hr 02/07/17 02/10/17 02/10/17 17:36 12:01 17:42 POC Glucometer 121 130 116 02/11/17 06:24 POC Glucometer 112 Active Medications Generic Name Dose Route Start Last Admin Trade Name Freq PRN Reason Stop Dose Admin Atenolol 50 mg 02/03/17 22:00 02/11/17 10:47 Tenormin - PO 50 mg BID TITI Administration Atorvastatin Calcium 40 mg 02/03/17 22:00 02/10/17 21:58 Lipitor - PO 40 mg HS TITI Administration Docusate Sodium 100 mg 02/04/17 10:00 02/11/17 10:45 Colace - PO Not Given DAILY TITI Hydrocortisone 1 applic 02/03/17 12:50 Hytone 0.5% Cream - TP DAILY PRN WOUND CARE Insulin Aspart 1 vial 02/03/17 16:30 02/11/17 06:25 Novolog Vial Sliding Scale - SQ Not Given TIDAC [facility] Protocol Methocarbamol 500 mg 02/03/17 22:00 02/11/17 10:46 Robaxin - PO 500 mg BID TITI Administration Ondansetron HCl 4 mg 02/03/17 12:50 Zofran Injection IVPUSH Q6H PRN NAUSEA AND/OR VOMITING Oxycodone HCl 5 mg 02/03/17 12:50 02/11/17 10:45 Roxicodone - PO 5 mg Q4H PRN Administration PAIN Pantoprazole Sodium 40 mg 02/04/17 10:00 02/11/17 10:44 Protonix - PO 40 mg DAILY TITI Administration Polyethylene Glycol 17 gm 02/04/17 10:00 02/11/17 10:45 Miralax (For Daily Use) - PO Not Given DAILY TITI Senna 2 tab 02/03/17 22:00 02/10/17 21:57 Senna - PO 2 tab HS ITTI Administration 01/29/17: Duplex of right upper arm. Schultz scale, pulse Doppler and color Doppler images of the right upper extremity venous system including the internal jugular and subclavian vein were obtained. The right internal jugular, subclavian vein and axillary vein demonstrates normal phasic waveform, adequate compressibility and adequate response to augmentation. There is thrombosis of the right brachial vein. Normal flow in the right radial and ulnar vein. There is also normal flow in the cephalic and basilic vein. There is a hypoechoic complex oval-shaped masslike density in the upper/medial arm measuring 7.3 x 2.2 cm that may represent a hematoma/complex collection. USG showed subacute hematoma 8.7 x 3.5 cm. ASSESSMENT/PLAN: Patient is a 71 year of female with significant past medical history of NIDDM, HTN, HLD, gout affecting L 1st toe, and L shoulder arthroscopy in 2010, who returned to ED after her prior visit 2 days ago due to persistent L shoulder pain. # Thrombus in the right axillary and subclavian vein with a hematoma on the right upper arm s/p SVC filter placement 02/03/2017 "POD 8" Swelling of the right upper extremity has decreased, range of motion is improving. Today, was able to walk better with the help of physical therapist and she recommends to use the walker for the patient. PT said they will try with the walker tomorrow. Incentive spirometry Oxycodone 5mg PO Q4H PRN # Hyperkalemia : Resolved Likely due to Diovan Diovan on hold # Anemia: could be due to hematoma Repeat Hb has been stable, doesn't require transfusion at this time. #Stool occult positive 01/31/17 Most likely hemorrhoidal bleed Patient refused to a per rectal examination. She mentioned that last colonoscopy was three years ago and was found to have internal hemorrhoids and polyps in the colon. Sees Dr. Anthony (GI as outpatient) who recommended to perform routine colonoscopy every five years. # Asymptomatic likely due to hypoosmolar hyponatremia- Resolved. Renal consult appreciated Most likely patient had hyponatremia due to home medication (on HCTZ). Hence HCTZ not to be continued even after discharge. Stop Indomethacin and discontinue HCTZ upon discharge from home medication list. # Left shoulder pain due to Left glenoid fracture Pain has been resolving Doesn't need surgical intervention at this time as per Dr. Chinchilla. As per Ortho physician, patient needs a follow up as outpatient, possible Cortisone injection and is stable to be discharged. Physical therapy to be continued. # Diabetes Mellitus HbA1c 6.8 01/28/2017 Hold Janumet, continue Insulin sliding scale Finger stick glucose monitoring Watch for hypoglycemic symptoms. # Hypertension: suboptimal control continue home atenolol 50 bid; valsartan 160 bid-Stopped due to hyperkalemia HCTZ 25mg to be stopped upon discharge as it might be the cause of hyponatremia. Sodium restricted diet Monitor BP # Hyperlipidemia Continue lipitor 40 HS # Eczema (Back of the neck) Hydrocortisone cream to be applied. # FEN No IV fluids. Electrolytes to be repeated tomorrow. Diabetic and sodium controlled diet # Prophylaxis For DVT: SCD's-patient refuses to use it despite explaining to the patient the importance of SCDs as it may prevent DVT. For GI: On Pantoprazole 40mg Daily. # Dispo: Admitted in Med-Surg. Duration of stay unknown. Illness, Investigation and Plan of care explained to the patient and her . They verbalized understanding. Case seen and discussed with Dr. Narvaez. Visit type - Emergency Visit Emergency Visit: Yes ED Registration Date: 01/26/17 Care time: The patient presented to the Emergency Department on the above date and was hospitalized for further evaluation of their emergent condition. - New Patient This patient is new to me today: No - Critical Care Critical Care patient: No - Discharge Referral Referred to [facility] Med P.C.: No
--- NOTE | 2017-02-11 16:49 | PN ---
Teaching Attending Note Name of Resident: Genet Dwyer ATTENDING PHYSICIAN STATEMENT I saw and evaluated the patient. I reviewed the resident's note and discussed the case with the resident. I agree with the resident's findings and plan as documented. SUBJECTIVE: The swelling of the arm is improved tremendously, sitting at bed side having her lunch. OBJECTIVE: Vital Signs Temperature 98.0 F 02/11/17 15:14 Pulse Rate 75 02/11/17 15:14 Respiratory Rate 18 02/11/17 15:14 Blood Pressure 121/48 02/11/17 15:14 O2 Sat by Pulse Oximetry (%) 96 02/10/17 21:00 CBCD WBC 6.1 K/mm3 (4.0-10.0) 02/10/17 06:00 RBC 2.83 M/mm3 (3.60-5.2) L 02/10/17 06:00 Hgb 9.3 GM/dL (10.7-15.3) L 02/10/17 06:00 Hct 27.6 % (32.4-45.2) L 02/10/17 06:00 MCV 97.3 fl (80-96) H 02/10/17 06:00 MCHC 33.7 g/dl (32.0-36.0) 02/10/17 06:00 RDW 15.6 % (11.6-15.6) 02/10/17 06:00 Plt Count 352 K/MM3 (134-434) 02/10/17 06:00 MPV 8.1 fl (7.5-11.1) 02/10/17 06:00 CMP Sodium 139 mmol/L (136-145) 02/10/17 06:00 Potassium 4.5 mmol/L (3.5-5.1) 02/10/17 06:00 Chloride 101 mmol/L (98-107) 02/10/17 06:00 Carbon Dioxide 29 mmol/L (21-32) 02/10/17 06:00 Anion Gap 9 (8-16) 02/10/17 06:00 BUN 10 mg/dL (7-18) D 02/10/17 06:00 Creatinine 0.7 mg/dL (0.55-1.02) 02/10/17 06:00 Creat Clearance w eGFR > 60 (>60) 02/06/17 06:00 Random Glucose 118 mg/dL (74-106) H 02/10/17 06:00 Calcium 8.8 mg/dL (8.5-10.1) 02/10/17 06:00 Total Bilirubin 1.4 mg/dL (0.2-1.0) H D 02/06/17 06:00 AST 19 U/L (15-37) 02/06/17 06:00 ALT 21 U/L (12-78) D 02/06/17 06:00 Alkaline Phosphatase 78 U/L (45-117) 02/06/17 06:00 Total Protein 5.0 g/dl (6.4-8.2) L 02/06/17 06:00 Albumin 2.7 g/dl (3.4-5.0) L 02/06/17 06:00 CARDIAC ENZYMES Creatine Kinase 101 IU/L (26-192) 01/26/17 17:50 Troponin I < 0.02 ng/ml (0.00-0.05) 01/26/17 17:50 Current Medications Generic Name Dose Route Start Last Admin Trade Name Freq PRN Reason Stop Dose Admin Atenolol 50 mg 02/03/17 22:00 02/11/17 10:47 Tenormin - PO 50 mg BID TITI Administration Atorvastatin Calcium 40 mg 02/03/17 22:00 02/10/17 21:58 Lipitor - PO 40 mg HS TITI Administration Docusate Sodium 100 mg 02/04/17 10:00 02/11/17 10:45 Colace - PO Not Given DAILY TITI Hydrocortisone 1 applic 02/03/17 12:50 Hytone 0.5% Cream - TP DAILY PRN WOUND CARE Insulin Aspart 1 vial 02/03/17 16:30 02/11/17 06:25 Novolog Vial Sliding Scale - SQ Not Given TIDAC [facility] Protocol Methocarbamol 500 mg 02/03/17 22:00 02/11/17 10:46 Robaxin - PO 500 mg BID TITI Administration Ondansetron HCl 4 mg 02/03/17 12:50 Zofran Injection IVPUSH Q6H PRN NAUSEA AND/OR VOMITING Oxycodone HCl 5 mg 02/03/17 12:50 02/11/17 10:45 Roxicodone - PO 5 mg Q4H PRN Administration PAIN Pantoprazole Sodium 40 mg 05/23/17 10:00 02/11/17 10:44 Protonix - PO 40 mg DAILY TITI Administration Polyethylene Glycol 17 gm 02/04/17 10:00 02/11/17 10:45 Miralax (For Daily Use) - PO Not Given DAILY TITI Senna 2 tab 02/03/17 22:00 02/10/17 21:57 Senna - PO 2 tab HS TITI Administration Home Medications Medication Instructions Recorded Atenolol [Tenormin -] 50 mg PO BID 06/17/16 Sitagliptin Phos/Metformin HCl 1 each PO DAILY 06/17/16 [Janumet 50-500 mg Tablet] Valsartan 160 mg PO BID 06/17/16 Atorvastatin Ca [Lipitor] 40 mg PO HS #30 tablet 06/19/16 Hydrochlorothiazide [Hctz -] 25 mg PO DAILY #30 tablet 06/19/16 Methocarbamol [Robaxin -] 500 mg PO BID #60 tablet 01/25/17 Oxycodone HCl/Acetaminophen 1 tab PO Q6H #20 tablet MDD 4 01/25/17 [Percocet 5-325 mg Tablet] Aspirin [ASA -] 81 mg PO DAILY 01/26/17 Upper Extremities: left UE with good ROM, RUE swelling is reduced by 50% and less ecchymotic ASSESSMENT AND PLAN: 71 y/o lady with h/o HTN, NIDDM , HL, and L shoulder arthroplasty 2010, who presented with L shoulder pain, and was found to have an avulsion Fx and hyponatremia . hospital course was complicated with RUE hematoma and DVT Patient has better ROM of RUE today , swelling is tremondously less by 50% improving & decreased swelling of the fingers. # Acute RUE brachial vein DVT with extension proximally to axillary and subclavian veins with hematoma of the R upper arm which is improving s/p SVC filter 02/03, H&H is stable will continue to follow the patient , elevate the arm to help reduce swelling. Upon discharge, patient will need to follow with Dr. evans as an outpt.to evaluate for SVC filter as per will keep the SVC filter in place ,most likely will not remove the SVC filter given the extend of DVT. repeat Duplex of upper extremity within 3 months period. # Physical therapy: out of bed to the chair, to prevent Pneumonia and LLE clots , SCDs while in bed, Teds stockings. Incentive spirometer on the 4x per day 10x each time ; explained to the patient in detail. # Acute Left Glenoid Fx improved able to use her left arm for eating that patient presented with; as per conservative mgt #s/p acute severe Hyponatremia : due to HCTZ resolved, s/p hypertonic solution. Sodium 139 today.repeat labs in am # Acute hyperkalemia; will hold Diovan for now. Potassium is 4.5 today # HTN: continue Tenormin # DM : SSI , hold orals , sliding scale with coverage DVT px: Teds stocking, cannot anticoagulate due to hematoma. Discussed with the patient and the family in details. Discussed with in details # Discussed with , most likely will keep the SVC filter and will not remove it. Discussed with physical therapy , will try to walk her with a walker to prevent fall when gets discharged home
[2017-02-11] MEDS: ATORVASTATIN CA 40 MG TABLET (FP) PO SCH (21:22)
[2017-02-11] MEDS: SENNOSIDES 8.6MG TABLET (FP) PO SCH (21:22)
[2017-02-12] MEDS: oxyCODONE HCL 5 MG TABLET PO PRN ×2 (01:02→09:18)
[2017-02-12] MEDS: INSULIN SLIDING SCALE (NOVOLOG) 1 VIAL SQ SCH ×4 (06:12→19:31)
[2017-02-12 07:45] LABS: MCH 32.5 pg (25.7-33.7); MCHC 33.2 g/dl (32.0-36.0); MEAN CELL VOLUME 97.8 fl (80-96); MEAN PLT VOLUME 7.7 fl (7.5-11.1); PLATELET COUNT 436 K/MM3 (134-434); RDW 16.6 % (11.6-15.6); WHITE BLOOD COUNT 6.2 K/mm3 (4.0-10.0)
[2017-02-12 08:13] LABS: CALCIUM 9.5 mg/dL (8.5-10.1)
[2017-02-12 08:15] LABS: COCKROFT - GAULT 64.9145; CREATININE 0.7 mg/dL (0.55-1.02)
[2017-02-12] MEDS: DOCUSATE SODIUM 100 MG CAPSULE (FP) PO SCH (09:19)
[2017-02-12] MEDS: PANTOPRAZOLE 40 MG TABLET (FP) PO SCH (09:19)
[2017-02-12] MEDS: ATENOLOL 50 MG TABLET (FP) PO SCH ×2 (09:19→21:06)
[2017-02-12] MEDS: POLYETHYLENE GLYCOL 3350 119 GM BTL PO SCH (09:20)
[2017-02-12] MEDS ORDERED: PT OWN MED DRAWER 7, Y5N ONE ×2 (09:23→20:51)
[2017-02-12] MEDS: METHOCARBAMOL 500 MG TABLET PO SCH ×2 (09:24→21:06)
--- NOTE | 2017-02-12 16:03 | PN ---
Physical Exam: SUBJECTIVE: Patient seen and examined at bed side this morning. She was eating breakfast. No complaints today except for the pain over the right and left upper arm. Denies chest pain, sob, cough, palpitation, abdominal pain, nausea or vomiting. 2 episodes of bowel movements yesterday, not containing any blood. Bladder habit normal. Sleep/Appetite normal. OBJECTIVE: Vital Signs Period Temp Pulse Resp BP Sys/Duvall Pulse Ox Last 24 Hr 98.2 F-98.8 F 69-85 18-18 112-144/55-82 97-97 GENERAL: Moderately built female, patient is lying in bed, lying in bed comfortably, awake, alert, and fully oriented, in no acute distress. HEAD: Normal with no signs of trauma. EYES: EOM intact, no pallor or icterus. ENT: Ears normal, moist mucous membranes. NECK: Trachea midline, full range of motion, supple. LUNGS: Breath sounds equal, clear to auscultation bilaterally, no wheezes, no crackles, no accessory muscle use. HEART: Regular rate and rhythm, S1, S2 without murmur. ABDOMEN: Soft, nontender, nondistended, normoactive bowel sounds, no guarding, no rebound, no hepatosplenomegaly, no masses. LOWER EXTREMITIES: 2+ pulses, warm, well-perfused, no edema. RIGHT UPPER EXTREMITY: Swollen than the left and swelling slightly improved , tenderness on palpation from the elbow up, irregular ecchymosis in the right medial aspect of the arm which has extended towards the mid forearm (resolving) and upper axilla (more than yesterday), ROM limited but improved in both extremities R>L, sensation intact, radial pulses 2+ LEFT UPPER EXTREMITY: No erythema or tenderness, ROM limited. NEUROLOGICAL: Cranial nerves II through XII grossly intact. Normal speech, Gait not observed. PSYCH: Normal mood, normal affect. SKIN: Warm, dry, ecchymosis on the right mid axillary area, normal turgor, small area of erythema on the back of the left side of the neck. Laboratory Results - last 24 hr 02/11/17 02/12/17 02/12/17 17:46 06:00 06:00 WBC 6.2 RBC 3.31 L Hgb 10.8 D Hct 32.4 D MCV 97.8 H MCHC 33.2 RDW 16.6 H Plt Count 436 H D MPV 7.7 Sodium 140 Potassium 5.1 Chloride 101 Carbon Dioxide 29 Anion Gap 10 BUN 11 Creatinine 0.7 POC Glucometer 134 Random Glucose 156 H D Calcium 9.5 02/12/17 06:11 WBC RBC Hgb Hct MCV MCHC RDW Plt Count MPV Sodium Potassium Chloride Carbon Dioxide Anion Gap BUN Creatinine POC Glucometer 109 Random Glucose Calcium Active Medications Generic Name Dose Route Start Last Admin Trade Name Freq PRN Reason Stop Dose Admin Atenolol 50 mg 02/03/17 22:00 02/12/17 09:19 Tenormin - PO 50 mg BID TITI Administration Atorvastatin Calcium 40 mg 02/03/17 22:00 02/11/17 21:22 Lipitor - PO 40 mg HS TITI Administration Docusate Sodium 100 mg 02/04/17 10:00 02/12/17 09:19 Colace - PO Not Given DAILY TITI Hydrocortisone 1 applic 02/03/17 12:50 Hytone 0.5% Cream - TP DAILY PRN WOUND CARE Insulin Aspart 1 vial 02/03/17 16:30 02/12/17 15:02 Novolog Vial Sliding Scale - SQ Not Given TIDAC [facility] Protocol Methocarbamol 500 mg 02/03/17 22:00 02/12/17 09:24 Robaxin - PO 500 mg BID TITI Administration Ondansetron HCl 4 mg 02/03/17 12:50 Zofran Injection IVPUSH Q6H PRN NAUSEA AND/OR VOMITING Pantoprazole Sodium 40 mg 02/04/17 10:00 02/12/17 09:19 Protonix - PO 40 mg DAILY TITI Administration Polyethylene Glycol 17 gm 02/04/17 10:00 02/12/17 09:20 Miralax (For Daily Use) - PO Not Given DAILY TITI Senna 2 tab 02/03/17 22:00 02/11/17 21:22 Senna - PO 2 tab HS TITI Administration 01/29/17: Duplex of right upper arm. Schultz scale, pulse Doppler and color Doppler images of the right upper extremity venous system including the internal jugular and subclavian vein were obtained. The right internal jugular, subclavian vein and axillary vein demonstrates normal phasic waveform, adequate compressibility and adequate response to augmentation. There is thrombosis of the right brachial vein. Normal flow in the right radial and ulnar vein. There is also normal flow in the cephalic and basilic vein. There is a hypoechoic complex oval-shaped masslike density in the upper/medial arm measuring 7.3 x 2.2 cm that may represent a hematoma/complex collection. USG showed subacute hematoma 8.7 x 3.5 cm. ASSESSMENT/PLAN: Patient is a 71 year of female with significant past medical history of NIDDM, HTN, HLD, gout affecting L 1st toe, and L shoulder arthroscopy in 2010, who returned to ED after her prior visit 2 days ago due to persistent L shoulder pain. # Thrombus in the right axillary and subclavian vein with a hematoma on the right upper arm s/p SVC filter placement 02/03/2017 "POD 8" Swelling of the right upper extremity has decreased, range of motion is improving. Today, she did well with PT with the walker. Incentive spirometry Oxycodone 5mg PO Q4H PRN # Hyperkalemia : Resolved Likely due to Diovan Diovan on hold # Anemia: could be due to hematoma Repeat Hb has been stable, doesn't require transfusion at this time. #Stool occult positive 01/31/17 Most likely hemorrhoidal bleed Patient refused to a per rectal examination. She mentioned that last colonoscopy was three years ago and was found to have internal hemorrhoids and polyps in the colon. Sees Dr. Anthony (GI as outpatient) who recommended to perform routine colonoscopy every five years. # Asymptomatic likely due to hypoosmolar hyponatremia- Resolved. Renal consult appreciated Most likely patient had hyponatremia due to home medication (on HCTZ). Hence HCTZ not to be continued even after discharge. Stop Indomethacin and discontinue HCTZ upon discharge from home medication list. # Left shoulder pain due to Left glenoid fracture Pain has been resolving Doesn't need surgical intervention at this time as per Dr. Chinchilla. As per Ortho physician, patient needs a follow up as outpatient, possible Cortisone injection and is stable to be discharged. Physical therapy to be continued. # Diabetes Mellitus HbA1c 6.8 01/28/2017 Hold Janumet, continue Insulin sliding scale Finger stick glucose monitoring Watch for hypoglycemic symptoms. # Hypertension: suboptimal control continue home atenolol 50 bid; valsartan 160 bid-Stopped due to hyperkalemia HCTZ 25mg to be stopped upon discharge as it might be the cause of hyponatremia. Sodium restricted diet Monitor BP # Hyperlipidemia Continue lipitor 40 HS # Eczema (Back of the neck) Hydrocortisone cream to be applied. # FEN No IV fluids. Electrolytes to be repeated tomorrow. Diabetic and sodium controlled diet # Prophylaxis For DVT: SCD's-patient refuses to use it despite explaining to the patient the importance of SCDs as it may prevent DVT. For GI: On Pantoprazole 40mg Daily. # Dispo: Admitted in Med-Surg. Duration of stay unknown. Illness, Investigation and Plan of care explained to the patient and her . They verbalized understanding. Case seen and discussed with Dr. Devi. Visit type - Emergency Visit Emergency Visit: Yes ED Registration Date: 01/26/17 Care time: The patient presented to the Emergency Department on the above date and was hospitalized for further evaluation of their emergent condition. - New Patient This patient is new to me today: No - Critical Care Critical Care patient: No - Discharge Referral Referred to [facility] No
[2017-02-12] MEDS ORDERED: INSULIN (NOVOLOG) ASPART 100 UNITS/ML 10ML VIAL ONE (17:36)
--- NOTE | 2017-02-12 18:12 | PN ---
Teaching Attending Note Name of Resident: Genet Dwyer ATTENDING PHYSICIAN STATEMENT I saw and evaluated the patient. I reviewed the resident's note and discussed the case with the resident. I agree with the resident's findings and plan as documented. SUBJECTIVE: pain in R arm is better , she is able to have more movement . no SOB , but feels pressure on R side near hematoma . OBJECTIVE: NAD MMM, no facial droop. Lungs : clear Ext : no edema on LE . R upper arm with bruising and echymosis extending to lower forearm, which has improved. edema on fore arm is better , and there nis no edema over hand. RP 2+ . decreased sensation to light touch in R hand compared to L side. . echymosis extends to R axilla no edema over Lower extremities. ASSESSMENT AND PLAN: 71 y/o lady with h/o HTN, NIDDM , HL, and L shoulder arthroplasty 2010, who presented with L shoulder pain, and was found to have an avulsion Fx and hyponatremia . hospital course was complicated with RUE hematoma and DVT 1- RUE brachial vein DVT with extension proximally to axillary and subclavian veins s/p SVC filter. to follow with Dr. Ellsworth regarding that. off AC 2- RUE hematoma . stable . no signs of compartment sx 3- L glenoid Fx . conservative mgt 5- Hyponatremia : due to HCTZ, resolved cont fluid restriction 4-hyperkalemia : resolved . cont to hold diovan 5- HTN: cont atenolol 6- DM : SSI , hold orals Discharge planning is pending patient and 's decision on whether she will go home with VNS or to rehab .
[2017-02-12] MEDS: SENNOSIDES 8.6MG TABLET (FP) PO SCH (21:06)
[2017-02-12] MEDS: ATORVASTATIN CA 40 MG TABLET (FP) PO SCH (21:06)
[2017-02-13] MEDS: INSULIN SLIDING SCALE (NOVOLOG) 1 VIAL SQ SCH ×2 (06:29→11:10)
[2017-02-13 07:57] LABS: CALCIUM 8.8 mg/dL (8.5-10.1); COCKROFT - GAULT 56.797; CREATININE 0.8 mg/dL (0.55-1.02)
[2017-02-13] MEDS ORDERED: PT OWN MED DRAWER 7, Y5N ONE (08:51)
[2017-02-13] MEDS ORDERED: oxyCODONE HCL 5 MG TABLET PO PRN (09:14)
[2017-02-13] MEDS: METHOCARBAMOL 500 MG TABLET PO SCH (09:16)
[2017-02-13] MEDS: PANTOPRAZOLE 40 MG TABLET (FP) PO SCH (09:16)
[2017-02-13] MEDS: ATENOLOL 50 MG TABLET (FP) PO SCH (09:16)
[2017-02-13] MEDS: POLYETHYLENE GLYCOL 3350 119 GM BTL PO SCH (09:16)
[2017-02-13] MEDS: DOCUSATE SODIUM 100 MG CAPSULE (FP) PO SCH (09:16)
[2017-02-13] MEDS ORDERED: ACETAMINOPHEN 325 MG TABLET (FP) PO PRN (09:40)
[2017-02-13 10:09] LABS: ALBUMIN 3.5 g/dl (3.4-5.0); BILIRUBIN,DIRECT 0.3 mg/dL (0.0-0.2); BILIRUBIN,TOTAL 1.3 mg/dL (0.2-1.0); TOT PROT 6.1 g/dl (6.4-8.2)
--- NOTE | 2017-02-13 10:40 | PN ---
Physical Exam: SUBJECTIVE: Patient seen and examined at bed side this morning. Complained of headache. Pain still persists in the right and left upper arm but it has improved. OBJECTIVE: Vital Signs Period Temp Pulse Resp BP Sys/Duvall Pulse Ox Last 24 Hr 98.0 F-98.7 F 65-84 18-20 98-127/51-67 98 GENERAL: Moderately built female, patient is lying in bed, lying in bed comfortably, awake, alert, and fully oriented, in no acute distress. HEAD: Normal with no signs of trauma. EYES: EOM intact, no pallor or icterus. ENT: Ears normal, moist mucous membranes. NECK: Trachea midline, full range of motion, supple. LUNGS: Breath sounds equal, clear to auscultation bilaterally, no wheezes, no crackles, no accessory muscle use. HEART: Regular rate and rhythm, S1, S2 without murmur. ABDOMEN: Soft, nontender, nondistended, normoactive bowel sounds, no guarding, no rebound, no hepatosplenomegaly, no masses. LOWER EXTREMITIES: 2+ pulses, warm, well-perfused, no edema. RIGHT UPPER EXTREMITY: Swollen than the left and swelling slightly improved , tenderness on palpation from the elbow up, irregular ecchymosis in the right medial aspect of the arm which has extended towards the mid forearm (resolving) and upper axilla (more than yesterday), ROM limited but improved in both extremities R>L, sensation intact, radial pulses 2+ LEFT UPPER EXTREMITY: No erythema or tenderness, ROM limited. NEUROLOGICAL: Cranial nerves II through XII grossly intact. Normal speech, Gait not observed. PSYCH: Normal mood, normal affect. SKIN: Warm, dry, ecchymosis on the right mid axillary area, normal turgor, small area of erythema on the back of the left side of the neck. Laboratory Results - last 24 hr 02/12/17 02/13/17 02/13/17 17:14 06:00 06:09 Sodium 139 Potassium 5.0 Chloride 101 Carbon Dioxide 29 Anion Gap 9 BUN 13 Creatinine 0.8 POC Glucometer 174 110 Random Glucose 139 H Calcium 8.8 Active Medications Generic Name Dose Route Start Last Admin Trade Name Freq PRN Reason Stop Dose Admin Acetaminophen 650 mg 02/13/17 09:40 Tylenol - PO Q6H PRN FEVER OR PAIN Atenolol 50 mg 02/03/17 22:00 02/13/17 09:16 Tenormin - PO 50 mg BID TITI Administration Atorvastatin Calcium 40 mg 02/03/17 22:00 02/12/17 21:06 Lipitor - PO 40 mg HS TITI Administration Docusate Sodium 100 mg 02/04/17 10:00 02/13/17 09:16 Colace - PO Not Given DAILY TITI Hydrocortisone 1 applic 02/03/17 12:50 Hytone 0.5% Cream - TP DAILY PRN WOUND CARE Insulin Aspart 1 vial 02/03/17 16:30 02/13/17 06:29 Novolog Vial Sliding Scale - SQ Not Given TIDAC [facility] Protocol Methocarbamol 500 mg 02/03/17 22:00 02/13/17 09:16 Robaxin - PO 500 mg BID TITI Administration Ondansetron HCl 4 mg 02/03/17 12:50 Zofran Injection IVPUSH Q6H PRN NAUSEA AND/OR VOMITING Oxycodone HCl 5 mg 02/13/17 09:14 02/13/17 09:20 Roxicodone - PO 5 mg Q6H PRN Administration PAIN Pantoprazole Sodium 40 mg 02/04/17 10:00 02/13/17 09:16 Protonix - PO 40 mg DAILY TITI Administration Polyethylene Glycol 17 gm 02/04/17 10:00 02/13/17 09:16 Miralax (For Daily Use) - PO Not Given DAILY TITI Senna 2 tab 02/03/17 22:00 02/12/17 21:06 Senna - PO Not Given HS [facility] ASSESSMENT/PLAN: Patient is a 71 year of female with significant past medical history of NIDDM, HTN, HLD, gout affecting L 1st toe, and L shoulder arthroscopy in 2010, who returned to ED after her prior visit 2 days ago due to persistent L shoulder pain. # Thrombus in the right axillary and subclavian vein with a hematoma on the right upper arm s/p SVC filter placement 02/03/2017 "POD 10" Swelling of the right upper extremity has decreased, range of motion is improving. Today, she did well with PT with the walker. Incentive spirometry Oxycodone 5mg PO Q4H PRN # Headache Tyelnol 650mg PO Q6H PRN # Hyperkalemia : Resolved Likely due to Diovan; Diovan on hold # Anemia: could be due to hematoma Repeat Hb has been stable, doesn't require transfusion at this time. #Stool occult positive 01/31/17 Most likely hemorrhoidal bleed Patient refused to a per rectal examination. She mentioned that last colonoscopy was three years ago and was found to have internal hemorrhoids and polyps in the colon. Sees Dr. Anthony (GI as outpatient) who recommended to perform routine colonoscopy every five years. # Asymptomatic likely due to hypoosmolar hyponatremia- Resolved. Fluid restriction to 1.5 L Likely due to HCTZ (home medication). HCTZ stopped. Advice to stop taking Indomethacin at home and to discontinue HCTZ upon discharge from home medication list. # Left shoulder pain due to Left glenoid fracture Pain has been resolving. Doesn't need surgical intervention at this time as per Dr. Chinchilla. As per Ortho physician, patient needs a follow up as outpatient , possible Cortisone injection and is stable to be discharged. Physical therapy to be continued. # Diabetes Mellitus HbA1c 6.8 01/28/2017. Hold Janumet, continue Insulin sliding scale Finger stick glucose monitoring. Watch for hypoglycemic symptoms. # Hypertension: suboptimal control continue home atenolol 50 bid; valsartan 160 bid-Stopped due to hyperkalemia HCTZ 25mg to be stopped upon discharge as it might be the cause of hyponatremia. Sodium restricted diet Monitor BP # Hyperlipidemia Continue lipitor 40 HS # Eczema (Back of the neck)-Resolving Hydrocortisone cream to be applied. # FEN No IV fluids. Electrolytes to be repeated tomorrow. Diabetic and sodium controlled diet # Prophylaxis For DVT: SCD's-patient refuses to use it despite explaining to the patient the importance of SCDs as it may prevent DVT. For GI: On Pantoprazole 40mg Daily. # Dispo: Admitted in Med-Surg. production worker on board to place her in rehab. Illness, Investigation and Plan of care explained to the patient and her . They verbalized understanding. Case seen and discussed with Dr. Devi.
--- NOTE | 2017-02-13 13:05 | PN ---
Teaching Attending Note Name of Resident: Genet Dwyer ATTENDING PHYSICIAN STATEMENT I saw and evaluated the patient. I reviewed the resident's note and discussed the case with the resident. I agree with the resident's findings and plan as documented. SUBJECTIVE: no fever or chills . pain in R arm today as she ambulated and used her arm. OBJECTIVE: NAD MMM, no facial droop. Lungs : clear Ext : no edema on LE . R upper arm with bruising and echymosis extending to lower forearm, which has improved. edema on fore arm is better , and there is no edema over hand. RP 2+ . decreased sensation to light touch in R hand compared to L side. . echymosis extends to R axilla and flank no edema over Lower extremities. ASSESSMENT AND PLAN: 71 y/o lady with h/o HTN, NIDDM , HL, and L shoulder arthroplasty 2010, who presented with L shoulder pain, and was found to have an avulsion Fx and hyponatremia . hospital course was complicated with RUE hematoma and DVT 1- RUE brachial vein DVT with extension proximally to axillary and subclavian veins s/p SVC filter. to follow with Dr. Ellsworth regarding that. off AC apt was made with Dr. Ellsworth 2- RUE hematoma . stable 3- L glenoid Fx . conservative mgt 5- Hyponatremia: due to HCTZ, resolved. will not cont HCTZ at dc . will ask her to aovoid free water excess 4-hyperkalemia : resolved .will resume diovan. repeat BMP in few days after dc and if K is elevated again, will need to dc diovan and not use again 5- HTN: cont atenolol and resume diovan 6- DM : resume oral meds at dc dc to rehab today . plan was d/w pt and
[2017-02-13 15:13] VITALS: BP 105/48; PULSE 71; TEMP 98.1
--- NOTE | 2017-02-13 15:36 | EKG ---
Test Reason : Blood Pressure : / mmHG Vent. Rate : 080 BPM Atrial Rate : 080 BPM P-R Int : 160 ms QRS Dur : 068 ms QT Int : 376 ms P-R-T Axes : 039 003 051 degrees QTc Int : 433 ms NORMAL SINUS RHYTHM NORMAL ECG WHEN COMPARED WITH ECG OF 26-JAN-2017 17:26, NO SIGNIFICANT CHANGE WAS FOUND Confirmed by JESSICA CRISTINA MD ([id number]) on 02/13/2017 3:36:35 PM Referred By: MICHELLE DIAZ Confirmed By:JESSICA CRISTINA MD
--- NOTE | 2017-02-13 16:25 | DS ---
Physical Exam: SUBJECTIVE: Patient seen and examined at bed side this morning. Complained of headache. Pain still persists in the right and left upper arm but it has improved. OBJECTIVE: Vital Signs Period Temp Pulse Resp BP Sys/Duvall Pulse Ox Last 24 Hr 98.0 F-98.7 F 65-84 18-20 98-122/48-64 98-100 PHYSICAL EXAM GENERAL: Moderately built female, patient is lying in bed, lying in bed comfortably, awake, alert, and fully oriented, in no acute distress. HEAD: Normal with no signs of trauma. EYES: EOM intact, no pallor or icterus. ENT: Ears normal, moist mucous membranes. NECK: Trachea midline, full range of motion, supple. LUNGS: Breath sounds equal, clear to auscultation bilaterally, no wheezes, no crackles, no accessory muscle use. HEART: Regular rate and rhythm, S1, S2 without murmur. ABDOMEN: Soft, nontender, nondistended, normoactive bowel sounds, no guarding, no rebound, no hepatosplenomegaly, no masses. LOWER EXTREMITIES: 2+ pulses, warm, well-perfused, no edema. RIGHT UPPER EXTREMITY: Swollen than the left and swelling slightly improved , tenderness on palpation from the elbow up, irregular ecchymosis in the right medial aspect of the arm which has extended towards the mid forearm (resolving) and upper axilla (more than yesterday), ROM limited but improved in both extremities R>L, sensation intact, radial pulses 2+ LEFT UPPER EXTREMITY: No erythema or tenderness, ROM limited. NEUROLOGICAL: Cranial nerves II through XII grossly intact. Normal speech, Gait not observed. PSYCH: Normal mood, normal affect. SKIN: Warm, dry, ecchymosis on the right mid axillary area, normal turgor, small area of erythema on the back of the left side of the neck. LABS Laboratory Results - last 24 hr 02/12/17 02/13/17 02/13/17 17:14 06:00 06:00 Sodium 139 Potassium 5.0 Chloride 101 Carbon Dioxide 29 Anion Gap 9 BUN 13 Creatinine 0.8 POC Glucometer 174 Random Glucose 139 H Calcium 8.8 Total Bilirubin 1.3 H Direct Bilirubin 0.3 H D AST 26 D ALT 29 D Alkaline Phosphatase 100 D Total Protein 6.1 L D Albumin 3.5 D 02/13/17 02/13/17 06:09 11:03 Sodium Potassium Chloride Carbon Dioxide Anion Gap BUN Creatinine POC Glucometer 110 121 Random Glucose Calcium Total Bilirubin Direct Bilirubin AST ALT Alkaline Phosphatase Total Protein Albumin 01/29/17: Duplex of right upper arm. Schultz scale, pulse Doppler and color Doppler images of the right upper extremity venous system including the internal jugular and subclavian vein were obtained. The right internal jugular, subclavian vein and axillary vein demonstrates normal phasic waveform, adequate compressibility and adequate response to augmentation. There is thrombosis of the right brachial vein. Normal flow in the right radial and ulnar vein. There is also normal flow in the cephalic and basilic vein. There is a hypoechoic complex oval-shaped masslike density in the upper/medial arm measuring 7.3 x 2.2 cm that may represent a hematoma/complex collection. 02/02/2017 Duplex of right arm: In comparison to a prior ultrasound exam of 01/29 note is made of interval development of thrombus within the right axillary and subclavian veins. HOSPITAL COURSE: Date of Admission:01/26/17 Date of Discharge: 02/13/17 Patient is a 71 year of female with significant past medical history of NIDDM, HTN, HLD, gout affecting L 1st toe, and L shoulder arthroscopy in 2010, who returned to ED after her prior visit 2 days prior to admission due to persistent L shoulder pain. Patient was admitted for evaluation of Left shoulder pain but found to be hyponatremic, was an incidental finding on admission Na 118 which was normal in 12/07/2016. Most likely due to HCTZ use (Home meds). Treated her for asymptomatic hyponatremia with IV NS and Salt tablets. However, it didn't get corrected. She was then transferred to the ICU, a midline catheter was placed in the right upper arm and 3 % hypertonic saline was started with close monitoring of the the sodium rise. Sodium normalized and was transferred back to Med-Surg. Upon discharge, recommended patient to continue fluid restriction to 1.5 L and to follow up with Dr. Richter (Nephrology) in 2 weeks and to stop taking HCTZ. While the midline catheter (right upper arm) was in situ, she complained of pain over the right upper arm. Hence, an USG was done which showed a hematoma 8.7 x 3.5 cm in the right upper arm, and a DVT in brachial vein , so Vascular surgeon was consulted who suggested to manage conservatively and start anticoagulation . Elliquis was started and pt HB remained stable . One day pt complained of increased pain in RUE so US was repeated to show increased hematoma size and extensionof DVT to axillary and sub-clavian veins . Elliquis and Aspirin both were stopped. VAscular was invited again to evaluate pt. She was not felt tohave co mpartment syndrome , and an SVC filter was placed on 02/03. She did well after that and her UE function has somewhat returned. Referred to Dr. Ellsworth upon discharge (has an appointment on 01/25/2017 @ 11:30am) . Aspirin discontinued upon discharge and to be continued when appropriate ( per Dr. Ellsworth ) . Mild Hyperkalemia was noted during her hospitalization and diovan was held. K became NL and diovan was resumed upon dc. she will need K checked as out tp , to determine whether she can cont diovan or not . Stool occult was positive 01/31/17 Most likely hemorrhoidal bleed. Patient refused to a per rectal examination. She mentioned that last colonoscopy was three years ago and was found to have internal hemorrhoids and polyps in the colon. Referred to Dr. Ann (GI) to follow up as outpatient. Left shoulder pain due to Left glenoid fracture: was seen by Ortho and conservative mgt was deemed appropriate Patient has been sent to [facility] for a short term rehabilitation. Plan of care explained to the patient, her and son. They verbalized understanding. Case seen and discussed with Dr. Devi. Minutes to complete discharge: 45 Discharge Summary Reason For Visit: HYPONATREMIA / SHOULDER PAIN Current Active Problems DVT (deep venous thrombosis) (Acute) Hematoma (Acute) Hyponatremia (Acute) Left shoulder pain (Acute) Muscle spasm (Chronic) Condition: Improved - Instructions Diet, Activity, Other Instructions: You were admitted for evaluation of left shoulder pain. You were treated for hyponatremia and Right upper extremity DVT (you have a SVC filter placed). Please follow up with Dr. Ellsworth at his clinic in 2 weeks for evaluation of duration of the filter. We have arranged for a short term rehab. Appointment with Dr. Ellsworth has been scheduled on 01/25/2017 @ 11:30am ( [phone]) We stopped Hydrochlorothiazide (HCTZ), please do not take it as it may cause hyponatremia. Please follow with Dr. Ann from GI , to evaluate for trace blood in your stool. F/up with your primary doctor in a week. Return to the Emergency Department if your symptoms get worse or if you develop any new symptoms. Need blood work ( CMP, CBC ) in 4 days . If your Potassium is elevated again , then valsartan to be stopped. you need your sodium checked weekly from now on untill your sodium is stable try not to drink too much free water (restrict 1.5L of fluids) Please follow up with Dr. Richter (Nephrology) for your low sodium. Aspirin was stopped due to your bleed. it might be resumed when appropriate and when Dr. Ellsworth is OK with it ( for hematoma ) Referrals: [facility] [Outside] Balaji Ann MD [Staff Physician] - 1 Week Dion Russell MD, MD [Primary Care Provider] - 1 Week Bro Ellsworth MD [Staff Physician] - 2 Weeks (Appointment scheduled on 02/25/2017 @ 11:30am) Roni Richter MD [Staff Physician] - Davy Chinchilla MD [Staff Physician] - Disposition: LONGTERM FACILITY - Home Medications Comprehensive Discharge Medication List: Ambulatory Orders Atenolol [Tenormin -] 50 mg PO BID 06/17/16 Sitagliptin Phos/Metformin HCl [Janumet 50-500 mg Tablet] 1 each PO DAILY Valsartan 160 mg PO BID 06/17/16 Atorvastatin Ca [Lipitor] 40 mg PO HS #30 tablet 06/19/16 Methocarbamol [Robaxin -] 500 mg PO BID #60 tablet 01/25/17 Oxycodone HCl/Acetaminophen [Percocet 5-325 mg Tablet] 1 tab PO Q6H #20 tablet MDD 4 01/25/17 This patient is new to me today: No Emergency Visit: Yes ED Registration Date: 01/26/17 Care time: The patient presented to the Emergency Department on the above date and was hospitalized for further evaluation of their emergent condition. Critical Care patient: No - Discharge Referral Referred to [facility] No
== END 2017-02-13 17:09 | DRG 629 ==
LOC: JER 16:50 → JERBED 19:36 → J6S 22:33 → JICU 01-27 12:13 → J7W 01-29 17:19
PROVIDERS: ADMIT Internal Medicine; ATTEND Internal Medicine
PROC: 06H03DZ Insertion of Intraluminal Device into Inferior Vena Cava, Percutaneous Approach (ICD-10-PCS; principal; 2017-02-02)
PROC: B518YZZ Fluoroscopy of Superior Vena Cava using Other Contrast (ICD-10-PCS; 2017-02-02)
DX: E87.1 Hypo-osmolality and hyponatremia (principal); I82.621 Acute embolism and thrombosis of deep veins of right upper extremity; I82.A11 Acute embolism and thrombosis of right axillary vein; S42.142A Displaced fracture of glenoid cavity of scapula, left shoulder, initial encounter for closed fracture; I10 Essential (primary) hypertension; E11.9 Type 2 diabetes mellitus without complications; E78.5 Hyperlipidemia, unspecified; M10.9 Gout, unspecified; R11.2 Nausea with vomiting, unspecified; D64.9 Anemia, unspecified; X58.XXXA Exposure to other specified factors, initial encounter; Y93.89 Activity, other specified; Y92.098 Other place in other non-institutional residence as the place of occurrence of the external cause; Y99.8 Other external cause status; K59.00 Constipation, unspecified; M79.81 Nontraumatic hematoma of soft tissue; K64.9 Unspecified hemorrhoids; R19.5 Other fecal abnormalities; E87.5 Hyperkalemia; Z79.84 Long term (current) use of oral hypoglycemic drugs; R51 Headache
CPT/HCPCS: 36415; 73200-TC-RT; 76000-TC; 76882; 80048; 80053; 80076; 81003; 81015; 82272; 82436; 82550; 82570; 82947; 83036; 83735; 83930; 83935; 84100; 84133; 84156; 84295; 84300; 84439; 84443; 84484; 84540; 84588; 85025; 85027; 85610; 93005; 93010; 93971; 94010; 94760; 97116-GP; 97161; 99284-25; J1644

== ENCOUNTER 2018-11-20 20:53 | Emergency (ER) | payer BC ==
--- NOTE | 2018-11-20 23:14 | PDOC ---
Attending Attestation - HPI HPI: 11/21/18 00:13 The patient is a 73-year-old female with a past medical history significant for NIDDM, HTN, HLD, gout affecting L 1st toe, L shoulder arthroscopy in 2010, L. Guerrero cyst and Right arm blood clot presents to the emergency department with elevated blood pressure. The patient reports at home her BP was noted to be 240 s systolic, associated with chest pressure that had resolved and a mild headache. The patient states the elevated BP might be attributed to eating too much sodium in the last 3 weeks. The patient reports she was placed on 600 mg of Ibuprofen for L arm pain by Dr. abbott about 2 weeks, which she takes 400 mg BID. The patient states she didnt take the pain medication till 7:00 pm today, which might be a reason for the elevated BP. The patient reports being compliant with BP medication. Denies fever, chills, SOB, urinary symptoms or changes in bowel habits. Denies lightheadedness or dizziness. Allergies: NKDA Social history: No tobacco, alcohol or drug use reported PCP: Dr. Russell. - Physicial Exam PE: 11/21/18 00:34 GENERAL: Awake, alert, and fully oriented, in no acute distress HEAD: No signs of trauma EYES: PERRLA, EOMI, sclera anicteric, conjunctiva clear ENT: Auricles normal inspection, hearing grossly normal, nares patent, oropharynx clear without exudates. Moist mucosa NECK: Normal ROM, supple, no lymphadenopathy, JVD, or masses LUNGS: Breath sounds equal, clear to auscultation bilaterally. No wheezes, and no crackles HEART: Regular rate and rhythm, normal S1 and S2, no murmurs, rubs or gallops ABDOMEN: Soft, nontender. No guarding, no rebound. No masses EXTREMITIES: Normal range of motion, no edema. No clubbing or cyanosis. No cords, erythema, or tenderness NEUROLOGICAL: Cranial nerves II through XII grossly intact. Normal speech, normal gait. Speaking in full sentence. 5/5 strength. SKIN: Warm, Dry, normal turgor, no rashes or lesions noted. - Medical Decision Making 11/21/18 00:09 Documentation prepared by Onelia Millard, acting as medical records manager for Jacquelyn Gamble DO. <Onelia Millard - Last Filed: 11/21/18 00:34> - Resident Resident Name: HilarioRhys zuniga - ED Attending Attestation I have performed the following: I have examined & evaluated the patient, The case was reviewed & discussed with the resident, I agree w/resident's findings & plan, Exceptions are as noted - Medical Decision Making 11/20/18 23:00 I, Dr. Jacquelyn Gamble, DO, attest that this document has been prepared under my direction and personally reviewed by me in its entirety. I further attest, that it accurately reflects all work, treatment, procedures and medical decision -making performed by me. 11/21/18 00:31 a/p: 73yo female with hx of htn with elevated bp tonight -cerda, but neuro intact -no cp, no sob -states eating more salt and taking nsaids for L shoulder pain -dx with arthritis by Dr. Chinchilla, hx of surgery to L shoulder -pt with bp 230 systolic -compliant with her valsartan and atenolol -will send labs, head ct, cxr, ekg -will monitor and reassess 11/21/18 01:28 bp improved trop negative <Jacquelyn Gamble - Last Filed: 11/21/18 01:29> Heart Score/ECG Review - ECG Intrepretation Comment:: 11/21/18 01:29 sinus at 65, nl axis, nl interval, no acute st/t wave findings <Jacquelyn Gamble - Last Filed: 11/21/18 01:29>
--- NOTE | 2018-11-20 23:28 | PDOC ---
History of Present Illness - General Chief Complaint: Blood Pressure Problem Time Seen by Provider: 11/20/18 22:59 History Source: Patient Exam Limitations: No Limitations - History of Present Illness Initial Comments: 11/20/18 23:21 73 yo female pmh significant for HTN, HLD, DM and blood clots (IV filter in place 2016) presents to the ED with elevated BP from home. Pt states she took her BP medications as prescribed and noted elevated bp in the 200s at home around 3 pm but after rechecking through the day it remained elevated. Pts normal BP at home is 120s/80s. Pt admits to recently eating more salt within the last week than usual, increased stress due to being anxious about flying to [place] [facility], and also increased left shoulder pain (sees orthopedics for rotator cuff problems) due to forgetting to take Ibuprofen. Pt does admit to chest pressure and a frontal LEWIS different from past LEWIS. Denies LOC, changes in vision or speech, confusion, weakness or sensory changes on 1 side of her body, N/V Past History - Past Medical History Allergies/Adverse Reactions: Allergies Allergy/AdvReac Type Severity Reaction Status Date / Time No Known Allergies Allergy Verified 01/26/17 17:10 Home Medications: Ambulatory Orders Atenolol [Tenormin -] 50 mg PO BID 06/17/16 Sitagliptin Phos/Metformin HCl [Janumet 50-500 mg Tablet] 1 each PO DAILY Valsartan 160 mg PO BID 06/17/16 Atorvastatin Ca [Lipitor] 40 mg PO HS #30 tablet 06/19/16 Methocarbamol [Robaxin -] 500 mg PO BID #60 tablet 01/25/17 Oxycodone HCl/Acetaminophen [Percocet 5-325 mg Tablet] 1 tab PO Q6H #20 tablet MDD 4 01/25/17 Amlodipine Besylate [Norvasc -] 5 mg PO DAILY #14 tab 11/21/18 Asthma: Yes (mild) Cardiac Disorders: Yes (cardiac cath 1998) Diabetes: Yes HTN: Yes Hypercholesterolemia: Yes - Surgical History Cardiac Surgery: Yes Orthopedic Surgery: (left rotator cuff sx 2009) - Immunization History Immunization Up to Date: Yes - Suicide/Smoking/Psychosocial Hx Smoking History: Never smoked Have you smoked in the past 12 months: No Hx Alcohol Use: No Drug/Substance Use Hx: No Substance Use Type: None Hx Substance Use Treatment: No Review of Systems - Review of Systems Constitutional: No: Chills, Fever HEENTM: No: Blurred Vision, Double Vision, Difficulty Swallowing Respiratory: No: Shortness of Breath Cardiac (ROS): No: Chest Pain (admits chest pressure) ABD/GI: No: Constipated, Diarrhea, Nausea, Vomiting : No: Burning, Dysuria, Frequency, Flank Pain Integumentary: No: Change in Color Neurological: Yes: Headache. No: Numbness, Paresthesia, Weakness, Ataxia, Dizziness *Physical Exam - Physical Exam General Appearance: Yes: Nourished, Appropriately Dressed. No: Apparent Distress HEENT: positive: EOMI, SANDRA Neck: positive: Supple Respiratory/Chest: positive: Lungs Clear, Normal Breath Sounds. negative: Accessory Muscle Use, Crackles, Rhonchi, Stridor, Wheezing Cardiovascular: positive: Regular Rhythm, Regular Rate, S1, S2. negative: Edema , JVD, Murmur Vascular Pulses: Dorsalis-Pedis (R): 4+, Doralis-Pedis (L): 4+ Gastrointestinal/Abdominal: positive: Flat, Soft. negative: Pulsatile Mass, Guarding, Rebound, Tenderness Musculoskeletal: negative: CVA Tenderness Extremity: positive: Normal Capillary Refill, Normal Inspection Integumentary: positive: Normal Color, Dry, Warm Neurologic: positive: therapy site coordinator II-XII NML intact, Fully Oriented, Alert, Normal Mood/ Affect, Normal Response, Motor Strength 5/5, Finger to Nose (normal). negative : Facial Droop, Numbness, Sensory Deficit, Confused, Disoriented ED Treatment Course - LABORATORY CBC & Chemistry Diagram: 11/20/18 23:48 11/20/18 23:48 - RADIOLOGY Radiology Studies Ordered: Category Date Time Status CHEST X-RAY PORTABLE* [RAD] Stat Radiology 11/20/18 23:00 Ordered Medical Decision Making - Medical Decision Making 11/21/18 02:15 73 yo female presents with elevated BP after taking medications at home. Pt has chest pressure and LEWIS without concerning neuro s/s Vitals in ED show BP in the 230s otherwise WNL Head CT shows no acute path EKS NSR no ST changes 5 mg norvasc given, BP now 170s. Tylenol and Reglan given for LEWIS and pt is asymptomatic Pt will have 2nd trop done due to minor elevation and elevated BP Pending second trop, likely DC home if normal 14 days of 5 mg norvasc sent to pharmacy Pt agrees to see PCP and Reheat Furnace Operator lorrie S/O to Dr. Faustin for further care *DC/Admit/Observation/Transfer Diagnosis at time of Disposition: Elevated blood pressure reading - Discharge Dispostion Disposition: HOME Condition at time of disposition: Stable Decision to Admit order: No - Prescriptions Prescriptions: Amlodipine Besylate [Norvasc -] 5 mg PO DAILY #14 tab - Referrals - Patient Instructions Printed Discharge Instructions: DI for High Blood Pressure Additional Instructions: Please make an appointment with your Primary Doctor and Reheat Furnace Operator within the next 48 hours. Take the medication Norvasc as prescribed in addition to your current blood pressure medicine until you get further direction from your Primary Doctors. Return to the ER for new or concerning symptoms including but not limited to: continued elevated blood pressure, chest pain, shortness of breath, headaches, changes in vision/speech, weakness/sensory changes on 1 side of your body or confusion. Thank you - Post Discharge Activity
[2018-11-20] MEDS ORDERED: amLODIPine BESYLATE 5 MG TABLET (FP) PO ONE (23:29)
[2018-11-20] MEDS ORDERED: amLODIPine BESYLATE 5 MG TABLET (FP) ONE (23:36)
[2018-11-20] MEDS ORDERED: ACETAMINOPHEN 1000 MG/100 ML VIAL (NON FORMULARY) IVPB ONE (23:42)
[2018-11-20] MEDS ORDERED: METOCLOPRAMIDE HCL INJECTION 10 MG/2 ML VIAL IVPUSH ONE (23:42)
[2018-11-20 23:55] LABS: BASO % 0.5 % (0-2.0); EOS % 1.7 % (0-4.5); HEMATOCRIT 48.6 % (32.4-45.2); HEMOGLOBIN 16.4 GM/dL (10.7-15.3); LYMPH % 24.4 % (8-40); MCH 31.7 pg (25.7-33.7); MCHC 33.8 g/dl (32.0-36.0); MEAN CELL VOLUME 93.6 fl (80-96); MEAN PLT VOLUME 9.9 fl (7.5-11.1); MONO % 4.4 % (3.8-10.2); PLATELET COUNT 244 K/MM3 (134-434); RBC 5.19 M/mm3 (3.60-5.2); RDW 13.3 % (11.6-15.6); WHITE BLOOD COUNT 10.1 K/mm3 (4.0-10.0)
[2018-11-20 23:57] LABS: URINE APPEARANCE CLEAR; URINE BILIRUBIN NEGATIVE (<2.0 mg/dL); URINE COLOR COLORLESS; URINE GLUCOSE (UA) NEGATIVE (NEGATIVE); URINE KETONE NEGATIVE (NEGATIVE); URINE LEUK ESTERASE NEGATIVE (NEGATIVE); URINE NITRITE NEGATIVE (NEGATIVE); URINE PROTEIN 2+ (NEGATIVE); URINE UROBILINOGEN NEGATIVE mg/dL (0.2-1.0)
[2018-11-21 00:12] VITALS: BMI 23.4
[2018-11-21 00:49] LABS: EPI CELLS RARE /HPF (FEW)
[2018-11-21] MEDS ORDERED: METOCLOPRAMIDE HCL INJECTION 10 MG/2 ML VIAL ONE (01:02)
[2018-11-21] MEDS ORDERED: ACETAMINOPHEN INJECTION 100 ML IVPB ONE (01:02)
[2018-11-21 01:07] LABS: ANION GAP 8 MMOL/L (8-16); BLOOD UREA NITROGEN 12 mg/dL (7-18); CHLORIDE 100 mmol/L (98-107); CO2 28 mmol/L (21-32); CREATININE 0.8 mg/dL (0.55-1.3); GLUCOSE,RANDOM 115 mg/dL (74-106); POTASSIUM 3.8 mmol/L (3.5-5.1); SODIUM 136 mmol/L (136-145)
[2018-11-21 01:08] LABS: ALBUMIN 4.4 g/dl (3.4-5.0); ALK PHOS 115 U/L (45-117); BILIRUBIN,TOTAL 0.8 mg/dL (0.2-1); CALCIUM 9.4 mg/dL (8.5-10.1); N-TERMINAL BNP 663.08 pg/ml (5-125); SGOT/AST 3 U/L (15-37); SGPT/ALT 36 U/L (13-61); TOT PROT 8.6 g/dl (6.4-8.2)
[2018-11-21 01:17] VITALS: BP 172/70; PULSE 98; TEMP 98.5
--- NOTE | 2018-11-21 02:21 | PDOC ---
*Physical Exam - Vital Signs Last Vital Signs Temp Pulse Resp BP Pulse Ox 98.5 F 98 H 19 172/70 H 100 11/21/18 01:16 11/21/18 01:16 11/21/18 01:16 11/21/18 01:16 11/21/18 01:16 ED Treatment Course - LABORATORY CBC & Chemistry Diagram: 11/20/18 23:48 11/20/18 23:48 - ADDITIONAL ORDERS Additional order review: Laboratory Results 11/20/18 11/20/18 23:48 23:48 Sodium 136 Potassium 3.8 Chloride 100 Carbon Dioxide 28 Anion Gap 8 BUN 12 Creatinine 0.8 Creat Clearance w eGFR > 60 Random Glucose 115 H Calcium 9.4 Total Bilirubin 0.8 AST 3 L ALT 36 Alkaline Phosphatase 115 Creatine Kinase 120 Troponin I 0.04 B-Natriuretic Peptide 663.08 H Total Protein 8.6 H Albumin 4.4 Urine Color Colorless Urine Appearance Clear Urine pH 7.0 Ur Specific Montalba 1.004 L Urine Protein 2+ H Urine Glucose (UA) Negative Urine Ketones Negative Urine Blood Negative Urine Nitrite Negative Urine Bilirubin Negative Urine Urobilinogen Negative Ur Leukocyte Esterase Negative Urine WBC (Auto) 1 Urine RBC (Auto) <1 Ur Epithelial Cells Rare 11/20/18 23:48 RBC 5.19 MCV 93.6 MCHC 33.8 RDW 13.3 MPV 9.9 Neutrophils % 69.0 Lymphocytes % 24.4 Monocytes % 4.4 Eosinophils % 1.7 Basophils % 0.5 Medical Decision Making - Medical Decision Making 11/21/18 02:17 Sign out received from Dr Hyde. Fidelia Vegas is a 73yo woman with a PMH of HTN, HLD, NIDDM, gout, R arm thrombus s/p IVC filter who presented to the ED tonight with hypertension (SBP in 230's) and LEWIS. ED course notable for labs completed, trop 0.4, BNP 663. EKG without concerning abnormalities. CT head completed; no acute bleed or abnormality noted. Given 5mg amlodipine with improvement in BP to SBP 170's - Plan for repeat trop at 3hrs - If repeat trop negative, will d/c with cardiology follow up. 11/21/18 04:22 - Repeat troponin 0.02. Discussed with Ms Vegas, who agrees to start taking amlodipine at home and follow up with cardiology. - Will d/c home Discussed with Audrey Gamble and Kali. Monika Faustin PGY1 *DC/Admit/Observation/Transfer Diagnosis at time of Disposition: Elevated blood pressure reading - Discharge Dispostion Disposition: HOME Condition at time of disposition: Stable - Prescriptions Prescriptions: Amlodipine Besylate [Norvasc -] 5 mg PO DAILY #14 tab - Referrals Referrals: Félix Ayon MD [Staff Physician] - - Patient Instructions Printed Discharge Instructions: DI for High Blood Pressure Additional Instructions: You were seen in the emergency department with high blood pressure and a headache. You had a head CT scan to check for bleeding, but the results were normal. Your blood pressure improved with an additional medication called amlodipine (Norvasc). Home Care and Follow Up: Please make an appointment with your Primary Doctor and buncher machine (Dr Ayon) within the next 48 hours. Continue to take all of your home medications as previously prescribed. Take the new medication Norvasc as prescribed in addition to your current blood pressure medicine until you get further direction from your Primary Doctors. Return to the ER for new or concerning symptoms including but not limited to: continued elevated blood pressure, chest pain, shortness of breath, headaches, changes in vision/speech, weakness/sensory changes on 1 side of your body or confusion. Thank you - Post Discharge Activity
--- NOTE | 2018-11-22 11:55 | EKG ---
Test Reason : Blood Pressure : / mmHG Vent. Rate : 065 BPM Atrial Rate : 065 BPM P-R Int : 172 ms QRS Dur : 068 ms QT Int : 392 ms P-R-T Axes : 034 -19 066 degrees QTc Int : 407 ms NORMAL SINUS RHYTHM NORMAL ECG WHEN COMPARED WITH ECG OF 13-FEB-2017 10:13, NO SIGNIFICANT CHANGE WAS FOUND Confirmed by JESSICA CRISTINA MD ([id number]) on 11/22/2018 11:55:09 AM Referred By: Confirmed By:JESSICA CRISTINA MD
== END 2018-11-21 04:38 | disposition home or self-care (01) ==
LOC: JER 20:53
PROC: 3E033GC Introduction of Other Therapeutic Substance into Peripheral Vein, Percutaneous Approach (ICD-10-PCS; principal; 2018-11-20)
PROC: 3E033NZ Introduction of Analgesics, Hypnotics, Sedatives into Peripheral Vein, Percutaneous Approach (ICD-10-PCS; 2018-11-20)
DX: I10 Essential (primary) hypertension (principal); I25.10 Atherosclerotic heart disease of native coronary artery without angina pectoris; E11.9 Type 2 diabetes mellitus without complications; Z79.84 Long term (current) use of oral hypoglycemic drugs; E78.00 Pure hypercholesterolemia, unspecified; J45.909 Unspecified asthma, uncomplicated; Z86.718 Personal history of other venous thrombosis and embolism; Z95.828 Presence of other vascular implants and grafts; Z98.61 Coronary angioplasty status
CPT/HCPCS: 36415; 70450-TC; 71045-TC-FY; 80053; 81003; 81015; 82550; 83880; 84484; 85025; 93005; 93010; 99283-25; J0131